=== PATIENT | male | born 1955 | race Caucasian/White ===

== ENCOUNTER 2016-06-21 09:37 | Inpatient (IN) | payer OTHER ==
[~2016-06-21] VITALS: Ht 195.6 cm; Wt 62.2 kg
[2016-06-21] VITALS (9 sets, daily range): BP systolic 119–176; BP diastolic 72–105; PULSE 112–123; RESP 18–26; TEMP 97.8–99.1; O2SAT 92–98
[~2016-06-21 09:37] MED LIST: ALBU17I INH; ALBU2.5I INH; DUONI NEB; PRED10 PO
[2016-06-21] MEDS ORDERED: ALBU6.7H INH (09:54)
[2016-06-21] MEDS ORDERED: ASMA220A INH (09:54)
[2016-06-21] MEDS ORDERED: HYDR-3133 PO (09:54)
[2016-06-21] MEDS ORDERED: SODIUM CHLORIDE 0.9% FLUSH 10 ML FLUSH IVF PRN (10:00)
--- NOTE | 2016-06-21 10:02 | PD ---
HPI Chief Complaint: Respiratory Symptoms Time Seen by Provider: 09:43 Travel History International Travel<30 days: No Contact w/Intl Traveler<30days: No Traveled to known affect area: No History of Present Illness HPI This patient complains of shortness of breath. Symptoms are severe. He has very advanced COPD. He wears 5 L nasal cannula [id number]. He uses nebulizers at home. Unfortunately still smokes. He has chronic cough. He has chronic intermittent left chest wall pain that is had many times before. No injury. No fever. Paramedics gave him one nebulizer in route and IV Solu- Medrol dose. No alleviating factors. Duration 2 days PFSH Past Medical History Heart Rhythm Problems: No Cancer: No Cardiovascular Problems: No COPD: Yes Diabetes: No Diminished Hearing: No Endocrine: No Genitourinary: No Psychiatric: No Respiratory: Yes (COPD) Immunizations Current: No Thyroid Disease: No Tetanus Vaccination: < 5 Years Influenza Vaccination: Yes Past Surgical History Abdominal Surgery: Yes (HERNIA REPAIR) Social History Alcohol Use: No Tobacco Use: Yes (1 PACK PER MONTH) Substance Use: Yes (COCAINE USER, couple months ago) Allergies-Medications (Allergen,Severity, Reaction): Coded Allergies: Penicillin (Verified Allergy, Intermediate, RASH, 06/21/16) Reported Meds & Prescriptions Reported Meds & Active Scripts Active Reported Asmanex 120 Act Twisthaler (Mometasone 120 Act Inh) 220 Mcg/Act Inh 1 Puff INH BID Proventil Hfa 6.7 GM Inh (Albuterol Sulfate) 90 Mcg/Act Aer 2 Puff INH Q4-6H PRN Hydroxyzine HCl 25 Mg Tab 25 Mg PO HS PRN Review of Systems General / Constitutional: No: Fever Eyes: No: Visual changes HENT: Positive: Congestion, No: Headaches Cardiovascular: Positive: Chest Pain or Discomfort Respiratory: Positive: Cough, Shortness of Breath, Wheezing Gastrointestinal: No: Abdominal Pain Genitourinary: No: Dysuria Musculoskeletal: No: Pain Skin: No Rash Neurologic: No: Weakness Psychiatric: No: Depression Endocrine: No: Polydipsia Hematologic/Lymphatic: No: Easy Bruising Physical Exam Narrative GENERAL: Thin disheveled elderly appearing well-developed patient in respiratory distress. SKIN: Focused skin assessment reveals scabbed and heaped up skin lesions in the left forehead that look potentially cancerous. [facility]. HEAD: Atraumatic. Normocephalic. EYES: Pupils equal and round. No scleral icterus. No injection or drainage. ENT: No nasal bleeding or discharge. Mucous membranes pink and moist. NECK: Trachea midline. No JVD. CARDIOVASCULAR: Regular rate and rhythm. No murmur appreciated. RESPIRATORY: Positive accessory muscle use. Very diminished breath sounds throughout. Some rhonchi and expiratory wheeze. Breath sounds equal bilaterally. GASTROINTESTINAL: Abdomen soft, non-tender, nondistended. Hepatic and splenic margins not palpable. MUSCULOSKELETAL: No obvious deformities. No clubbing. No cyanosis. No edema. Has clear-cut and readily reproducible and obvious chest wall pain in the left upper chest. NEUROLOGICAL: Awake and alert. No obvious cranial nerve deficits. Motor grossly within normal limits. Normal speech. PSYCHIATRIC: Appropriate mood and affect; insight and judgment poor. Data Data Last Documented VS Vital Signs Date Time Temp Pulse Resp B/P Pulse Ox O2 Delivery O2 Flow Rate FiO2 06/21/16 10:11 112 22 172/91 98 Nasal Cannula 5 06/21/16 09:40 98.4 Orders Electrocardiogram (06/21/16 ) Complete Blood Count With Diff (06/21/16 09:52) Basic Metabolic Panel (Bmp) (06/21/16 09:52) Iv Access Insert/Monitor (06/21/16 09:52) Ecg Monitoring (06/21/16 09:52) Oximetry (06/21/16 09:52) Oxygen Administration (06/21/16 09:52) Chest, Single Ap (06/21/16 09:52) Sodium Chloride 0.9% Flush (Ns Flush) (06/21/16 10:00) Albuterol-Ipratropium Neb (Duoneb Neb) (06/21/16 10:00) Oxycodone-Acetamin 5-325 Mg (Percocet (06/21/16 10:45) Labs Laboratory Tests Test 06/21/16 09:50 White Blood Count 17.4 TH/MM3 Red Blood Count 4.34 MIL/MM3 Hemoglobin 12.9 GM/DL Hematocrit 38.3 % Mean Corpuscular Volume 88.4 FL Mean Corpuscular Hemoglobin 29.7 PG Mean Corpuscular Hemoglobin 33.6 % Concent Red Cell Distribution Width 13.7 % Platelet Count 302 TH/MM3 Mean Platelet Volume 7.3 FL Neutrophils (%) (Auto) 81.1 % Lymphocytes (%) (Auto) 11.4 % Monocytes (%) (Auto) 5.4 % Eosinophils (%) (Auto) 1.7 % Basophils (%) (Auto) 0.4 % Neutrophils # (Auto) 14.1 TH/MM3 Lymphocytes # (Auto) 2.0 TH/MM3 Monocytes # (Auto) 0.9 TH/MM3 Eosinophils # (Auto) 0.3 TH/MM3 Basophils # (Auto) 0.1 TH/MM3 CBC Comment DIFF FINAL Differential Comment Sodium Level 138 MEQ/L Potassium Level 3.7 MEQ/L Chloride Level 96 MEQ/L Carbon Dioxide Level 41.4 MEQ/L Anion Gap 1 MEQ/L Blood Urea Nitrogen 10 MG/DL Creatinine 0.55 MG/DL Estimat Glomerular Filtration 151 ML/MIN Rate Random Glucose 104 MG/DL Calcium Level 9.1 MG/DL MDM Medical Decision Making Medical Screen Exam Complete: Yes Emergency Medical Condition: Yes Medical Record Reviewed: Yes Differential Diagnosis Differential diagnosis includes COPD, asthma, pneumonia, bronchitis, CHF Narrative Course I have reviewed the patient's electronic medical record. This is the patient's seventh visit for COPD since 2010 Patient arrives critically ill. He is having acute hypoxic respiratory failure and is laboring to breathe. IV placed I reviewed his EKG which shows sinus tachycardia Extended cardiac monitoring shows sinus tachycardia I reviewed his chest x-ray which shows stable COPD changes similar to prior I gave him a series of 3 nebulizer treatments On 5 L nasal cannula he is 90% We'll place him on oxygen mask CBC shows leukocytosis likely from his chronic steroid use Metabolic profile reasonably normal On recheck he is somewhat improved After all the above therapy and another recheck he is out of the critical state However not ready for discharge Saturations are now low to mid 90s on 5 L and he has poor air movement with some wheeze Recommending 23 hour observation for acute exacerbation of chronic COPD Initially critically ill but now improved to regular floor status His chest pain is clearly chest wall in origin and will not require further workup. I gave him a pain pill for it I've placed a call to the hospitalist to discuss Critical Care Narrative Aggregate critical care time was 34 minutes. Time to perform other separately billable procedures was not included in the critical care time. My time did not include minutes spent treating any other patients simultaneously or on activities that did not directly contribute to the patient's treatment. The services I provided to this patient were to treat and/or prevent clinically significant deterioration that could result in: Cardiopulmonary arrest, hypoxemic brain injury, respiratory collapse I provided critical care services requiring my management, as noted below: Chart data review, documentation time, medication orders and management, vital sign assessments/reviewing monitor data, ordering and reviewing lab tests, ordering and interpreting/reviewing x-rays and diagnostic studies, care of the patient and discussion of the patient with the admitting physicians. Diagnosis Primary Impression: Acute respiratory failure with hypoxia Additional Impression: COPD exacerbation Admitting Information Admitting Physician Requests: Observation Barak Huber MD Jun 21, 2016 10:01
[2016-06-21] MEDS: RESP: ALBUTEROL 2.5 MG/IPRATROPIUM 0.5 MG NEB (SCH) INH ×4 (10:04→23:53)
[2016-06-21 10:25] LABS: AUTOMATED NEUTROPHIL # 14.1 TH/MM3 (1.8-7.7); BASOPHIL # 0.1 TH/MM3 (0-0.2); BASOPHIL % 0.4 % (0.0-2.0); EOSINOPHIL # 0.3 TH/MM3 (0-0.4); EOSINOPHIL % 1.7 % (0.0-4.0); HEMATOCRIT 38.3 % (39.0-51.0); HEMO FLAGS DIFF FINAL; LYMPH % 11.4 % (9.0-44.0); MEAN CELL VOLUME 88.4 FL (80.0-100.0); MEAN CORPUSCULAR HEMOGLOBIN 29.7 PG (27.0-34.0); MEAN CORPUSCULAR HGB CONC 33.6 % (32.0-36.0); MONO % 5.4 % (0.0-8.0); NEUT % 81.1 % (16.0-70.0); PLATELET COUNT 302 TH/MM3 (150-450); RED BLOOD COUNT 4.34 MIL/MM3 (4.50-5.90); RED CELL DISTRIBUTION WIDTH 13.7 % (11.6-17.2); WHITE BLOOD COUNT 17.4 TH/MM3 (4.0-11.0)
--- NOTE | 2016-06-21 10:39 | RADRPT ---
EXAM DATE/TIME: 06/21/2016 09:51 [facility] COMPARISON: CT PULMONARY ANGIOGRAM, December 20, 2015, 15:51. CHEST SINGLE AP, December, 15:05. INDICATIONS : Shortness of breath. MEDICAL HISTORY : Chronic obstructive pulmonary disease. Emphysema. SURGICAL HISTORY : None. ENCOUNTER: Initial ACUITY: 1 day PAIN SCORE: 0/10 LOCATION: Bilateral chest FINDINGS: AP upright portable view of the chest demonstrates stable hyperinflation consistent with emphysema an d stable left lower lobe bronchiectasis. No evidence of pneumothorax or new air space opacity. The heart size is normal Vasculature is normal. Osseous structures are unremarkable. CONCLUSION: Stable emphysema and bronchiectasis of the left lower lobe. No new finding. Adrianne De Guzman MD on June 21, 2016 at 10:36 Board Certified Radiologist. This report was verified electronically.
[2016-06-21 10:41] LABS: BICARBONATE 41.4 MEQ/L (21.0-32.0); POTASSIUM 3.7 MEQ/L (3.5-5.1)
[2016-06-21] MEDS ORDERED: oxyCODONE/ACETAMINOPHEN 5 MG/325 MG TAB PO ONE (10:45)
[2016-06-21] MEDS ORDERED: SODIUM CHLORIDE 0.9% FLUSH 10 ML FLUSH IV FLUSH PRN (12:30)
[2016-06-21] MEDS ORDERED: RESP: ALBUTEROL 2.5 MG/3 ML NEB (PRN) INH (12:30)
[2016-06-21] MEDS: methylPREDNISolone SOD SUCC 125 MG/2 ML VIAL IVP SCH ×2 (12:42→19:59)
[2016-06-21] MEDS: ENOXAPARIN SODIUM 40 MG/0.4 ML SYRINGE SQ SCH (12:47)
[2016-06-21] MEDS ORDERED: AZITHROMYCIN 250 MG TAB PO SCH (13:00)
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
[2016-06-21] MEDS: ACETAMINOPHEN/HYDROcodone 325 MG/5 MG TAB PO PRN ×2 (19:59→23:58)
[2016-06-21] MEDS: SODIUM CHLORIDE 0.9% FLUSH 10 ML FLUSH IV FLUSH SCH (19:59)
[2016-06-21] MEDS: hydrOXYzine HCL 25 MG TAB PO SCH (20:00)
[2016-06-21] MEDS: BUDESONIDE-FORMOTEROL 160/4.5 MCG INHALER INH SCH (20:00)
[2016-06-22] VITALS (11 sets, daily range): BP systolic 108–141; BP diastolic 76–81; PULSE 103–123; RESP 18–22; TEMP 97.8–99.3; O2SAT 91–99
[2016-06-22] MEDS: RESP: ALBUTEROL 2.5 MG/IPRATROPIUM 0.5 MG NEB (SCH) INH ×6 (04:32→23:31)
[2016-06-22 05:04] LABS: AUTOMATED NEUTROPHIL # 24.7 TH/MM3 (1.8-7.7); BASOPHIL % 0.1 % (0.0-2.0); HEMATOCRIT 37.3 % (39.0-51.0); HEMO FLAGS DIFF FINAL; LYMPH % 1.9 % (9.0-44.0); LYMPHOCYTE # 0.5 TH/MM3 (1.0-4.8); MEAN CELL VOLUME 88.7 FL (80.0-100.0); MEAN CORPUSCULAR HEMOGLOBIN 29.1 PG (27.0-34.0); MEAN CORPUSCULAR HGB CONC 32.8 % (32.0-36.0); MONO % 2.9 % (0.0-8.0); NEUT % 95.1 % (16.0-70.0); PLATELET COUNT 261 TH/MM3 (150-450); RED CELL DISTRIBUTION WIDTH 13.4 % (11.6-17.2)
[2016-06-22 05:18] LABS: BICARBONATE 36.2 MEQ/L (21.0-32.0)
[2016-06-22] MEDS: methylPREDNISolone SOD SUCC 125 MG/2 ML VIAL IVP SCH ×2 (06:05)
[2016-06-22] MEDS: BUDESONIDE-FORMOTEROL 160/4.5 MCG INHALER INH SCH ×2 (07:58→20:44)
[2016-06-22] MEDS: SODIUM CHLORIDE 0.9% FLUSH 10 ML FLUSH IV FLUSH SCH ×2 (07:59→20:44)
[2016-06-22] MEDS ORDERED: MORPHINE SULFATE 4 MG/ML INJ IV PUSH PRN (09:30)
--- NOTE | 2016-06-22 09:39 | HHI.PR ---
Subjective Remarks Patient reports frustration this morning. He gets chest wall pain with coughing. He appears anxious as well. Breathing is better. He is requesting for pain medication through the IV but also indicated he does not want to stay in the hospital. Objective Vitals Vital Signs Date Time Temp Pulse Resp B/P Pulse Ox O2 Delivery O2 Flow Rate FiO2 06/22/16 08:38 98.0 114 19 108/81 94 06/22/16 07:35 98 Nasal Cannula 5.00 06/22/16 05:26 97.8 103 18 116/77 99 06/22/16 02:36 98.2 104 18 112/77 97 06/21/16 20:00 94 Nasal Cannula 5.00 06/21/16 19:03 98.1 115 18 132/78 95 06/21/16 15:36 99.1 117 22 119/72 95 06/21/16 12:43 97.8 112 22 134/86 97 Nasal Cannula 5 06/21/16 11:45 17 06/21/16 11:39 118 22 139/85 95 Nasal Cannula 5 06/21/16 10:11 112 22 172/91 98 Nasal Cannula 5 06/21/16 10:04 93 Nasal Cannula 5.00 06/21/16 09:57 120 26 94 Nasal Cannula 5 06/21/16 09:57 94 Nasal Cannula 5 06/21/16 09:46 123 24 Nasal Cannula 4 06/21/16 09:40 98.4 123 26 176/105 92 I/O 06/21/16 06/21/16 06/21/16 06/22/16 06/22/16 06/22/16 07:00 15:00 23:00 07:00 15:00 23:00 Intake Total 200 ml 480 ml Output Total 500 ml 350 ml Balance -300 ml 130 ml Intake Oral 200 ml 480 ml Output Urine Total 500 ml 350 ml # Voids 1 2 # Bowel Movements 0 Result Diagram: 06/22/16 0454 06/22/16 0454 Imaging Last Impressions Chest X-Ray 06/21/1652 Signed Impressions: Service Date/Time: Tuesday, June 21, 2016 09:51 - CONCLUSION: Stable emphysema and bronchiectasis of the left lower lobe. No new finding. Adrianne De Guzman MD Objective Remarks GENERAL: Disheveled male. Appears older than stated age. No acute distress. CARDIOVASCULAR: Normal rate and regular rhythm without murmurs, gallops, or rubs. RESPIRATORY: Air movement is fair. Faint wheezing diffusely. GASTROINTESTINAL: Abdomen soft, non-tender, non-distended. Normal active bowel sounds MUSCULOSKELETAL: Extremities without cyanosis, or edema. NEURO: Alert & Oriented x4 to person, place, time, situation. Moves all ext x4 PSYCH: Appropriate mood and affect. A/P Problem List: (1) Acute respiratory failure with hypoxia ICD Code: J96.01 Status: Acute (2) COPD exacerbation ICD Code: J44.1 Status: Acute (3) Tobacco abuse ICD Code: Z72.0 Status: Acute Assessment and Plan 60-year-old male with: Acute respiratory failure with hypoxemia secondary to COPD exacerbation: - Supplemental oxygen. He is back at his base line 5 L - Transition to oral prednisone - Azithromycin - Breathing treatments Chest wall pain associated with coughing: EKG and cardiac enzymes obtain an overnight. All unremarkable. - We'll give morphine for pain. Leukocytosis: Likely related to steroid. No signs of acute infectious process. History of cocaine abuse: Unsure when he last used. He seems very anxious today. - Will add Ativan as needed for anxiety. Tobacco abuse: Patient has no inclination to quit at this point. He was extensively counseled on the detrimental effects of tobacco on his health. He was advised to quit. Discharge Planning Continue to monitor the patient today. If he feels better later he can potentially go home on prednisone, azithromycin, resume breathing treatments and supplemental oxygen. Tray Guidry MD Jun 22, 2016 09:39
[2016-06-22] MEDS ORDERED: MORPHINE SULFATE 4 MG/ML INJ IV PUSH ONE (09:45)
[2016-06-22] MEDS ORDERED: MORPHINE SULFATE 4 MG/ML INJ IM ONE (10:00)
[2016-06-22] MEDS: predniSONE 20 MG TAB PO SCH (10:27)
[2016-06-22] MEDS: AZITHROMYCIN 250 MG TAB PO SCH (13:11)
[2016-06-22] MEDS: oxyCODONE/ACETAMINOPHEN 5 MG/325 MG TAB PO PRN ×2 (13:11→20:45)
[2016-06-22] MEDS: ENOXAPARIN SODIUM 40 MG/0.4 ML SYRINGE SQ SCH (13:12)
--- NOTE | 2016-06-22 14:13 | EKG ---
Date Performed: 06/22/2016 Time Performed: 05:44:12 PTAGE: 60 years EKG: SINUS TACHYCARDIA WITH OCCASIONAL SUPRAVENTRICULAR PREMATURE COMPLEXES ABNORMAL RHYTHM ECG Since PREVIOUS TRACING , no significant change noted PREVIOUS TRACIN06/21/2016 09.46 DOCTOR: Dhara Rosario Interpretating Date/Time 06/22/2016 14:12:05
--- NOTE | 2016-06-22 14:13 | EKG ---
Date Performed: 06/21/2016 Time Performed: 09:46:12 PTAGE: 60 years EKG: SINUS TACHYCARDIA POSSIBLE INFERIOR MYOCARDIAL INFARCTION Since previous tracing, no signif icant change noted ABNORMAL ECG PREVIOUS TRACING : 12/20/2015 14.47 DOCTOR: Dhara Rosario Interpretating Date/Time 06/22/2016 14:11:44
--- NOTE | 2016-06-22 15:33 | EC ---
Study Study Date:06/22/2016 STUDY CONCLUSIONS SUMMARY Procedure narrative: Valvular structures not visulized. Transthoracic echocardiography. Image quality was suboptimal. Scanning was performed from the parasternal, apical, and subcostal acoustic windows. If LV function is below 40, please consider prescribing an ACEI or ARB or document rationale for non-use. PROCEDURE DATA STUDY STATUS: Elective. Procedure: Valvular structures not visulized. Transthoracic echocardiography. Image quality was suboptimal. Scanning was performed from the parasternal, apical, and subcostal acoustic windows. Study completion: The patient tolerated the procedure well. Transthoracic echocardiography. M-mode, complete 2D, complete spectral Doppler, and color Doppler. Height: Height: 66in. Weight: Weight: 148.7lb. Body mass index: BMI: 24kg/m^2. Body surface area: BSA: 1.76m^2. Patient status: Inpatient. CARDIAC ANATOMY Patient weight: 148.7lb _Ejection fraction:_ 65-75% _Fractional shortening:_ 32% up to 5Kg 5-11.5Kg 11.6-22.9Kg 23-45Kg 45-57Kg Aortic Root 7-13 <17 13-22 17-27 17-27 LA diam 6-13 <23 24-38 33-47 37-40 RVID 10-17 7-15 7-15 7-18 8-17 LVIDd 12-22 <32 24-38 33-47 37-40 LVPW 2-4 3-6 5-7 6-8 7-8 IVS 2-4 3-6 5-7 6-8 7-8 BASIC MEASUREMENTS ADULT NORMAL Left ventricle LV internal dimension, ED 42.1 mm 37-56 LV internal dimension, ES 27.7 mm Fractional shortening 34 % 29-45 LV posterior wall, ED 9.79 mm 6-11 Septal/posterior wall ratio, ED 1 Relative wall thickness, ED *0.47 <0.45 Volume, ED, Teichholz 79 ml Volume, ES, Teichholz 28.8 ml Ejection fraction, Teichholz *63.5 % 64-83 Stroke volume, Teichholz 50.2 ml Volume index, ED, Teichholz 45 ml/m^2 Volume index, ES, Teichholz 16 ml/m^2 Stroke index, Teichholz 28.5 ml/m^2 Wall mass 133.8 g Wall mass index 76 g/m^2 Mass/height 0.8 g/cm Ventricular septum Septal thickness, ED 9.79 mm Right ventricle RV internal dimension, ED 25.9 mm LEGEND: Mean values are shown as u=mean value. Asterisk (*) hodgson values outside specified normal range. Prepared and signed by Monroe Robles [id number]
[2016-06-22] MEDS: hydrOXYzine HCL 25 MG TAB PO SCH (20:44)
[2016-06-23] VITALS (16 sets, daily range): BP systolic 104–136; BP diastolic 68–81; PULSE 109–143; RESP 16–24; TEMP 96.3–100.5; O2SAT 89–98
[2016-06-23] MEDS: RESP: ALBUTEROL 2.5 MG/IPRATROPIUM 0.5 MG NEB (SCH) INH ×5 (03:35→21:44)
[2016-06-23] MEDS: oxyCODONE/ACETAMINOPHEN 5 MG/325 MG TAB PO PRN ×2 (03:54→21:10)
[2016-06-23] MEDS: LORazepam 2 MG/ML VIAL IV PUSH PRN ×2 (03:55→09:15)
[2016-06-23] MEDS ORDERED: DILTIAZEM HCL 30 MG TAB PO ONE (04:45)
[2016-06-23] MEDS: SODIUM CHLORIDE 0.9% FLUSH 10 ML FLUSH IV FLUSH SCH ×2 (07:57→21:09)
[2016-06-23] MEDS: predniSONE 20 MG TAB PO SCH (07:57)
[2016-06-23] MEDS: BUDESONIDE-FORMOTEROL 160/4.5 MCG INHALER INH SCH ×2 (07:58→21:09)
--- NOTE | 2016-06-23 09:03 | HHI.PR ---
Subjective Remarks Patient with worsening respiratory failure overnight. Chest wall pain with cough but no pain at rest. Tachycardic this morning on a simple mask. Will require further workup and treatment. Admit to inpatient. Objective Vitals Vital Signs Date Time Temp Pulse Resp B/P Pulse Ox O2 Delivery O2 Flow Rate FiO2 06/23/16 08:44 143 20 91 06/23/16 08:01 100.5 138 20 104/68 89 06/23/16 07:16 91 Nasal Cannula 5.00 06/23/16 04:55 21 06/23/16 04:49 98.8 125 16 122/79 90 06/23/16 00:41 97.8 121 18 126/75 93 06/22/16 23:33 94 Nasal Cannula 5.00 06/22/16 20:30 120 06/22/16 20:16 98.7 119 18 141/79 91 06/22/16 20:06 94 Nasal Cannula 5.00 06/22/16 15:47 99.3 121 22 122/78 93 06/22/16 15:26 123 06/22/16 11:10 98.6 117 22 112/76 95 06/22/16 10:31 18 I/O 06/22/16 06/22/16 06/22/16 06/23/16 06/23/16 06/23/16 07:00 15:00 23:00 07:00 15:00 23:00 Intake Total 480 ml Output Total 350 ml 800 ml Balance 130 ml -800 ml Intake Oral 480 ml Output Urine Total 350 ml 800 ml # Voids 2 Result Diagram: 06/22/16 0454 06/22/16 0454 Objective Remarks GENERAL: Disheveled male. Appears older than stated age. Mild respiratory distress CARDIOVASCULAR: Normal rate and regular rhythm without murmurs, gallops, or rubs. RESPIRATORY: Air movement is fair. Diffuse wheezing and rhonchi mely. GASTROINTESTINAL: Abdomen soft, non-tender, non-distended. Normal active bowel sounds MUSCULOSKELETAL: Extremities without cyanosis, or edema. NEURO: Alert & Oriented x4 to person, place, time, situation. Moves all ext x4 PSYCH: Appropriate mood and affect. A/P Problem List: (1) Acute respiratory failure with hypoxia ICD Code: J96.01 Status: Acute (2) COPD exacerbation ICD Code: J44.1 Status: Acute (3) Tobacco abuse ICD Code: Z72.0 Status: Acute Assessment and Plan 60-year-old male with: Acute respiratory failure with hypoxemia secondary to COPD exacerbation: Worsening. - Obtain CTA to rule out PE - Supplemental oxygen. - Switch back to Solumedrol - Will treat with Azithromycin and Rocephin at this point. May have CAP not showing up on imaging yet. - Breathing treatments Sinus tachycardia: Likely related to above. Patient also with h/o cocaine abuse - Will give a dose of IV cardizem and monitor closely. By mouth Cardizem as needed. Ativan as needed - 2d echo. Chest wall pain associated with coughing: EKG and cardiac enzymes obtain an overnight. All unremarkable. - Morphine for pain. Cocaine abuse: - Ativan PRN Tobacco abuse: Patient has no inclination to quit at this point. He was extensively counseled on the detrimental effects of tobacco on his health. He was advised to quit. Discharge Planning Patient in respiratory failure. Admit to inpatient and transfer to higher level [facility] care in [facility] or [facility]. Tray Guidry MD Jun 23, 2016 09:03 Tray Guidry MD Jun 23, 2016 09:03
--- NOTE | 2016-06-23 09:06 | RADRPT ---
EXAM DATE/TIME: 06/23/2016 08:50 [facility] COMPARISON: CHEST SINGLE AP, June 21, 2016, 9:51. INDICATIONS : Patient has been short of breath since yesterday. MEDICAL HISTORY : Chronic obstructive pulmonary disease. Tobacco use. SURGICAL HISTORY : Hernia repair. ENCOUNTER: Initial ACUITY: 2 days PAIN SCORE: 0/10 LOCATION: Bilateral chest FINDINGS: There is multiple patchy right and left basilar airspace disease with more focal consolidative opacit y in the left midlung laterally. There is cardiomegaly. No effusions. Aortic calcification. Osseous s tructures are intact. Emphysematous changes are identified. CONCLUSION: Worsening appearance of the chest. Sunil Kenny MD on June 23, 2016 at 9:04 Board Certified Radiologist. This report was verified electronically.
[2016-06-23] MEDS: methylPREDNISolone SOD SUCC 40 MG/1 ML VIAL IV PUSH SCH ×3 (09:16→17:54)
[2016-06-23 09:29] LABS: AMPHETAMINE, URINE NEG (NEG); BARBITURATES, URINE NEG (NEG); COCAINE, URINE POS (NEG)
[2016-06-23] MEDS ORDERED: IOHEXOL 350 MG/ML 10 ML VIAL (for RAD DIAG) IV ONE (09:52)
--- NOTE | 2016-06-23 10:07 | RADRPT ---
EXAM DATE/TIME: 06/23/2016 09:31 [facility] COMPARISON: CHEST SINGLE AP, June 23, 2016, 8:50. CT PULMONARY ANGIOGRAM, December 20, 2015, 15:51. INDICATIONS : Short of breath. IV CONTRAST: 55 cc Omnipaque 350 (iohexol) IV RADIATION DOSE: 5.71 CTDIvol (mGy) MEDICAL HISTORY : Chronic obstructive pulmonary disease. SURGICAL HISTORY : None. ENCOUNTER: Initial ACUITY: 2 days PAIN SCALE: 4/10 LOCATION: Bilateral chest TECHNIQUE: Volumetric scanning of the chest was performed using a pulmonary embolism protocol MIP images were re constructed. Using automated exposure control and adjustment of the mA and/or kV according to patien t size, radiation dose was kept as low as reasonably achievable to obtain optimal diagnostic quality images. FINDINGS: There is severe respiratory motion artifact. PULMONARY ARTERIES: Less than optimal evaluation of the pulmonary state to be severe respiratory motion artifact. No PE i s identified through most of the lobar and some of the segmental level pulmonary arteries. LUNGS: There is severe centrilobular and paraseptal emphysema with bullous changes in the lung apices. There is severe airspace consolidation in the left upper lobe and left lower lobe. No pneumothorax is visu alized. PLEURAE: There is no pleural thickening or pleural effusion. MEDIASTINUM: The there is mild atherosclerotic disease of the aorta. The heart and great vessels demonstrate no ac kenyon finding. There is an enlarged AP window lymph node measuring 13 mm in short axis diameter. MUSCULOSKELETAL: There are degenerative changes of the thoracic spine. MISCELLANEOUS: The visualized upper abdominal organs demonstrate no acute abnormality. CONCLUSION: 1. Examination quality significantly degraded secondary to severe respiratory motion artifact. Given this limitation, no PE is identified. 2. Severe left upper and left lower lobe airspace consolidation. Imaging features are characteristic of an infectious process/pneumonia in the appropriate clinical setting. Recommend followup imaging to confirm resolution following appropriate treatment. 3. Enlarged AP window lymph node may be reactive secondary to the left lung process. 4. Severe emphysema. Titus Reyes MD on June 23, 2016 at 10:00 Board Certified Radiologist. This report was verified electronically.
[2016-06-23] MEDS ORDERED: DILTIAZEM HCL 25 MG/5 ML VIAL IV ONE (11:15)
[2016-06-23 11:22] LABS: AUTOMATED NEUTROPHIL # 24.9 TH/MM3 (1.8-7.7); BASOPHIL # 0.1 TH/MM3 (0-0.2); BASOPHIL % 0.4 % (0.0-2.0); HEMATOCRIT 38.4 % (39.0-51.0); LYMPHOCYTE # 0.5 TH/MM3 (1.0-4.8); MEAN CELL VOLUME 90.2 FL (80.0-100.0); MEAN CORPUSCULAR HEMOGLOBIN 28.9 PG (27.0-34.0); MEAN CORPUSCULAR HGB CONC 32.1 % (32.0-36.0); MONO % 4.8 % (0.0-8.0); NEUT % 92.8 % (16.0-70.0); PLATELET COUNT 238 TH/MM3 (150-450); RED BLOOD COUNT 4.26 MIL/MM3 (4.50-5.90); RED CELL DISTRIBUTION WIDTH 13.9 % (11.6-17.2); WHITE BLOOD COUNT 26.8 TH/MM3 (4.0-11.0)
[2016-06-23 11:24] LABS: HEMO FLAGS AUTO DIFF
[2016-06-23 11:47] LABS: BICARBONATE 36.9 MEQ/L (21.0-32.0)
[2016-06-23 12:28] LABS: BANDS 25 % (0-6); NEUTROPHIL # MANUAL DIFF 24.1 TH/MM3 (1.8-7.7); PLATELET ESTIMATE SMEAR NORMAL (NORMAL); PLATELET MORPHOLOGY NORMAL (NORMAL); POLYS (SEG NEUTROPHILS) 65 % (16-70); SCAN/DIFF FINAL DIFF MANUAL; WBC DIFF SAMPLE 100
[2016-06-23 12:29] LABS: TOXIC VACUOLATION PRESENT (NONE SEEN)
[2016-06-23] MEDS: ENOXAPARIN SODIUM 40 MG/0.4 ML SYRINGE SQ SCH (13:04)
[2016-06-23] MEDS: cefTRIAXone INJ 1,000 MG in SODIUM CHLORIDE 0.9% INJ 100 ML IV SCH (15:42)
[2016-06-23] MEDS: AZITHROMYCIN 250 MG TAB PO SCH (15:42)
[2016-06-23] MEDS: DILTIAZEM HCL 30 MG TAB PO SCH (17:54)
[2016-06-23] MEDS: hydrOXYzine HCL 25 MG TAB PO SCH (21:09)
[2016-06-24] VITALS (13 sets, daily range): BP systolic 107–143; BP diastolic 71–75; PULSE 74–98; RESP 18–20; TEMP 92–98.4; O2SAT 89–95
[2016-06-24] MEDS: RESP: ALBUTEROL 2.5 MG/IPRATROPIUM 0.5 MG NEB (SCH) INH ×6 (00:47→21:11)
[2016-06-24] MEDS: methylPREDNISolone SOD SUCC 40 MG/1 ML VIAL IV PUSH SCH ×4 (00:54→16:14)
[2016-06-24] MEDS: DILTIAZEM HCL 30 MG TAB PO SCH ×4 (00:54→16:14)
[2016-06-24] MEDS: cefTRIAXone INJ 1,000 MG in SODIUM CHLORIDE 0.9% INJ 100 ML IV SCH ×2 (03:46→16:14)
[2016-06-24] MEDS: oxyCODONE/ACETAMINOPHEN 5 MG/325 MG TAB PO PRN ×4 (04:59→20:33)
[2016-06-24] MEDS: BUDESONIDE-FORMOTEROL 160/4.5 MCG INHALER INH SCH ×2 (07:55→20:31)
[2016-06-24] MEDS: SODIUM CHLORIDE 0.9% FLUSH 10 ML FLUSH IV FLUSH SCH ×2 (07:56→20:31)
[2016-06-24 10:53] LABS: HEMATOCRIT 37.2 % (39.0-51.0); MEAN CELL VOLUME 88.8 FL (80.0-100.0); MEAN CORPUSCULAR HEMOGLOBIN 29.2 PG (27.0-34.0); MEAN CORPUSCULAR HGB CONC 32.9 % (32.0-36.0); PLATELET COUNT 232 TH/MM3 (150-450); RED BLOOD COUNT 4.19 MIL/MM3 (4.50-5.90); RED CELL DISTRIBUTION WIDTH 13.9 % (11.6-17.2); REVIEW FLAG FINAL; WHITE BLOOD COUNT 25.1 TH/MM3 (4.0-11.0)
[2016-06-24] MEDS: AZITHROMYCIN 250 MG TAB PO SCH (11:24)
[2016-06-24] MEDS: ENOXAPARIN SODIUM 40 MG/0.4 ML SYRINGE SQ SCH (11:24)
[2016-06-24 11:56] LABS: BICARBONATE 37.9 MEQ/L (21.0-32.0); POTASSIUM 3.9 MEQ/L (3.5-5.1)
--- NOTE | 2016-06-24 14:12 | HHI.PR ---
Subjective Remarks Patient reports his breathing is better today. No chest pain. He is hoping to go home tomorrow. Objective Vitals Vital Signs Date Time Temp Pulse Resp B/P Pulse Ox O2 Delivery O2 Flow Rate FiO2 06/24/16 08:44 93 Simple Mask 8.00 06/24/16 08:00 97.1 84 20 107/73 93 06/24/16 08:00 Simple Mask 5.00 06/24/16 04:00 97.3 74 18 114/71 94 06/24/16 03:35 92 Simple Mask 8.00 06/24/16 00:48 91 Simple Mask 8.00 06/24/16 00:00 92.0 93 18 111/73 90 06/23/16 21:46 98 Simple Mask 8.00 06/23/16 20:00 98.0 112 18 120/81 94 06/23/16 20:00 109 06/23/16 20:00 Simple Mask 5.00 06/23/16 18:18 133 06/23/16 17:23 91 Simple Mask 8.00 06/23/16 16:00 96.3 109 20 120/70 95 06/23/16 14:10 92 Simple Mask 8.00 I/O 06/23/16 06/23/16 06/23/16 06/24/16 06/24/16 06/24/16 07:00 15:00 23:00 07:00 15:00 23:00 Intake Total 480 ml 240 ml Output Total 200 ml 175 ml Balance 280 ml 65 ml Intake Oral 480 ml 240 ml Output Urine Total 200 ml 175 ml # Bowel Movements 0 0 Result Diagram: 06/24/16 0957 06/24/16 0957 Imaging Last Impressions Chest X-Ray 06/23/16 0000 Signed Impressions: Service Date/Time: Thursday, June 23, 2016 08:50 - CONCLUSION: Worsening appearance of the chest. Sunil Kenny MD CT Angiography 06/23/16 0000 Signed Impressions: Service Date/Time: Thursday, June 23, 2016 09:31 - CONCLUSION: 1. Examination quality significantly degraded secondary to severe respiratory motion artifact. Given this limitation, no PE is identified. 2. Severe left upper and left lower lobe airspace consolidation. Imaging features are characteristic of an infectious process/pneumonia in the appropriate clinical setting. Recommend followup imaging to confirm resolution following appropriate treatment. 3. Enlarged AP window lymph node may be reactive secondary to the left lung process. 4. Severe emphysema. Titus Reyes MD Objective Remarks GENERAL: Disheveled male. Appears older than stated age. Mild respiratory distress CARDIOVASCULAR: Normal rate and regular rhythm without murmurs, gallops, or rubs. RESPIRATORY: Diminished bilaterally at the bases. Otherwise clear to auscultation. No more wheezing today. GASTROINTESTINAL: Abdomen soft, non-tender, non-distended. Normal active bowel sounds MUSCULOSKELETAL: Extremities without cyanosis, or edema. NEURO: Alert & Oriented x4 to person, place, time, situation. Moves all ext x4 PSYCH: Appropriate mood and affect. A/P Problem List: (1) Acute respiratory failure with hypoxia ICD Code: J96.01 Status: Acute (2) COPD exacerbation ICD Code: J44.1 Status: Acute (3) Tobacco abuse ICD Code: Z72.0 Status: Acute Assessment and Plan 60-year-old male with: Acute respiratory failure with hypoxemia secondary to COPD exacerbation: -CTA negative for PE but consistent with pneumonia - Supplemental oxygen. -Continue Solumedrol -Continue Azithromycin and Rocephin - Breathing treatments Sinus tachycardia: Likely related to above. Patient also with h/o cocaine abuse - Cardizem as needed. Ativan as needed. Chest wall pain associated with coughing: EKG and cardiac enzymes obtain an overnight. All unremarkable. - Morphine for pain. Cocaine abuse: - Ativan PRN Tobacco abuse: Patient has no inclination to quit at this point. He was extensively counseled on the detrimental effects of tobacco on his health. He was advised to quit. Discharge Planning Patient slowly improving. Continue inpatient treatment. Tray Guidry MD Jun 24, 2016 14:12
[2016-06-24] MEDS: hydrOXYzine HCL 25 MG TAB PO SCH (20:33)
[2016-06-25] VITALS: BP 137/71; PULSE 96; RESP 20; TEMP 97.1; O2SAT 93
[2016-06-25] MEDS: RESP: ALBUTEROL 2.5 MG/IPRATROPIUM 0.5 MG NEB (SCH) INH ×4 (00:16→11:19)
[2016-06-25] MEDS: DILTIAZEM HCL 30 MG TAB PO SCH ×2 (00:18→04:40)
[2016-06-25] MEDS: oxyCODONE/ACETAMINOPHEN 5 MG/325 MG TAB PO PRN ×2 (00:18→04:40)
[2016-06-25] MEDS: methylPREDNISolone SOD SUCC 40 MG/1 ML VIAL IV PUSH SCH ×2 (00:19→04:40)
[2016-06-25] MEDS: cefTRIAXone INJ 1,000 MG in SODIUM CHLORIDE 0.9% INJ 100 ML IV SCH (03:18)
[2016-06-25 04:00] VITALS: BP 122/76; PULSE 80; RESP 20; TEMP 98.2; O2SAT 92
[2016-06-25 07:52] VITALS: O2SAT 92
[2016-06-25 07:53] VITALS: PULSE 80
[2016-06-25 08:00] VITALS: BP 131/84; PULSE 96; RESP 20; TEMP 98; O2SAT 90
[2016-06-25] MEDS: BUDESONIDE-FORMOTEROL 160/4.5 MCG INHALER INH SCH (09:09)
[2016-06-25] MEDS: SODIUM CHLORIDE 0.9% FLUSH 10 ML FLUSH IV FLUSH SCH (09:09)
[2016-06-25] MEDS ORDERED: AZIT250T3 PO (09:23)
[2016-06-25] MEDS ORDERED: SYMB160A INH (09:23)
[2016-06-25] MEDS ORDERED: OXYC1TAB63 PO (09:23)
[2016-06-25] MEDS ORDERED: PRED20 PO (09:24)
[2016-06-25] MEDS ORDERED: CEFU1TAB20 PO (09:24)
--- NOTE | 2016-06-25 09:24 | HHI.DCPOC ---
Discharge Care Plan Diagnosis: (1) Acute respiratory failure with hypoxia (2) Pneumonia (3) COPD exacerbation (4) Tobacco abuse (5) COPD exacerbation (6) Cocaine abuse Goals to Promote Your Health * To prevent worsening of your condition and complications * To maintain your health at the optimal level Directions to Meet Your Goals Take your medications as prescribed Follow your dietary instruction Follow activity as directed Keep your appointments as scheduled Take your immunizations and boosters as scheduled If your symptoms worsen call your PCP, if no PCP go to Urgent Care Center or Emergency Room Smoking is Dangerous to Your Health. Avoid second hand smoke Call the 24-hour hour crisis hotline for domestic abuse at Tray Guidry MD Jun 25, 2016 09:24
--- NOTE | 2016-06-25 09:25 | HHI.DS ---
Discharge Summary Admission Date Jun 23, 2016 at 08:55 Discharge Date: Jun 25, 2016 Admitting Diagnosis acute exac of chronic COPD (1) Acute respiratory failure with hypoxia ICD Code: J96.01 (2) COPD exacerbation ICD Code: J44.1 (3) Tobacco abuse ICD Code: Z72.0 Procedures None Brief History - From Admission 60-year-old male with advanced COPD/emphysema presents with complaint of shortness of breath that has been ongoing for the past couple of days. The patient used his nebulizer at home without relief. He denies any new cough, no fevers. He continues to smoke. The patient received IV Solu-Medrol and a few breathing treatment so far. Currently reports he is feeling better. Although he is improving, he was in obvious respiratory distress and hypoxemic on arrival , therefore hospitalist service contacted to admit him for observation for COPD exacerbation. CBC/BMP: 06/24/16 0957 06/24/16 0957 Significant Findings Laboratory Tests Test 06/22/16 06/22/16 06/23/16 06/23/16 11:33 18:07 09:09 11:00 Troponin I LESS THAN 0.02 LESS THAN 0.02 NG/ML NG/ML (0.02-0.05) (0.02-0.05) Urine Opiates Screen POS (NEG) Urine Cocaine Screen POS (NEG) White Blood Count 26.8 TH/MM3 (4.0-11.0) Red Blood Count 4.26 MIL/MM3 (4.50-5.90) Hemoglobin 12.3 GM/DL (13.0-17.0) Hematocrit 38.4 % (39.0-51.0) Neutrophils (%) (Auto) 92.8 % (16.0-70.0) Lymphocytes (%) (Auto) 2.0 % (9.0-44.0) Neutrophils # (Auto) 24.9 TH/MM3 (1.8-7.7) Lymphocytes # (Auto) 0.5 TH/MM3 (1.0-4.8) Monocytes # (Auto) 1.3 TH/MM3 (0-0.9) Band Neutrophils % 25 % (0-6) Lymphocytes % 5 % (9-44) Neutrophils # (Manual) 24.1 TH/MM3 (1.8-7.7) Toxic Vacuolation PRESENT (NONE SEEN) Chloride Level 96 MEQ/L (98-107) Carbon Dioxide Level 36.9 MEQ/L (21.0-32.0) Blood Urea Nitrogen 19 MG/DL (7-18) Random Glucose 134 MG/DL (74-106) Test 06/24/16 09:57 White Blood Count 25.1 TH/MM3 (4.0-11.0) Red Blood Count 4.19 MIL/MM3 (4.50-5.90) Hemoglobin 12.2 GM/DL (13.0-17.0) Hematocrit 37.2 % (39.0-51.0) Chloride Level 97 MEQ/L (98-107) Carbon Dioxide Level 37.9 MEQ/L (21.0-32.0) Anion Gap 3 MEQ/L (5-15) Blood Urea Nitrogen 20 MG/DL (7-18) Creatinine 0.49 MG/DL (0.60-1.30) Random Glucose 155 MG/DL (74-106) Imaging Last Impressions Chest X-Ray 06/23/16 0000 Signed Impressions: Service Date/Time: Thursday, June 23, 2016 08:50 - CONCLUSION: Worsening appearance of the chest. Sunil Kenny MD CT Angiography 06/23/16 0000 Signed Impressions: Service Date/Time: Thursday, June 23, 2016 09:31 - CONCLUSION: 1. Examination quality significantly degraded secondary to severe respiratory motion artifact. Given this limitation, no PE is identified. 2. Severe left upper and left lower lobe airspace consolidation. Imaging features are characteristic of an infectious process/pneumonia in the appropriate clinical setting. Recommend followup imaging to confirm resolution following appropriate treatment. 3. Enlarged AP window lymph node may be reactive secondary to the left lung process. 4. Severe emphysema. Titus Reyes MD PE at Discharge GENERAL: Disheveled male. Appears older than stated age. Mild respiratory distress CARDIOVASCULAR: Normal rate and regular rhythm without murmurs, gallops, or rubs. RESPIRATORY: Diminished bilaterally at the bases. Otherwise clear to auscultation. No more wheezing today. GASTROINTESTINAL: Abdomen soft, non-tender, non-distended. Normal active bowel sounds MUSCULOSKELETAL: Extremities without cyanosis, or edema. NEURO: Alert & Oriented x4 to person, place, time, situation. Moves all ext x4 PSYCH: Appropriate mood and affect. Pt update on day of discharge Patient reports he is feeling back to his baseline. He wants to go home. Breathing status at baseline, no chest pressure or pain. Hospital Course 60-year-old male with severe COPD admitted with respiratory failure. Evaluation and treatment course detailed below: Acute respiratory failure with hypoxemia secondary to COPD exacerbation: -CTA negative for PE but consistent with pneumonia. Patient was treated with Rocephin, azithromycin, Solu-Medrol IV, breathing treatments and supplemental oxygen. His respiratory status improved. At baseline he is on 5 L nasal cannula. The patient knows the severity and end-stage nature of his condition. He is advised to follow up outpatient with his primary care physician at the [facility] and pulmonology. He is discharged on cefuroxime, prednisone taper, and azithromycin to complete a treatment course for pneumonia. Sinus tachycardia: Likely related to above. Patient also with h/o cocaine abuse - Cardizem as needed. Ativan as needed. Resolved. Chest wall pain associated with coughing: EKG and cardiac enzymes obtain an overnight. All unremarkable. -This was treated with morphine for pain. Cocaine abuse: - Ativan PRN Tobacco abuse: Patient has no inclination to quit at this point. He was extensively counseled on the detrimental effects of tobacco on his health. He was advised to quit. Pt Condition on Discharge: Stable Discharge Disposition: Discharge Home Discharge Time: > 30 minutes Discharge Instructions DIET: Follow Instructions for: As Tolerated, No Restrictions Activities you can perform: Regular-No Restrictions Follow up Referrals: PCP Follow-up - 1 Week New Medications: Cefuroxime (Cefuroxime) 500 Mg Tab 500 MG PO BID Infection #14 Ref 0 TAB Prednisone (Prednisone) 20 Mg Tab 20 MG PO DIRECTED Take 60 MG daily x 4 days, then 40 MG x 4 days, then 20 MG daily x 4 days. #24 Ref 0 TAB Azithromycin (Azithromycin) 250 Mg Tab 250 MG PO Q24H #3 TAB Budesonide-Formoterol Inh (Symbicort Inh) 160-4.5 Mcg/Act Aero 2 PUFF INH Q12HR #1 INHALER Oxycodone-Acetaminophen (Oxycodone-Acetaminophen) 5-325 mg Tab 1 TAB PO Q4H PRN PAIN GREATER THAN 5 #10 TAB Continued Medications: Albuterol 6.7 GM Inh (Proventil Hfa 6.7 GM Inh) 90 Mcg/Act Aer 2 PUFF INH Q4-6H PRN SHORTNESS OF BREATH #1 Ref 0 INHALER Hydroxyzine HCl (Hydroxyzine HCl) 25 Mg Tab 25 MG PO HS PRN SHORTNESS OF BREATH #30 Ref 0 TAB Mometasone 120 Act Inh (Asmanex 120 Act Twisthaler) 220 Mcg/Act Inh 1 PUFF INH BID Asthma Management #1 Ref 0 INHALER Tray Guidry MD Jun 25, 2016 09:24
== END 2016-06-25 11:38 | disposition home or self-care (01) | DRG 189 ==
LOC: NEPE 09:37 → NEDA 11:37 → NEPGCP 14:01 → OBSVTOIN 06-23 08:55 → N04B 06-23 12:06
PROVIDERS: ADMIT Family Medicine; ATTEND Family Medicine
DX: J96.01 Acute respiratory failure with hypoxia (principal); J18.9 Pneumonia, unspecified organism; J44.0 Chronic obstructive pulmonary disease with (acute) lower respiratory infection; J44.1 Chronic obstructive pulmonary disease with (acute) exacerbation; F17.200 Nicotine dependence, unspecified, uncomplicated; Z66 Do not resuscitate; F14.10 Cocaine abuse, uncomplicated; T38.0X5A Adverse effect of glucocorticoids and synthetic analogues, initial encounter; Z79.52 Long term (current) use of systemic steroids
CPT/HCPCS: 71010; 71275; 80048; 80307; 84484; 85007; 85025; 85027; 93005; 93306; 94640; 94664; G0378; J0696; J1650; J2060; J2270; J2920; J2930; J7512; Q9967

== ENCOUNTER 2017-04-28 13:01 | Inpatient (IN) | payer OTHER ==
[~2017-04-28] VITALS: Ht 177.8 cm; Wt 75.1 kg
[2017-04-28] VITALS (10 sets, daily range): BP systolic 108–158; BP diastolic 83–92; PULSE 86–141; RESP 20–26; TEMP 97.5–97.9; O2SAT 92–97
[~2017-04-28 13:01] MED LIST changes: -ALBU17I INH; -ALBU2.5I INH; +ALBU6.7H INH; +ASMA220A INH; +AZIT250T3 PO; +CEFU1TAB20 PO; -DUONI NEB; +HYDR-3133 PO; +IPRA17I INH; +LACTTAB8 PO; +LEVA500T33 PO; +OXYC1TAB63 PO; -PRED10 PO; +PRED20 PO; +PRED5PAK PO; +SILV1CRE20 TOPICAL; +SYMB160A INH; +WALKER/ADULT/FO1 MIS
[2017-04-28] MEDS ORDERED: RESP: ALBUTEROL 2.5 MG/IPRATROPIUM 0.5 MG NEB (SCH) INH (13:15)
[2017-04-28] MEDS ORDERED: SPIRCAP INH (13:19)
[2017-04-28 13:40] LABS: AUTOMATED NEUTROPHIL # 10.3 TH/MM3 (1.8-7.7); BASOPHIL % 0.3 % (0.0-2.0); EOSINOPHIL # 0.2 TH/MM3 (0-0.4); EOSINOPHIL % 1.3 % (0.0-4.0); HEMATOCRIT 41.3 % (39.0-51.0); HEMOGLOBIN 13.9 GM/DL (13.0-17.0); LYMPH % 17.2 % (9.0-44.0); LYMPHOCYTE # 2.3 TH/MM3 (1.0-4.8); MEAN CELL VOLUME 89.2 FL (80.0-100.0); MEAN CORPUSCULAR HGB CONC 33.6 % (32.0-36.0); MEAN PLATELET VOLUME 7.1 FL (7.0-11.0); MONOCYTE # 0.7 TH/MM3 (0-0.9); NEUT % 76.2 % (16.0-70.0); PLATELET COUNT 347 TH/MM3 (150-450); RED BLOOD COUNT 4.63 MIL/MM3 (4.50-5.90); RED CELL DISTRIBUTION WIDTH 13.1 % (11.6-17.2); WHITE BLOOD COUNT 13.5 TH/MM3 (4.0-11.0)
--- NOTE | 2017-04-28 13:48 | RADRPT ---
EXAM DATE/TIME: 04/28/2017 13:24 [facility] COMPARISON: CHEST SINGLE AP, November 22, 2016, 16:50. INDICATIONS : Short of breath. MEDICAL HISTORY : Chronic obstructive pulmonary disease. Congestive heart failure. SURGICAL HISTORY : None. ENCOUNTER: Initial ACUITY: 2 days PAIN SCORE: 0/10 LOCATION: Bilateral chest FINDINGS: A single view of the chest demonstrates the lungs to be hyperinflated with persistent pleural-parench ymal scarring emanating from the superior left perihilar distribution. Lungs are otherwise clear with no acute infiltrate. Heart size is normal. Osseous structures are intact. CONCLUSION: 1. Hyperinflation characteristic of COPD. 2. Stable left perihilar pleural-parenchymal scarring. No acute infiltrate. No failure. Slava Comer MD on April 28, 2017 at 13:44 Board Certified Radiologist. This report was verified electronically.
--- NOTE | 2017-04-28 13:56 | PD ---
HPI . Dyspnea Chief Complaint: Respiratory Distress Time Seen by Provider: 13:12 Travel History International Travel<30 days: No Contact w/Intl Traveler<30days: No Traveled to known affect area: No History of Present Illness HPI This is a patient with COPD presents with acutely worsened dyspnea. He is on home oxygen all the time at 4-6 L. He reports no known fever and no sputum production. He is unsure as to what may have exacerbated his COPD today. He used 3 nebulizer treatments at home before calling EMS. He was treated by EMS with Solu-Medrol and a neb en route. Rescue states that his oxygen saturation was in the high 70s on their arrival at the scene. In addition to the dyspnea, he is complaining with some chest pain. PFSH Past Medical History Arthritis: Yes Asthma: No Autoimmune Disease: No Blood Disorders: No Anxiety: No Depression: No Heart Rhythm Problems: No Cancer: Yes (SKIN CA) Cardiovascular Problems: Yes High Cholesterol: No Chemotherapy: No Chest Pain: Yes Congestive Heart Failure: No COPD: Yes Cerebrovascular Accident: Yes (TIA) Coronary Artery Disease: No Diabetes: No Diminished Hearing: Yes Endocrine: No GERD: No Genitourinary: No Hiatal Hernia: No Immune Disorder: No Kidney Stones: No Musculoskeletal: Yes (VIKINGS SYNDROME) Neurologic: Yes Psychiatric: No Reproductive: No Respiratory: Yes Immunizations Current: No Migraines: No Radiation Therapy: No Renal Failure: No Seizures: No Sickle Cell Disease: No Sleep Apnea: No Thyroid Disease: No Ulcer: No Past Surgical History Abdominal Surgery: Yes (HERNIA REPAIR) AICD: No Arteriovenous Shunt: No Cardiac Surgery: No Ear Surgery: No Endocrine Surgery: No Eye Surgery: No Genitourinary Surgery: No Gynecologic Surgery: No Insulin Pump: No Joint Replacement: No Oral Surgery: No Pacemaker: No Thoracic Surgery: No Other Surgery: Yes Social History Alcohol Use: No Tobacco Use: No Substance Use: No Allergies-Medications (Allergen,Severity, Reaction): Coded Allergies: penicillin G (Unverified Allergy, Intermediate, RASH, 04/28/17) Reported Meds & Prescriptions Reported Meds & Active Scripts Active Walker/Adult/Folding (Device) 1 Mis Mis Ea .ROUTE DIRECTED Atrovent HFA 12.9 GM Inh (Ipratropium [place]) 17 Mcg/Act Aer 2 Puff INH Q6HR PRN Silvadene Topical (Silver Sulfadiazine) 1 % Cream 1 Applic TOPICAL DAILY Reported Spiriva Handihaler (Tiotropium Inh) 18 Mcg Cap 18 Mcg INH DAILY 1 capsule = 18 mcg Asmanex 120 Act Twisthaler (Mometasone 120 Act Inh) 220 Mcg/Act Inh 1 Puff INH BID Proventil Hfa 6.7 GM Inh (Albuterol Sulfate) 90 Mcg/Act Aer 2 Puff INH Q4-6H PRN Review of Systems Except as stated in HPI: all other systems reviewed are Neg General / Constitutional: No: Fever, Chills Cardiovascular: Positive: Chest Pain or Discomfort Respiratory: Positive: Shortness of Breath Physical Exam Narrative GENERAL: Disheveled, chronically ill-appearing man who looks much older than his stated age of 61. SKIN: warm/dry. HEAD: Normocephalic. Atraumatic. EYES: Pupils equal and round. No scleral icterus. No injection or drainage. ENT: No nasal bleeding or discharge. Mucous membranes pink and moist. NECK: Trachea midline. Full range of motion without pain.. CARDIOVASCULAR: Sinus tachycardia. RESPIRATORY: Markedly decreased breath sounds with diffuse expiratory wheezing. GASTROINTESTINAL: Abdomen soft. Nontender. Bowel sounds present. Nondistended. MUSCULOSKELETAL: No obvious deformities. No edema. NEUROLOGICAL: Awake and alert. No obvious cranial nerve deficits. Motor grossly within normal limits. Normal speech. PSYCHIATRIC: Appropriate mood and affect; insight and judgment normal. Data Data Last Documented VS Vital Signs Date Time Temp Pulse Resp B/P (MAP) Pulse Ox O2 Delivery O2 Flow Rate FiO2 04/28/17 15:52 22 04/28/17 15:17 97.9 96 108/83 (91) 95 04/28/17 13:20 BiPAP 40 Orders Orders Resp Bipap / Cpap Non Invas Vt (04/28/17 ) Albuterol-Ipratropium Neb (Duoneb Neb) (04/28/17 13:15) Complete Blood Count With Diff (04/28/17 13:13) Basic Metabolic Panel (Bmp) (04/28/17 13:13) B-Type Natriuretic Peptide (04/28/17 13:13) Magnesium (Mg) (04/28/17 13:13) Troponin I (04/28/17 13:13) Arterial Blood Gas (Abg) (04/28/17 13:13) Iv Access Insert/Monitor (04/28/17 13:13) Electrocardiogram (04/28/17 13:13) Ecg Monitoring (04/28/17 13:13) Oximetry (04/28/17 13:13) Oxygen Administration (04/28/17 13:13) Chest, Single Ap (04/28/17 13:13) Sodium Chloride 0.9% Flush (Ns Flush) (04/28/17 13:15) Morphine Inj (Morphine Inj) (04/28/17 14:00) Admit Order (Ed Use Only) (04/28/17 ) Vital Signs (Adult) Q4H (04/28/17 16:03) Diet Heart Healthy (04/28/17 Dinner) Activity Oob With Assistance (04/28/17 16:03) Notify Dr: Other (04/28/17 16:03) Labs Laboratory Tests Test 04/28/17 13:25 04/28/17 15:20 White Blood Count 13.5 TH/MM3 Red Blood Count 4.63 MIL/MM3 Hemoglobin 13.9 GM/DL Hematocrit 41.3 % Mean Corpuscular Volume 89.2 FL Mean Corpuscular Hemoglobin 30.0 PG Mean Corpuscular Hemoglobin Concent 33.6 % Red Cell Distribution Width 13.1 % Platelet Count 347 TH/MM3 Mean Platelet Volume 7.1 FL Neutrophils (%) (Auto) 76.2 % Lymphocytes (%) (Auto) 17.2 % Monocytes (%) (Auto) 5.0 % Eosinophils (%) (Auto) 1.3 % Basophils (%) (Auto) 0.3 % Neutrophils # (Auto) 10.3 TH/MM3 Lymphocytes # (Auto) 2.3 TH/MM3 Monocytes # (Auto) 0.7 TH/MM3 Eosinophils # (Auto) 0.2 TH/MM3 Basophils # (Auto) 0.0 TH/MM3 CBC Comment DIFF FINAL Differential Comment Blood Urea Nitrogen 14 MG/DL Creatinine 0.52 MG/DL Random Glucose 136 MG/DL Calcium Level 9.1 MG/DL Magnesium Level 2.3 MG/DL Sodium Level 140 MEQ/L Potassium Level 4.5 MEQ/L Chloride Level 102 MEQ/L Carbon Dioxide Level 33.7 MEQ/L Anion Gap 4 MEQ/L Estimat Glomerular Filtration Rate 161 ML/MIN Troponin I LESS THAN 0.02 NG/ML B-Type Natriuretic Peptide 11 PG/ML Blood Gas Puncture Site RT RADIAL Blood Gas Patient Temperature 98.6 Blood Gas HCO3 32 mmol/L Blood Gas Base Excess 6.6 mmol/L Blood Gas Oxygen Saturation 92 % Arterial Blood pH 7.33 Arterial Blood Partial Pressure CO2 62 mmHg Arterial Blood Partial Pressure O2 79 mmHG Arterial Blood Oxygen Content 16.9 Vol % Arterial Blood Carboxyhemoglobin 3.1 % Arterial Blood Methemoglobin 0.8 % Blood Gas Hemoglobin 13.0 G/DL Oxygen Delivery Device BIPAP Blood Gas Ventilator Setting Blood Gas Inspired Oxygen 40 % MDM Medical Decision Making Medical Screen Exam Complete: Yes Emergency Medical Condition: Yes Interpretation(s) EKG shows sinus tachycardia at about 150 area of the computer is actually reading it as a flutter but I see that that is probably artifact. Differential Diagnosis Differential diagnosis of dyspnea includes but is not limited to congestive heart failure, pneumonia, wheezing, pneumothorax, pulmonary embolism Narrative Course This patient presents to us via [facility] with acute dyspnea associated with COPD. He has extremely poor air movement on arrival. BiPAP with in-line treatments has been ordered. Just a few minutes after the initiation of BiPAP, his respiratory status is improved. Air movement is better. He does continue to have diffuse wheezing. Last Impressions Chest X-Ray 04/28/17 1313 Signed Impressions: Service Date/Time: Friday, April 28, 2017 13:24 - CONCLUSION: 1. Hyperinflation characteristic of COPD. 2. Stable left perihilar pleural-parenchymal scarring. No acute infiltrate. No failure. Slava Comer MD CBC & BMP Diagram 04/28/17 13:25 Calcium Level 9.1, Magnesium Level 2.3 ABG Test 04/28/17 15:20 Arterial Blood Carboxyhemoglobin 3.1 % Arterial Blood Methemoglobin 0.8 % Arterial Blood Oxygen Content 16.9 Vol % Arterial Blood Partial Pressure CO2 62 mmHg *H Arterial Blood Partial Pressure O2 79 mmHG Arterial Blood pH 7.33 L Blood Gas Base Excess 6.6 mmol/L H Blood Gas HCO3 32 mmol/L H Blood Gas Hemoglobin 13.0 G/DL Blood Gas Inspired Oxygen 40 % Blood Gas Oxygen Saturation 92 % Blood Gas Ventilator Setting Oxygen Delivery Device BIPAP The patient is improving on BiPAP and following nebs. He has been rechecked multiple times. He is agreeable to admission. Critical Care Narrative Aggregate critical care time was 35 minutes. Time to perform other separately billable procedures was not included in the critical care time. My time did not include minutes spent treating any other patients simultaneously or on activities that did not directly contribute to the patient's treatment. The services I provided to this patient were to treat and/or prevent clinically significant deterioration due to respiratory distress I provided critical care services requiring my management, as noted below: Chart data review, documentation time, medication orders and management, vital sign assessments/reviewing monitor data, ordering and reviewing lab tests, ordering and interpreting/reviewing x-rays and diagnostic studies, care of the patient and discussion of the patient with the admitting physicians Physician Communication Physician Communication Dr. Cabezas Diagnosis Primary Impression: COPD exacerbation Admitting Information Admitting Physician Requests: Admit Condition: Stable Mary Mcguire MD Apr 28, 2017 13:56
[2017-04-28 13:57] LABS: BICARBONATE 33.7 MEQ/L (21.0-32.0); BLOOD UREA NITROGEN 14 MG/DL (7-18); CALCIUM 9.1 MG/DL (8.5-10.1); CHLORIDE 102 MEQ/L (98-107); CREATININE 0.52 MG/DL (0.60-1.30); GLOMERULAR FILTRATION RATE 161 ML/MIN (>89); GLUCOSE,RANDOM 136 MG/DL (74-106); MAGNESIUM 2.3 MG/DL (1.5-2.5); SODIUM (NA) 140 MEQ/L (136-145)
[2017-04-28 14:00] LABS: TROPONIN I LESS THAN 0.02 NG/ML (0.02-0.05)
[2017-04-28] MEDS ORDERED: MORPHINE SULFATE 4 MG/ML INJ IV PUSH ONE (14:00)
[2017-04-28] MEDS ORDERED: BISACODYL 10 MG SUPP RECTAL PRN (16:30)
[2017-04-28] MEDS ORDERED: ACETAMINOPHEN 325 MG TAB PO PRN (16:30)
[2017-04-28] MEDS ORDERED: ONDANSETRON HCL 4 MG/2 ML VIAL IVP PRN (16:30)
[2017-04-28] MEDS ORDERED: MAGNESIUM HYDROXIDE SUSP 30 ML CUP PO PRN (16:30)
[2017-04-28] MEDS ORDERED: RESP: ALBUTEROL 2.5 MG/IPRATROPIUM 0.5 MG NEB (PRN) NEB (16:30)
[2017-04-28] MEDS ORDERED: NALOXONE HCL 0.4 MG/ML AMP IV PUSH PRN (16:30)
[2017-04-28] MEDS ORDERED: SENNOSIDES 8.6 MG TAB PO PRN (16:30)
[2017-04-28] MEDS ORDERED: LACTULOSE SYRUP 20 GM/30 ML CUP PO PRN (16:30)
[2017-04-28] MEDS ORDERED: RESP: ALBUTEROL 2.5 MG/3 ML NEB (PRN) NEB (16:45)
--- NOTE | 2017-04-28 18:10 | HHI.HP ---
HPI Service [facility] Primary Care Physician [facility] Admission Diagnosis COPD exacerbation Diagnoses: (1) Community acquired bacterial pneumonia (2) COPD exacerbation (3) Tobacco abuse Chief Complaint: SOB and chest pain Travel History International Travel<30 Days: No Contact w/Intl Traveler <30 Da: No Traveled to Known Affected Are: No History of Present Illness Written by Rodríguez Ly, acting as scribe for Dr. Cabezas on 04/28/17 at 18:10. This is a 61-year-old male with past medical history significant for COPD on chronic oxygen at home 5 L nasal cannula, as well as tobacco abuse. Patient presented to the emergency department today with complaints of increasing shortness of breath along with chest pain. Patient is seen and examined in room on a Venturi mask resting comfortably. He reports that shortness of breath started several days ago and progressively got worse. He denies any cough, or productive sputum. He does endorse chills as well as chest pains which are worse when he takes a deep breath as well as with coughing. He reports that this morning he experienced shortness of breath and took several breathing treatments which did not resolve his shortness of breath , breathing was so bad to the point where he could not even speak. He denies any recent fevers, nausea, vomiting, diarrhea, black or bloody stools. 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 He reports that he is aware he needs to follow-up with pulmonary however states that appointments at the [facility] usually takes several months. He reports that he has quit smoking however states that he will usually take a cigarette and do "several puffs" states that he does not actually inhale the smoke. At the moment he reports that his breathing is much better than it was before and is actually able to speak now. He continues to report of chest pain mostly which is worse when taking a deep breath and describes it as a stabbing pain. Review of Systems Respiratory: COMPLAINS OF: Shortness of breath Cardiovascular: COMPLAINS OF: Chest pain Except as stated in HPI: all other systems reviewed are Neg Past Family Social History Past Medical History COPD oxygen dependent at home. Past Surgical History Abdominal and inguinal hernia with repairs Left foot surgery due to accident Reported Medications Reported Meds & Active Scripts Active Walker/Adult/Folding (Device) 1 Mis Mis Ea .ROUTE DIRECTED Atrovent HFA 12.9 GM Inh (Ipratropium Plush) 17 Mcg/Act Aer 2 Puff INH Q6HR PRN Silvadene Topical (Silver Sulfadiazine) 1 % Cream 1 Applic TOPICAL DAILY Reported Spiriva Handihaler (Tiotropium Inh) 18 Mcg Cap 18 Mcg INH DAILY 1 capsule = 18 mcg Asmanex 120 Act Twisthaler (Mometasone 120 Act Inh) 220 Mcg/Act Inh 1 Puff INH BID Proventil Hfa 6.7 GM Inh (Albuterol Sulfate) 90 Mcg/Act Aer 2 Puff INH Q4-6H PRN Allergies: Coded Allergies: penicillin G (Unverified Allergy, Intermediate, RASH, 04/28/17) Family History Mother: Multiple sclerosis Social History Tobacco: Smoking history, recently cut back to only a few puffs of cigarettes "every now and then" Alcohol use: Denies Illicit drug use: Denies Physical Exam Vital Signs Vital Signs Date Time Temp Pulse Resp B/P (MAP) Pulse Ox O2 Delivery O2 Flow Rate FiO2 04/28/17 18:03 97.5 101 140/89 (106) 96 04/28/17 17:20 86 22 97 Venturi Mask 50 04/28/17 17:04 94 Venturi Mask 6.00 04/28/17 15:52 22 04/28/17 15:17 97.9 96 24 108/83 (91) 95 BiPAP 04/28/17 13:20 97 BiPAP 40 04/28/17 13:15 94 40 04/28/17 13:11 141 26 158/92 (114) 96 Aerosol Mask Physical Exam GENERAL: This is a thin male, well-developed patient, in no apparent distress. SKIN: No rashes, ecchymoses or lesions. Cool and dry. HEAD: Atraumatic. Normocephalic. EYES: Pupils equal round and reactive. No scleral icterus. No injection or drainage. ENT: Nose without bleeding, purulent drainage. Throat without erythema. Uvula midline. Airway patent. NECK: Trachea midline. No JVD or lymphadenopathy. Supple, nontender. CARDIOVASCULAR: Regular rate and rhythm without murmurs, gallops, or rubs. RESPIRATORY: Bilateral scattered wheezing, no rales, or rhonchi. GASTROINTESTINAL: Abdomen soft, non-tender, nondistended. Normoactive bowel sounds in all quadrants. No guarding. MUSCULOSKELETAL: Extremities without clubbing, cyanosis, or edema. No joint tenderness, effusion, or edema noted. NEUROLOGICAL: Awake and alert. Cranial nerves grossly intact. Motor and sensory grossly within normal limits. Five out of 5 muscle strength in all muscle groups. Normal speech. Laboratory Laboratory Tests Test 04/28/17 13:25 04/28/17 15:20 White Blood Count 13.5 Red Blood Count 4.63 Hemoglobin 13.9 Hematocrit 41.3 Mean Corpuscular Volume 89.2 Mean Corpuscular Hemoglobin 30.0 Mean Corpuscular Hemoglobin Concent 33.6 Red Cell Distribution Width 13.1 Platelet Count 347 Mean Platelet Volume 7.1 Neutrophils (%) (Auto) 76.2 Lymphocytes (%) (Auto) 17.2 Monocytes (%) (Auto) 5.0 Eosinophils (%) (Auto) 1.3 Basophils (%) (Auto) 0.3 Neutrophils # (Auto) 10.3 Lymphocytes # (Auto) 2.3 Monocytes # (Auto) 0.7 Eosinophils # (Auto) 0.2 Basophils # (Auto) 0.0 CBC Comment DIFF FINAL Differential Comment Blood Urea Nitrogen 14 Creatinine 0.52 Random Glucose 136 Calcium Level 9.1 Magnesium Level 2.3 Sodium Level 140 Potassium Level 4.5 Chloride Level 102 Carbon Dioxide Level 33.7 Anion Gap 4 Estimat Glomerular Filtration Rate 161 Troponin I LESS THAN 0.02 B-Type Natriuretic Peptide 11 Blood Gas Puncture Site RT RADIAL Blood Gas Patient Temperature 98.6 Blood Gas HCO3 32 Blood Gas Base Excess 6.6 Blood Gas Oxygen Saturation 92 Arterial Blood pH 7.33 Arterial Blood Partial Pressure CO2 62 Arterial Blood Partial Pressure O2 79 Arterial Blood Oxygen Content 16.9 Arterial Blood Carboxyhemoglobin 3.1 Arterial Blood Methemoglobin 0.8 Blood Gas Hemoglobin 13.0 Oxygen Delivery Device BIPAP Blood Gas Ventilator Setting 12/+6/40 Blood Gas Inspired Oxygen 40 Result Diagram: 04/28/17 1325 04/28/17 1325 Imaging Last Impressions Chest X-Ray 04/28/17 1313 Signed Impressions: Service Date/Time: Friday, April 28, 2017 13:24 - CONCLUSION: 1. Hyperinflation characteristic of COPD. 2. Stable left perihilar pleural-parenchymal scarring. No acute infiltrate. No failure. MD Rei Child VTE Risk Assessment Rei VTE Risk Assessment: Mod/High Risk (score >= 2) Caprini Risk Assessment Model Point Value = 1 Point Value = 2 Point Value = 3 Point Value = 5 Age 41-60 Minor surgery BMI > 25 kg/m2 Swollen legs Varicose veins or History of unexplained or recurrent spontaneous Oral contraceptives or hormone replacement Sepsis (< 1 month) Serious lung disease, including pneumonia (< 1 month) Abnormal pulmonary function Acute myocardial infarction Congestive heart failure (< 1 month) History of inflammatory bowel disease Medical patient at bed rest Age 61-74 Arthroscopic surgery Major open surgery (> 45 min) Laparoscopic surgery (> 45 min) Malignancy Confined to bed (> 72 hours) Immobilizing plaster cast Central venous access Age >= 75 History of VTE Family history of VTE Factor V Leiden Prothrombin [id number] Lupus anticoagulant Anticardiolipin antibodies Elevated serum homocysteine Heparin-induced thrombocytopenia Other congenital or acquired thrombophilia Stroke (< 1 month) Elective arthroplasty Hip, pelvis, or leg fracture Acute spinal cord injury (< 1 month) Prophylaxis Regimen Total Risk Factor Score Risk Level Prophylaxis Regimen 0-1 Low Early ambulation 2 Moderate Order ONE of the following: *Sequential Compression Device (SCD) *Heparin 5000 units SQ BID 3-4 Higher Order ONE of the following medications: *Heparin 5000 units SQ TID *Enoxaparin/Lovenox 40 mg SQ daily (WT < 150 kg, CrCl > 30 mL/min) *Enoxaparin/Lovenox 30 mg SQ daily (WT < 150 kg, CrCl > 10-29 mL/min) *Enoxaparin/Lovenox 30 mg SQ BID (WT < 150 kg, CrCl > 30 mL/min) AND/OR *Sequential Compression Device (SCD) 5 or more Highest Order ONE of the following medications: *Heparin 5000 units SQ TID (Preferred with Epidurals) *Enoxaparin/Lovenox 40 mg SQ daily (WT < 150 kg, CrCl > 30 mL/min) *Enoxaparin/Lovenox 30 mg SQ daily (WT < 150 kg, CrCl > 10-29 mL/min) *Enoxaparin/Lovenox 30 mg SQ BID (WT < 150 kg, CrCl > 30 mL/min) AND *Sequential Compression Device (SCD) Assessment and Plan Assessment and Plan This is a 61-year-old male with past medical history significant for COPD on chronic oxygen at home 5 L nasal cannula, as well as tobacco abuse. Patient presents to the emergency department with increasing shortness of breath for the past several days, complaints of chest pains with deep breathing , as well as chills. COPD exacerbation Possible underlying CAP - Patient on chronic O2 at home 5 L - EVAC gave Solu-Medrol IV, continue Solu-Medrol IV 40 mg every 6 hours - CBC reviewed, leukocytosis with WBC 13.5, neutrophils 76.2 - Chest AP x-ray reviewed, hyperinflation characteristic of COPD, stable left perihilar pleural-parenchymal scaring. No acute infiltrate, no failure. - Will start patient on IV azithromycin as he does have a slightly elevated WBC count as well as endorses chills with increased risk of pneumonia secondary to severe COPD - Continue Spiriva, scheduled albuterol treatments every 4 hours, as needed every 2 hours if needed. - Continue wean oxygen as possible Atypical chest pain -Reports chest pain is exacerbated with deep breathing, possibly related to COPD. Patient states that this pain is the same pain he will have every time he gets pneumonia. -Initial troponin in the ED was negative <0.02, EKG and EEG reviewed, heart rate 151 possibly related to SOP and anxiety on admission, follow EKGs 2 -Pain management with p.o. Percocet, IV morphine for breakthrough pain Tobacco abuse -Reiterated the importance of absolute abstinence given his extensive COPD DVT prophylaxis-early ambulation, Hossein's/SCDs Physician Certification 2 Midnight Certification Type: Admission for Inpatient Services Order for Inpatient Services The services are ordered in accordance with Medicare regulations or non- Medicare payer requirements, as applicable. In the case of services not specified as inpatient-only, they are appropriately provided as inpatient services in accordance with the 2-midnight benchmark. Estimated LOS (days): 3 days is the estimated time the patient will need to remain in the hospital, assuming treatment plan goals are met and no additional complications. Post-Hospital Plan: Home Rodríguez Ly Apr 28, 2017 18:10
[2017-04-28] MEDS: ENOXAPARIN SODIUM 40 MG/0.4 ML SYRINGE SQ SCH (18:14)
[2017-04-28] MEDS ORDERED: AZITHROMYCIN INJ 500 MG in SODIUM CHLOR 0.9% 250 ML INJ 250 ML IV SCH (18:15)
--- NOTE | 2017-04-28 18:43 | HHI.HP ---
[facility] Service [facility] Primary Care Physician [facility] Admission Diagnosis COPD exacerbation Diagnoses: (1) Community acquired bacterial pneumonia (2) COPD exacerbation (3) Tobacco abuse Chief Complaint: SOB and chest pain Travel History International Travel<30 Days: No Contact w/Intl Traveler <30 Da: No Traveled to Known Affected Are: No History of Present Illness Written by Rodríguez Ly, acting as scribe for Dr. Cabezas on 04/28/17 at 18:10. This is a 61-year-old male with past medical history significant for COPD on chronic oxygen at home 5 L nasal cannula, as well as tobacco abuse. Patient presented to the emergency department today with complaints of increasing shortness of breath along with chest pain. Patient is seen and examined in room on a Venturi mask resting comfortably. He reports that shortness of breath started several days ago and progressively got worse. He denies any cough, or productive sputum. He does endorse chills as well as chest pains which are worse when he takes a deep breath as well as with coughing. He reports that this morning he experienced shortness of breath and took several breathing treatments which did not resolve his shortness of breath , breathing was so bad to the point where he could not even speak. He denies any recent fevers, nausea, vomiting, diarrhea, black or bloody stools. 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 He reports that he is aware he needs to follow-up with pulmonary however states that appointments at the [facility] usually takes several months. He reports that he has quit smoking however states that he will usually take a cigarette and do "several puffs" states that he does not actually inhale the smoke. At the moment he reports that his breathing is much better than it was before and is actually able to speak now. He continues to report of chest pain mostly which is worse when taking a deep breath and describes it as a stabbing pain. Review of Systems Except as stated in HPI: all other systems reviewed are Neg Past Family Social History Past Medical History COPD oxygen dependent at home. Past Surgical History Abdominal and inguinal hernia with repairs Left foot surgery due to accident Reported Medications Reported Meds & Active Scripts Active Walker/Adult/Folding (Device) 1 Mis Mis Ea .ROUTE DIRECTED Atrovent HFA 12.9 GM Inh (Ipratropium [place]) 17 Mcg/Act Aer 2 Puff INH Q6HR PRN Silvadene Topical (Silver Sulfadiazine) 1 % Cream 1 Applic TOPICAL DAILY Reported Spiriva Handihaler (Tiotropium Inh) 18 Mcg Cap 18 Mcg INH DAILY 1 capsule = 18 mcg Asmanex 120 Act Twisthaler (Mometasone 120 Act Inh) 220 Mcg/Act Inh 1 Puff INH BID Proventil Hfa 6.7 GM Inh (Albuterol Sulfate) 90 Mcg/Act Aer 2 Puff INH Q4-6H PRN Allergies: Coded Allergies: penicillin G (Unverified Allergy, Intermediate, RASH, 04/28/17) Family History Mother: Multiple sclerosis Social History Tobacco: Smoking history, recently cut back to only a few puffs of cigarettes "every now and then" Alcohol use: Denies Illicit drug use: Denies Physical Exam Vital Signs Vital Signs Date Time Temp Pulse Resp B/P (MAP) Pulse Ox O2 Delivery O2 Flow Rate FiO2 04/28/17 18:15 Venturi Mask 7.00 04/28/17 18:03 97.5 101 140/89 (106) 96 04/28/17 17:20 86 22 97 Venturi Mask 50 04/28/17 17:04 94 Venturi Mask 6.00 04/28/17 15:52 22 04/28/17 15:17 97.9 96 24 108/83 (91) 95 BiPAP 04/28/17 13:20 97 BiPAP 40 04/28/17 13:15 94 40 04/28/17 13:11 141 26 158/92 (114) 96 Aerosol Mask Physical Exam GENERAL: This is a thin male, well-developed patient, in no apparent distress. SKIN: No rashes, ecchymoses or lesions. Cool and dry. HEAD: Atraumatic. Normocephalic. EYES: Pupils equal round and reactive. No scleral icterus. No injection or drainage. ENT: Nose without bleeding, purulent drainage. Throat without erythema. Uvula midline. Airway patent. NECK: Trachea midline. No JVD or lymphadenopathy. Supple, nontender. CARDIOVASCULAR: Regular rate and rhythm without murmurs, gallops, or rubs. RESPIRATORY: Bilateral scattered wheezing, no rales, or rhonchi. GASTROINTESTINAL: Abdomen soft, non-tender, nondistended. Normoactive bowel sounds in all quadrants. No guarding. MUSCULOSKELETAL: Extremities without clubbing, cyanosis, or edema. No joint tenderness, effusion, or edema noted. NEUROLOGICAL: Awake and alert. Cranial nerves grossly intact. Motor and sensory grossly within normal limits. Five out of 5 muscle strength in all muscle groups. Normal speech. Laboratory Laboratory Tests Test 04/28/17 13:25 04/28/17 15:20 White Blood Count 13.5 Red Blood Count 4.63 Hemoglobin 13.9 Hematocrit 41.3 Mean Corpuscular Volume 89.2 Mean Corpuscular Hemoglobin 30.0 Mean Corpuscular Hemoglobin Concent 33.6 Red Cell Distribution Width 13.1 Platelet Count 347 Mean Platelet Volume 7.1 Neutrophils (%) (Auto) 76.2 Lymphocytes (%) (Auto) 17.2 Monocytes (%) (Auto) 5.0 Eosinophils (%) (Auto) 1.3 Basophils (%) (Auto) 0.3 Neutrophils # (Auto) 10.3 Lymphocytes # (Auto) 2.3 Monocytes # (Auto) 0.7 Eosinophils # (Auto) 0.2 Basophils # (Auto) 0.0 CBC Comment DIFF FINAL Differential Comment Blood Urea Nitrogen 14 Creatinine 0.52 Random Glucose 136 Calcium Level 9.1 Magnesium Level 2.3 Sodium Level 140 Potassium Level 4.5 Chloride Level 102 Carbon Dioxide Level 33.7 Anion Gap 4 Estimat Glomerular Filtration Rate 161 Troponin I LESS THAN 0.02 B-Type Natriuretic Peptide 11 Blood Gas Puncture Site RT RADIAL Blood Gas Patient Temperature 98.6 Blood Gas HCO3 32 Blood Gas Base Excess 6.6 Blood Gas Oxygen Saturation 92 Arterial Blood pH 7.33 Arterial Blood Partial Pressure CO2 62 Arterial Blood Partial Pressure O2 79 Arterial Blood Oxygen Content 16.9 Arterial Blood Carboxyhemoglobin 3.1 Arterial Blood Methemoglobin 0.8 Blood Gas Hemoglobin 13.0 Oxygen Delivery Device BIPAP Blood Gas Ventilator Setting 12/+6/40 Blood Gas Inspired Oxygen 40 Result Diagram: 04/28/17 1325 04/28/17 1325 Imaging Last Impressions Chest X-Ray 04/28/17 1313 Signed Impressions: Service Date/Time: Friday, April 28, 2017 13:24 - CONCLUSION: 1. Hyperinflation characteristic of COPD. 2. Stable left perihilar pleural-parenchymal scarring. No acute infiltrate. No failure. MD Rei Child VTE Risk Assessment Caprini VTE Risk Assessment: Mod/High Risk (score >= 2) Caprini Risk Assessment Model Point Value = 1 Point Value = 2 Point Value = 3 Point Value = 5 Age 41-60 Minor surgery BMI > 25 kg/m2 Swollen legs Varicose veins or History of unexplained or recurrent spontaneous Oral contraceptives or hormone replacement Sepsis (< 1 month) Serious lung disease, including pneumonia (< 1 month) Abnormal pulmonary function Acute myocardial infarction Congestive heart failure (< 1 month) History of inflammatory bowel disease Medical patient at bed rest Age 61-74 Arthroscopic surgery Major open surgery (> 45 min) Laparoscopic surgery (> 45 min) Malignancy Confined to bed (> 72 hours) Immobilizing plaster cast Central venous access Age >= 75 History of VTE Family history of VTE Factor V Leiden Prothrombin [id number] Lupus anticoagulant Anticardiolipin antibodies Elevated serum homocysteine Heparin-induced thrombocytopenia Other congenital or acquired thrombophilia Stroke (< 1 month) Elective arthroplasty Hip, pelvis, or leg fracture Acute spinal cord injury (< 1 month) Prophylaxis Regimen Total Risk Factor Score Risk Level Prophylaxis Regimen 0-1 Low Early ambulation 2 Moderate Order ONE of the following: *Sequential Compression Device (SCD) *Heparin 5000 units SQ BID 3-4 Higher Order ONE of the following medications: *Heparin 5000 units SQ TID *Enoxaparin/Lovenox 40 mg SQ daily (WT < 150 kg, CrCl > 30 mL/min) *Enoxaparin/Lovenox 30 mg SQ daily (WT < 150 kg, CrCl > 10-29 mL/min) *Enoxaparin/Lovenox 30 mg SQ BID (WT < 150 kg, CrCl > 30 mL/min) AND/OR *Sequential Compression Device (SCD) 5 or more Highest Order ONE of the following medications: *Heparin 5000 units SQ TID (Preferred with Epidurals) *Enoxaparin/Lovenox 40 mg SQ daily (WT < 150 kg, CrCl > 30 mL/min) *Enoxaparin/Lovenox 30 mg SQ daily (WT < 150 kg, CrCl > 10-29 mL/min) *Enoxaparin/Lovenox 30 mg SQ BID (WT < 150 kg, CrCl > 30 mL/min) AND *Sequential Compression Device (SCD) Assessment and Plan Problem List: (1) Community acquired bacterial pneumonia ICD Code: J15.9 - Unspecified bacterial pneumonia Status: Acute (2) COPD exacerbation ICD Code: J44.1 - Chronic obstructive pulmonary disease with (acute) exacerbation Status: Acute (3) Tobacco abuse ICD Code: Z72.0 - Tobacco use Status: Acute Assessment and Plan This is a 61-year-old male with past medical history significant for COPD on chronic oxygen at home 5 L nasal cannula, as well as tobacco abuse. Patient presents to the emergency department with increasing shortness of breath for the past several days, complaints of chest pains with deep breathing , as well as chills. COPD exacerbation Possible underlying CAP - Patient on chronic O2 at home 5 L - EVAC gave Solu-Medrol IV, continue Solu-Medrol IV 40 mg every 6 hours - CBC reviewed, leukocytosis with WBC 13.5, neutrophils 76.2 - Chest AP x-ray reviewed, hyperinflation characteristic of COPD, stable left perihilar pleural-parenchymal scaring. No acute infiltrate, no failure. - Will start patient on IV azithromycin as he does have a slightly elevated WBC count as well as endorses chills with increased risk of pneumonia secondary to severe COPD - Continue Spiriva, scheduled albuterol treatments every 4 hours, as needed every 2 hours if needed. - Continue wean oxygen as possible Atypical chest pain -Reports chest pain is exacerbated with deep breathing, possibly related to COPD. Patient states that this pain is the same pain he will have every time he gets pneumonia. -Initial troponin in the ED was negative <0.02, EKG and EEG reviewed, heart rate 151 possibly related to SOP and anxiety on admission, follow EKGs 2 -Pain management with p.o. Percocet, IV morphine for breakthrough pain Tobacco abuse -Reiterated the importance of absolute abstinence given his extensive COPD DVT prophylaxis- subq Lovenox Hossein's/SCDs Discussed Condition With This note was transcribed by domi [Rodríguez Ly]. I, Dr. Pino Cabezas personally performed the history, physical exam, and medical decision making; and confirmed the accuracy of the information in the transcribed note. Authenticated by Dr. Pino Cabezas on 04/28/17 at 18:10. Rodríguez Ly Apr 28, 2017 18:43 Pino Cabezas MD Apr 28, 2017 22:28
[2017-04-28] MEDS: RESP: ALBUTEROL 2.5 MG/3 ML NEB (SCH) NEB ×2 (19:32→23:54)
[2017-04-28] MEDS: DOCUSATE SODIUM 50 MG/SENNA 8.6 MG TAB PO SCH (20:26)
[2017-04-28] MEDS: AZITHROMYCIN INJ 500 MG in SODIUM CHLOR 0.9% 250 ML INJ 250 ML IV SCH (20:26)
[2017-04-28] MEDS: oxyCODONE/ACETAMINOPHEN 10 MG/325 MG TAB PO PRN (20:27)
[2017-04-28] MEDS: FLUTICASONE PROPIONATE 50 MCG/ACT 16 GM NASAL SPRAY EACH NARE SCH (20:28)
[2017-04-29] VITALS (13 sets, daily range): BP systolic 108–132; BP diastolic 59–82; PULSE 79–109; RESP 16–22; TEMP 97.4–98; O2SAT 93–95
[2017-04-29 02:03] LABS: BASOPHIL % 0.1 % (0.0-2.0); HEMATOCRIT 39.1 % (39.0-51.0); HEMOGLOBIN 13.1 GM/DL (13.0-17.0); LYMPH % 9.1 % (9.0-44.0); LYMPHOCYTE # 0.7 TH/MM3 (1.0-4.8); MEAN CELL VOLUME 88.8 FL (80.0-100.0); MEAN CORPUSCULAR HEMOGLOBIN 29.8 PG (27.0-34.0); MEAN CORPUSCULAR HGB CONC 33.6 % (32.0-36.0); MEAN PLATELET VOLUME 7.1 FL (7.0-11.0); MONO % 3.5 % (0.0-8.0); MONOCYTE # 0.3 TH/MM3 (0-0.9); NEUT % 87.3 % (16.0-70.0); PLATELET COUNT 293 TH/MM3 (150-450); RED CELL DISTRIBUTION WIDTH 13.2 % (11.6-17.2)
[2017-04-29 02:25] LABS: BICARBONATE 37.3 MEQ/L (21.0-32.0); BLOOD UREA NITROGEN 18 MG/DL (7-18); CHLORIDE 99 MEQ/L (98-107); CREATININE 0.46 MG/DL (0.60-1.30); GLOMERULAR FILTRATION RATE 186 ML/MIN (>89); GLUCOSE,RANDOM 147 MG/DL (74-106); SODIUM (NA) 140 MEQ/L (136-145)
[2017-04-29 02:27] LABS: TROPONIN I LESS THAN 0.02 NG/ML (0.02-0.05)
[2017-04-29] MEDS: oxyCODONE/ACETAMINOPHEN 10 MG/325 MG TAB PO PRN ×2 (03:26→15:08)
[2017-04-29] MEDS: RESP: ALBUTEROL 2.5 MG/3 ML NEB (SCH) NEB ×6 (04:02→23:44)
[2017-04-29] MEDS: methylPREDNISolone SOD SUCC 40 MG/1 ML VIAL IV PUSH SCH ×5 (05:15→23:17)
[2017-04-29] MEDS: SODIUM CHLORIDE 0.9% FLUSH 10 ML FLUSH IVF PRN ×2 (05:15→23:17)
[2017-04-29] MEDS: FLUTICASONE PROPIONATE 50 MCG/ACT 16 GM NASAL SPRAY EACH NARE SCH ×2 (09:00→21:37)
[2017-04-29] MEDS: TIOTROPIUM BROMIDE 18 MCG INH INH SCH (09:00)
[2017-04-29] MEDS: DOCUSATE SODIUM 50 MG/SENNA 8.6 MG TAB PO SCH ×2 (09:17→20:09)
--- NOTE | 2017-04-29 12:13 | HHI.PR ---
Subjective Remarks Follow-up COPD exacerbation/community acquired pneumonia 04/29/17-patient seen and examined, still short of breath with expiratory wheezing. Objective Vitals Vital Signs Date Time Temp Pulse Resp B/P (MAP) Pulse Ox O2 Delivery O2 Flow Rate FiO2 04/29/17 08:51 95 Nasal Cannula 5.00 04/29/17 08:00 Nasal Cannula 3.00 04/29/17 08:00 98.0 87 16 127/80 (96) 94 04/29/17 04:00 98.0 79 22 132/59 (83) 95 04/29/17 03:31 94 04/29/17 00:00 97.4 98 20 114/82 (93) 95 04/28/17 23:52 97 04/28/17 20:17 101 04/28/17 20:15 97.5 105 20 127/83 (98) 96 04/28/17 20:00 Venturi Mask 50 04/28/17 19:36 92 Venturi Mask 50 04/28/17 18:15 Venturi Mask 7.00 04/28/17 18:03 97.5 101 140/89 (106) 96 04/28/17 17:20 86 22 97 Venturi Mask 50 04/28/17 17:04 94 Venturi Mask 6.00 04/28/17 15:52 22 04/28/17 15:17 97.9 96 24 108/83 (91) 95 BiPAP 04/28/17 13:20 97 BiPAP 40 04/28/17 13:15 94 40 04/28/17 13:11 141 26 158/92 (114) 96 Aerosol Mask I/O 04/28/17 04/28/17 04/28/17 04/29/17 04/29/17 04/29/17 07:00 15:00 23:00 07:00 15:00 23:00 Intake Total 400 ml Output Total 500 ml Balance -100 ml Intake Oral 400 ml Output Urine Total 500 ml # Bowel Movements 0 Result Diagram: 04/29/1713404/29/17134 Imaging Last Impressions Chest X-Ray 04/28/17 1313 Signed Impressions: Service Date/Time: Friday, April 28, 2017 13:24 - CONCLUSION: 1. Hyperinflation characteristic of COPD. 2. Stable left perihilar pleural-parenchymal scarring. No acute infiltrate. No failure. Slava Comer MD Objective Remarks GENERAL: NAD SKIN: Warm and dry. HEAD: Normocephalic. EYES: No scleral icterus. No injection or drainage. NECK: Supple, trachea midline. No JVD or lymphadenopathy. CARDIOVASCULAR: Regular rate and rhythm without murmurs, gallops, or rubs. RESPIRATORY: Breath sounds decrease bilaterally. No accessory muscle use.+exp wheezing GASTROINTESTINAL: Abdomen soft, non-tender, nondistended. MUSCULOSKELETAL: No cyanosis, or edema. BACK: Nontender without obvious deformity. No CVA tenderness. A/P Problem List: (1) Community acquired bacterial pneumonia ICD Code: J15.9 - Unspecified bacterial pneumonia Status: Acute (2) COPD exacerbation ICD Code: J44.1 - Chronic obstructive pulmonary disease with (acute) exacerbation Status: Acute (3) Tobacco abuse ICD Code: Z72.0 - Tobacco use Status: Acute Assessment and Plan 61-year-old man with; COPD exacerbation Possible underlying CAP - Patient on chronic O2 at home 5 L - continue Solu-Medrol IV 40 mg every 6 hours, IV azithromycin - Continue Spiriva, scheduled albuterol treatments every 4 hours, as needed every 2 hours if needed. - Continue wean oxygen as possible Atypical chest pain-Resolved Tobacco abuse -Reiterated the importance of absolute abstinence given his extensive COPD DVT prophylaxis- subq Loveallenx J[employer]/SCDMiguel Hendricks MD Apr 29, 2017 12:13
--- NOTE | 2017-04-29 14:30 | EKG ---
Date Performed: 04/28/2017 Time Performed: 13:07:58 PTAGE: 61 years EKG: Sinus tachycardia BORDERLINE RIGHT AXIS DEVIATION ST ELEVATION, CONSIDER INFERIOR INJURY *ACUTE NM PREVIOUS TRACING 11/22/16 Clinical correlation is recommended. DOCTOR: Piotr Lima Interpretating Date/Time 04/29/2017 14:28:09
--- NOTE | 2017-04-29 14:40 | EKG ---
Date Performed: 04/29/2017 Time Performed: 01:31:22 PTAGE: 61 years EKG: Sinus tachycardia Possible right atrial abnormality Inferior ST elevation suggests early re polarization Septal ST-T changes are nonspecific Borderline ECG PREVIOUS TRACING : 04/28/2017 19.26 Rate has slowed somewhat since prior tracing. DOCTOR: Piotr Lima Interpretating Date/Time 04/29/2017 14:33:48
--- NOTE | 2017-04-29 14:48 | EKG ---
Date Performed: 04/28/2017 Time Performed: 19:26:38 PTAGE: 61 years EKG: SINUS TACHYCARDIA ABNORMAL RHYTHM ECG PREVIOUS TRACING : 04/28/2017 13.07 Since the prior tracing, there has been no significant girard DOCTOR: Piotr Lima Interpretating Date/Time 04/29/2017 14:41:55
[2017-04-29] MEDS: ENOXAPARIN SODIUM 40 MG/0.4 ML SYRINGE SQ SCH (18:16)
[2017-04-29] MEDS: AZITHROMYCIN INJ 500 MG in SODIUM CHLOR 0.9% 250 ML INJ 250 ML IV SCH (20:09)
[2017-04-30] VITALS (10 sets, daily range): BP systolic 119–142; BP diastolic 68–86; PULSE 82–102; RESP 18–20; TEMP 96.4–98.2; O2SAT 91–95
[2017-04-30] MEDS: ALUMINUM/MAGNESIUM/SIMETH 30 ML CUP PO PRN (03:42)
[2017-04-30] MEDS: RESP: ALBUTEROL 2.5 MG/3 ML NEB (SCH) NEB ×5 (03:42→21:59)
[2017-04-30] MEDS: SODIUM CHLORIDE 0.9% FLUSH 10 ML FLUSH IVF PRN (06:03)
[2017-04-30] MEDS: methylPREDNISolone SOD SUCC 40 MG/1 ML VIAL IV PUSH SCH ×3 (06:03→22:06)
[2017-04-30] MEDS: DOCUSATE SODIUM 50 MG/SENNA 8.6 MG TAB PO SCH ×2 (09:02→20:37)
[2017-04-30] MEDS: FLUTICASONE PROPIONATE 50 MCG/ACT 16 GM NASAL SPRAY EACH NARE SCH ×2 (09:57→20:39)
[2017-04-30] MEDS: TIOTROPIUM BROMIDE 18 MCG INH INH SCH (09:57)
[2017-04-30] MEDS: oxyCODONE/ACETAMINOPHEN 10 MG/325 MG TAB PO PRN ×2 (10:03→18:04)
--- NOTE | 2017-04-30 12:17 | HHI.PR ---
Subjective Remarks Follow-up COPD exacerbation/community acquired pneumonia 04/29/17-patient seen and examined, still short of breath with expiratory wheezing. 04/30/17-patient seen and examined, although respiratory symptoms improved however patient still with wheezing and complains of cough Objective Vitals Vital Signs Date Time Temp Pulse Resp B/P (MAP) Pulse Ox O2 Delivery O2 Flow Rate FiO2 04/30/17 09:07 91 Nasal Cannula 5.00 04/30/17 08:00 98.2 90 20 137/83 (101) 95 04/30/17 04:00 98.2 94 18 119/78 (92) 94 04/30/17 03:44 90 04/30/17 00:00 97.8 102 18 138/82 (100) 95 04/29/17 23:58 97 04/29/17 20:00 Nasal Cannula 5.00 04/29/17 20:00 97.9 98 18 118/78 (91) 94 04/29/17 19:53 101 04/29/17 16:08 20 04/29/17 16:00 97.5 105 18 108/82 (91) 93 04/29/17 15:11 93 Nasal Cannula 5.00 I/O 04/29/17 04/29/17 04/29/17 04/30/17 04/30/17 04/30/17 07:00 15:00 23:00 07:00 15:00 23:00 Intake Total 400 ml 250 ml Output Total 500 ml Balance -100 ml 250 ml Intake Oral 400 ml IV Total 250 ml Output Urine Total 500 ml # Voids 3 # Bowel Movements 0 Result Diagram: 04/29/17 0135 04/29/17 0135 Imaging Last Impressions Chest X-Ray 04/28/17 1313 Signed Impressions: Service Date/Time: Friday, April 28, 2017 13:24 - CONCLUSION: 1. Hyperinflation characteristic of COPD. 2. Stable left perihilar pleural-parenchymal scarring. No acute infiltrate. No failure. Slava Comer MD Objective Remarks GENERAL: NAD SKIN: Warm and dry. HEAD: Normocephalic. EYES: No scleral icterus. No injection or drainage. NECK: Supple, trachea midline. No JVD or lymphadenopathy. CARDIOVASCULAR: Regular rate and rhythm without murmurs, gallops, or rubs. RESPIRATORY: Breath sounds decrease bilaterally. No accessory muscle use.+exp wheezing GASTROINTESTINAL: Abdomen soft, non-tender, nondistended. MUSCULOSKELETAL: No cyanosis, or edema. BACK: Nontender without obvious deformity. No CVA tenderness. Procedures None A/P Problem List: (1) Community acquired bacterial pneumonia ICD Code: J15.9 - Unspecified bacterial pneumonia Status: Acute (2) COPD exacerbation ICD Code: J44.1 - Chronic obstructive pulmonary disease with (acute) exacerbation Status: Acute (3) Tobacco abuse ICD Code: Z72.0 - Tobacco use Status: Acute Assessment and Plan 61-year-old man with; COPD exacerbation Possible underlying CAP - Patient on chronic O2 at home 5 L - Change Solu-Medrol IV to 40 mg every 8 hours,continue IV azithromycin, Add Mucinex and Symbicort - Continue Spiriva, scheduled albuterol treatments every 4 hours, as needed every 2 hours if needed. Atypical chest pain-Resolved Tobacco abuse -Reiterated the importance of absolute abstinence given his extensive COPD DVT prophylaxis- subq Lovenox Hossein's/SCDs Miguel Palomo MD Apr 30, 2017 12:17
[2017-04-30] MEDS: guaiFENesin E.R. 600 MG TAB PO SCH ×2 (14:26→20:37)
[2017-04-30] MEDS: ENOXAPARIN SODIUM 40 MG/0.4 ML SYRINGE SQ SCH (18:03)
[2017-04-30] MEDS: AZITHROMYCIN INJ 500 MG in SODIUM CHLOR 0.9% 250 ML INJ 250 ML IV SCH (20:38)
[2017-04-30] MEDS: BUDESONIDE-FORMOTEROL 160/4.5 MCG INHALER INH SCH (22:07)
[2017-05-01] VITALS (23 sets, daily range): BP systolic 81–182; BP diastolic 59–121; PULSE 89–140; RESP 7–34; TEMP 97.4–99; O2SAT 90–98
[2017-05-01] MEDS: RESP: ALBUTEROL 2.5 MG/3 ML NEB (SCH) NEB ×4 (00:05→13:17)
[2017-05-01] MEDS: methylPREDNISolone SOD SUCC 40 MG/1 ML VIAL IV PUSH SCH ×2 (05:00→19:02)
[2017-05-01] MEDS: SODIUM CHLORIDE 0.9% FLUSH 10 ML FLUSH IVF PRN (05:59)
[2017-05-01] MEDS: MORPHINE SULFATE 2 MG/ML INJ IV PUSH PRN (05:59)
[2017-05-01] MEDS: TIOTROPIUM BROMIDE 18 MCG INH INH SCH (09:00)
[2017-05-01] MEDS: FLUTICASONE PROPIONATE 50 MCG/ACT 16 GM NASAL SPRAY EACH NARE SCH ×2 (09:00→20:24)
[2017-05-01] MEDS: DOCUSATE SODIUM 50 MG/SENNA 8.6 MG TAB PO SCH ×2 (09:00→20:24)
[2017-05-01] MEDS: guaiFENesin E.R. 600 MG TAB PO SCH (09:00)
[2017-05-01] MEDS: BUDESONIDE-FORMOTEROL 160/4.5 MCG INHALER INH SCH ×2 (09:00→20:20)
--- NOTE | 2017-05-01 12:54 | HHI.PR ---
Subjective Remarks Follow-up COPD exacerbation/community acquired pneumonia 04/29/17-patient seen and examined, still short of breath with expiratory wheezing. 04/30/17-patient seen and examined, although respiratory symptoms improved however patient still with wheezing and complains of cough 05/01/17-patient seen and examined, went to acute respiratory failure overnight requiring BiPAP. He reports significant shortness of breath. Objective Vitals Vital Signs Date Time Temp Pulse Resp B/P (MAP) Pulse Ox O2 Delivery O2 Flow Rate FiO2 05/01/17 12:00 97.4 101 19 140/92 (108) 96 05/01/17 10:52 95 50 05/01/17 09:05 95 50 05/01/17 08:00 97.4 99 19 158/87 (110) 96 05/01/17 06:28 97 Bi-Pap 50 05/01/17 06:00 96 Bi-Pap 50 05/01/17 05:40 88 Venturi Mask 6.00 50 05/01/17 05:00 94 Venturi Mask 6.00 50 05/01/17 04:00 97.8 98 18 153/85 (107) 90 05/01/17 03:49 89 05/01/17 03:38 97 50 05/01/17 01:50 Bi-Pap 50 05/01/17 01:50 98 96 05/01/17 01:00 Bi-Pap 50 05/01/17 00:57 94 50 05/01/17 00:40 Venturi Mask 50 05/01/17 00:02 93 05/01/17 00:00 97.9 99 18 145/85 (105) 94 04/30/17 22:00 95 Nasal Cannula 5.00 04/30/17 21:49 97.3 96 18 131/86 (101) 94 04/30/17 20:05 89 04/30/17 20:00 Nasal Cannula 5.00 04/30/17 16:00 96.4 94 19 138/76 (96) 95 I/O 04/30/17 04/30/17 04/30/17 05/01/17 05/01/17 05/01/17 06:59 14:59 22:59 06:59 14:59 22:59 Intake Total 1920 ml Output Total 300 ml Balance 1920 ml -300 ml Intake Oral 1920 ml Output Urine Total 300 ml # Voids 3 4 # Bowel Movements 0 Result Diagram: 04/29/17 0135 04/29/17 0135 Imaging Last Impressions Chest X-Ray 04/28/17 1313 Signed Impressions: Service Date/Time: Friday, April 28, 2017 13:24 - CONCLUSION: 1. Hyperinflation characteristic of COPD. 2. Stable left perihilar pleural-parenchymal scarring. No acute infiltrate. No failure. Slava Comer MD Objective Remarks GENERAL: NAD with BIPAP in place SKIN: Warm and dry. HEAD: Normocephalic. EYES: No scleral icterus. No injection or drainage. NECK: Supple, trachea midline. No JVD or lymphadenopathy. CARDIOVASCULAR: Regular rate and rhythm without murmurs, gallops, or rubs. RESPIRATORY: Breath sounds decrease bilaterally. No accessory muscle use.+exp wheezing GASTROINTESTINAL: Abdomen soft, non-tender, nondistended. MUSCULOSKELETAL: No cyanosis, or edema. BACK: Nontender without obvious deformity. No CVA tenderness. Procedures None A/P Problem List: (1) Community acquired bacterial pneumonia ICD Code: J15.9 - Unspecified bacterial pneumonia Status: Acute (2) COPD exacerbation ICD Code: J44.1 - Chronic obstructive pulmonary disease with (acute) exacerbation Status: Acute (3) Tobacco abuse ICD Code: Z72.0 - Tobacco use Status: Acute (4) Acute respiratory failure with hypoxia ICD Code: J96.01 - Acute respiratory failure with hypoxia Status: Acute Assessment and Plan 61-year-old man with; COPD exacerbation Possible underlying CAP - Patient on chronic O2 at home 5 L - Increase Solu-Medrol IV to 40 mg every 6 hours,continue IV azithromycin, Mucinex and Symbicort - Continue Spiriva, scheduled albuterol treatments every 4 hours, as needed every 2 hours if needed. Acute respiratory failure with hypoxia BiPAP now and consult pulmonary medicine Repeat ABG Increase Solu Medrol to 40 mg IV every 6 Transferred to IMC and low threshold for intubation Atypical chest pain-Resolved Tobacco abuse -Reiterated the importance of absolute abstinence given his extensive COPD DVT prophylaxis- subq Lovenox Hossein's/Miguel Lraa MD May 01, 2017 12:54
[2017-05-01] MEDS ORDERED: hydrALAZINE HCL 20 MG/ML VIAL IV PUSH PRN (14:00)
[2017-05-01] MEDS ORDERED: PROPOFOL 500 MG/50 ML INJ 50 ML ONE (14:36)
[2017-05-01] MEDS ORDERED: ETOMIDATE 40 MG/20 ML VIAL ONE (14:40)
[2017-05-01] MEDS ORDERED: POTASSIUM PHOSPHATE MONOBASIC 500 MG TAB PO PRN (15:00)
[2017-05-01] MEDS ORDERED: SODIUM PHOSPHATE INJ 30 MMOL in SODIUM CHLOR 0.9% 250 ML INJ 240 ML IV PRN (15:00)
[2017-05-01] MEDS ORDERED: POTASSIUM PHOSPHATE INJ 30 MMOL in SODIUM CHLOR 0.9% 250 ML INJ 250 ML IV PRN (15:00)
[2017-05-01] MEDS ORDERED: POTASSIUM CHLOR 20 MEQ PREMIX 100 ML IV PRN ×2 (15:00)
[2017-05-01] MEDS ORDERED: MAGNESIUM SULFATE INJ 2 GM in SODIUM CHLORIDE 0.9% INJ 96 ML IV PRN (15:00)
[2017-05-01] MEDS ORDERED: POTASSIUM CHLOR 40 MEQ PREMIX 100 ML IV PRN ×2 (15:00)
[2017-05-01] MEDS ORDERED: MAGNESIUM SULFATE INJ 4 GM in SODIUM CHLORIDE 0.9% INJ 92 ML IV PRN (15:00)
[2017-05-01] MEDS ORDERED: LEVOFLOXACIN 750 MG PREMIX INJ 150 ML IV SCH (15:00)
[2017-05-01] MEDS ORDERED: MAGNESIUM OXIDE 400 MG TAB PO PRN (15:00)
[2017-05-01] MEDS ORDERED: POTASSIUM CHLORIDE 25 MEQ EFFERVESCENT TAB PO PRN (15:00)
[2017-05-01] MEDS: fentaNYL DRIP 250 ML IV PRN (15:14)
[2017-05-01] MEDS: INSULIN NovoLIN REGULAR SUPPLEMENTAL SCALE SQ SCH ×3 (15:15→22:05)
[2017-05-01] MEDS ORDERED: GLUCAGON 1 MG/ML VIAL OTHER PRN (15:15)
[2017-05-01] MEDS ORDERED: DEXTROSE 50% IN WATER 50 ML VIAL(D50) IV PUSH PRN (15:15)
[2017-05-01] MEDS ORDERED: RASS Change Order XX ONE (15:15)
[2017-05-01] MEDS: RESP: ALBUTEROL 2.5 MG/IPRATROPIUM 0.5 MG NEB (SCH) NEB ×2 (15:25→20:06)
--- NOTE | 2017-05-01 15:36 | RADRPT ---
EXAM DATE/TIME: 05/01/2017 15:12 [facility] COMPARISON: CHEST SINGLE AP, April 28, 2017, 13:24. INDICATIONS : Post intubation. MEDICAL HISTORY : Chronic obstructive pulmonary disease. Congestive heart failure. SURGICAL HISTORY : None. ENCOUNTER: Initial ACUITY: 1 day PAIN SCORE: Non-responsive. LOCATION: Bilateral chest FINDINGS: Patient has been intubated. ETT is at the level of the clavicles. There is a small to moderate right- sided pneumothorax measuring up to 5.3 cm in the right inferior hemithorax. Diffuse interstitial prom inence with redemonstration of focal pleural peripheral scarring in the left perihilar region. Cardio mediastinal contours are stable with slight leftward shift. Remainder of the exam is unchanged. CONCLUSION: 1. The ETT is in good position. 2. Small to moderate right-sided pneumothorax measuring up to 5.3 centers in the right inferior hemit horax with subtle leftward mediastinal shift.. Leighton Polanco MD on May 01, 2017 at 15:30 Board Certified Radiologist. This report was verified electronically.
[2017-05-01] MEDS ORDERED: LIDOCAINE 1%/EPINEPHrine 1:100,000 SOLN 20 ML VIAL ONE (15:46)
[2017-05-01] MEDS: PROPOFOL 1000 MG/100 ML INJ 100 ML IV PRN (16:15)
--- NOTE | 2017-05-01 16:15 | PD.PROCEDR ---
Procedure Note Procedure Chest tube placement The patient was positioned, prepped and draped in usual sterile fashion. 2 cc 1 % lidocaine was used to anesthetize the area. An incision was made , right midclavicular and blunt dissection was performed in curved forceps were used to enter the space. The chest tube 20 F was secured and taped. A chest x-ray was ordered to evaluate for placement of the chest tube. No initial fluid removed blank The patient tolerated the procedure well and there were no complications. Blood loss was minimal. Complications-none A chest x-ray is pending I personally performed the procedure Nancy Palma MD May 01, 2017 16:15
--- NOTE | 2017-05-01 16:48 | RADRPT ---
EXAM DATE/TIME: 05/01/2017 16:20 [facility] COMPARISON: CHEST SINGLE AP, May 01, 2017, 15:12. INDICATIONS : Status post right sided chest tube placement. Evaluate for pneumothorax. MEDICAL HISTORY : Chronic obstructive pulmonary disease. Congestive heart failure. SURGICAL HISTORY : None. ENCOUNTER: Subsequent ACUITY: 1 day PAIN SCORE: Non-responsive. LOCATION: chest FINDINGS: Stable ETT. Interval placement of right-sided chest tube with tip near at the apex. Interval resoluti on of right-sided pneumothorax. Mild airspace disease in the left lower lung zone. Remainder of exam is unchanged. CONCLUSION: 1. Interval placement of right apical chest tube with resolution of right-sided pneumothorax. Leighton Polanco MD on May 01, 2017 at 16:45 Board Certified Radiologist. This report was verified electronically.
[2017-05-01] MEDS: FAMOTIDINE 20 MG/2 ML VIAL IV PUSH SCH (17:08)
--- NOTE | 2017-05-01 17:40 | MB ---
cc: ELANA BARCENAS M.D. DATE OF CONSULTATION: 05/01/2017. HISTORY OF PRESENT ILLNESS: The patient is a 61-year-old male with past medical history of COPD on chronic home oxygen at 5 liters and tobacco abuse who was admitted to hospitalist service on April 28 for COPD exacerbation. The patient was placed on bronchodilators, IV steroids and empiric antibiotics. Chest x-ray on arrival showed COPD changes, otherwise no acute infiltrate or failure. He was transferred to the ICU today for closer observation. The patient was placed on BiPAP for respiratory distress and his ABG showed acute hypercapnic respiratory failure. A repeat ABG from this afternoon showed worsening respiratory acidosis. Critical care medicine was consulted for critical care management. When seen, the patient was on BiPAP 15/5 with 50% FIO2. He was tachycardiac, tachypneic, hypertensive and using his accessory muscles for respiration. The patient was subsequently intubated by myself and placed on full mechanical ventilation. PAST MEDICAL HISTORY: COPD. PAST SURGICAL HISTORY: 1. Previous abdominal and inguinal hernia repair. 2. Left foot surgery due to an accident. ALLERGIES: PENICILLIN. REPORTS MEDICATIONS: 1. Asmanex. 2. Proventil. 3. Spiriva. FAMILY HISTORY: Mother had multiple sclerosis. SOCIAL HISTORY: Active smoker. No history of alcohol or drug use. REVIEW OF SYSTEMS As per the history of present illness. The rest of the review of systems is limited. PHYSICAL EXAMINATION: GENERAL: On physical exam, this is a 61-year-old male intubated for respiratory failure. VITAL SIGNS: Temperature 97.4, pulse of 98, blood pressure 186/91, saturation 96%. VENT SETTINGS: PRVC rate of 16, tidal volume 500, FIO2 50%, PEEP of 5. HEAD, EYES, EARS, NOSE, THROAT: Normocephalic and atraumatic. Pupils equal, round and reactive to light and accommodation. Extraocular muscles intact. Conjunctivae are pink. Nonicteric sclerae. Oral mucosa within normal limits. Orally intubated. NECK: The neck is supple. No jugular venous distention, adenopathy or thyromegaly. Trachea in the midline. CARDIOVASCULAR: Tachycardic. Normal S1-S2. No murmurs, rubs or gallops noted. PULMONARY: Bilateral equal air entry. No crackles. Overall diminished. ABDOMEN: The abdomen is soft, nontender and no distention. Positive bowel sounds. EXTREMITIES: No cyanosis, clubbing or edema. NEUROLOGIC: Intubated. LABORATORY DATA: Laboratory data from April 29: Sodium 140, potassium 4.5, chloride 99, carbon dioxide 37, BUN 18, creatinine 0.46, glucose 147. WBCs 8, hemoglobin 13, hematocrit 39, platelet count 293,000. RADIOGRAPHIC STUDIES: Chest x-ray on admission showed COPD changes, otherwise no acute disease. IMPRESSION: 1. Acute hypercapnic and hypoxemic respiratory failure. 2. COPD exacerbation on home oxygen. 3. Active tobacco use. 4. Hypertension. RECOMMENDATIONS: 1. Will place on Diprivan and Fentanyl infusion for sedation and vent synchrony. 2. Monitor neuro status closely and daily sedation vacation when appropriate. 3. Continue vent support and maintain saturations above 92%. 4. Bronchodilators in the form of DuoNeb q. 6 and continue with Solu-Medrol 40 milligrams IV q. 6. 5. In addition, the patient was on Symbicort and Spiriva. 6. Check chest x-ray and ABG post intubation. 7. Will give Diamox 250 milligrams IV x1. 8. Monitor heart rate and blood pressure closely and maintain MAP greater than 65 mmHg. 9. Monitor renal function, intake and output and electrolyte replacement per protocol. 10. Place on Pepcid 20 milligrams IV q. 12 for GI prophylaxis. 11. Start tube feeds within the next 24 hours if remains intubated. 12. Monitor for signs of infection which include fever and WBCs. Montero culture if spikes a fever. Will check urinalysis with culture if indicated and place on Levaquin for COPD exacerbation. 13. Place on sliding scale insulin and Accu-Cheks for glycemic control as the patient is on IV steroids. 14. GI prophylaxis with Pepcid and DVT prophylaxis. The patient is on Lovenox 40 milligrams subcutaneous daily. Further recommendations will be based on the hospital course. MD DOLORES Trinh/BOBBY /3:04 PM /5:25 PM
[2017-05-01 18:13] LABS: AUTOMATED NEUTROPHIL # 12.1 TH/MM3 (1.8-7.7); BASOPHIL # 0.1 TH/MM3 (0-0.2); BASOPHIL % 0.5 % (0.0-2.0); HEMATOCRIT 36.4 % (39.0-51.0); HEMOGLOBIN 11.9 GM/DL (13.0-17.0); LYMPH % 9.2 % (9.0-44.0); LYMPHOCYTE # 1.3 TH/MM3 (1.0-4.8); MEAN CELL VOLUME 90.3 FL (80.0-100.0); MEAN CORPUSCULAR HEMOGLOBIN 29.5 PG (27.0-34.0); MEAN CORPUSCULAR HGB CONC 32.7 % (32.0-36.0); MEAN PLATELET VOLUME 6.7 FL (7.0-11.0); NEUT % 83.3 % (16.0-70.0); PLATELET COUNT 244 TH/MM3 (150-450); RED BLOOD COUNT 4.03 MIL/MM3 (4.50-5.90); RED CELL DISTRIBUTION WIDTH 13.4 % (11.6-17.2); WHITE BLOOD COUNT 14.5 TH/MM3 (4.0-11.0)
[2017-05-01 18:31] LABS: ALBUMIN 3.3 GM/DL (3.4-5.0); AST (GOT) 14 U/L (15-37); BICARBONATE 37.7 MEQ/L (21.0-32.0); BLOOD UREA NITROGEN 22 MG/DL (7-18); CALCIUM 8.5 MG/DL (8.5-10.1); CHLORIDE 100 MEQ/L (98-107); CREATININE 0.45 MG/DL (0.60-1.30); GLOMERULAR FILTRATION RATE 190 ML/MIN (>89); GLUCOSE,RANDOM 119 MG/DL (74-106); MAGNESIUM 2.4 MG/DL (1.5-2.5); SODIUM (NA) 142 MEQ/L (136-145)
[2017-05-01 18:32] LABS: ALT (GPT) 19 U/L (12-78); PHOSPHORUS 2.3 MG/DL (2.5-4.9)
[2017-05-01 18:34] LABS: ALKALINE PHOSPHATASE 81 U/L (45-117); TOTAL BILIRUBIN ADULT 0.3 MG/DL (0.2-1.0); TOTAL PROTEIN 6.2 GM/DL (6.4-8.2)
[2017-05-01] MEDS: ENOXAPARIN SODIUM 40 MG/0.4 ML SYRINGE SQ SCH (19:02)
[2017-05-01] MEDS: CHLORHEXIDINE 0.12% (ORAL KIT) 15 ML CUP MT SCH (20:00)
[2017-05-02] VITALS (22 sets, daily range): BP systolic 92–106; BP diastolic 56–74; PULSE 64–103; RESP 14–18; TEMP 98–99; O2SAT 94–100
[2017-05-02] MEDS: PROPOFOL 1000 MG/100 ML INJ 100 ML IV PRN ×4 (00:35→21:39)
[2017-05-02] MEDS: methylPREDNISolone SOD SUCC 40 MG/1 ML VIAL IV PUSH SCH ×4 (00:35→18:45)
[2017-05-02] MEDS: INSULIN NovoLIN REGULAR SUPPLEMENTAL SCALE SQ SCH ×6 (03:15→21:42)
[2017-05-02] MEDS: RESP: ALBUTEROL 2.5 MG/IPRATROPIUM 0.5 MG NEB (SCH) NEB ×4 (03:37→21:02)
[2017-05-02] MEDS: FAMOTIDINE 20 MG/2 ML VIAL IV PUSH SCH ×2 (04:22→16:09)
[2017-05-02 05:51] LABS: BASOPHIL % 0.1 % (0.0-2.0); HEMATOCRIT 37.2 % (39.0-51.0); HEMOGLOBIN 12.1 GM/DL (13.0-17.0); LYMPH % 11.2 % (9.0-44.0); LYMPHOCYTE # 1.3 TH/MM3 (1.0-4.8); MEAN CELL VOLUME 90.4 FL (80.0-100.0); MEAN CORPUSCULAR HEMOGLOBIN 29.4 PG (27.0-34.0); MEAN CORPUSCULAR HGB CONC 32.5 % (32.0-36.0); MEAN PLATELET VOLUME 7.3 FL (7.0-11.0); MONO % 8.8 % (0.0-8.0); NEUT % 79.9 % (16.0-70.0); PLATELET COUNT 223 TH/MM3 (150-450); RED BLOOD COUNT 4.11 MIL/MM3 (4.50-5.90); RED CELL DISTRIBUTION WIDTH 13.5 % (11.6-17.2); WHITE BLOOD COUNT 11.3 TH/MM3 (4.0-11.0)
--- NOTE | 2017-05-02 06:10 | MB ---
cc: SALVADOR FRANCO DATE OF CONSULTATION: 05/01/2017 REASON FOR CONSULTATION: Respiratory failure. Patient with known COPD. HISTORY OF PRESENT ILLNESS Mr. Louis is a 61-year-old male, presently intubated, mechanically ventilated and sedated. He has known history of COPD of severe degree and chronic respiratory failure. According to record he is on 5 liters oxygen by nasal cannula at home, admitted with exacerbation of COPD, requiring BiPap therapy with progressive deterioration, in eminent respiratory failure, intubated, mechanically ventilated for same. PAST MEDICAL HISTORY: 1. COPD. 2. Chronic respiratory failure. PAST SURGICAL HISTORY: Previous left foot surgery and hernia repair. MEDICATIONS AT HOME 1. Proventil. 2. Spiriva. 3. Asmanex. FAMILY HISTORY Not obtainable at present but positive for multiple sclerosis per records. SOCIAL HISTORY The patient is a smoker. No alcohol or drugs. REVIEW OF SYSTEMS 12-point review of systems as per HPI and past history otherwise negative. PHYSICAL EXAMINATION: The patient is sedated on ventilatory support. VITAL SIGNS: Temperature 97, pulse 88, respiratory rate 12, blood pressure 150/90. HEENT: Exam unremarkable. Eyes without icterus. Neck: Without adenopathy or thyroid enlargement. Chest: Scattered rhonchi bilaterally. Cardiac exam: PMI distant. 1/6 ejection systolic murmur, left sternal border. Abdomen: Lax, bowel sounds audible. Extremities: No clubbing, cyanosis or edema. LABORATORY DATA The patient's white count is 8000, hemoglobin 13, hematocrit 39, platelets 293,000, sodium 140, potassium 4.5, BUN 18, creatinine 0.46. IMAGING STUDIES: Chest x-ray suggestive of COPD. No acute infiltrates. IMPRESSION 1. Acute respiratory failure both hypoxic and hypercarbic. 2. Exacerbation COPD. 3. Hypertension. PLAN: Patient is on ventilatory support at present, sedated for same. Bronchodilator therapy. Antibiotic therapy initiated and appropriately so. The weaning process will be initiated as tolerated. Course followed closely and depending on progress proceed further. I do thank you for asking me to partake in Mr. Louis's care. Salvador Franco MD WWW/BIRD /11:37 PM /5:54 AM
[2017-05-02 06:14] LABS: BICARBONATE 34.7 MEQ/L (21.0-32.0); CALCIUM 8.9 MG/DL (8.5-10.1); CREATININE 0.49 MG/DL (0.60-1.30)
[2017-05-02] MEDS: CHLORHEXIDINE 0.12% (ORAL KIT) 15 ML CUP MT SCH ×2 (08:00→20:00)
[2017-05-02] MEDS: DOCUSATE SODIUM 50 MG/SENNA 8.6 MG TAB PO SCH ×2 (08:23→20:13)
[2017-05-02] MEDS ORDERED: amLODIPine BESYLATE 5 MG TAB PO SCH (09:00)
--- NOTE | 2017-05-02 09:02 | HHI.CCPN ---
Subjective Remarks/Hospital Course Patient is a 61-year-old male with past medical history of COPD on chronic home oxygen at 5 liters and tobacco abuse who was admitted to hospitalist service on April 28 for COPD exacerbation. The patient was placed on bronchodilators, IV steroids and empiric antibiotics. Chest x-ray on arrival showed COPD changes , otherwise no acute infiltrate or failure. He was transferred to the ICU today for closer observation. The patient was placed on BiPAP for respiratory distress and his ABG showed acute hypercapnic respiratory failure. A repeat ABG from this afternoon showed worsening respiratory acidosis. Critical care medicine was consulted for critical care management. When seen, the patient was on BiPAP 15/5 with 50% FIO2. He was tachycardiac, tachypneic, hypertensive and using his accessory muscles for respiration. The patient was subsequently intubated by myself and placed on full mechanical ventilation. 05/02 Patient is sedated with Diprivan and Fentanyl drips, s/p CT placement yesterday for right sided PTX. This morning patent noted to have subQ emphysema on right. Objective Vital Signs Date Time Temp Pulse Resp B/P (MAP) Pulse Ox O2 Delivery O2 Flow Rate FiO2 05/02/17 08:38 95 40 05/02/17 08:00 72 05/02/17 08:00 98.6 16 92/61 (71) 05/01/17 08:00 Bi-Pap 6.00 Intake and Output 05/02/17 05/02/17 05/03/17 08:00 16:00 00:00 Intake Total 100 ml Output Total 0 ml Balance 100 ml Result Diagram: 05/02/17 0533 05/02/17 0533 Other Results Laboratory Tests Test 05/01/17 09:50 05/01/17 14:02 05/01/17 14:20 05/01/17 17:50 Blood Gas Puncture Site RT RADIAL RT RADIAL RT RADIAL Blood Gas Patient Temperature 98.6 98.6 98.6 Blood Gas HCO3 38 mmol/L 38 mmol/L 37 mmol/L Blood Gas Base Excess 12.0 mmol/L 11.2 mmol/L 11.4 mmol/L Blood Gas Oxygen Saturation 95 % 93 % 95 % Arterial Blood pH 7.33 7.30 7.38 Arterial Blood Partial Pressure CO2 76 mmHg 79 mmHg 65 mmHg Arterial Blood Partial Pressure O2 90 mmHg 84 mmHg 89 mmHg Arterial Blood Oxygen Content 16.4 Vol % 17.4 Vol % 16.1 Vol % Arterial Blood Carboxyhemoglobin 1.1 % 0.6 % 0.9 % Arterial Blood Methemoglobin 1.1 % 1.5 % 1.5 % Blood Gas Hemoglobin 12.2 G/DL 13.3 G/DL 12.1 G/DL Oxygen Delivery Device BiPAP BIPAP VENTILATOR Blood Gas Inspired Oxygen 50 % 50 % 40 % Nasal Screen MRSA (PCR) MRSA NOT DETECTED Blood Gas Ventilator Setting IPAP+16/EPAP+6 PRVC/AC 550/16 Test 05/01/17 18:01 05/02/17 05:33 White Blood Count 14.5 TH/MM3 11.3 TH/MM3 Red Blood Count 4.03 MIL/MM3 4.11 MIL/MM3 Hemoglobin 11.9 GM/DL 12.1 GM/DL Hematocrit 36.4 % 37.2 % Mean Corpuscular Volume 90.3 FL 90.4 FL Mean Corpuscular Hemoglobin 29.5 PG 29.4 PG Mean Corpuscular Hemoglobin Concent 32.7 % 32.5 % Red Cell Distribution Width 13.4 % 13.5 % Platelet Count 244 TH/MM3 223 TH/MM3 Mean Platelet Volume 6.7 FL 7.3 FL Neutrophils (%) (Auto) 83.3 % 79.9 % Lymphocytes (%) (Auto) 9.2 % 11.2 % Monocytes (%) (Auto) 7.0 % 8.8 % Eosinophils (%) (Auto) 0.0 % 0.0 % Basophils (%) (Auto) 0.5 % 0.1 % Neutrophils # (Auto) 12.1 TH/MM3 9.0 TH/MM3 Lymphocytes # (Auto) 1.3 TH/MM3 1.3 TH/MM3 Monocytes # (Auto) 1.0 TH/MM3 1.0 TH/MM3 Eosinophils # (Auto) 0.0 TH/MM3 0.0 TH/MM3 Basophils # (Auto) 0.1 TH/MM3 0.0 TH/MM3 CBC Comment DIFF FINAL DIFF FINAL Differential Comment Blood Urea Nitrogen 22 MG/DL 26 MG/DL Creatinine 0.45 MG/DL 0.49 MG/DL Random Glucose 119 MG/DL 116 MG/DL Total Protein 6.2 GM/DL Albumin 3.3 GM/DL Calcium Level 8.5 MG/DL 8.9 MG/DL Phosphorus Level 2.3 MG/DL Magnesium Level 2.4 MG/DL Alkaline Phosphatase 81 U/L Aspartate Amino Transf (AST/SGOT) 14 U/L Alanine Aminotransferase (ALT/SGPT) 19 U/L Total Bilirubin 0.3 MG/DL Sodium Level 142 MEQ/L 139 MEQ/L Potassium Level 3.7 MEQ/L 3.8 MEQ/L Chloride Level 100 MEQ/L 100 MEQ/L Carbon Dioxide Level 37.7 MEQ/L 34.7 MEQ/L Anion Gap 4 MEQ/L 4 MEQ/L Estimat Glomerular Filtration Rate 190 ML/MIN 172 ML/MIN Imaging Last Impressions Chest CT 05/02/17 0000 Signed Impressions: Service Date/Time: Tuesday, May 02, 2017 09:32 - CONCLUSION: 1. Right chest drainage tube in place with tip at apex. There is a moderate size anterior right lower lung pneumothorax which extends to the mid chest. 2. Extensive subcutaneous emphysema on the right side and some mild lower left subcutaneous emphysema. Allen Martinez MD Chest X-Ray 05/01/17 0000 Signed Impressions: Service Date/Time: Monday, May 01, 2017 16:20 - CONCLUSION: 1. Interval placement of right apical chest tube with resolution of right-sided pneumothorax. Leighton Polanco MD Objective Remarks GENERAL: Patient is 61 yo intubated and sedated. SKIN: Warm and dry. HEAD: Normocephalic. EYES: No scleral icterus. No injection or drainage. NECK: Supple, trachea midline. No JVD or lymphadenopathy. CARDIOVASCULAR: Regular rate and rhythm without murmurs, gallops, or rubs. RESPIRATORY: Breath sounds equal bilaterally. No accessory muscle use. GASTROINTESTINAL: Abdomen soft, non-tender, nondistended. MUSCULOSKELETAL: No cyanosis, or edema. Neuro: Sedated and intubated A/P Assessment and Plan 1. Acute hypercapnic and hypoxemic respiratory failure. intubated 05/01 2. COPD exacerbation on home oxygen. 3 Right sided PTX s/p CT placement 4 Sub Q emphysema 5. Active tobacco use. 6. Hypertension. Plan Neuro: On Diprivan and Fentanyl infusion for sedation and vent synchrony. Monitor neuro statu. Daily sedation vacation when appropriate. Pulm: Continue vent support and maintain sats> 92%. Bronchodilators, Solu-Medrol 40mg IV q. 6. s/p right CT placement yesterday now with subQ emphysema will increase 40cm wall suction CT chest done STAT showed Right chest drainage tube in place with tip at apex. There is a moderate size anterior right lower lung pneumothorax which extends to the mid chest. extensive subcutaneous emphysema on the right side and some mild lower left subcutaneous emphysema. Discussed CT chest findings with IR Dr. Comer s/p [address] placement by IR, Consent couldn't be obtained however its medically necessary to do procedure. CTS consulted case discussed with Dr. Lino CV: Monitor HR and BP and maintain MAP> 65 mmHg. : Monitor renal function, intake and output and electrolyte replacement per protocol. Place on NS@75ml/hr GI: On Pepcid 20 mg IV q. 12 for GI prophylaxis. Continue tube feeds- Glucerna 1.5 with goal rate 45ml/hr ID: Continue Levaquin for COPD exacerbation. Monitor for signs of infections ( Fever, WBC) Endo: SSI with Accu-Cheks for glycemic control Heme: Monitor CBC GI prophylaxis with Pepcid and DVT prophylaxis with SCD/Lovenox 40 mg daily. Level 3 Kaia Locke MD May 02, 2017 09:02
--- NOTE | 2017-05-02 09:54 | RADRPT ---
EXAM DATE/TIME: 05/02/2017 09:32 [facility] COMPARISON: CHEST SINGLE AP, May 01, 2017, 16:20. INDICATIONS : Status post chest tube placement. Evaluate for pneumothorax. RADIATION DOSE: 6.12 CTDIvol (mGy) MEDICAL HISTORY : Stroke. Cardiovascular disease skin cancer SURGICAL HISTORY : hernia repair ENCOUNTER: Initial ACUITY: 1 day PAIN SCALE: Non-responsive LOCATION: Bilateral chest TECHNIQUE: Volumetric scanning of the chest was performed. Using automated exposure control and adjustment of t he mA and/or kV according to patient size, radiation dose was kept as low as reasonably achievable to obtain optimal diagnostic quality images. DICOM format image data is available electronically for r eview and comparison. Follow-up recommendations for detected pulmonary nodules are based at a minimum on nodule size and pa tient risk factors according to Fleischner Society Guidelines. FINDINGS: LUNGS: Severe bullous emphysema in the upper lobes right chest tube is in place entering laterally and with the tip at the apex. There is a right sided pneumothorax located in the mid and lower chest measurin g 4.0 cm anteriorly in the lower chest and 1.3 cm in anterior and medial mid chest. There bibasilar opacities and the costophrenic angles, right greater than left suggestive of atelectasis. Some non-c onsolidative infiltrates are present in the lateral left lung. PLEURAE: There is no pleural thickening or pleural effusion. MEDIASTINUM: No evidence of mediastinal adenopathy. The anterior junction line is displaced to the left. AXILLAE: Within normal limits. No lymphadenopathy. MUSCULOSKELETAL: Osseous structures are grossly intact postop MISCELLANEOUS: Extensive subcutaneous emphysema about the right side extending from supraclavicular region down to t he lower right chest. There is also a small amount of subcutaneous emphysema about the lower lateral left chest. ET and gastric tube in place. CONCLUSION: 1. Right chest drainage tube in place with tip at apex. There is a moderate size anterior right lowe r lung pneumothorax which extends to the mid chest. 2. Extensive subcutaneous emphysema on the right side and some mild lower left subcutaneous emphysema . Allen Martinez MD on May 02, 2017 at 9:46 Board Certified Radiologist. This report was verified electronically.
[2017-05-02] MEDS: fentaNYL DRIP 250 ML IV PRN (10:46)
[2017-05-02] MEDS: SODIUM CHLOR 0.9% 1000 ML INJ 1,000 ML IV SCH ×2 (10:46→21:38)
--- NOTE | 2017-05-02 12:11 | PD.RAD ---
Radiology Note Called emergently for pt. with loculated right basilar ptx and increasing deep tissue emphysematous changes around the left hemithorax post surgical chest tube. Asked to place additional tube in the right base as patient is symptomatic, intubated, on PEEP. No available family members for consent. Deemed medically necessary by sequins spooler service. Will proceed with CT guided chest tube placement. Slava Comer MD May 02, 2017 12:11
[2017-05-02] MEDS ORDERED: LIDOCAINE HCL 1% PF 30 ML VIAL ONE (12:20)
--- NOTE | 2017-05-02 13:03 | PD.RAD ---
Post CT Procedure Prog Note Pre Procedure Diagnosis: (1) Pneumothorax, right (2) COPD exacerbation Post Procedure Diagnosis: (1) Pneumothorax, right (2) Acute respiratory failure with hypoxia (3) COPD exacerbation Procedure Date: May 02, 2017 Supervising Radiologist: Slava Comer Anesthesia: Local Plan of Activity Patient to Unit: Critical Care Patient Condition: Poor See PACS Report for procedural detail/treatment Drainage Procedure Procedure 1 Imaging Guidance: CT Side: Right Procedure Type: Chest Tube Non-Tunneled Procedure: Placement Algerian: 10 (non-locking) Drainage: Pleurovac Findings: Loculated PTX right lower lobe. Slava Comer MD May 02, 2017 13:03
--- NOTE | 2017-05-02 13:43 | RADRPT ---
EXAM DATE/TIME: 05/02/2017 13:16 [facility] COMPARISON: CHEST SINGLE AP, May 01, 2017, 16:20. INDICATIONS : Chest tube placement. MEDICAL HISTORY : Chronic obstructive pulmonary disease. Congestive heart failure. SURGICAL HISTORY : Right sided chest tube. ENCOUNTER: Subsequent ACUITY: 1 day PAIN SCORE: 0/10 LOCATION: Bilateral chest FINDINGS: Interval placement of a pigtail chest catheter at the right lung base. Large bore chest catheter at the right apex. The lungs are symmetrically aerated and clear. No pneumothorax seen on this supine expiratory view of the chest. Hemidiaphragms are well delineated. Its emphysema about the right meenakshi st is similar to recent CT. ET tube tip well above the pam. Gastric tube traverses the field-of- view. CONCLUSION: Right and one chest catheter the lower right chest in stable position feeding large bore catheter in the right apex. Allen Martinez MD on May 02, 2017 at 13:40 Board Certified Radiologist. This report was verified electronically.
[2017-05-02] MEDS: BUDESONIDE-FORMOTEROL 160/4.5 MCG INHALER INH SCH ×2 (15:23→20:13)
[2017-05-02] MEDS: FLUTICASONE PROPIONATE 50 MCG/ACT 16 GM NASAL SPRAY EACH NARE SCH ×2 (15:24→20:13)
[2017-05-02] MEDS: TIOTROPIUM BROMIDE 18 MCG INH INH SCH (15:24)
--- NOTE | 2017-05-02 15:30 | EKG ---
Date Performed: 05/01/2017 Time Performed: 16:55:13 PTAGE: 61 years EKG: Sinus rhythm Nonspecific ST-T wave changes ABNORMAL ECG PREVIOUS TRACING : 04/29/2017 01.31 DOCTOR: Elie Oleary Interpretating Date/Time 05/02/2017 15:29:40
[2017-05-02] MEDS: LEVOFLOXACIN 500 MG PREMIX INJ 100 ML IV SCH (16:10)
--- NOTE | 2017-05-02 16:31 | HHI.PR ---
Subjective Remarks ON THE VENT AROUSIBLE Objective Vital Signs Date Time Temp Pulse Resp B/P (MAP) Pulse Ox O2 Delivery O2 Flow Rate FiO2 05/02/17 16:00 65 17 95 18 15:00 64 16 95 18 14:53 64 16 96/67 (77) 95 18 14:11 99 40 1818 14:04 68 16 96/65 (75) 97 05/02/17 14:00 73 16 97 18 13:00 64 18 100 18 12:00 100 100 18 12:00 100 05/02/17 12:00 69 16 96 05/02/17 10:00 79 05/02/17 09:50 100 100 18 08:38 95 40 05/02/17 08:00 50 18 08:00 72 05/02/17 08:00 98.6 72 16 92/61 (71) 96 05/02/17 06:00 80 05/02/17 04:00 50 18 04:00 82 18 04:00 99.0 82 16 93/56 (68) 97 18 03:37 94 40 05/02/18 02:00 77 18 00:20 97 40 05/02/18 00:00 98.7 90 16 92/70 (77) 97 18/18 00:00 90 18 00:00 50 05/01/18 22:00 97 13 97/69 (78) 97 05/01/18 22:00 92 05/01/18 21:56 98 40 05/01/18 20:06 97 50 05/01/18 20:00 105 05/01/18 20:00 50 05/01/18 20:00 99.0 105 25 106/76 (86) 97 2/18 19:00 98 16 96 2/18 18:56 105 16 115/79 (91) 94 217/18 18:00 98.9 92 16 81/59 (66) 92 I/O 05/01/18 2/17/18 2/17/18 2/18/18 2/18/18 2/18/18 07:00 15:00 23:00 07:00 15:00 23:00 Intake Total 450 ml 100 ml Output Total 300 ml 0 ml Balance -300 ml 450 ml 100 ml 0 ml IV Total 450 ml 100 ml Output Urine Total 300 ml Tube Feeding Residual Discard 0 ml # Voids 1 1 # Bowel Movements 0 1 Result Diagram: 05/02/1753205/02/17532 Objective Remarks GENERAL: SKIN: Warm and dry. HEAD: Atraumatic. Normocephalic. EYES: Pupils equal and round. No scleral icterus. No injection or drainage. ENT: No nasal bleeding or discharge. Mucous membranes pink and moist. NECK: Trachea midline. No JVD. CARDIOVASCULAR: Regular rate and rhythm. RESPIRATORY: No accessory muscle use. Clear to auscultation. Breath sounds equal bilaterally. GASTROINTESTINAL: Abdomen soft, non-tender, nondistended. Hepatic and splenic margins not palpable. MUSCULOSKELETAL: Extremities without clubbing, cyanosis, or edema. No obvious deformities. NEUROLOGICAL: Awake and alert. No obvious cranial nerve deficits. Motor grossly within normal limits. Five out of 5 muscle strength in the arms and legs. Normal speech. PSYCHIATRIC: Appropriate mood and affect; insight and judgment normal. Assessment and Plan Assessment and Plan ASS RESP. FAILURE COPD PLAN VENT SUPPORT BRONCHODILATOR THERAPY WEAN TOLERATED Salvador Franco MD May 02, 2017 16:31
[2017-05-02] MEDS: ENOXAPARIN SODIUM 40 MG/0.4 ML SYRINGE SQ SCH (18:00)
[2017-05-02 18:54] LABS: AMORPHOUS SEDIMENT, URINE OCC; BACTERIA, URINE RARE /hpf; BILIRUBIN, URINE NEG (NEG); BLOOD, URINE NEG (NEG); GLUCOSE,URINE NEG (NEG); KETONE, URINE NEG (NEG); MUCUS URINE FEW /lpf (OCC); NITRITE,URINE NEG (NEG); PH, URINE 8.5 (5.0-8.5); TRANSITIONAL EPI CELLS, URINE <1 /hpf; URINE COLOR YELLOW (YELLW/STRAW); URINE LEUKOCYTE ESTERASE NEG (NEG)
[2017-05-03] VITALS (20 sets, daily range): BP systolic 94–169; BP diastolic 61–104; PULSE 70–115; RESP 12–26; TEMP 97.7–99.2; O2SAT 92–97
[2017-05-03] MEDS: methylPREDNISolone SOD SUCC 40 MG/1 ML VIAL IV PUSH SCH ×4 (00:36→17:42)
[2017-05-03] MEDS: PROPOFOL 1000 MG/100 ML INJ 100 ML IV PRN ×2 (01:27→05:08)
[2017-05-03] MEDS: INSULIN NovoLIN REGULAR SUPPLEMENTAL SCALE SQ SCH ×6 (03:15→22:04)
[2017-05-03] MEDS: RESP: ALBUTEROL 2.5 MG/IPRATROPIUM 0.5 MG NEB (SCH) NEB ×4 (04:17→20:46)
--- NOTE | 2017-05-03 04:42 | RADRPT ---
EXAM DATE/TIME: 05/03/2017 03:41 [facility] COMPARISON: CHEST SINGLE AP, May 01, 2017, 16:20. INDICATIONS : Shortness of breath, VDRV. MEDICAL HISTORY : Chronic obstructive pulmonary disease. Congestive heart failure. SURGICAL HISTORY : None. ENCOUNTER: Subsequent ACUITY: 4 - 6 days PAIN SCORE: 0/10 LOCATION: Bilateral chest FINDINGS: A single AP semierect view of the chest was obtained and again demonstrates a right-sided chest tube in place with no visualized pneumothorax. Extensive subcutaneous emphysema is noted over the right la teral upper chest wall which is increased from the prior study. There has been interval placement of a nasogastric tube which is seen coursing through the esophagus into the stomach. The patient remains intubated with the endotracheal tube tip near the level of thoracic inlet. The lungs are hyperinflat ed with underlying emphysema and bullous change. The heart size is within normal limits with atherosc lerotic calcifications. Overlying electrocardiogram leads and oxygen tubing are present. CONCLUSION: 1. The right-sided chest tube remains in place with no visualized pneumothorax however there has been and interval increase in the subcutaneous emphysema along the right lateral chest wall. 2. Underlying emphysema and bullous change. Manny Zuniga MD on May 03, 2017 at 4:39 Board Certified Radiologist. This report was verified electronically.
[2017-05-03] MEDS: FAMOTIDINE 20 MG/2 ML VIAL IV PUSH SCH ×2 (05:05→16:40)
[2017-05-03] MEDS: CHLORHEXIDINE 0.12% (ORAL KIT) 15 ML CUP MT SCH ×2 (08:00→19:59)
[2017-05-03 08:29] LABS: AUTOMATED NEUTROPHIL # 7.3 TH/MM3 (1.8-7.7); BASOPHIL % 0.1 % (0.0-2.0); HEMATOCRIT 33.9 % (39.0-51.0); HEMOGLOBIN 11.2 GM/DL (13.0-17.0); LYMPH % 10.3 % (9.0-44.0); LYMPHOCYTE # 0.9 TH/MM3 (1.0-4.8); MEAN CELL VOLUME 89.6 FL (80.0-100.0); MEAN CORPUSCULAR HEMOGLOBIN 29.6 PG (27.0-34.0); MEAN CORPUSCULAR HGB CONC 33.1 % (32.0-36.0); MEAN PLATELET VOLUME 7.6 FL (7.0-11.0); MONO % 8.1 % (0.0-8.0); MONOCYTE # 0.7 TH/MM3 (0-0.9); NEUT % 81.5 % (16.0-70.0); PLATELET COUNT 211 TH/MM3 (150-450); RED BLOOD COUNT 3.78 MIL/MM3 (4.50-5.90); RED CELL DISTRIBUTION WIDTH 13.7 % (11.6-17.2)
[2017-05-03] MEDS: FLUTICASONE PROPIONATE 50 MCG/ACT 16 GM NASAL SPRAY EACH NARE SCH ×2 (08:41→20:00)
[2017-05-03] MEDS: BUDESONIDE-FORMOTEROL 160/4.5 MCG INHALER INH SCH ×2 (08:42→20:00)
[2017-05-03] MEDS: TIOTROPIUM BROMIDE 18 MCG INH INH SCH (08:42)
[2017-05-03] MEDS: DOCUSATE SODIUM 50 MG/SENNA 8.6 MG TAB PO SCH ×2 (08:43→20:00)
--- NOTE | 2017-05-03 08:47 | HHI.CCPN ---
Subjective Remarks/Hospital Course Patient is a 61-year-old male with past medical history of COPD on chronic home oxygen at 5 liters and tobacco abuse who was admitted to hospitalist service on April 28 for COPD exacerbation. The patient was placed on bronchodilators, IV steroids and empiric antibiotics. Chest x-ray on arrival showed COPD changes , otherwise no acute infiltrate or failure. He was transferred to the ICU today for closer observation. The patient was placed on BiPAP for respiratory distress and his ABG showed acute hypercapnic respiratory failure. A repeat ABG from this afternoon showed worsening respiratory acidosis. Critical care medicine was consulted for critical care management. When seen, the patient was on BiPAP 15/5 with 50% FIO2. He was tachycardiac, tachypneic, hypertensive and using his accessory muscles for respiration. The patient was subsequently intubated by myself and placed on full mechanical ventilation. 05/02 Patient is sedated with Diprivan and Fentanyl drips, s/p CT placement yesterday for right sided PTX. This morning patent noted to have subQ emphysema on right. 05/03 Patient remains sedated with Fentanyl and intubated. Off Diprivan. Afebrile. Objective Vital Signs Date Time Temp Pulse Resp B/P (MAP) Pulse Ox O2 Delivery O2 Flow Rate FiO2 05/03/17 07:58 95 35 05/03/17 06:00 70 05/03/17 04:00 98.3 26 113/69 (84) 05/01/17 08:00 Bi-Pap 6.00 Intake and Output 05/03/17 05/03/17 05/04/17 08:00 16:00 00:00 Intake Total 680 ml Output Total 1000 ml Balance -320 ml Result Diagram: 05/03/17 0800 05/02/17 0533 Other Results Laboratory Tests Test 05/02/17 15:09 05/03/17 08:00 Urine Color YELLOW Urine Turbidity HAZY Urine pH 8.5 Urine Specific [place] 1.019 Urine Protein TRACE mg/dL Urine Glucose (UA) NEG mg/dL Urine Ketones NEG mg/dL Urine Occult Blood NEG Urine Nitrite NEG Urine Bilirubin NEG Urine Urobilinogen LESS THAN 2.0 MG/DL Urine Leukocyte Esterase NEG Urine RBC LESS THAN 1 /hpf Urine WBC 1 /hpf Urine Transitional Epithelial Cells <1 /hpf Urine Amorphous Sediment OCC Urine Bacteria RARE /hpf Urine Mucus FEW /lpf Microscopic Urinalysis Comment CATH-CULTURE IND White Blood Count 9.0 TH/MM3 Red Blood Count 3.78 MIL/MM3 Hemoglobin 11.2 GM/DL Hematocrit 33.9 % Mean Corpuscular Volume 89.6 FL Mean Corpuscular Hemoglobin 29.6 PG Mean Corpuscular Hemoglobin Concent 33.1 % Red Cell Distribution Width 13.7 % Platelet Count 211 TH/MM3 Mean Platelet Volume 7.6 FL Neutrophils (%) (Auto) 81.5 % Lymphocytes (%) (Auto) 10.3 % Monocytes (%) (Auto) 8.1 % Eosinophils (%) (Auto) 0.0 % Basophils (%) (Auto) 0.1 % Neutrophils # (Auto) 7.3 TH/MM3 Lymphocytes # (Auto) 0.9 TH/MM3 Monocytes # (Auto) 0.7 TH/MM3 Eosinophils # (Auto) 0.0 TH/MM3 Basophils # (Auto) 0.0 TH/MM3 CBC Comment DIFF FINAL Differential Comment Imaging Last Impressions Chest X-Ray 05/03/17 0600 Signed Impressions: Service Date/Time: Wednesday, May 03, 2017 03:41 - CONCLUSION: 1. The right-sided chest tube remains in place with no visualized pneumothorax however there has been and interval increase in the subcutaneous emphysema along the right lateral chest wall. 2. Underlying emphysema and bullous change. Manny Zuniga MD Chest CT 05/02/17 0000 Signed Impressions: Service Date/Time: Tuesday, May 02, 2017 09:32 - CONCLUSION: 1. Right chest drainage tube in place with tip at apex. There is a moderate size anterior right lower lung pneumothorax which extends to the mid chest. 2. Extensive subcutaneous emphysema on the right side and some mild lower left subcutaneous emphysema. Allen Martinez MD Objective Remarks GENERAL: Patient is 61 yo intubated and sedated. SKIN: Warm and dry. HEAD: Normocephalic. EYES: No scleral icterus. No injection or drainage. NECK: Supple, trachea midline. No JVD or lymphadenopathy. CARDIOVASCULAR: Regular rate and rhythm without murmurs, gallops, or rubs. RESPIRATORY: Breath sounds equal bilaterally. No accessory muscle use. GASTROINTESTINAL: Abdomen soft, non-tender, nondistended. MUSCULOSKELETAL: No cyanosis, or edema. Neuro: Sedated and intubated A/P Assessment and Plan 1. Acute hypercapnic and hypoxemic respiratory failure. intubated 05/01 2. COPD exacerbation on home oxygen. 3 Right sided PTX s/p CT placement 4 Sub Q emphysema 5. Active tobacco use. 6. Hypertension. Plan Neuro: On Fentanyl infusion for sedation and vent synchrony. Monitor neuro statu. Daily sedation vacation Pulm: Continue vent support and maintain sats> 92%. Bronchodilators, Solu-Medrol 40mg IV q. 6. Start SBT daily as markos s/p right CT placement 05/01 for right sided PTX, continue with 40cm wall suction CT chest yesterday showed right chest tube in place with tip at apex. There is a moderate size anterior right lower lung pneumothorax which extends to the mid chest. extensive subcutaneous emphysema on the right side and some mild lower left subcutaneous emphysema. s/p [address] placement by IR 05/02, on 40 cm wall suction CXR today: right-sided chest tube remains in place with no visualized pneumothorax, increase in the subQ emphysema along the right lateral chest wall. Underlying emphysema and bullous change CTS consulted case discussed with Dr. Lino CV: Monitor HR and BP and maintain MAP> 65 mmHg. : Monitor renal function, intake and output and electrolyte replacement per protocol. on NS@75ml/hr GI: On Pepcid 20 mg IV q. 12 for GI prophylaxis. Continue tube feeds- Glucerna 1.5 with goal rate 45ml/hr ID: Continue Levaquin for COPD exacerbation. Monitor for signs of infections ( Fever, WBC) Endo: SSI with Accu-Cheks for glycemic control Heme: Monitor CBC GI prophylaxis with Pepcid and DVT prophylaxis with SCD/Lovenox 40 mg daily. Level 3 Kaia Locke MD May 03, 2017 08:47
[2017-05-03 09:00] LABS: BICARBONATE 33.1 MEQ/L (21.0-32.0); CALCIUM 8.7 MG/DL (8.5-10.1); CREATININE 0.47 MG/DL (0.60-1.30)
[2017-05-03] MEDS: SODIUM CHLOR 0.9% 1000 ML INJ 1,000 ML IV SCH (11:07)
[2017-05-03] MEDS: LEVOFLOXACIN 500 MG PREMIX INJ 100 ML IV SCH (16:41)
--- NOTE | 2017-05-03 17:15 | HHI.PR ---
Subjective Remarks ON THE VENT AROUSIBLE Objective Vital Signs Date Time Temp Pulse Resp B/P (MAP) Pulse Ox O2 Delivery O2 Flow Rate FiO2 05/03/17 16:00 110 05/03/17 16:00 93 35 05/03/17 16:00 40 05/03/17 16:00 99.2 110 25 169/104 (125) 92 05/03/17 14:00 101 05/03/17 13:29 93 35 05/03/17 12:00 91 05/03/17 12:00 40 05/03/17 12:00 98.2 91 12 135/85 (102) 95 05/03/17 11:02 95 35 05/03/17 10:00 82 05/03/17 09:00 95 35 05/03/17 09:00 40 05/03/17 09:00 40 05/03/17 08:00 50 05/03/17 08:00 97.7 70 16 94/61 (72) 95 05/03/17 08:00 70 05/03/17 07:58 95 35 05/03/17 06:00 70 05/03/17 04:18 94 35 05/03/17 04:00 50 05/03/17 04:00 98.3 115 26 113/69 (84) 95 05/03/17 04:00 98 05/03/17 02:00 101 05/03/17 00:24 92 35 05/03/17 00:00 98 05/03/17 00:00 98.3 98 20 131/79 (96) 95 05/03/17 00:00 50 05/02/17 22:00 80 05/02/17 21:02 94 35 18 20:00 50 18 20:00 98.0 103 14 106/74 (85) 96 18 20:00 103 05/02/18 18:00 80 I/O 05/02/18 2/18/18 2//18 2//18 2//18 //18 07:00 15:00 23:00 07:00 15:00 23:00 Intake Total 100 ml 1737 ml 680 ml Output Total 0 ml 1800.0 ml 1000 ml Balance 100 ml 0 ml -63.0 ml -320 ml IV Total 100 ml 1300 ml 200 ml Tube Feeding 197 ml 480 ml Other 240 ml Output Urine Total 1800 ml 1000 ml Tube Feeding Residual Discard 0 ml 0 ml Bladder Scan Volume Amount 70 ml # Voids 1 # Bowel Movements 0 Result Diagram: 05/03/17 0800 05/03/17 08 Objective Remarks GENERAL: SKIN: Warm and dry. HEAD: Atraumatic. Normocephalic. EYES: Pupils equal and round. No scleral icterus. No injection or drainage. ENT: No nasal bleeding or discharge. Mucous membranes pink and moist. NECK: Trachea midline. No JVD. CARDIOVASCULAR: Regular rate and rhythm. RESPIRATORY: No accessory muscle use. Clear to auscultation. Breath sounds equal bilaterally. GASTROINTESTINAL: Abdomen soft, non-tender, nondistended. Hepatic and splenic margins not palpable. MUSCULOSKELETAL: Extremities without clubbing, cyanosis, or edema. No obvious deformities. NEUROLOGICAL: Awake and alert. No obvious cranial nerve deficits. Motor grossly within normal limits. Five out of 5 muscle strength in the arms and legs. Normal speech. PSYCHIATRIC: Appropriate mood and affect; insight and judgment normal. Assessment and Plan Assessment and Plan ASS RESP. FAILURE COPD PLAN VENT SUPPORT BRONCHODILATOR THERAPY WEAN TOLERATED Salvador Franco MD May 03, 2017 17:15
[2017-05-03] MEDS: ENOXAPARIN SODIUM 40 MG/0.4 ML SYRINGE SQ SCH (17:41)
[2017-05-04] VITALS (20 sets, daily range): BP systolic 96–144; BP diastolic 53–86; PULSE 68–89; RESP 14–20; TEMP 97.7–99; O2SAT 92–96
[2017-05-04] MEDS: methylPREDNISolone SOD SUCC 40 MG/1 ML VIAL IV PUSH SCH ×5 (00:41→23:47)
[2017-05-04] MEDS: SODIUM CHLOR 0.9% 1000 ML INJ 1,000 ML IV SCH ×2 (02:20→15:36)
[2017-05-04] MEDS: PROPOFOL 1000 MG/100 ML INJ 100 ML IV PRN (02:21)
[2017-05-04] MEDS: RESP: ALBUTEROL 2.5 MG/IPRATROPIUM 0.5 MG NEB (SCH) NEB ×4 (02:24→22:20)
[2017-05-04] MEDS: INSULIN NovoLIN REGULAR SUPPLEMENTAL SCALE SQ SCH ×6 (03:15→23:02)
[2017-05-04] MEDS: FAMOTIDINE 20 MG/2 ML VIAL IV PUSH SCH ×2 (03:23→16:00)
--- NOTE | 2017-05-04 06:43 | RADRPT ---
EXAM DATE/TIME: 05/04/2017 05:52 [facility] COMPARISON: CHEST SINGLE AP, May 03, 2017, 3:41. INDICATIONS : Short of breath. MEDICAL HISTORY : Chronic obstructive pulmonary disease. Congestive heart failure. SURGICAL HISTORY : None. ENCOUNTER: Subsequent ACUITY: 4 - 6 days PAIN SCORE: 0/10 LOCATION: Bilateral chest FINDINGS: A single AP portable semierect view of small right apical pneumothorax now identified. the chest was obtained and again demonstrates the right-sided chest tube in place. There is a small right apical pn eumothorax now identified measuring approximately 1.5 cm in diameter. The lungs appear mildly hyperin flated. The endotracheal tube is in place with the tip approximately 5 cm above the pam. A nasogas tric tube is again seen coursing through the esophagus into the stomach. A cutaneous emphysema remain s over the right lateral upper chest wall. There is a second small bore right-sided chest tube at the lung base. CONCLUSION: 1. Patient remains intubated and the lungs are hyperinflated. Manny Zuniga MD on May 04, 2017 at 6:39 Board Certified Radiologist. This report was verified electronically.
[2017-05-04] MEDS: CHLORHEXIDINE 0.12% (ORAL KIT) 15 ML CUP MT SCH ×2 (08:00→19:50)
[2017-05-04] MEDS: FLUTICASONE PROPIONATE 50 MCG/ACT 16 GM NASAL SPRAY EACH NARE SCH ×2 (08:06→20:25)
[2017-05-04] MEDS: BUDESONIDE-FORMOTEROL 160/4.5 MCG INHALER INH SCH ×3 (08:07→20:25)
[2017-05-04] MEDS: TIOTROPIUM BROMIDE 18 MCG INH INH SCH (08:07)
--- NOTE | 2017-05-04 08:16 | MB ---
cc: ARIADNA LINO DATE OF CONSULTATION 05/03/2017 DATE OF 1955, 61-year-old male. HISTORY OF THE PRESENT ILLNESS Significant for chronic COPD on home O2 at 5 liters, continued tobacco abuse presented by EMS for worsening dyspnea and admitted with COPD exacerbation. He took apparently three nebulizers at home before calling EMS. They treated him with some Solu-Medrol. O2 saturations were in the 70s on admission. They placed him on BiPap where he had some improvement. He was also started on empiric antibiotics. Initial x-ray showed emphysematous changes otherwise no acute infiltrate or failure. He was transferred to the ICU for closer observation. His ABG showed hypercapnic respiratory failure despite the BiPap. He became hypertensive was more tachypneic and required emergent intubation by critical care medicine. The patient remains on the ventilator. We were consulted for some subcu emphysema, right pneumothorax status post chest tube placement. The patient has two chest tubes. He has a pigtail catheter and also a 20-Estonian catheter on the right lateral chest wall. CT chest was done on the which showed a right chest tube in the tip of the apex, moderate size right lower lobe pneumothorax where the second chest tube was placed by critical care. Chest x-ray this morning showed no visualized pneumothorax, however, some increase in subcu emphysema along the right lateral chest wall. The patient also has some emphysema and bullous changes. We were consulted to evaluate for possible video-assisted thoracoscopy, possible pleurodesis, however at this time his x-ray is showing no evidence of pneumothorax. PAST MEDICAL HISTORY His past medical history significant for: 1. Chronic COPD. 2. Continued tobacco abuse on home O2 at 5 liters. PAST SURGICAL HISTORY Surgeries include: 1. Previous abdominal and inguinal hernia repair. 2. Left foot surgery due to an accident. ALLERGIES HE HAS ALLERGIES TO PENICILLIN-G. MEDICATIONS Home medications includes: 1. Asmanex. 2. Proventil. 3. Spiriva. FAMILY HISTORY Mother had multiple sclerosis. SOCIAL HISTORY Continued tobacco abuse. No history of alcohol or drug use. REVIEW OF SYSTEMS Unobtainable since the patient is currently intubated. PHYSICAL EXAMINATION GENERAL: On exam the patient has been off of propofol. He is awake, alert, following all commands. He is on C-PAP mode at this time. VITAL SIGNS: His respiratory rate is approximately 15, as he is pulling tidal volume, peak pressures are 22. He is on 35% FIO2. He is tolerating tube feedings and has a Edgar catheter in place. HEENT: Again the patient is awake, stated age, full arevalo. Head is normocephalic, atraumatic. Pupils equal and reactive. Orally intubated. NECK: Supple. No JVD. CARDIOVASCULAR: Heart sounds S1-S2, slightly tachycardiac. S1-S2 regular rate and rhythm. No audible rubs, murmurs, gallops. CHEST: Coarse bilateral breath sounds. He does have some subcu emphysema right upper chest and lateral chest wall. He has two chest tubes including a pigtail catheter a #20-Estonian cath on the right lateral chest wall. His chest tubes are to 40 cm of suction with no air leak. ABDOMEN: Soft, flat, nontender. No masses or organomegaly. EXTREMITIES: No cyanosis. Positive for clubbing. No edema. LABORATORY DATA Lab work shows hemoglobin of 11, hematocrit 33, white cell count 9, platelet count 211. Sodium 144, potassium 3.9, BUN of 22, creatinine 0.47, glucose 147. Troponin negative x2. Urinalysis did show some rare bacteria. MRSA nondetected. Micro urine is pending. Chest x-rays and CT chest as above. IMPRESSION This is a 61-year-old male with longstanding history of COPD admission with acute COPD exacerbation, hypercapnic respiratory failure requiring intubation, steroids, empiric antibiotics. Developed spontaneous pneumothorax, possibly secondary to the BiPap, however his pneumothorax has responded. He still has some subcutaneous emphysema, however no visualized pneumothorax is noted. Would recommend slowly weaning the suction on both of the chest tube catheters and avoiding any type of surgery at this time, he is very high-risk due to probable poor lung compliance and frailty. Further plan per Dr. Ariadna Lino. DICTATED BY: ABRAM Stewart MD ORTIZ Falcon/EVERT /3:20 PM /8:14 AM
[2017-05-04] MEDS: DOCUSATE SODIUM 50 MG/SENNA 8.6 MG TAB PO SCH ×2 (08:48→20:25)
--- NOTE | 2017-05-04 09:13 | HHI.PR ---
Subjective Remarks ON THE VENT AROUSIBLE Objective Vital Signs Date Time Temp Pulse Resp B/P (MAP) Pulse Ox O2 Delivery O2 Flow Rate FiO2 05/04/17 08:10 96 35 05/04/17 08:00 35 05/04/17 08:00 97.7 80 16 110/53 (72) 96 05/04/17 08:00 80 05/04/17 06:00 88 05/04/17 05:54 96 35 05/04/17 04:00 84 05/04/17 04:00 35 05/04/17 04:00 97.9 84 14 110/72 (85) 94 05/04/17 02:25 95 35 05/04/17 02:00 89 05/04/17 00:00 83 05/04/17 00:00 35 05/04/17 00:00 99.0 83 16 96/63 (74) 95 05/03/17 22:27 97 35 05/03/17 22:00 35 05/03/17 22:00 103 05/03/17 20:00 99.2 108 25 147/88 (107) 94 05/03/17 20:00 109 18 19:24 35 05/03/18 19:24 95 35 18 18:00 97 05/03/17 16:00 110 05/03/17 16:00 93 35 18 16:00 40 18 16:00 99.2 110 25 169/104 (125) 92 05/03/17 14:00 101 05/03/17 13:29 93 35 05/03/17 12:00 91 05/03/17 12:00 40 05/03/17 12:00 98.2 91 12 135/85 (102) 95 05/03/17 11:02 95 35 18 10:00 82 I/O 05/03/17//18 2//18 2//18 2//05/04/17 07:00 15:00 23:00 07:00 15:00 23:00 Intake Total 680 ml 980 ml 726 ml 2010 ml Output Total 1000 ml 561 ml 507 ml Balance -320 ml 980 ml 165 ml 1503 ml IV Total 200 ml 980 ml 100 ml 1459 ml Tube Feeding 480 ml 626 ml 491 ml Other 60 ml Output Urine Total 1000 ml 550 ml 500 ml Chest Tube Drainage Total 11 ml 7 ml # Bowel Movements 0 Result Diagram: 05/03/17 0800 05/03/17 08 Objective Remarks GENERAL: SKIN: Warm and dry. HEAD: Atraumatic. Normocephalic. EYES: Pupils equal and round. No scleral icterus. No injection or drainage. ENT: No nasal bleeding or discharge. Mucous membranes pink and moist. NECK: Trachea midline. No JVD. CARDIOVASCULAR: Regular rate and rhythm. RESPIRATORY: No accessory muscle use. Clear to auscultation. Breath sounds equal bilaterally. GASTROINTESTINAL: Abdomen soft, non-tender, nondistended. Hepatic and splenic margins not palpable. MUSCULOSKELETAL: Extremities without clubbing, cyanosis, or edema. No obvious deformities. NEUROLOGICAL: Awake and alert. No obvious cranial nerve deficits. Motor grossly within normal limits. Five out of 5 muscle strength in the arms and legs. Normal speech. PSYCHIATRIC: Appropriate mood and affect; insight and judgment normal. Assessment and Plan Assessment and Plan ASS RESP. FAILURE COPD PLAN VENT SUPPORT BRONCHODILATOR THERAPY WEAN TOLERATED Salvador Franco MD May 04, 2017 09:13
[2017-05-04] MEDS: oxyCODONE/ACETAMINOPHEN 10 MG/325 MG TAB PO PRN (13:03)
[2017-05-04 13:08] LABS: AUTOMATED NEUTROPHIL # 7.1 TH/MM3 (1.8-7.7); BASOPHIL % 0.1 % (0.0-2.0); HEMATOCRIT 35.2 % (39.0-51.0); HEMOGLOBIN 11.7 GM/DL (13.0-17.0); LYMPH % 8.5 % (9.0-44.0); LYMPHOCYTE # 0.7 TH/MM3 (1.0-4.8); MEAN CELL VOLUME 89.2 FL (80.0-100.0); MEAN CORPUSCULAR HEMOGLOBIN 29.7 PG (27.0-34.0); MEAN CORPUSCULAR HGB CONC 33.3 % (32.0-36.0); MEAN PLATELET VOLUME 7.5 FL (7.0-11.0); MONO % 8.7 % (0.0-8.0); MONOCYTE # 0.7 TH/MM3 (0-0.9); NEUT % 82.7 % (16.0-70.0); PLATELET COUNT 236 TH/MM3 (150-450); RED BLOOD COUNT 3.95 MIL/MM3 (4.50-5.90); WHITE BLOOD COUNT 8.6 TH/MM3 (4.0-11.0)
[2017-05-04 14:01] LABS: BICARBONATE 34.2 MEQ/L (21.0-32.0); CALCIUM 8.3 MG/DL (8.5-10.1); CREATININE 0.34 MG/DL (0.60-1.30); MAGNESIUM 2.4 MG/DL (1.5-2.5); PHOSPHORUS 2.7 MG/DL (2.5-4.9)
[2017-05-04] MEDS: ENOXAPARIN SODIUM 40 MG/0.4 ML SYRINGE SQ SCH (18:43)
[2017-05-04] MEDS: LEVOFLOXACIN 500 MG PREMIX INJ 100 ML IV SCH (18:45)
--- NOTE | 2017-05-04 20:17 | HHI.CCPN ---
Subjective Remarks/Hospital Course Patient is a 61-year-old male with past medical history of COPD on chronic home oxygen at 5 liters and tobacco abuse who was admitted to hospitalist service on April 28 for COPD exacerbation. The patient was placed on bronchodilators, IV steroids and empiric antibiotics. Chest x-ray on arrival showed COPD changes , otherwise no acute infiltrate or failure. He was transferred to the ICU today for closer observation. The patient was placed on BiPAP for respiratory distress and his ABG showed acute hypercapnic respiratory failure. A repeat ABG from this afternoon showed worsening respiratory acidosis. Critical care medicine was consulted for critical care management. When seen, the patient was on BiPAP 15/5 with 50% FIO2. He was tachycardiac, tachypneic, hypertensive and using his accessory muscles for respiration. The patient was subsequently intubated by myself and placed on full mechanical ventilation. 05/02 Patient is sedated with Diprivan and Fentanyl drips, s/p CT placement yesterday for right sided PTX. This morning patent noted to have subQ emphysema on right. 05/03 Patient remains sedated with Fentanyl and intubated. Off Diprivan. Afebrile. 05/04: Patient orally intubated time of my evaluation tolerate C-peptide today. Ordered extubation. Objective Vital Signs Date Time Temp Pulse Resp B/P (MAP) Pulse Ox O2 Delivery O2 Flow Rate FiO2 05/04/17 18:10 92 Nasal Cannula 6 05/04/17 18:00 70 05/04/17 16:34 35 05/04/17 16:00 98.8 20 130/81 (97) Intake and Output 05/04/17 05/04/17 05/05/17 08:00 16:00 00:00 Intake Total 2010 ml 1446 ml Output Total 507 ml 800 ml Balance 1503 ml 646 ml Result Diagram: 05/04/17 1249 05/04/17 1249 Imaging Last Impressions Chest X-Ray 05/03/17 0600 Signed Impressions: Service Date/Time: Wednesday, May 03, 2017 03:41 - CONCLUSION: 1. The right-sided chest tube remains in place with no visualized pneumothorax however there has been and interval increase in the subcutaneous emphysema along the right lateral chest wall. 2. Underlying emphysema and bullous change. Manny Zuniga MD Chest CT 05/02/17 0000 Signed Impressions: Service Date/Time: Tuesday, May 02, 2017 09:32 - CONCLUSION: 1. Right chest drainage tube in place with tip at apex. There is a moderate size anterior right lower lung pneumothorax which extends to the mid chest. 2. Extensive subcutaneous emphysema on the right side and some mild lower left subcutaneous emphysema. Allen Martinez MD Objective Remarks GENERAL: Patient is 61 yo intubated, arousable at time of my evaluation SKIN: Warm and dry. HEAD: Normocephalic. EYES: No scleral icterus. No injection or drainage. NECK: Supple, trachea midline. No JVD or lymphadenopathy. CARDIOVASCULAR: Regular rate and rhythm without murmurs, gallops, or rubs. RESPIRATORY: Orally intubated on mechanical ventilation at the time of my evaluation, Breath sounds equal bilaterally. No accessory muscle use. Right sided chest tubes in place with intermittent air leak. GASTROINTESTINAL: Abdomen soft, non-tender, nondistended. MUSCULOSKELETAL: No cyanosis, or edema. Neuro: Awake and alert, following commands, moves all 4 extremities. Orally intubated at the time of my evaluation. A/P Assessment and Plan 1. Acute hypercapnic and hypoxemic respiratory failure. intubated 05/01 2. COPD exacerbation on home oxygen. 3 Right sided PTX s/p CT placement 4 Sub Q emphysema 5. Active tobacco use. 6. Hypertension. Plan Neuro: On Fentanyl infusion for sedation and vent synchrony. Monitor neuro statu. Daily sedation vacation Pulm: Extubated following C Pap trial on 05/04/2017 Bronchodilators, Solu-Medrol 40mg IV q. 6. Start SBT daily as markos s/p right CT placement 05/01 for right sided PTX, continue with 40cm wall suction CT chest 05/02 showed right chest tube in place with tip at apex. There is a moderate size anterior right lower lung pneumothorax which extends to the mid chest. extensive subcutaneous emphysema on the right side and some mild lower left subcutaneous emphysema. s/p [address] placement by IR 05/02, on 40 cm wall suction CXR today: right-sided chest tube remains in place with no visualized pneumothorax, increase in the subQ emphysema along the right lateral chest wall. Underlying emphysema and bullous change CTS consulted case discussed with Dr. Lino by Dr. Locke CV: Monitor HR and BP and maintain MAP> 65 mmHg. : Monitor renal function, intake and output and electrolyte replacement per protocol. on NS@75ml/hr GI: On Pepcid 20 mg IV q. 12 for GI prophylaxis. Continue tube feeds- Glucerna 1.5 with goal rate 45ml/hr ID: Continue Levaquin for COPD exacerbation. Monitor for signs of infections ( Fever, WBC) Endo: SSI with Accu-Cheks for glycemic control Heme: Monitor CBC GI prophylaxis with Pepcid and DVT prophylaxis with SCD/Lovenox 40 mg daily. Level 3 James Jane MD May 04, 2017 20:17
[2017-05-04] MEDS: oxyCODONE/ACETAMINOPHEN 5 MG/325 MG TAB PO PRN (22:25)
[2017-05-05] VITALS (23 sets, daily range): BP systolic 95–135; BP diastolic 56–85; PULSE 57–103; RESP 15–40; TEMP 97.7–98.8; O2SAT 89–97
[2017-05-05] MEDS: SODIUM CHLOR 0.9% 1000 ML INJ 1,000 ML IV SCH ×2 (03:05→17:00)
[2017-05-05] MEDS: FAMOTIDINE 20 MG/2 ML VIAL IV PUSH SCH ×2 (03:05→15:47)
[2017-05-05] MEDS: INSULIN NovoLIN REGULAR SUPPLEMENTAL SCALE SQ SCH ×6 (03:07→23:15)
[2017-05-05] MEDS: RESP: ALBUTEROL 2.5 MG/IPRATROPIUM 0.5 MG NEB (SCH) NEB ×3 (04:09→15:41)
[2017-05-05] MEDS: methylPREDNISolone SOD SUCC 40 MG/1 ML VIAL IV PUSH SCH ×4 (05:07→23:46)
[2017-05-05] MEDS: CHLORHEXIDINE 0.12% (ORAL KIT) 15 ML CUP MT SCH ×2 (08:00→19:53)
--- NOTE | 2017-05-05 08:31 | HHI.PR ---
Subjective Remarks EXTUBATED ALERT NO DISTRESS SAT 95% ON NC Objective GENERAL: SKIN: Warm and dry. HEAD: Atraumatic. Normocephalic. EYES: Pupils equal and round. No scleral icterus. No injection or drainage. ENT: No nasal bleeding or discharge. Mucous membranes pink and moist. NECK: Trachea midline. No JVD. CARDIOVASCULAR: Regular rate and rhythm. RESPIRATORY: No accessory muscle use. Clear to auscultation. Breath sounds equal bilaterally. GASTROINTESTINAL: Abdomen soft, non-tender, nondistended. Hepatic and splenic margins not palpable. MUSCULOSKELETAL: Extremities without clubbing, cyanosis, or edema. No obvious deformities. NEUROLOGICAL: Awake and alert. No obvious cranial nerve deficits. Motor grossly within normal limits. Five out of 5 muscle strength in the arms and legs. Normal speech. PSYCHIATRIC: Appropriate mood and affect; insight and judgment normal. Vital Signs Date Time Temp Pulse Resp B/P (MAP) Pulse Ox O2 Delivery O2 Flow Rate FiO2 05/05/17 06:00 75 05/05/17 04:00 98.5 60 30 118/68 (85) 97 05/05/17 04:00 60 05/05/17 02:00 66 05/05/17 00:00 98.4 67 20 116/74 (88) 96 05/05/17 00:00 67 05/04/17 22:20 94 Nasal Cannula 6.00 05/04/17 22:00 75 05/04/17 20:00 95 Nasal Cannula 6.00 05/04/17 20:00 75 05/04/17 20:00 98.9 75 20 140/82 (101) 95 05/04/17 18:10 92 Nasal Cannula 6 05/04/17 18:10 92 Nasal Cannula 4.00 05/04/17 18:00 70 05/04/17 16:34 96 35 05/04/17 16:00 35 05/04/17 16:00 98.8 68 20 130/81 (97) 96 05/04/17 16:00 69 05/04/17 14:00 78 05/04/17 13:44 94 35 05/04/17 12:00 81 05/04/17 12:00 35 05/04/17 12:00 98.0 81 18 144/86 (105) 95 05/04/17 10:00 82 05/04/17 09:34 95 35 05/04/17 09:34 35 I/O 05/04/17 05/04/17 05/04/17 05/05/17 05/05/17 05/05/17 06:59 14:59 22:59 06:59 14:59 22:59 Intake Total 2010 ml 1446 ml 1480 ml Output Total 507 ml 800 ml 1075 ml Balance 1503 ml 646 ml 405 ml Intake Oral 480 ml IV Total 1459 ml 908 ml 1000 ml Tube Feeding 491 ml 538 ml Other 60 ml Output Urine Total 500 ml 800 ml 1075 ml Chest Tube Drainage Total 7 ml # Bowel Movements 0 0 Result Diagram: 05/04/17 1249 05/04/17 1249 Objective Remarks GENERAL: SKIN: Warm and dry. HEAD: Atraumatic. Normocephalic. EYES: Pupils equal and round. No scleral icterus. No injection or drainage. ENT: No nasal bleeding or discharge. Mucous membranes pink and moist. NECK: Trachea midline. No JVD. CARDIOVASCULAR: Regular rate and rhythm. RESPIRATORY: No accessory muscle use. Clear to auscultation. Breath sounds equal bilaterally. GASTROINTESTINAL: Abdomen soft, non-tender, nondistended. Hepatic and splenic margins not palpable. MUSCULOSKELETAL: Extremities without clubbing, cyanosis, or edema. No obvious deformities. NEUROLOGICAL: Awake and alert. No obvious cranial nerve deficits. Motor grossly within normal limits. Five out of 5 muscle strength in the arms and legs. Normal speech. PSYCHIATRIC: Appropriate mood and affect; insight and judgment normal. Assessment and Plan Assessment and Plan ASS IMPROVED, EXTUBATED RESP. FAILURE COPD PLAN BRONCHODILATORS O2 NEEDED INCREASE ACTIVITY Salvador Franco MD May 05, 2017 08:30
--- NOTE | 2017-05-05 08:36 | RADRPT ---
EXAM DATE/TIME: 05/02/2017 12:29 INDICATIONS : Right pneumothorax. DEVICE(S): 1.) 10 Fr Liss MEDICAL HISTORY : Chronic obstructive pulmonary disease. Stroke. SURGICAL HISTORY : None. ENCOUNTER: Initial ACUITY: 1 day PAIN SCORE: Non-responsive LOCATION: Bilateral chest PROCEDURE: 2.) EKG and oximetry remained stable throughout the procedure. PROCEDURE : 1. CT guided chest tube placement. 2. Conscious sedation with continuous EKG and oximetry monitoring. The risks, benefits and alternatives to the procedure were explained and verbal and written consent w as obtained. The site was prepped in sterile fashion. Full sterile technique was used, including ca p, mask, sterile gloves and gown and a large sterile sheet. Hand hygiene and 2% chlorhexidine and/or betadine/alcohol prep was utilized per protocol for cutaneous antisepsis. The skin and subcutaneous tissues were infiltrated with local anesthetic solution. Using automated exposure control and adjus tment of the mA and/or kV according to patient size, radiation dose was kept as low as reasonably ach ievable to obtain optimal diagnostic quality images. DICOM format image data is available electronic ally for review and comparison. Patient has an existing surgical testing which tracks posteriorly in the right hemithorax. The tip is appropriately positioned in the apex of the right hemithorax. Loculated pneumothorax in the right ba se anteriorly with significant superficial and deep tissue emphysematous changes about the right gonzalez thorax. With CT guidance, a 10 [place] nonlocking [place] loop catheter was advanced into the anterolater al aspect of the lower right hemithorax into the loculated pneumothorax. Position was confirmed with CT. Catheter was connected to Pleur-evac suction with reexpansion of the loculated pneumothorax.. Pos t procedure images demonstrate satisfactory position of the tube. The catheter was sutured in place and a Percu-Stay was applied. Conscious sedation was performed with the prescribed dosages and duration as above. The patient shaina ated the procedure well and there were no complications. EKG and oximetry remained stable throughout the procedure. The patient was sent to post anesthesia recovery in stable condition. CONCLUSION: Uncomplicated chest tube placement as above. Slava Comer MD on May 05, 2017 at 8:31 Board Certified Radiologist. This report was verified electronically.
[2017-05-05] MEDS: DOCUSATE SODIUM 50 MG/SENNA 8.6 MG TAB PO SCH ×2 (09:00→20:12)
[2017-05-05] MEDS: BUDESONIDE-FORMOTEROL 160/4.5 MCG INHALER INH SCH ×2 (09:29→20:12)
[2017-05-05] MEDS: TIOTROPIUM BROMIDE 18 MCG INH INH SCH (09:29)
[2017-05-05] MEDS: FLUTICASONE PROPIONATE 50 MCG/ACT 16 GM NASAL SPRAY EACH NARE SCH ×2 (09:29→20:12)
--- NOTE | 2017-05-05 13:08 | HHI.CCPN ---
Subjective Remarks/Hospital Course Patient is a 61-year-old male with past medical history of COPD on chronic home oxygen at 5 liters and tobacco abuse who was admitted to hospitalist service on April 28 for COPD exacerbation. The patient was placed on bronchodilators, IV steroids and empiric antibiotics. Chest x-ray on arrival showed COPD changes , otherwise no acute infiltrate or failure. He was transferred to the ICU today for closer observation. The patient was placed on BiPAP for respiratory distress and his ABG showed acute hypercapnic respiratory failure. A repeat ABG from this afternoon showed worsening respiratory acidosis. Critical care medicine was consulted for critical care management. When seen, the patient was on BiPAP 15/5 with 50% FIO2. He was tachycardiac, tachypneic, hypertensive and using his accessory muscles for respiration. The patient was subsequently intubated by myself and placed on full mechanical ventilation. 05/02 Patient is sedated with Diprivan and Fentanyl drips, s/p CT placement yesterday for right sided PTX. This morning patent noted to have subQ emphysema on right. 05/03 Patient remains sedated with Fentanyl and intubated. Off Diprivan. Afebrile. 05/04: Patient orally intubated time of my evaluation tolerate CPAP trial today. Ordered extubation. 05/05: Extubated successfully yesterday on nasal cannula. Continues to have intermittent air leak from right sided chest tube. Suction decreased to -20 cm water pressure from -40 cm water pressure on right sided chest tube. Objective Vital Signs Date Time Temp Pulse Resp B/P (MAP) Pulse Ox O2 Delivery O2 Flow Rate FiO2 05/05/17 11:00 89 28 95/62 (73) 95 05/05/17 08:50 Nasal Cannula 3.00 05/05/17 08:00 97.7 05/04/17 16:34 35 Intake and Output 05/05/17 05/05/17 05/06/17 08:00 16:00 00:00 Intake Total 1480 ml Output Total 1075 ml Balance 405 ml Result Diagram: 05/04/17 1249 05/04/17 1249 Other Results Microbiology Date/Time Source Procedure Growth Status 05/02/17 15:09 Urine Catheterized Urine Urine Culture - Final NO GROWTH IN 48 HOURS. Complete Imaging Last Impressions Chest X-Ray 05/03/17 0600 Signed Impressions: Service Date/Time: Wednesday, May 03, 2017 03:41 - CONCLUSION: 1. The right-sided chest tube remains in place with no visualized pneumothorax however there has been and interval increase in the subcutaneous emphysema along the right lateral chest wall. 2. Underlying emphysema and bullous change. Manny Zuniga MD Chest CT 05/02/17 0000 Signed Impressions: Service Date/Time: Tuesday, May 02, 2017 09:32 - CONCLUSION: 1. Right chest drainage tube in place with tip at apex. There is a moderate size anterior right lower lung pneumothorax which extends to the mid chest. 2. Extensive subcutaneous emphysema on the right side and some mild lower left subcutaneous emphysema. Allen Martinez MD Objective Remarks GENERAL: Patient is 61 yo elderly male laying in bed on nasal cannula not in any acute distress. SKIN: Warm and dry. HEAD: Normocephalic. EYES: No scleral icterus. No injection or drainage. NECK: Supple, trachea midline. No JVD or lymphadenopathy. CARDIOVASCULAR: Regular rate and rhythm without murmurs, gallops, or rubs. RESPIRATORY: Breath sounds equal bilaterally. No accessory muscle use. Right sided chest tubes in place with intermittent air leak. GASTROINTESTINAL: Abdomen soft, non-tender, nondistended. MUSCULOSKELETAL: No cyanosis, or edema. Neuro: Awake and alert, following commands, moves all 4 extremities. A/P Assessment and Plan 1. Acute hypercapnic and hypoxemic respiratory failure. intubated 05/01, extubated 05/05 2. COPD exacerbation on home oxygen. 3 Right sided PTX s/p CT placement 4 Sub Q emphysema 5. Active tobacco use. 6. Hypertension. Plan Neuro: On Fentanyl infusion for sedation and vent synchrony. Monitor neuro statu. Daily sedation vacation Pulm: Extubated following C Pap trial on 05/04/2017 Bronchodilators, Solu-Medrol 40mg IV q. 6. s/p right CT placement 05/01 for right sided PTX, continue with 40cm wall suction CT chest 05/02 showed right chest tube in place with tip at apex. There is a moderate size anterior right lower lung pneumothorax which extends to the mid chest. extensive subcutaneous emphysema on the right side and some mild lower left subcutaneous emphysema. s/p [address] placement by IR 05/02, on -20 cm wall suction CXR today: right-sided chest tube remains in place with no visualized pneumothorax, increase in the subQ emphysema along the right lateral chest wall. Underlying emphysema and bullous change CTS consulted case discussed with Dr. Lino by Dr. Locke CV: Monitor HR and BP and maintain MAP> 65 mmHg. : Monitor renal function, intake and output and electrolyte replacement per protocol. on NS@75ml/hr GI: On Pepcid 20 mg IV q. 12 for GI prophylaxis. Advance diet as tolerated. ID: Continue Levaquin for COPD exacerbation. Monitor for signs of infections ( Fever, WBC) Endo: SSI with Accu-Cheks for glycemic control Heme: Monitor CBC GI prophylaxis with Pepcid and DVT prophylaxis with SCD/Lovenox 40 mg daily. Level 3 James Jane MD May 05, 2017 13:08
[2017-05-05] MEDS: LEVOFLOXACIN 500 MG PREMIX INJ 100 ML IV SCH (18:40)
[2017-05-05] MEDS: ENOXAPARIN SODIUM 40 MG/0.4 ML SYRINGE SQ SCH (18:41)
[2017-05-05] MEDS: RESP: ALBUTEROL 2.5 MG/3 ML NEB (PRN) NEB (20:58)
[2017-05-06] VITALS (13 sets, daily range): BP systolic 126–171; BP diastolic 81–98; PULSE 75–105; RESP 19–34; TEMP 97.5–99.2; O2SAT 88–96
[2017-05-06] MEDS: INSULIN NovoLIN REGULAR SUPPLEMENTAL SCALE SQ SCH ×6 (03:25→23:15)
[2017-05-06] MEDS: FAMOTIDINE 20 MG/2 ML VIAL IV PUSH SCH ×2 (03:25→17:22)
[2017-05-06] MEDS: MORPHINE SULFATE 2 MG/ML INJ IV PUSH PRN ×2 (04:05→22:03)
[2017-05-06] MEDS: SODIUM CHLOR 0.9% 1000 ML INJ 1,000 ML IV SCH (05:53)
[2017-05-06] MEDS: methylPREDNISolone SOD SUCC 40 MG/1 ML VIAL IV PUSH SCH ×4 (05:53→23:17)
[2017-05-06] MEDS: CHLORHEXIDINE 0.12% (ORAL KIT) 15 ML CUP MT SCH ×2 (08:00→20:00)
[2017-05-06] MEDS: FLUTICASONE PROPIONATE 50 MCG/ACT 16 GM NASAL SPRAY EACH NARE SCH ×2 (08:09→20:11)
[2017-05-06] MEDS: TIOTROPIUM BROMIDE 18 MCG INH INH SCH (08:09)
[2017-05-06] MEDS: BUDESONIDE-FORMOTEROL 160/4.5 MCG INHALER INH SCH ×2 (08:09→20:11)
[2017-05-06] MEDS: DOCUSATE SODIUM 50 MG/SENNA 8.6 MG TAB PO SCH ×2 (09:00→20:10)
--- NOTE | 2017-05-06 10:31 | RADRPT ---
EXAM DATE/TIME: 05/06/2017 10:05 [facility] COMPARISON: CHEST SINGLE AP, May 04, 2017, 5:52. INDICATIONS : Short of breath MEDICAL HISTORY : Chronic obstructive pulmonary disease. Congestive heart failure SURGICAL HISTORY : None. ENCOUNTER: Subsequent ACUITY: 1 week PAIN SCORE: 0/10 LOCATION: chest FINDINGS: There is a right-sided chest tube. This is up in the right lung apex. There is no significant residua l pneumothorax. There is a right basilar small bore chest tube as well. There is subcutaneous emphyse ma in the chest wall. The left lung is clear. No pneumothorax is seen. The heart is normal in size. CONCLUSION: 1. There are 2 chest tubes on the right. No residual pneumothorax is evident. 2. Subcutaneous emphysema in the chest wall. Art Lopez MD on May 06, 2017 at 10:28 Board Certified Radiologist. This report was verified electronically.
[2017-05-06] MEDS: RESP: ALBUTEROL 2.5 MG/3 ML NEB (PRN) NEB ×3 (10:45→21:13)
[2017-05-06] MEDS: oxyCODONE/ACETAMINOPHEN 5 MG/325 MG TAB PO PRN (12:26)
[2017-05-06] MEDS: LEVOFLOXACIN 500 MG PREMIX INJ 100 ML IV SCH (16:20)
--- NOTE | 2017-05-06 16:56 | HHI.PR ---
Subjective Remarks ALERT NO DISTRESS SAT 95% ON NC Objective Vital Signs Date Time Temp Pulse Resp B/P (MAP) Pulse Ox O2 Delivery O2 Flow Rate FiO2 05/06/17 16:00 98.5 75 20 129/89 (102) 96 05/06/17 14:00 78 05/06/17 12:00 Nasal Cannula 4.00 05/06/17 12:00 86 05/06/17 12:00 98.5 86 24 126/81 (96) 93 05/06/17 10:00 87 05/06/17 08:58 88 Nasal Cannula 3.00 05/06/17 08:00 75 05/06/17 08:00 97.5 75 22 135/90 (105) 95 05/06/17 06:00 86 05/06/17 04:00 99.2 105 30 171/93 (119) 90 05/06/17 04:00 105 05/06/17 02:00 90 05/06/17 00:00 100 05/06/17 00:00 98.4 100 34 151/98 (115) 90 05/05/17 22:00 90 05/05/17 20:58 95 Nasal Cannula 4.00 05/05/17 20:00 98.8 81 31 131/85 (100) 96 05/05/17 20:00 81 05/05/17 19:00 95 Nasal Cannula 6.00 05/05/17 18:00 87 I/O 05/05/17 05/05/17 05/05/17 05/06/17 05/06/17 05/06/17 06:59 14:59 22:59 06:59 14:59 22:59 Intake Total 1480 ml 700 ml 1480 ml Output Total 1075 ml 572 ml 460 ml Balance 405 ml 128 ml 1020 ml Intake Oral 480 ml 600 ml 480 ml IV Total 1000 ml 100 ml 1000 ml Output Urine Total 1075 ml 550 ml 450 ml Chest Tube Drainage Total 22 ml 10 ml Bladder Scan Volume Amount 70 ml # Bowel Movements 0 0 1 Result Diagram: 05/04/17 1249 05/04/17 1249 Objective Remarks GENERAL: SKIN: Warm and dry. HEAD: Atraumatic. Normocephalic. EYES: Pupils equal and round. No scleral icterus. No injection or drainage. ENT: No nasal bleeding or discharge. Mucous membranes pink and moist. NECK: Trachea midline. No JVD. CARDIOVASCULAR: Regular rate and rhythm. RESPIRATORY: No accessory muscle use. Clear to auscultation. Breath sounds equal bilaterally. GASTROINTESTINAL: Abdomen soft, non-tender, nondistended. Hepatic and splenic margins not palpable. MUSCULOSKELETAL: Extremities without clubbing, cyanosis, or edema. No obvious deformities. NEUROLOGICAL: Awake and alert. No obvious cranial nerve deficits. Motor grossly within normal limits. Five out of 5 muscle strength in the arms and legs. Normal speech. PSYCHIATRIC: Appropriate mood and affect; insight and judgment normal. Assessment and Plan Assessment and Plan ASS IMPROVED, RESP. FAILURE COPD PLAN BRONCHODILATORS O2 NEEDED INCREASE ACTIVITY Salvador Franco MD May 06, 2017 16:56
[2017-05-06] MEDS: ENOXAPARIN SODIUM 40 MG/0.4 ML SYRINGE SQ SCH (18:08)
[2017-05-07] VITALS (18 sets, daily range): BP systolic 113–139; BP diastolic 71–84; PULSE 65–108; RESP 12–45; TEMP 97–98.6; O2SAT 92–99
[2017-05-07] MEDS: RESP: ALBUTEROL 2.5 MG/3 ML NEB (PRN) NEB ×5 (00:06→21:10)
[2017-05-07] MEDS: oxyCODONE/ACETAMINOPHEN 10 MG/325 MG TAB PO PRN (00:37)
[2017-05-07] MEDS: MORPHINE SULFATE 2 MG/ML INJ IV PUSH PRN ×6 (01:29→22:36)
[2017-05-07] MEDS: INSULIN NovoLIN REGULAR SUPPLEMENTAL SCALE SQ SCH ×6 (03:15→23:17)
[2017-05-07] MEDS: FAMOTIDINE 20 MG/2 ML VIAL IV PUSH SCH ×2 (04:52→16:51)
[2017-05-07] MEDS: methylPREDNISolone SOD SUCC 40 MG/1 ML VIAL IV PUSH SCH ×4 (04:52→23:18)
--- NOTE | 2017-05-07 06:33 | RADRPT ---
EXAM DATE/TIME: 05/07/2017 05:20 [facility] COMPARISON: CHEST SINGLE AP, May 06, 2017, 10:05. INDICATIONS : Evaluate for pneumothorax MEDICAL HISTORY : Chronic obstructive pulmonary disease. Congestive heart failure SURGICAL HISTORY : None. ENCOUNTER: Subsequent ACUITY: 1 week PAIN SCORE: 7/10 LOCATION: Bilateral chest FINDINGS: Patchy airspace opacities of both mid and lower lungs are not significantly changed. A right chest tu be remains in place at the apex and a small caliber right chest tube at the base. I don't see a pneum othorax but there is increased right chest wall emphysema. Left chest wall emphysema is about the sheron e. There is a small right pleural effusion. CONCLUSION: Patchy bilateral airspace disease and a small right pleural effusion. Right chest tubes again seen wi thout pneumothorax but there is persistent chest wall emphysema. Titus Khanna MD on May 07, 2017 at 6:30 Board Certified Radiologist. This report was verified electronically.
[2017-05-07] MEDS: CHLORHEXIDINE 0.12% (ORAL KIT) 15 ML CUP MT SCH ×2 (08:00→19:33)
[2017-05-07] MEDS: BUDESONIDE-FORMOTEROL 160/4.5 MCG INHALER INH SCH ×2 (09:27→19:35)
[2017-05-07] MEDS: DOCUSATE SODIUM 50 MG/SENNA 8.6 MG TAB PO SCH ×2 (09:27→19:34)
[2017-05-07] MEDS: TIOTROPIUM BROMIDE 18 MCG INH INH SCH (09:27)
[2017-05-07] MEDS: SODIUM CHLOR 0.9% 1000 ML INJ 1,000 ML IV SCH ×3 (09:55→20:58)
--- NOTE | 2017-05-07 11:52 | HHI.PR ---
Subjective Remarks Follow-up respiratory failure/pneumothorax 05/07/17-patient seen and examined, reports significant improvement of shortness of breath; denies any flank pain. Objective Vitals Vital Signs Date Time Temp Pulse Resp B/P (MAP) Pulse Ox O2 Delivery O2 Flow Rate FiO2 05/07/17 10:00 88 05/07/17 09:44 35 05/07/17 08:11 96 Nasal Cannula 4.00 05/07/17 08:00 98.1 82 33 123/75 (91) 97 05/07/17 08:00 82 05/07/17 07:00 95 Nasal Cannula 4.00 05/07/17 06:00 65 05/07/17 04:00 71 05/07/17 04:00 98.1 71 13 124/73 (90) 95 05/07/17 02:23 19 05/07/17 02:00 90 05/07/17 00:00 94 05/07/17 00:00 97.9 94 31 123/84 (97) 93 05/06/17 22:00 97 05/06/17 20:00 98.7 86 19 130/81 (97) 96 05/06/17 20:00 86 05/06/17 19:00 Nasal Cannula 4.00 05/06/17 18:00 88 05/06/17 16:00 75 05/06/17 16:00 98.5 75 20 129/89 (102) 96 05/06/17 14:00 78 05/06/17 12:00 Nasal Cannula 4.00 05/06/17 12:00 86 05/06/17 12:00 98.5 86 24 126/81 (96) 93 I/O 05/06/17 05/06/17 05/06/17 05/07/17 05/07/17 05/07/17 07:00 15:00 23:00 07:00 15:00 23:00 Intake Total 1480 ml 700 ml 400 ml Output Total 460 ml 566 ml 460 ml Balance 1020 ml 134 ml -60 ml Intake Oral 480 ml 600 ml 400 ml IV Total 1000 ml 100 ml Output Urine Total 450 ml 550 ml 450 ml Chest Tube Drainage Total 10 ml 16 ml 10 ml Bladder Scan Volume Amount 70 ml # Bowel Movements 1 0 0 Result Diagram: 05/04/17 1249 05/04/17 1249 Imaging Last Impressions Chest X-Ray 2/23/18 0600 Signed Impressions: Service Date/Time: Sunday, May 07, 2017 05:20 - CONCLUSION: Patchy bilateral airspace disease and a small right pleural effusion. Right chest tubes again seen without pneumothorax but there is persistent chest wall emphysema. Titus Khanna MD Chest Tube Insertion 05/02/17 0000 Signed Impressions: Service Date/Time: Tuesday, May 02, 2017 12:29 - CONCLUSION: Uncomplicated chest tube placement as above. Slava Comer MD Chest CT 05/02/17 0000 Signed Impressions: Service Date/Time: Tuesday, May 02, 2017 09:32 - CONCLUSION: 1. Right chest drainage tube in place with tip at apex. There is a moderate size anterior right lower lung pneumothorax which extends to the mid chest. 2. Extensive subcutaneous emphysema on the right side and some mild lower left subcutaneous emphysema. Allen Martinez MD Objective Remarks GENERAL: NAD SKIN: Warm and dry. HEAD: Normocephalic. EYES: No scleral icterus. No injection or drainage. NECK: Supple, trachea midline. No JVD or lymphadenopathy. CARDIOVASCULAR: Regular rate and rhythm without murmurs, gallops, or rubs. RESPIRATORY: Breath sounds decrease R>L. No accessory muscle use.Chest tube in place-right lung GASTROINTESTINAL: Abdomen soft, non-tender, nondistended. MUSCULOSKELETAL: No cyanosis, or edema. BACK: Nontender without obvious deformity. No CVA tenderness. A/P Problem List: (1) Community acquired bacterial pneumonia ICD Code: J15.9 - Unspecified bacterial pneumonia Status: Acute (2) COPD exacerbation ICD Code: J44.1 - Chronic obstructive pulmonary disease with (acute) exacerbation Status: Acute (3) Tobacco abuse ICD Code: Z72.0 - Tobacco use Status: Acute (4) Acute respiratory failure with hypoxia ICD Code: J96.01 - Acute respiratory failure with hypoxia Status: Acute (5) Emphysema of lung ICD Code: J43.9 - Emphysema, unspecified (6) Pneumothorax, right ICD Code: J93.9 - Pneumothorax, unspecified Assessment and Plan 61-year-old man with; 1. Acute hypercapnic and hypoxemic respiratory failure. intubated 05/01, extubated 05/05 Maintain oxygen saturation above 92% 2. COPD exacerbation on home oxygen. On Solu Medrol 40mg Q6H, Spiriva, Symbicort, Duo Neb and Levaquin 3 Right sided PTX s/p CT placement Monitor Daily CXR 4 Sub Q emphysema Appreciate input from Pulmonary Medicine, CTS 5. Active tobacco use. 6. Hypertension. GI prophylaxis with Pepcid and DVT prophylaxis with SCD/Lovenox 40 mg daily. Transfer to med/surg Miguel Palomo MD May 07, 2017 11:52
[2017-05-07] MEDS: BENZONATATE 100 MG CAP PO PRN ×2 (13:25→22:55)
--- NOTE | 2017-05-07 15:26 | HHI.PR ---
Subjective Remarks ALERT NO DISTRESS SAT 95% ON NC Objective Vital Signs Date Time Temp Pulse Resp B/P (MAP) Pulse Ox O2 Delivery O2 Flow Rate FiO2 05/07/17 14:00 101 05/07/17 12:00 97.9 92 45 118/75 (89) 97 05/07/17 12:00 92 05/07/17 10:00 88 05/07/17 09:44 35 05/07/17 08:11 96 Nasal Cannula 4.00 05/07/17 08:00 98.1 82 33 123/75 (91) 97 05/07/17 08:00 82 05/07/17 07:00 95 Nasal Cannula 4.00 05/07/17 06:00 65 05/07/17 04:00 71 05/07/17 04:00 98.1 71 13 124/73 (90) 95 05/07/17 02:23 19 05/07/17 02:00 90 05/07/17 00:00 94 05/07/17 00:00 97.9 94 31 123/84 (97) 93 05/06/17 22:00 97 05/06/17 20:00 98.7 86 19 130/81 (97) 96 05/06/17 20:00 86 05/06/17 19:00 Nasal Cannula 4.00 05/06/17 18:00 88 05/06/17 16:00 75 05/06/17 16:00 98.5 75 20 129/89 (102) 96 I/O 05/06/17 05/06/17 05/06/17 05/07/17 05/07/17 05/07/17 06:59 14:59 22:59 06:59 14:59 22:59 Intake Total 1480 ml 700 ml 400 ml Output Total 460 ml 566 ml 460 ml Balance 1020 ml 134 ml -60 ml Intake Oral 480 ml 600 ml 400 ml IV Total 1000 ml 100 ml Output Urine Total 450 ml 550 ml 450 ml Chest Tube Drainage Total 10 ml 16 ml 10 ml Bladder Scan Volume Amount 70 ml # Bowel Movements 1 0 0 Result Diagram: 05/04/17 1249 05/04/17 1249 Objective Remarks GENERAL: SKIN: Warm and dry. HEAD: Atraumatic. Normocephalic. EYES: Pupils equal and round. No scleral icterus. No injection or drainage. ENT: No nasal bleeding or discharge. Mucous membranes pink and moist. NECK: Trachea midline. No JVD. CARDIOVASCULAR: Regular rate and rhythm. RESPIRATORY: No accessory muscle use. Clear to auscultation. Breath sounds equal bilaterally. GASTROINTESTINAL: Abdomen soft, non-tender, nondistended. Hepatic and splenic margins not palpable. MUSCULOSKELETAL: Extremities without clubbing, cyanosis, or edema. No obvious deformities. NEUROLOGICAL: Awake and alert. No obvious cranial nerve deficits. Motor grossly within normal limits. Five out of 5 muscle strength in the arms and legs. Normal speech. PSYCHIATRIC: Appropriate mood and affect; insight and judgment normal. Assessment and Plan Assessment and Plan ASS IMPROVED, RESP. FAILURE COPD PLAN BRONCHODILATORS O2 NEEDED INCREASE ACTIVITY Salvador Franco MD May 07, 2017 15:26
[2017-05-07] MEDS: LEVOFLOXACIN 500 MG PREMIX INJ 100 ML IV SCH (16:51)
[2017-05-07] MEDS: FLUTICASONE PROPIONATE 50 MCG/ACT 16 GM NASAL SPRAY EACH NARE SCH ×2 (16:53→19:33)
[2017-05-07] MEDS: ENOXAPARIN SODIUM 40 MG/0.4 ML SYRINGE SQ SCH (16:53)
[2017-05-08] VITALS (10 sets, daily range): BP systolic 108–136; BP diastolic 73–88; PULSE 81–121; RESP 18–19; TEMP 96.2–98.9; O2SAT 93–97
[2017-05-08] MEDS: RESP: ALBUTEROL 2.5 MG/3 ML NEB (PRN) NEB ×3 (01:56→12:41)
[2017-05-08] MEDS: INSULIN NovoLIN REGULAR SUPPLEMENTAL SCALE SQ SCH ×6 (03:58→23:54)
[2017-05-08] MEDS: FAMOTIDINE 20 MG/2 ML VIAL IV PUSH SCH ×2 (04:02→16:10)
[2017-05-08] MEDS: methylPREDNISolone SOD SUCC 40 MG/1 ML VIAL IV PUSH SCH ×2 (05:23→20:56)
[2017-05-08] MEDS: CHLORHEXIDINE 0.12% (ORAL KIT) 15 ML CUP MT SCH ×2 (08:00→20:00)
[2017-05-08] MEDS: FLUTICASONE PROPIONATE 50 MCG/ACT 16 GM NASAL SPRAY EACH NARE SCH ×2 (09:17→20:57)
[2017-05-08] MEDS: TIOTROPIUM BROMIDE 18 MCG INH INH SCH (09:18)
[2017-05-08] MEDS: BUDESONIDE-FORMOTEROL 160/4.5 MCG INHALER INH SCH ×2 (09:19→20:57)
[2017-05-08] MEDS: DOCUSATE SODIUM 50 MG/SENNA 8.6 MG TAB PO SCH ×3 (09:20→20:59)
[2017-05-08] MEDS: MORPHINE SULFATE 2 MG/ML INJ IV PUSH PRN ×5 (09:30→23:53)
--- NOTE | 2017-05-08 12:33 | HHI.PR ---
Subjective Remarks Patient is lying in bed in no acute distress on 4L oxygen Objective Vital Signs Vital Signs Date Time Temp Pulse Resp B/P (MAP) Pulse Ox O2 Delivery O2 Flow Rate FiO2 05/08/17 08:16 97 Nasal Cannula 4.00 05/08/17 08:00 97.4 87 18 136/84 (101) 93 05/08/17 03:55 96.9 92 19 120/85 (97) 93 05/08/17 03:40 81 05/07/17 23:45 97.5 90 19 113/84 (94) 94 05/07/17 23:44 89 05/07/17 21:55 101 05/07/17 21:10 97 Nasal Cannula 4.00 05/07/17 20:50 97.0 92 19 128/76 (93) 95 05/07/17 20:50 Nasal Cannula 4.00 05/07/17 20:00 98.6 108 21 139/76 (97) 92 05/07/17 19:22 94 Nasal Cannula 4.00 05/07/17 19:00 93 Nasal Cannula 4.00 05/07/17 18:00 85 05/07/17 18:00 74 05/07/17 17:26 28 05/07/17 16:00 98.3 74 12 114/71 (85) 99 05/07/17 16:00 74 05/07/17 14:00 101 I/O 05/07/17 05/07/17 05/07/17 05/08/17 05/08/17 05/08/17 07:00 15:00 23:00 07:00 15:00 23:00 Intake Total 400 ml 3080 ml 980 ml Output Total 460 ml 950 ml 420 ml Balance -60 ml 2130 ml 560 ml Intake Oral 400 ml 1080 ml 360 ml IV Total 2000 ml 620 ml Output Urine Total 450 ml 925 ml 400 ml Chest Tube Drainage Total 10 ml 25 ml 20 ml # Bowel Movements 0 0 0 Result Diagram: 05/04/17 1249 05/04/17 1249 Other Results Last Impressions Chest X-Ray 05/07/17 0600 Signed Impressions: Service Date/Time: Sunday, May 07, 2017 05:20 - CONCLUSION: Patchy bilateral airspace disease and a small right pleural effusion. Right chest tubes again seen without pneumothorax but there is persistent chest wall emphysema. Titus Khanna MD Chest Tube Insertion 05/02/17 0000 Signed Impressions: Service Date/Time: Tuesday, May 02, 2017 12:29 - CONCLUSION: Uncomplicated chest tube placement as above. Slava Comer MD Chest CT 05/02/17 0000 Signed Impressions: Service Date/Time: Tuesday, May 02, 2017 09:32 - CONCLUSION: 1. Right chest drainage tube in place with tip at apex. There is a moderate size anterior right lower lung pneumothorax which extends to the mid chest. 2. Extensive subcutaneous emphysema on the right side and some mild lower left subcutaneous emphysema. Allen Martinez MD Objective Remarks GENERAL: Patient is 61 yo lying in bed in NAD SKIN: Warm and dry. HEAD: Normocephalic. EYES: No scleral icterus. No injection or drainage. NECK: Supple, trachea midline. No JVD or lymphadenopathy. CARDIOVASCULAR: Regular rate and rhythm without murmurs, gallops, or rubs. RESPIRATORY: Breath sounds equal bilaterally. No accessory muscle use. GASTROINTESTINAL: Abdomen soft, non-tender, nondistended. MUSCULOSKELETAL: No cyanosis, or edema. Neuro: Awake and alert A/P Assessment and Plan 1. Acute hypercapnic and hypoxemic respiratory failure. intubated 05/01, extubated 05/05 2. COPD exacerbation on home oxygen. 3 Right sided PTX s/p CT placement 4 Sub Q emphysema 5. Active tobacco use. 6. Hypertension. Plan Continue with oxygen keep sat >92% Bronchodilators ( DuoNeb, Symbicort, Spiriva), decrease Solu-Medrol 40mg IV q. 12 s/p right CT placement 05/01 for right sided PTX, CT chest 05/02 showed right chest tube in place with tip at apex. There is a moderate size anterior right lower lung pneumothorax which extends to the mid chest. extensive subcutaneous emphysema on the right side and some mild lower left subcutaneous emphysema. s/p [address] placement by IR 05/02, Check CXR Continue with abx ( Levaquin) CTS is following- Dr. Lino GI/DVT prophylaxis Kaia Locke MD May 08, 2017 12:33
[2017-05-08] MEDS: BENZONATATE 100 MG CAP PO PRN ×2 (12:37→21:07)
--- NOTE | 2017-05-08 13:15 | RADRPT ---
EXAM DATE/TIME: 05/08/2017 12:56 [facility] COMPARISON: CT THORAX W/O CONTRAST, May 02, 2017, 9:32. CHEST SINGLE AP, May 07, 2017, 5:20. INDICATIONS : Shortness of breath. MEDICAL HISTORY : Chronic obstructive pulmonary disease. Congestive heart failure. SURGICAL HISTORY : None. ENCOUNTER: Subsequent ACUITY: 1 week PAIN SCORE: Non-responsive. LOCATION: chest FINDINGS: There is a large bore right chest tube and a pigtail catheter seen over the right lung. A pneumothora x is not detected. There is subcutaneous emphysema seen. There is increased density seen at the right base and to a lesser grea in the left midlung. The lungs appear hyperinflated. There is some tubing overlying the left axillary region. This appears to likely representing on the patient. CONCLUSION: 1. Right chest tubes without a pneumothorax seen. 2. Hyperinflated lungs with suspected consolidation or atelectasis at the right base and to a lesser degree, the left perihilar region. Titus Patterson MD on May 08, 2017 at 13:11 Board Certified Radiologist. This report was verified electronically.
--- NOTE | 2017-05-08 14:11 | HHI.PR ---
Subjective Remarks Follow-up for respiratory failure, pneumothorax. Patient is currently doing well. He complains of pain from the chest tube suction. No fever or chills. Objective Vitals Vital Signs Date Time Temp Pulse Resp B/P (MAP) Pulse Ox O2 Delivery O2 Flow Rate FiO2 05/08/17 12:00 96.2 84 18 111/73 (86) 93 05/08/17 08:16 97 Nasal Cannula 4.00 05/08/17 08:00 97.4 87 18 136/84 (101) 93 05/08/17 03:55 96.9 92 19 120/85 (97) 93 05/08/17 03:40 81 05/07/17 23:45 97.5 90 19 113/84 (94) 94 05/07/17 23:44 89 05/07/17 21:55 101 05/07/17 21:10 97 Nasal Cannula 4.00 05/07/17 20:50 97.0 92 19 128/76 (93) 95 05/07/17 20:50 Nasal Cannula 4.00 05/07/17 20:00 98.6 108 21 139/76 (97) 92 05/07/17 19:22 94 Nasal Cannula 4.00 05/07/17 19:00 93 Nasal Cannula 4.00 05/07/17 18:00 85 05/07/17 18:00 74 05/07/17 17:26 28 05/07/17 16:00 98.3 74 12 114/71 (85) 99 05/07/17 16:00 74 I/O 05/07/17 05/07/17 05/07/17 05/08/17 05/08/17 05/08/17 07:00 15:00 23:00 07:00 15:00 23:00 Intake Total 400 ml 3080 ml 980 ml Output Total 460 ml 950 ml 420 ml Balance -60 ml 2130 ml 560 ml Intake Oral 400 ml 1080 ml 360 ml IV Total 2000 ml 620 ml Output Urine Total 450 ml 925 ml 400 ml Chest Tube Drainage Total 10 ml 25 ml 20 ml # Bowel Movements 0 0 0 Result Diagram: 05/04/17 1249 05/04/17 1249 Imaging Last Impressions Chest X-Ray 05/08/17 0000 Signed Impressions: Service Date/Time: Monday, May 08, 2017 12:56 - CONCLUSION: 1. Right chest tubes without a pneumothorax seen. 2. Hyperinflated lungs with suspected consolidation or atelectasis at the right base and to a lesser degree, the left perihilar region. Titus Patterson MD Chest Tube Insertion 05/02/17 0000 Signed Impressions: Service Date/Time: Tuesday, May 02, 2017 12:29 - CONCLUSION: Uncomplicated chest tube placement as above. Slava Comer MD Chest CT 05/02/17 0000 Signed Impressions: Service Date/Time: Tuesday, May 02, 2017 09:32 - CONCLUSION: 1. Right chest drainage tube in place with tip at apex. There is a moderate size anterior right lower lung pneumothorax which extends to the mid chest. 2. Extensive subcutaneous emphysema on the right side and some mild lower left subcutaneous emphysema. Allen Martinez MD Objective Remarks GENERAL: Alert, oriented 3, NAD. SKIN: Warm and dry. Significant subcutaneous emphysema on the right side of the chest. HEAD: Normocephalic. EYES: No scleral icterus. No injection or drainage. NECK: Supple, trachea midline. No JVD or lymphadenopathy. CARDIOVASCULAR: Regular rate and rhythm without murmurs, gallops, or rubs. Chest tubes in place. RESPIRATORY: Breath sounds equal bilaterally. No accessory muscle use. GASTROINTESTINAL: Abdomen soft, non-tender, nondistended. MUSCULOSKELETAL: No cyanosis, or edema. BACK: Nontender without obvious deformity. No CVA tenderness. Procedures Chest tube placement 05/02/2017. A/P Problem List: (1) Community acquired bacterial pneumonia ICD Code: J15.9 - Unspecified bacterial pneumonia Status: Acute (2) COPD exacerbation ICD Code: J44.1 - Chronic obstructive pulmonary disease with (acute) exacerbation Status: Acute (3) Tobacco abuse ICD Code: Z72.0 - Tobacco use Status: Acute (4) Acute respiratory failure with hypoxia ICD Code: J96.01 - Acute respiratory failure with hypoxia Status: Acute (5) Emphysema of lung ICD Code: J43.9 - Emphysema, unspecified (6) Pneumothorax, right ICD Code: J93.9 - Pneumothorax, unspecified Assessment and Plan Patient is a 61-year-old male with past medical history of COPD on chronic home oxygen at 5 liters and tobacco abuse who was admitted to hospitalist service on April 28 for COPD exacerbation. Due to worsening of his symptoms agent was initially placed on BiPAP and subsequently transferred to ICU where he required intubation. While in the ICU patient developed right-sided pneumothorax for which chest tube was placed. Patient was subsequently extubated on 05/04/2017. 1. Acute hypercapnic and hypoxemic respiratory failure. - intubated 05/01, extubated 05/05 - Maintain oxygen saturation above 92% 2. COPD exacerbation on home oxygen. On Solu Medrol 40mg Q6H, Spiriva, Symbicort, Duo Neb and Levaquin Patient has been on Levaquin 500mg Qday X 7 days. We can likely discontinue in the next day or so. 3 Right sided PTX s/p Chest tubes placement CXR from 05/08/2017 reviewed. Shows right sided chest tubes without a pneumothorax. Cardiothoracic surgery following. Discontinuation of chest tubes could be considered. Percocet PRN for pain. Full code. Lovenox. Yashira Garcia DO May 08, 2017 2:11 pm
[2017-05-08] MEDS: RESP: ALBUTEROL 2.5 MG/IPRATROPIUM 0.5 MG NEB (SCH) NEB ×2 (15:53→20:31)
[2017-05-08] MEDS: LEVOFLOXACIN 500 MG PREMIX INJ 100 ML IV SCH (16:10)
[2017-05-08] MEDS: ENOXAPARIN SODIUM 40 MG/0.4 ML SYRINGE SQ SCH (17:22)
[2017-05-08] MEDS: SODIUM CHLORIDE 0.9% FLUSH 10 ML FLUSH IVF PRN ×2 (20:57→23:53)
[2017-05-09] VITALS (10 sets, daily range): BP systolic 103–117; BP diastolic 64–82; PULSE 84–110; RESP 17–18; TEMP 96.3–97.7; O2SAT 93–98
[2017-05-09] MEDS: RESP: ALBUTEROL 2.5 MG/IPRATROPIUM 0.5 MG NEB (SCH) NEB ×7 (00:13→23:31)
[2017-05-09] MEDS: MORPHINE SULFATE 2 MG/ML INJ IV PUSH PRN ×6 (03:05→23:38)
[2017-05-09] MEDS: SODIUM CHLORIDE 0.9% FLUSH 10 ML FLUSH IVF PRN ×2 (03:06→19:38)
[2017-05-09] MEDS: INSULIN NovoLIN REGULAR SUPPLEMENTAL SCALE SQ SCH ×6 (03:15→23:39)
[2017-05-09] MEDS: FAMOTIDINE 20 MG/2 ML VIAL IV PUSH SCH ×2 (03:16→16:07)
[2017-05-09] MEDS: CHLORHEXIDINE 0.12% (ORAL KIT) 15 ML CUP MT SCH ×2 (08:00→19:31)
[2017-05-09] MEDS: FLUTICASONE PROPIONATE 50 MCG/ACT 16 GM NASAL SPRAY EACH NARE SCH ×2 (09:02→19:36)
[2017-05-09] MEDS: methylPREDNISolone SOD SUCC 40 MG/1 ML VIAL IV PUSH SCH ×2 (09:02→19:38)
[2017-05-09] MEDS: TIOTROPIUM BROMIDE 18 MCG INH INH SCH (09:02)
[2017-05-09] MEDS: BUDESONIDE-FORMOTEROL 160/4.5 MCG INHALER INH SCH ×2 (09:02→19:36)
[2017-05-09] MEDS: DOCUSATE SODIUM 50 MG/SENNA 8.6 MG TAB PO SCH ×2 (09:03→19:39)
--- NOTE | 2017-05-09 10:51 | HHI.PR ---
Subjective Remarks Patient is lying in bed in no acute distress on 3L oxygen Objective Vital Signs Vital Signs Date Time Temp Pulse Resp B/P (MAP) Pulse Ox O2 Delivery O2 Flow Rate FiO2 05/09/17 08:00 96.3 105 18 104/73 (83) 97 05/09/17 07:28 98 Nasal Cannula 3.00 05/09/17 04:00 106 05/09/17 00:31 84 05/08/17 23:49 Nasal Cannula 4.00 05/08/17 23:35 98.9 86 19 134/88 (103) 93 05/08/17 20:33 97 Nasal Cannula 3.00 05/08/17 20:00 91 05/08/17 19:20 97.3 96 18 108/75 (86) 95 05/08/17 16:00 96.7 83 18 108/75 (86) 94 05/08/17 12:00 96.2 84 18 111/73 (86) 93 I/O 05/08/17 05/08/17 05/08/17 05/09/17 05/09/17 05/09/17 07:00 15:00 23:00 07:00 15:00 23:00 Intake Total 980 ml 600 ml 927 ml 1378 ml Output Total 420 ml 800 ml 10 ml 1000 ml Balance 560 ml -200 ml 917 ml 378 ml Intake Oral 360 ml 600 ml 960 ml IV Total 620 ml 927 ml 418 ml Output Urine Total 400 ml 800 ml 1000 ml Chest Tube Drainage Total 20 ml 10 ml 0 ml Bladder Scan Volume Amount 70 ml # Bowel Movements 0 0 0 Other Results Last Impressions Chest X-Ray 05/08/17 0000 Signed Impressions: Service Date/Time: Monday, May 08, 2017 12:56 - CONCLUSION: 1. Right chest tubes without a pneumothorax seen. 2. Hyperinflated lungs with suspected consolidation or atelectasis at the right base and to a lesser degree, the left perihilar region. Titus Patterson MD Chest Tube Insertion 05/02/17 0000 Signed Impressions: Service Date/Time: Tuesday, May 02, 2017 12:29 - CONCLUSION: Uncomplicated chest tube placement as above. Slava Comer MD Chest CT 05/02/17 0000 Signed Impressions: Service Date/Time: Tuesday, May 02, 2017 09:32 - CONCLUSION: 1. Right chest drainage tube in place with tip at apex. There is a moderate size anterior right lower lung pneumothorax which extends to the mid chest. 2. Extensive subcutaneous emphysema on the right side and some mild lower left subcutaneous emphysema. Allen Martinez MD Objective Remarks GENERAL: Patient is 61 yo lying in bed in NAD SKIN: Warm and dry. HEAD: Normocephalic. EYES: No scleral icterus. No injection or drainage. NECK: Supple, trachea midline. No JVD or lymphadenopathy. CARDIOVASCULAR: Regular rate and rhythm without murmurs, gallops, or rubs. RESPIRATORY: Breath sounds equal bilaterally. No accessory muscle use. GASTROINTESTINAL: Abdomen soft, non-tender, nondistended. MUSCULOSKELETAL: No cyanosis, or edema. Neuro: Awake and alert A/P Assessment and Plan 1. Acute hypercapnic and hypoxemic respiratory failure. intubated 05/01, extubated 05/05 2. COPD exacerbation on home oxygen. 3 Right sided PTX s/p CT placement 4 Sub Q emphysema 5. Active tobacco use. 6. Hypertension. Plan Continue with oxygen keep sat >92% Bronchodilators ( DuoNeb, Symbicort, Spiriva), Continue Solu-Medrol 40mg IV q. 12 s/p right CT placement 05/01 for right sided PTX, s/p [address] placement by IR 05/02, CXR yesterday : Right chest tubes without a pneumothorax seen. Hyperinflated lungs with suspected consolidation or atelectasis at the right base and to a lesser degree, the left perihilar region. Check CXR in am Abx ( Levaquin) last dose today ( 05/02-05/09) CTS is following- Dr. Lino- CT management per CTS ( minimal drainage out CT's in last 24 hrs) GI/DVT prophylaxis Kaia Locke MD May 09, 2017 10:51
--- NOTE | 2017-05-09 14:26 | HHI.PR ---
Subjective Remarks Follow-up for respiratory failure, pneumothorax. Patient is doing well. No acute concerns. He complains of no CP, SOB, fever, chills. He inquires about chest tubes and when they might be taken out. Objective Vitals Vital Signs Date Time Temp Pulse Resp B/P (MAP) Pulse Ox O2 Delivery O2 Flow Rate FiO2 05/09/17 12:00 96.6 102 18 109/75 (86) 97 05/09/17 08:00 96.3 105 18 104/73 (83) 97 05/09/17 07:28 98 Nasal Cannula 3.00 05/09/17 04:00 106 05/09/17 00:31 84 05/08/17 23:49 Nasal Cannula 4.00 05/08/17 23:35 98.9 86 19 134/88 (103) 93 05/08/17 20:33 97 Nasal Cannula 3.00 05/08/17 20:00 91 05/08/17 19:20 97.3 96 18 108/75 (86) 95 05/08/17 16:00 96.7 83 18 108/75 (86) 94 I/O 05/08/17 05/08/17 05/08/17 05/09/17 05/09/17 05/09/17 07:00 15:00 23:00 07:00 15:00 23:00 Intake Total 980 ml 600 ml 1027 ml 1378 ml Output Total 420 ml 800 ml 10 ml 1000 ml Balance 560 ml -200 ml 1017 ml 378 ml Intake Oral 360 ml 600 ml 960 ml IV Total 620 ml 1027 ml 418 ml Output Urine Total 400 ml 800 ml 1000 ml Chest Tube Drainage Total 20 ml 10 ml 0 ml Bladder Scan Volume Amount 70 ml # Bowel Movements 0 0 0 Objective Remarks GENERAL: Alert, oriented 3, NAD. SKIN: Warm and dry. Significant subcutaneous emphysema on the right side of the chest. HEAD: Normocephalic. EYES: No scleral icterus. No injection or drainage. NECK: Supple, trachea midline. No JVD or lymphadenopathy. CARDIOVASCULAR: Regular rate and rhythm without murmurs, gallops, or rubs. Chest tubes in place. RESPIRATORY: Breath sounds equal bilaterally. No accessory muscle use. GASTROINTESTINAL: Abdomen soft, non-tender, nondistended. MUSCULOSKELETAL: No cyanosis, or edema. BACK: Nontender without obvious deformity. No CVA tenderness. Procedures Chest tube placement 05/02/2017. A/P Problem List: (1) Community acquired bacterial pneumonia ICD Code: J15.9 - Unspecified bacterial pneumonia Status: Acute (2) COPD exacerbation ICD Code: J44.1 - Chronic obstructive pulmonary disease with (acute) exacerbation Status: Acute (3) Tobacco abuse ICD Code: Z72.0 - Tobacco use Status: Acute (4) Acute respiratory failure with hypoxia ICD Code: J96.01 - Acute respiratory failure with hypoxia Status: Acute (5) Emphysema of lung ICD Code: J43.9 - Emphysema, unspecified (6) Pneumothorax, right ICD Code: J93.9 - Pneumothorax, unspecified Assessment and Plan Patient is a 61-year-old male with past medical history of COPD on chronic home oxygen at 5 liters and tobacco abuse who was admitted to hospitalist service on April 28 for COPD exacerbation. Due to worsening of his symptoms agent was initially placed on BiPAP and subsequently transferred to ICU where he required intubation. While in the ICU patient developed right-sided pneumothorax for which chest tube was placed. Patient was subsequently extubated on 05/04/2017. 1. Acute hypercapnic and hypoxemic respiratory failure. - intubated 05/01, extubated 05/05 - Maintain oxygen saturation above 92% 2. COPD exacerbation on home oxygen. On Solu Medrol 40mg Q6H, Spiriva, Symbicort, Duo Neb and Levaquin Patient has been on Levaquin 500mg Qday X 7 days. Levaquin to be discontinued after today. 3 Right sided PTX s/p Chest tubes placement CXR from 05/08/2017 reviewed. Shows right sided chest tubes without a pneumothorax. Cardiothoracic surgery following. Discontinuation of chest tubes could be considered. Will discuss with Cardiothoracic surgery and/or Interventional Radiology on 05/10/2017. Percocet PRN for pain. Full code. Lovenox. Yashira Garcia DO May 09, 2017 14:26
[2017-05-09] MEDS: ENOXAPARIN SODIUM 40 MG/0.4 ML SYRINGE SQ SCH (18:31)
[2017-05-09] MEDS: BENZONATATE 100 MG CAP PO PRN (23:37)
[2017-05-10] VITALS (9 sets, daily range): BP systolic 117–175; BP diastolic 71–89; PULSE 87–110; RESP 17–18; TEMP 96.1–97.5; O2SAT 92–97
[2017-05-10] MEDS: INSULIN NovoLIN REGULAR SUPPLEMENTAL SCALE SQ SCH ×2 (03:15→07:15)
[2017-05-10] MEDS: RESP: ALBUTEROL 2.5 MG/IPRATROPIUM 0.5 MG NEB (SCH) NEB ×6 (03:25→23:46)
[2017-05-10] MEDS: FAMOTIDINE 20 MG/2 ML VIAL IV PUSH SCH ×2 (05:00→17:04)
[2017-05-10] MEDS: MORPHINE SULFATE 2 MG/ML INJ IV PUSH PRN (05:02)
--- NOTE | 2017-05-10 06:48 | RADRPT ---
EXAM DATE/TIME: 05/10/2017 05:43 [facility] COMPARISON: CHEST SINGLE AP, May 08, 2017, 12:56. INDICATIONS : Short of breath, evaluate COPD, evaluate chest tubes MEDICAL HISTORY : Chronic obstructive pulmonary disease. Congestive heart failure. SURGICAL HISTORY : chest tubes ENCOUNTER: Subsequent ACUITY: 1 week PAIN SCORE: Non-responsive. LOCATION: Bilateral chest FINDINGS: Right apical pneumothorax in stable position. Left inferior hemithorax pigtail catheter also stable i n position. No significant pneumothorax. Persistent subcutaneous emphysema. Mild bibasilar air space disease. Cardiomediastinal contours are unchanged. Remainder of the exam is unchanged. CONCLUSION: 1. Right apical and inferior chest tubes without significant pneumothorax. 2. Persistent mild bibasilar airspace disease, likely atelectasis. Leighton Polanco MD on May 10, 2017 at 6:45 Board Certified Radiologist. This report was verified electronically.
[2017-05-10] MEDS: methylPREDNISolone SOD SUCC 40 MG/1 ML VIAL IV PUSH SCH ×2 (07:33→20:42)
[2017-05-10] MEDS: BENZONATATE 100 MG CAP PO PRN ×2 (07:33→14:18)
[2017-05-10] MEDS: oxyCODONE/ACETAMINOPHEN 10 MG/325 MG TAB PO PRN ×2 (07:34→14:19)
[2017-05-10] MEDS: BUDESONIDE-FORMOTEROL 160/4.5 MCG INHALER INH SCH ×2 (07:36→20:43)
[2017-05-10] MEDS: TIOTROPIUM BROMIDE 18 MCG INH INH SCH (07:36)
[2017-05-10] MEDS: FLUTICASONE PROPIONATE 50 MCG/ACT 16 GM NASAL SPRAY EACH NARE SCH ×2 (07:37→20:42)
[2017-05-10] MEDS: CHLORHEXIDINE 0.12% (ORAL KIT) 15 ML CUP MT SCH ×2 (08:00→20:43)
[2017-05-10] MEDS: DOCUSATE SODIUM 50 MG/SENNA 8.6 MG TAB PO SCH ×2 (09:00→20:42)
--- NOTE | 2017-05-10 15:06 | RADRPT ---
EXAM DATE/TIME: 05/10/2017 13:56 [facility] COMPARISON: CHEST SINGLE AP, May 10, 2017, 5:43. INDICATIONS : Evaluate for pulmonary disease. MEDICAL HISTORY : Chronic obstructive pulmonary disease. Congestive heart failure SURGICAL HISTORY : chest tubes ENCOUNTER: Subsequent ACUITY: 1 week PAIN SCORE: 0/10 LOCATION: Bilateral chest FINDINGS: 2 right-sided thoracostomy tubes remain in place. There is no evidence of pneumothorax. Aeration is s lightly improved with continued improvement in perihilar and basilar infiltrates. A cutaneous emphyse ma persists along the lateral chest solares. Cardiomediastinal contours are stable. CONCLUSION: No pneumothorax Titus Ha MD on May 10, 2017 at 14:51 Board Certified Radiologist. This report was verified electronically.
--- NOTE | 2017-05-10 16:03 | HHI.PR ---
Subjective Remarks ALERT NO DISTRESS SAT 95% ON NC NOW ON MED FLOOR Objective Vital Signs Date Time Temp Pulse Resp B/P (MAP) Pulse Ox O2 Delivery O2 Flow Rate FiO2 05/10/17 15:51 93 Nasal Cannula 3.00 05/10/17 12:00 97.5 98 17 175/89 (117) 92 05/10/17 08:42 92 Nasal Cannula 3.00 05/10/17 08:00 96.7 100 17 130/80 (97) 97 05/10/17 04:00 87 05/10/17 03:34 97.1 101 18 117/71 (86) 95 05/09/17 23:36 97.7 110 17 117/82 (94) 93 05/09/17 20:05 96.5 104 18 103/64 (77) 94 05/09/17 20:00 99 05/09/17 19:18 94 Nasal Cannula 3.00 I/O 05/09/17 05/09/17 05/09/17 05/10/17 05/10/17 05/10/17 07:00 15:00 23:00 07:00 15:00 23:00 Intake Total 1378 ml 600 ml 960 ml Output Total 1000 ml 750 ml 110 ml 1475 ml Balance 378 ml -150 ml -110 ml -515 ml Intake Oral 960 ml 600 ml 960 ml IV Total 418 ml Output Urine Total 1000 ml 750 ml 1475 ml Chest Tube Drainage Total 0 ml 110 ml 0 ml Bladder Scan Volume Amount 70 ml # Bowel Movements 0 0 1 Objective Remarks GENERAL: SKIN: Warm and dry. HEAD: Atraumatic. Normocephalic. EYES: Pupils equal and round. No scleral icterus. No injection or drainage. ENT: No nasal bleeding or discharge. Mucous membranes pink and moist. NECK: Trachea midline. No JVD. CARDIOVASCULAR: Regular rate and rhythm. RESPIRATORY: No accessory muscle use. Clear to auscultation. Breath sounds equal bilaterally. GASTROINTESTINAL: Abdomen soft, non-tender, nondistended. Hepatic and splenic margins not palpable. MUSCULOSKELETAL: Extremities without clubbing, cyanosis, or edema. No obvious deformities. NEUROLOGICAL: Awake and alert. No obvious cranial nerve deficits. Motor grossly within normal limits. Five out of 5 muscle strength in the arms and legs. Normal speech. PSYCHIATRIC: Appropriate mood and affect; insight and judgment normal. Assessment and Plan Assessment and Plan ASS IMPROVED, RESP. FAILURE COPD PLAN BRONCHODILATORS O2 NEEDED INCREASE ACTIVITY Salvador Franco MD May 10, 2017 16:03
[2017-05-10] MEDS: ENOXAPARIN SODIUM 40 MG/0.4 ML SYRINGE SQ SCH (17:03)
--- NOTE | 2017-05-10 19:50 | HHI.PR ---
Subjective Remarks Follow-up for respiratory failure, pneumothorax. Patient was seen this afternoon. Doing well, sitting in his chair. No acute concerns. No fever, chills. Wants to go home. Objective Vitals Vital Signs Date Time Temp Pulse Resp B/P (MAP) Pulse Ox O2 Delivery O2 Flow Rate FiO2 05/10/17 16:00 97.0 105 17 128/74 (92) 95 05/10/17 15:51 93 Nasal Cannula 3.00 05/10/17 12:00 97.5 98 17 175/89 (117) 92 05/10/17 08:42 92 Nasal Cannula 3.00 05/10/17 08:00 96.7 100 17 130/80 (97) 97 05/10/17 04:00 87 05/10/17 03:34 97.1 101 18 117/71 (86) 95 05/09/17 23:36 97.7 110 17 117/82 (94) 93 05/09/17 20:05 96.5 104 18 103/64 (77) 94 05/09/17 20:00 99 I/O 05/09/17 05/09/17 05/09/17 05/10/17 05/10/17 05/10/17 07:00 15:00 23:00 07:00 15:00 23:00 Intake Total 1378 ml 600 ml 960 ml 480 ml Output Total 1000 ml 750 ml 110 ml 1475 ml 1525 ml Balance 378 ml -150 ml -110 ml -515 ml -1045 ml Intake Oral 960 ml 600 ml 960 ml 480 ml IV Total 418 ml Output Urine Total 1000 ml 750 ml 1475 ml 1525 ml Chest Tube Drainage Total 0 ml 110 ml 0 ml Bladder Scan Volume Amount 70 ml # Bowel Movements 0 0 1 0 Imaging Last Impressions Chest X-Ray 05/10/17 0600 Signed Impressions: Service Date/Time: Wednesday, May 10, 2017 05:43 - CONCLUSION: 1. Right apical and inferior chest tubes without significant pneumothorax. 2. Persistent mild bibasilar airspace disease, likely atelectasis. Leighton Polanco MD Chest Tube Insertion 05/02/17 0000 Signed Impressions: Service Date/Time: Tuesday, May 02, 2017 12:29 - CONCLUSION: Uncomplicated chest tube placement as above. Slava Comer MD Chest CT 05/02/17 0000 Signed Impressions: Service Date/Time: Tuesday, May 02, 2017 09:32 - CONCLUSION: 1. Right chest drainage tube in place with tip at apex. There is a moderate size anterior right lower lung pneumothorax which extends to the mid chest. 2. Extensive subcutaneous emphysema on the right side and some mild lower left subcutaneous emphysema. Allen Martinez MD Objective Remarks GENERAL: Alert, oriented 3, NAD. SKIN: Warm and dry. Significant subcutaneous emphysema on the right side of the chest. HEAD: Normocephalic. EYES: No scleral icterus. No injection or drainage. NECK: Supple, trachea midline. No JVD or lymphadenopathy. CARDIOVASCULAR: Regular rate and rhythm without murmurs, gallops, or rubs. Chest tubes in place. RESPIRATORY: Breath sounds equal bilaterally. No accessory muscle use. GASTROINTESTINAL: Abdomen soft, non-tender, nondistended. MUSCULOSKELETAL: No cyanosis, or edema. BACK: Nontender without obvious deformity. No CVA tenderness. Procedures Chest tube placement 05/02/2017. A/P Problem List: (1) Community acquired bacterial pneumonia ICD Code: J15.9 - Unspecified bacterial pneumonia Status: Acute (2) COPD exacerbation ICD Code: J44.1 - Chronic obstructive pulmonary disease with (acute) exacerbation Status: Acute (3) Tobacco abuse ICD Code: Z72.0 - Tobacco use Status: Acute (4) Acute respiratory failure with hypoxia ICD Code: J96.01 - Acute respiratory failure with hypoxia Status: Acute (5) Emphysema of lung ICD Code: J43.9 - Emphysema, unspecified (6) Pneumothorax, right ICD Code: J93.9 - Pneumothorax, unspecified Assessment and Plan Patient is a 61-year-old male with past medical history of COPD on chronic home oxygen at 5 liters and tobacco abuse who was admitted to hospitalist service on April 28 for COPD exacerbation. Due to worsening of his symptoms agent was initially placed on BiPAP and subsequently transferred to ICU where he required intubation. While in the ICU patient developed right-sided pneumothorax for which chest tube was placed. Patient was subsequently extubated on 05/04/2017. 1. Acute hypercapnic and hypoxemic respiratory failure. - intubated 05/01, extubated 05/05 - Maintain oxygen saturation above 92% 2. COPD exacerbation on home oxygen. On Solu Medrol 40mg Q6H, Spiriva, Symbicort, Duo Neb and Levaquin Patient has been on Levaquin 500mg Qday X 7 days. Levaquin to be discontinued after today. 3 Right sided PTX s/p Chest tubes placement CXR from 05/08/2017 reviewed. Shows right sided chest tubes without a pneumothorax. Cardiothoracic surgery following. Discontinuation of chest tubes could be considered. Percocet PRN for pain. Discussed with IR today - CXR today shows no further pneumothorax. Expecting to hear from IR regarding further plan for this patient. Full code. Lovenox. Yashira Garcia DO May 10, 2017 19:50
[2017-05-10] MEDS: SODIUM CHLORIDE 0.9% FLUSH 10 ML FLUSH IVF PRN (20:47)
--- NOTE | 2017-05-10 22:17 | RADRPT ---
EXAM DATE/TIME: 05/10/2017 21:34 [facility] COMPARISON: CHEST SINGLE AP, May 10, 2017, 13:56. INDICATIONS : Lower right chest tube removal. MEDICAL HISTORY : Chronic obstructive pulmonary disease. Congestive heart failure. SURGICAL HISTORY : Chest tubes. ENCOUNTER: Subsequent ACUITY: 1 day PAIN SCORE: 2/10 LOCATION: Right chest FINDINGS: A single view of the chest demonstrates a single right chest tube present. No significant pneumothora x. Extensive subcutaneous air present, increased from earlier examination. Subsegmental airspace dise ase at the bases. No significant effusion. CONCLUSION: 1. Increase in subcutaneous air. Right chest tube without pneumothorax identified. Kishore Nelson MD on May 10, 2017 at 22:14 Board Certified Radiologist. This report was verified electronically.
[2017-05-11] VITALS (8 sets, daily range): BP systolic 118–150; BP diastolic 77–90; PULSE 88–105; RESP 15–19; TEMP 96.3–97.9; O2SAT 92–98
[2017-05-11] MEDS ORDERED: TEMAZEPAM 7.5 MG CAP PO ONE (01:15)
[2017-05-11] MEDS: FAMOTIDINE 20 MG/2 ML VIAL IV PUSH SCH ×2 (04:00→16:00)
[2017-05-11] MEDS: RESP: ALBUTEROL 2.5 MG/IPRATROPIUM 0.5 MG NEB (SCH) NEB ×6 (04:19→23:29)
--- NOTE | 2017-05-11 06:58 | RADRPT ---
EXAM DATE/TIME: 05/11/2017 05:33 [facility] COMPARISON: CHEST SINGLE AP, May 10, 2017, 21:34. INDICATIONS : Short of breath, chest pain MEDICAL HISTORY : Chronic obstructive pulmonary disease. Congestive heart failure. SURGICAL HISTORY : chest tubes ENCOUNTER: Subsequent ACUITY: 3 days PAIN SCORE: 5/10 LOCATION: Bilateral chest FINDINGS: Stable right apical chest tube with slight increased extensive subcutaneous emphysema. No significant pneumothorax. Minimal bibasilar airspace disease. Cardiomediastinal contours are within normal limit s. Remainder of the exam is unchanged. CONCLUSION: 1. Stable right apical chest tube with no significant pneumothorax. 2. Slightly increased extensive subcutaneous emphysema. Leighton Polanco MD on May 11, 2017 at 6:56 Board Certified Radiologist. This report was verified electronically.
[2017-05-11] MEDS: methylPREDNISolone SOD SUCC 40 MG/1 ML VIAL IV PUSH SCH ×2 (07:40→20:35)
[2017-05-11] MEDS: DOCUSATE SODIUM 50 MG/SENNA 8.6 MG TAB PO SCH ×2 (07:41→20:37)
[2017-05-11] MEDS: TIOTROPIUM BROMIDE 18 MCG INH INH SCH (07:41)
[2017-05-11] MEDS: FLUTICASONE PROPIONATE 50 MCG/ACT 16 GM NASAL SPRAY EACH NARE SCH ×2 (07:41→20:29)
[2017-05-11] MEDS: MORPHINE SULFATE 2 MG/ML INJ IV PUSH PRN (07:50)
[2017-05-11] MEDS: oxyCODONE/ACETAMINOPHEN 10 MG/325 MG TAB PO PRN ×3 (07:50→20:36)
[2017-05-11] MEDS: CHLORHEXIDINE 0.12% (ORAL KIT) 15 ML CUP MT SCH ×2 (08:00→20:00)
[2017-05-11] MEDS: BUDESONIDE-FORMOTEROL 160/4.5 MCG INHALER INH SCH ×2 (09:00→20:29)
--- NOTE | 2017-05-11 11:14 | RADRPT ---
EXAM DATE/TIME: 05/10/2017 00:00 [facility] COMPARISON: No previous studies available for comparison. INDICATIONS : RIGHT PNEUMOTHORAX DEVICE(S): 1.) Vaseline occlusive dressing PROCEDURE : Chest tube removal. Using aseptic technique the previously placed chest tube was easily removed in one piece and Vaseline gauze and sterile dressing was applied. Chest radiograph is to be obtained. CONCLUSION: Uncomplicated chest tube removal. Titus Ha MD on May 11, 2017 at 11:13 Board Certified Radiologist. This report was verified electronically.
--- NOTE | 2017-05-11 15:24 | HHI.PR ---
Subjective Remarks Follow-up for respiratory failure, pneumothorax. Patient has significant diffuse subcutaneous emphysema. He is very upset that his condition has worsened to this point. He denies any respiratory difficulties. No fever or chills. 1 of the 2 chest tubes were discontinued yesterday. Objective Vitals Vital Signs Date Time Temp Pulse Resp B/P (MAP) Pulse Ox O2 Delivery O2 Flow Rate FiO2 05/11/17 12:03 96.8 89 18 118/79 (92) 96 05/11/17 08:00 95 Nasal Cannula 3.00 05/11/17 08:00 96.3 94 19 134/79 (97) 97 05/11/17 04:00 97.6 96 16 133/79 (97) 98 05/11/17 00:00 97.8 88 16 125/79 (94) 95 05/10/17 23:46 93 Nasal Cannula 3.00 05/10/17 20:55 Nasal Cannula 3.00 05/10/17 20:00 96.1 110 17 155/89 (111) 94 05/10/17 16:00 97.0 105 17 128/74 (92) 95 05/10/17 15:51 93 Nasal Cannula 3.00 I/O 05/10/17 05/10/17 05/10/17 05/11/17 05/11/17 05/11/17 07:00 15:00 23:00 07:00 15:00 23:00 Intake Total 960 ml 480 ml 800 ml Output Total 1475 ml 1525 ml 450 ml 2100 ml Balance -515 ml -1045 ml 350 ml -2100 ml Intake Oral 960 ml 480 ml 800 ml Output Urine Total 1475 ml 1525 ml 450 ml 2000 ml Chest Tube Drainage Total 0 ml 100 ml Bladder Scan Volume Amount 70 ml # Bowel Movements 1 0 Imaging Last Impressions Chest X-Ray 05/11/17 0600 Signed Impressions: Service Date/Time: Thursday, May 11, 2017 05:33 - CONCLUSION: 1. Stable right apical chest tube with no significant pneumothorax. 2. Slightly increased extensive subcutaneous emphysema. Leighton Polanco MD Chest CT 05/11/17 0000 Signed Impressions: Service Date/Time: Thursday, May 11, 2017 15:15 - CONCLUSION: 1. Severe subcutaneous emphysema 2. Small right basal pneumothorax without tension in this patient with a right chest tube. 3. The findings were discussed with Dr. Lino at time of dictation Monroe Saeed MD Tunnelled Chest Tube Removal 05/10/17 0000 Signed Impressions: Service Date/Time: Wednesday, May 10, 2017 00:00 - CONCLUSION: Uncomplicated chest tube removal. Titus Ha MD Chest Tube Insertion 05/02/17 0000 Signed Impressions: Service Date/Time: Tuesday, May 02, 2017 12:29 - CONCLUSION: Uncomplicated chest tube placement as above. Slava Comer MD Objective Remarks GENERAL: Alert, oriented 3, NAD. SKIN: Warm and dry. Significant subcutaneous emphysema on the right side of the chest. HEAD: Normocephalic. EYES: No scleral icterus. No injection or drainage. NECK: Supple, trachea midline. No JVD or lymphadenopathy. CARDIOVASCULAR: Regular rate and rhythm without murmurs, gallops, or rubs. Chest tubes in place. RESPIRATORY: Breath sounds equal bilaterally. No accessory muscle use. GASTROINTESTINAL: Abdomen soft, non-tender, nondistended. MUSCULOSKELETAL: No cyanosis, or edema. BACK: Nontender without obvious deformity. No CVA tenderness. Procedures Chest tube placement 05/02/2017. A/P Problem List: (1) Community acquired bacterial pneumonia ICD Code: J15.9 - Unspecified bacterial pneumonia Status: Acute (2) COPD exacerbation ICD Code: J44.1 - Chronic obstructive pulmonary disease with (acute) exacerbation Status: Acute (3) Tobacco abuse ICD Code: Z72.0 - Tobacco use Status: Acute (4) Acute respiratory failure with hypoxia ICD Code: J96.01 - Acute respiratory failure with hypoxia Status: Acute (5) Emphysema of lung ICD Code: J43.9 - Emphysema, unspecified (6) Pneumothorax, right ICD Code: J93.9 - Pneumothorax, unspecified Assessment and Plan Patient is a 61-year-old male with past medical history of COPD on chronic home oxygen at 5 liters and tobacco abuse who was admitted to hospitalist service on April 28 for COPD exacerbation. Due to worsening of his symptoms agent was initially placed on BiPAP and subsequently transferred to ICU where he required intubation. While in the ICU patient developed right-sided pneumothorax for which chest tube was placed. Patient was subsequently extubated on 05/04/2017. Acute hypercapnic and hypoxemic respiratory failure. - intubated 05/01, extubated 05/05 - Maintain oxygen saturation above 92% COPD exacerbation on home oxygen. On Solu Medrol 40mg Q6H, Spiriva, Symbicort, Duo Neb and Levaquin Patient has received Levaquin 500mg Qday X 7 days. Right sided PTX s/p Chest tubes placement CXR from 05/08/2017 reviewed. Shows right sided chest tubes without a pneumothorax. 1 of the 2 chest tubes were discontinued on 05/10/2017. Patient developed diffuse subcutaneous emphysema affecting his chest wall as well as arm, neck and face. Discussed extensively with pulmonology, cardiothoracic surgery. Pulmonology placed small gauge chest tubes I also discussed with medicinal chemist who was kind enough to evaluate patient with me. Since patient is currently hemodynamically stable and no acute respiratory decline, patient can stay on the floor. However if intensive surgical care bed is available, patient can be observed in [facility] tonight. Patient already has pain medications. Mucinex for cough. Insomnia - will start patient on Restoril. Full code. Lovenox. Yashira Garcia DO May 11, 2017 3:24 pm
--- NOTE | 2017-05-11 15:40 | RADRPT ---
EXAM DATE/TIME: 05/11/2017 14:53 [facility] COMPARISON: CHEST SINGLE AP, May 11, 2017, 5:33. INDICATIONS : Chest tube leak, difficulty breathing. MEDICAL HISTORY : Stroke. Cardiovascular disease skin cancer SURGICAL HISTORY : Chest tubes. Hernia repair. ENCOUNTER: Subsequent ACUITY: 2 weeks PAIN SCORE: 0/10 LOCATION: Bilateral chest FINDINGS: The cardiac silhouette is normal in transverse diameter. There is severe subcutaneous emphysema bilat erally both hemithoraces and in the necks. A right chest tube is in place. There is no evidence of pn eumothorax. There is no evidence of pneumonia. CONCLUSION: Severe subcutaneous emphysema unchanged without pneumothorax Monroe Saeed MD on May 11, 2017 at 15:38 Board Certified Radiologist. This report was verified electronically.
--- NOTE | 2017-05-11 15:43 | PD.CAR.PN ---
CVT Progress Note Subjective/Hospital Course: Significant for chronic COPD on home O2 at 5 liters, continued tobacco abuse presented by EMS for worsening dyspnea and admitted with COPD exacerbation. He took apparently three nebulizers at home before calling EMS. They treated him with some Solu-Medrol. O2 saturations were in the 70s on admission. They placed him on BiPap where he had some improvement. He was also started on empiric antibiotics. Initial x-ray showed emphysematous changes otherwise no acute infiltrate or failure. He was transferred to the ICU for closer observation. His ABG showed hypercapnic respiratory failure despite the BiPap. He became hypertensive was more tachypneic and required emergent intubation by critical care medicine. The patient remains on the ventilator. We were consulted for some subcu emphysema, right pneumothorax status post chest tube placement. The patient has two chest tubes. He has a pigtail catheter and also a 20-Serbian catheter on the right lateral chest wall. CT chest was done on the which showed a right chest tube in the tip of the apex, moderate size right lower lobe pneumothorax where the second chest tube was placed by critical care. Chest x-ray this morning showed no visualized pneumothorax, however, some increase in subcu emphysema along the right lateral chest wall. The patient also has some emphysema and bullous changes. We were consulted to evaluate for possible video-assisted thoracoscopy, possible pleurodesis, however at this time his x-ray is showing no evidence of pneumothorax. PAST MEDICAL HISTORY His past medical history significant for: 1. Chronic COPD. 2. Continued tobacco abuse on home O2 at 5 liters. 05/11 we were called today from IR Dr Comer regarding extensive sub q emphysema chest face , arms scrotum pt had the pig tail cath removed yesterday, and immediately notice increased sub q emphysema and air leak to prior chest tube site pt was on 3 liter nasal , was very angry about his swelling also spoke with Dr Paz and Dr Lino/ request repeat CT scan and possible placement of 2nd chest tube Objective: GENERAL: A&O x 3 SKIN: Warm and dry. right #20 croatian chest tube in place , no air leak , vaseline gauze dressing to old chest tube site occlusive tape extensive subq emphysema to chest arms, face and scrotum HEAD: Normocephalic. EYES: No scleral icterus. No injection or drainage. NECK: Supple, trachea midline. No JVD or lymphadenopathy. CARDIOVASCULAR: Regular rate and rhythm without murmurs, gallops, or rubs. RESPIRATORY: diminished in bases chest tube, no air leak , on 40cm suction GASTROINTESTINAL: Abdomen soft, non-tender, nondistended. MUSCULOSKELETAL: No cyanosis, or edema. BACK: Nontender without obvious deformity. No CVA tenderness. Vital Signs Date Time Temp Pulse Resp B/P (MAP) Pulse Ox O2 Delivery O2 Flow Rate FiO2 05/11/17 12:03 96.8 89 18 118/79 (92) 96 05/11/17 08:00 95 Nasal Cannula 3.00 05/11/17 08:00 96.3 94 19 134/79 (97) 97 05/11/17 04:00 97.6 96 16 133/79 (97) 98 05/11/17 00:00 97.8 88 16 125/79 (94) 95 05/10/17 23:46 93 Nasal Cannula 3.00 05/10/17 20:55 Nasal Cannula 3.00 05/10/17 20:00 96.1 110 17 155/89 (111) 94 05/10/17 16:00 97.0 105 17 128/74 (92) 95 05/10/17 15:51 93 Nasal Cannula 3.00 (1) Emphysema (subcutaneous) resulting from a procedure, subsequent encounter (2) Pneumothorax, right Plan: s/p 2 chest tube lateral wall pig tail cath removed yesterday no air leak extensive sub q emphysema CCM. IR and Pulm following Dr Lino discussed with above (3) Emphysema of lung Adrianne Andrade May 11, 2017 15:43
--- NOTE | 2017-05-11 15:46 | RADRPT ---
EXAM DATE/TIME: 05/11/2017 15:15 [facility] COMPARISON: CT THORAX W/O CONTRAST, May 02, 2017, 9:32. INDICATIONS : Subcutaneous emphysema expanding RADIATION DOSE: 10.02 CTDIvol (mGy) MEDICAL HISTORY : Chronic obstructive pulmonary disease. SURGICAL HISTORY : None. ENCOUNTER: Subsequent ACUITY: 1 day PAIN SCALE: 5/10 LOCATION: Bilateral chest TECHNIQUE: Volumetric scanning of the chest was performed. Using automated exposure control and adjustment of t he mA and/or kV according to patient size, radiation dose was kept as low as reasonably achievable to obtain optimal diagnostic quality images. DICOM format image data is available electronically for r eview and comparison. Follow-up recommendations for detected pulmonary nodules are based at a minimum on nodule size and pa tient risk factors according to Fleischner Society Guidelines. FINDINGS: A chest tube is in place in the right apex in good position. There is severe panlobular emphysema in both upper lobes as well as the middle lobe and lingula with a small pneumothorax at the right base w ith maximal separation of approximately 15 mm but no signs of tension. No pneumothorax identified on the left. Severe subcutaneous emphysema is present. Examination of the mediastinum demonstrates no ab normally enlarged lymph nodes by CT criteria. No axillary or hilar abnormalities are identified. Dalia nary artery calcifications are present. The visualized upper abdomen demonstrates no abnormality. CONCLUSION: 1. Severe subcutaneous emphysema 2. Small right basal pneumothorax without tension in this patient with a right chest tube. 3. The findings were discussed with Dr. Lino at time of dictation Monroe Saeed MD on May 11, 2017 at 15:40 Board Certified Radiologist. This report was verified electronically.
--- NOTE | 2017-05-11 16:55 | HHI.PR ---
Subjective Remarks ALERT NO DISTRESS SAT 95% ON NC NOW ON MED FLOOR LARGE AMOUNT OF SQ AIR CT CHEST SMALL RIGHT PNX IR CT NOT POSSIBLE THORACIC SURGERY, NO INTERVENTION NEEDED AT THIS TIME Objective Vital Signs Date Time Temp Pulse Resp B/P (MAP) Pulse Ox O2 Delivery O2 Flow Rate FiO2 05/11/17 12:03 96.8 89 18 118/79 (92) 96 05/11/17 08:00 95 Nasal Cannula 3.00 05/11/17 08:00 96.3 94 19 134/79 (97) 97 05/11/17 04:00 97.6 96 16 133/79 (97) 98 05/11/17 00:00 97.8 88 16 125/79 (94) 95 05/10/17 23:46 93 Nasal Cannula 3.00 05/10/17 20:55 Nasal Cannula 3.00 05/10/17 20:00 96.1 110 17 155/89 (111) 94 I/O 05/10/17 05/10/17 05/10/17 05/11/17 05/11/17 05/11/17 07:00 15:00 23:00 07:00 15:00 23:00 Intake Total 960 ml 480 ml 800 ml Output Total 1475 ml 1525 ml 450 ml 2100 ml Balance -515 ml -1045 ml 350 ml -2100 ml Intake Oral 960 ml 480 ml 800 ml Output Urine Total 1475 ml 1525 ml 450 ml 2000 ml Chest Tube Drainage Total 0 ml 100 ml Bladder Scan Volume Amount 70 ml # Bowel Movements 1 0 Objective Remarks GENERAL: SKIN: Warm and dry. HEAD: Atraumatic. Normocephalic. EYES: Pupils equal and round. No scleral icterus. No injection or drainage. ENT: No nasal bleeding or discharge. Mucous membranes pink and moist. NECK: Trachea midline. No JVD. CARDIOVASCULAR: Regular rate and rhythm. RESPIRATORY: No accessory muscle use. Clear to auscultation. Breath sounds equal bilaterally. GASTROINTESTINAL: Abdomen soft, non-tender, nondistended. Hepatic and splenic margins not palpable. MUSCULOSKELETAL: Extremities without clubbing, cyanosis, or edema. No obvious deformities. NEUROLOGICAL: Awake and alert. No obvious cranial nerve deficits. Motor grossly within normal limits. Five out of 5 muscle strength in the arms and legs. Normal speech. PSYCHIATRIC: Appropriate mood and affect; insight and judgment normal. Assessment and Plan Assessment and Plan ASS IMPROVED, RESP. FAILURE COPD EXTENSIVE SQ AIR PLAN BRONCHODILATORS O2 NEEDED SMALL GUAGE CHEST TUBE PLACED , TO REMOVE SQ AIR [facility]SFER TO [facility] FOR OBSERVARTION Salvador,Salvador Mayer MD May 11, 2017 16:55
[2017-05-11] MEDS: ENOXAPARIN SODIUM 40 MG/0.4 ML SYRINGE SQ SCH (18:19)
[2017-05-11] MEDS: guaiFENesin E.R. 600 MG TAB PO SCH (20:36)
[2017-05-11] MEDS: ALUMINUM/MAGNESIUM/SIMETH 30 ML CUP PO PRN (23:29)
[2017-05-12] VITALS (8 sets, daily range): BP systolic 109–126; BP diastolic 65–84; PULSE 72–100; RESP 15–19; TEMP 96.3–97.4; O2SAT 90–98
[2017-05-12] MEDS: FAMOTIDINE 20 MG/2 ML VIAL IV PUSH SCH (04:00)
[2017-05-12] MEDS: RESP: ALBUTEROL 2.5 MG/IPRATROPIUM 0.5 MG NEB (SCH) NEB ×4 (04:07→15:41)
[2017-05-12] MEDS: CHLORHEXIDINE 0.12% (ORAL KIT) 15 ML CUP MT SCH ×2 (08:00→19:54)
[2017-05-12] MEDS: DOCUSATE SODIUM 50 MG/SENNA 8.6 MG TAB PO SCH ×2 (09:00→19:49)
--- NOTE | 2017-05-12 09:00 | HHI.PR ---
Subjective Remarks Follow-up for respiratory failure, pneumothorax, diffuse subcutaneous emphysema. Patient is currently doing well. He is eating breakfast in bed. Breathing well. No acute concerns. He feels like his subQ emphysema is improving. He is able to see better which indicates reduced swelling. Objective Vitals Vital Signs Date Time Temp Pulse Resp B/P (MAP) Pulse Ox O2 Delivery O2 Flow Rate FiO2 05/12/17 08:41 Nasal Cannula 3.00 05/12/17 07:48 97.3 72 17 116/81 (93) 97 05/12/17 04:00 86 05/12/17 04:00 96.9 88 15 115/73 (87) 96 05/12/17 00:00 97.2 98 15 119/84 (96) 95 05/12/17 00:00 93 05/11/17 20:10 96 05/11/17 20:00 97.8 105 15 130/77 (94) 92 05/11/17 19:33 94 Nasal Cannula 3.00 05/11/17 16:00 97.9 90 18 150/90 (110) 93 05/11/17 12:03 96.8 89 18 118/79 (92) 96 I/O 05/11/17 05/11/17 05/11/17 05/12/17 05/12/17 05/12/17 07:00 15:00 23:00 07:00 15:00 23:00 Intake Total 800 ml Output Total 2100 ml 750 ml 0 ml Balance -2100 ml 50 ml 0 ml Intake Oral 800 ml Output Urine Total 2000 ml 750 ml Chest Tube Drainage Total 100 ml 0 ml Imaging Last Impressions Chest X-Ray 05/11/17 0600 Signed Impressions: Service Date/Time: Thursday, May 11, 2017 05:33 - CONCLUSION: 1. Stable right apical chest tube with no significant pneumothorax. 2. Slightly increased extensive subcutaneous emphysema. Leighton Polanco MD Chest CT 05/11/17 0000 Signed Impressions: Service Date/Time: Thursday, May 11, 2017 15:15 - CONCLUSION: 1. Severe subcutaneous emphysema 2. Small right basal pneumothorax without tension in this patient with a right chest tube. 3. The findings were discussed with Dr. Lino at time of dictation Monroe Saeed MD Tunnelled Chest Tube Removal 05/10/17 0000 Signed Impressions: Service Date/Time: Wednesday, May 10, 2017 00:00 - CONCLUSION: Uncomplicated chest tube removal. Titus Ha MD Chest Tube Insertion 05/02/17 0000 Signed Impressions: Service Date/Time: Tuesday, May 02, 2017 12:29 - CONCLUSION: Uncomplicated chest tube placement as above. Slava Comer MD Objective Remarks GENERAL: Alert, oriented 3, NAD. SKIN: Warm and dry. Significant subcutaneous emphysema on the right side of the chest. HEAD: Normocephalic. EYES: No scleral icterus. No injection or drainage. NECK: Supple, trachea midline. No JVD or lymphadenopathy. CARDIOVASCULAR: Regular rate and rhythm without murmurs, gallops, or rubs. Chest tubes in place. RESPIRATORY: Breath sounds equal bilaterally. No accessory muscle use. GASTROINTESTINAL: Abdomen soft, non-tender, nondistended. MUSCULOSKELETAL: No cyanosis, or edema. BACK: Nontender without obvious deformity. No CVA tenderness. Procedures Chest tube placement 05/02/2017. A/P Problem List: (1) Community acquired bacterial pneumonia ICD Code: J15.9 - Unspecified bacterial pneumonia Status: Acute (2) COPD exacerbation ICD Code: J44.1 - Chronic obstructive pulmonary disease with (acute) exacerbation Status: Acute (3) Tobacco abuse ICD Code: Z72.0 - Tobacco use Status: Acute (4) Acute respiratory failure with hypoxia ICD Code: J96.01 - Acute respiratory failure with hypoxia Status: Acute (5) Emphysema of lung ICD Code: J43.9 - Emphysema, unspecified (6) Pneumothorax, right ICD Code: J93.9 - Pneumothorax, unspecified Assessment and Plan Patient is a 61-year-old male with past medical history of COPD on chronic home oxygen at 5 liters and tobacco abuse who was admitted to hospitalist service on April 28 for COPD exacerbation. Due to worsening of his symptoms agent was initially placed on BiPAP and subsequently transferred to ICU where he required intubation. While in the ICU patient developed right-sided pneumothorax for which chest tube was placed. Patient was subsequently extubated on 05/04/2017. Acute hypercapnic and hypoxemic respiratory failure. - intubated 05/01, extubated 05/05 - Maintain oxygen saturation above 92% COPD exacerbation on home oxygen. On Solu Medrol 40mg Q6H, Spiriva, Symbicort, Duo Neb and Levaquin Patient has received Levaquin 500mg Qday X 7 days. Right sided PTX s/p Chest tubes placement CXR from 05/08/2017 reviewed. Shows right sided chest tubes without a pneumothorax. 1 of the 2 chest tubes were discontinued on 05/10/2017. Diffuse subcutaneous emphysema Patient developed diffuse subcutaneous emphysema affecting his chest wall as well as arm, neck and face. Pulmonology placed small gauge chest tube on 05/11/2017. Patient is currently improving. Will follow pulm recommendations. Insomnia - Continue Restoril. Full code. Lovenox. Yashira Garcia DO May 12, 2017 09:00
[2017-05-12] MEDS: FLUTICASONE PROPIONATE 50 MCG/ACT 16 GM NASAL SPRAY EACH NARE SCH ×2 (09:15→19:54)
[2017-05-12] MEDS: BUDESONIDE-FORMOTEROL 160/4.5 MCG INHALER INH SCH ×2 (09:15→19:55)
[2017-05-12] MEDS: TIOTROPIUM BROMIDE 18 MCG INH INH SCH (09:15)
[2017-05-12] MEDS: guaiFENesin E.R. 600 MG TAB PO SCH ×2 (09:16→19:49)
[2017-05-12] MEDS: methylPREDNISolone SOD SUCC 40 MG/1 ML VIAL IV PUSH SCH ×2 (09:17→19:49)
[2017-05-12] MEDS: oxyCODONE/ACETAMINOPHEN 10 MG/325 MG TAB PO PRN ×3 (09:21→22:40)
--- NOTE | 2017-05-12 12:31 | PD.CAR.PN ---
CVT Progress Note Subjective/Hospital Course: Significant for chronic COPD on home O2 at 5 liters, continued tobacco abuse presented by EMS for worsening dyspnea and admitted with COPD exacerbation. He took apparently three nebulizers at home before calling EMS. They treated him with some Solu-Medrol. O2 saturations were in the 70s on admission. They placed him on BiPap where he had some improvement. He was also started on empiric antibiotics. Initial x-ray showed emphysematous changes otherwise no acute infiltrate or failure. He was transferred to the ICU for closer observation. His ABG showed hypercapnic respiratory failure despite the BiPap. He became hypertensive was more tachypneic and required emergent intubation by critical care medicine. The patient remains on the ventilator. We were consulted for some subcu emphysema, right pneumothorax status post chest tube placement. The patient has two chest tubes. He has a pigtail catheter and also a 20-[place] catheter on the right lateral chest wall. CT chest was done on the which showed a right chest tube in the tip of the apex, moderate size right lower lobe pneumothorax where the second chest tube was placed by critical care. Chest x-ray this morning showed no visualized pneumothorax, however, some increase in subcu emphysema along the right lateral chest wall. The patient also has some emphysema and bullous changes. We were consulted to evaluate for possible video-assisted thoracoscopy, possible pleurodesis, however at this time his x-ray is showing no evidence of pneumothorax. PAST MEDICAL HISTORY His past medical history significant for: 1. Chronic COPD. 2. Continued tobacco abuse on home O2 at 5 liters. 05/11 we were called today from IR Dr Comer regarding extensive sub q emphysema chest face , arms scrotum pt had the pig tail cath removed yesterday, and immediately notice increased sub q emphysema and air leak to prior chest tube site pt was on 3 liter nasal , was very angry about his swelling also spoke with Dr Paz and Dr Lino/ request repeat CT scan and possible placement of 2nd chest tube 05/12 ct results noted , small bore chest tube placed yesterday right upper chest wall to wall suction, + intermittent air leak (#2) #1 chest tube minimal drainage , no air leak dressing changed to #2 site with Vaseline gauze subq emphysema improved Objective: GENERAL: A&O x 3 SKIN: Warm and dry. HEAD: Normocephalic. EYES: No scleral icterus. No injection or drainage. NECK: Supple, trachea midline. No JVD or lymphadenopathy. CARDIOVASCULAR: Regular rate and rhythm without murmurs, gallops, or rubs. RESPIRATORY: Breath sounds equal bilaterally. No accessory muscle use. subq emphysema improving / chest tube x 2 to wall suction #2 + intermittent air leak GASTROINTESTINAL: Abdomen soft, non-tender, nondistended. MUSCULOSKELETAL: No cyanosis, or edema. BACK: Nontender without obvious deformity. No CVA tenderness. Vital Signs Date Time Temp Pulse Resp B/P (MAP) Pulse Ox O2 Delivery O2 Flow Rate FiO2 05/12/17 11:43 96.3 99 17 114/72 (86) 94 05/12/17 09:10 Nasal Cannula 3.00 05/12/17 08:41 Nasal Cannula 3.00 05/12/17 07:48 97.3 72 17 116/81 (93) 97 05/12/17 04:00 86 05/12/17 04:00 96.9 88 15 115/73 (87) 96 05/12/17 00:00 97.2 98 15 119/84 (96) 95 05/12/17 00:00 93 05/11/17 20:10 96 05/11/17 20:00 97.8 105 15 130/77 (94) 92 05/11/17 19:33 94 Nasal Cannula 3.00 05/11/17 16:00 97.9 90 18 150/90 (110) 93 (1) Emphysema (subcutaneous) resulting from a procedure, subsequent encounter (2) Pneumothorax, right Plan: s/p 1 chest tube lateral wall #2 right anterior upper chest wall extensive sub q emphysema/ improving IR and Pulm following (3) Emphysema of lung Adrianne Andrade May 12, 2017 12:31
--- NOTE | 2017-05-12 16:07 | HHI.PR ---
Subjective Remarks ALERT NO DISTRESS SAT 95% ON NC NOW ON MED FLOOR LARGE AMOUNT OF SQ AIR, FEELS MUCH BETTER TODAY LESS AIR Objective Vital Signs Date Time Temp Pulse Resp B/P (MAP) Pulse Ox O2 Delivery O2 Flow Rate FiO2 05/12/17 15:41 94 Nasal Cannula 3.00 05/12/17 11:43 96.3 99 17 114/72 (86) 94 05/12/17 09:10 Nasal Cannula 3.00 05/12/17 08:41 Nasal Cannula 3.00 05/12/17 07:48 97.3 72 17 116/81 (93) 97 05/12/17 04:00 86 05/12/17 04:00 96.9 88 15 115/73 (87) 96 05/12/17 00:00 97.2 98 15 119/84 (96) 95 05/12/17 00:00 93 05/11/17 20:10 96 05/11/17 20:00 97.8 105 15 130/77 (94) 92 05/11/17 19:33 94 Nasal Cannula 3.00 I/O 05/11/17 05/11/17 05/11/17 05/12/17 05/12/17 05/12/17 07:00 15:00 23:00 07:00 15:00 23:00 Intake Total 800 ml Output Total 2100 ml 750 ml 0 ml Balance -2100 ml 50 ml 0 ml Intake Oral 800 ml Output Urine Total 2000 ml 750 ml Chest Tube Drainage Total 100 ml 0 ml Objective Remarks GENERAL: SKIN: Warm and dry. HEAD: Atraumatic. Normocephalic. EYES: Pupils equal and round. No scleral icterus. No injection or drainage. ENT: No nasal bleeding or discharge. Mucous membranes pink and moist. NECK: Trachea midline. No JVD. CARDIOVASCULAR: Regular rate and rhythm. RESPIRATORY: No accessory muscle use. Clear to auscultation. Breath sounds equal bilaterally. GASTROINTESTINAL: Abdomen soft, non-tender, nondistended. Hepatic and splenic margins not palpable. MUSCULOSKELETAL: Extremities without clubbing, cyanosis, or edema. No obvious deformities. NEUROLOGICAL: Awake and alert. No obvious cranial nerve deficits. Motor grossly within normal limits. Five out of 5 muscle strength in the arms and legs. Normal speech. PSYCHIATRIC: Appropriate mood and affect; insight and judgment normal. Assessment and Plan Assessment and Plan ASS IMPROVED, RESP. FAILURE COPD IMPROVING SQ AIR, WITH SQ TUBE PLAN BRONCHODILATORS O2 NEEDED SMALL GUAGE CHEST TUBE PLACED , TO REMOVE SQ AIR TRANSFER TO [facility] FOR OBSERVARTION Salvador Franco MD May 12, 2017 16:07
[2017-05-12] MEDS: ENOXAPARIN SODIUM 40 MG/0.4 ML SYRINGE SQ SCH (17:55)
[2017-05-12] MEDS: RESP: ALBUTEROL 2.5 MG/3 ML NEB (PRN) NEB (19:40)
[2017-05-12] MEDS: FAMOTIDINE 20 MG TAB PO SCH (19:49)
[2017-05-13] VITALS (8 sets, daily range): BP systolic 128–142; BP diastolic 76–86; PULSE 89–115; RESP 14–20; TEMP 96.6–98.9; O2SAT 93–96
[2017-05-13] MEDS: RESP: ALBUTEROL 2.5 MG/3 ML NEB (PRN) NEB ×4 (03:22→18:37)
[2017-05-13] MEDS: oxyCODONE/ACETAMINOPHEN 10 MG/325 MG TAB PO PRN ×2 (04:57→19:44)
--- NOTE | 2017-05-13 07:02 | RADRPT ---
EXAM DATE/TIME: 05/13/2017 06:17 [place] COMPARISON: CT THORAX W/O CONTRAST, May 11, 2017, 15:15. CHEST SINGLE AP, May 11, 2017, 14:53. INDICATIONS : Short of breath, follow up right apical pneumothorax MEDICAL HISTORY : Stroke. Cardiovascular disease. SURGICAL HISTORY : Umbilical hernia repair. chest tube, hernia repair ENCOUNTER: Subsequent ACUITY: 2 weeks PAIN SCORE: 0/10 LOCATION: Bilateral chest FINDINGS: Stable right apical chest tube. Apparent interval placement of a second catheter with side hole just in the thoracic cavity near the apex. Small residual right-sided pneumothorax. Redemonstration of ext ensive subcutaneous emphysema. Persistent biapical bullous change with bibasilar airspace disease. Ca rdiomediastinal contours are within normal limits. Remainder of the exam is unchanged. CONCLUSION: 1. Stable right apical chest tube with apparent interval placement of second catheter with a sidehole just in the thoracic cavity near the apex. 2. Persistent small residual right-sided pneumothorax. 3. Persistent diffuse extensive subcutaneous emphysema. 4. Persistent mild bibasilar airspace disease. Leighton Polanco MD on May 13, 2017 at 6:58 Board Certified Radiologist. This report was verified electronically.
[2017-05-13] MEDS: CHLORHEXIDINE 0.12% (ORAL KIT) 15 ML CUP MT SCH ×2 (08:00→19:39)
[2017-05-13] MEDS: methylPREDNISolone SOD SUCC 40 MG/1 ML VIAL IV PUSH SCH ×2 (08:42→19:38)
[2017-05-13] MEDS: FAMOTIDINE 20 MG TAB PO SCH ×2 (08:42→20:34)
[2017-05-13] MEDS: DOCUSATE SODIUM 50 MG/SENNA 8.6 MG TAB PO SCH ×2 (08:42→20:34)
[2017-05-13] MEDS: guaiFENesin E.R. 600 MG TAB PO SCH ×2 (08:42→20:34)
[2017-05-13] MEDS: BUDESONIDE-FORMOTEROL 160/4.5 MCG INHALER INH SCH ×2 (08:43→19:38)
[2017-05-13] MEDS: TIOTROPIUM BROMIDE 18 MCG INH INH SCH (08:44)
[2017-05-13] MEDS: FLUTICASONE PROPIONATE 50 MCG/ACT 16 GM NASAL SPRAY EACH NARE SCH ×2 (08:44→19:39)
--- NOTE | 2017-05-13 14:56 | HHI.PR ---
Subjective Remarks Follow up for pneumothorax, diffuse subQ emphysema. Patient is currently doing well. No acute concerns. Objective Vitals Vital Signs Date Time Temp Pulse Resp B/P (MAP) Pulse Ox O2 Delivery O2 Flow Rate FiO2 05/13/17 12:00 97.4 109 18 134/86 (102) 93 05/13/17 11:13 3.00 05/13/17 08:00 96.6 89 19 142/79 (100) 96 05/13/17 03:24 96 Nasal Cannula 3.00 05/13/17 03:14 97.5 94 18 134/76 (95) 96 05/12/17 23:55 97.4 98 18 121/65 (83) 98 05/12/17 20:25 97.2 100 19 109/68 (82) 96 05/12/17 17:18 18 05/12/17 16:00 96.6 95 17 126/72 (90) 90 05/12/17 15:41 94 Nasal Cannula 3.00 I/O 05/12/17 05/12/17 05/12/17 05/13/17 05/13/17 05/13/17 07:00 15:00 23:00 07:00 15:00 23:00 Intake Total 480 ml 360 ml 480 ml Output Total 0 ml 1370 ml 650 ml 850 ml Balance 0 ml -890 ml -290 ml -370 ml Intake Oral 480 ml 360 ml 480 ml Output Urine Total 1300 ml 650 ml 850 ml Chest Tube Drainage Total 0 ml 70 ml 0 ml 0 ml # Bowel Movements 0 0 0 Imaging Last Impressions Chest X-Ray 05/13/17 0600 Signed Impressions: Service Date/Time: May 06:17 - CONCLUSION: 1. Stable right apical chest tube with apparent interval placement of second catheter with a sidehole just in the thoracic cavity near the apex. 2. Persistent small residual right-sided pneumothorax. 3. Persistent diffuse extensive subcutaneous emphysema. 4. Persistent mild bibasilar airspace disease. Leighton Polanco MD Chest CT 05/11/17 0000 Signed Impressions: Service Date/Time: Thursday, May 11, 2017 15:15 - CONCLUSION: 1. Severe subcutaneous emphysema 2. Small right basal pneumothorax without tension in this patient with a right chest tube. 3. The findings were discussed with Dr. Lino at time of dictation Monroe Saeed MD Tunnelled Chest Tube Removal 05/10/17 0000 Signed Impressions: Service Date/Time: Wednesday, May 10, 2017 00:00 - CONCLUSION: Uncomplicated chest tube removal. Titus Ha MD Chest Tube Insertion 05/02/17 0000 Signed Impressions: Service Date/Time: Tuesday, May 02, 2017 12:29 - CONCLUSION: Uncomplicated chest tube placement as above. Slava Comer MD Objective Remarks GENERAL: Alert, oriented 3, NAD. SKIN: Warm and dry. Significant subcutaneous emphysema on the right side of the chest. HEAD: Normocephalic. EYES: No scleral icterus. No injection or drainage. NECK: Supple, trachea midline. No JVD or lymphadenopathy. CARDIOVASCULAR: Regular rate and rhythm without murmurs, gallops, or rubs. Chest tubes in place. RESPIRATORY: Breath sounds equal bilaterally. No accessory muscle use. GASTROINTESTINAL: Abdomen soft, non-tender, nondistended. MUSCULOSKELETAL: No cyanosis, or edema. BACK: Nontender without obvious deformity. No CVA tenderness. Procedures Chest tube placement 05/02/2017. A/P Problem List: (1) Community acquired bacterial pneumonia ICD Code: J15.9 - Unspecified bacterial pneumonia Status: Acute (2) COPD exacerbation ICD Code: J44.1 - Chronic obstructive pulmonary disease with (acute) exacerbation Status: Acute (3) Tobacco abuse ICD Code: Z72.0 - Tobacco use Status: Acute (4) Acute respiratory failure with hypoxia ICD Code: J96.01 - Acute respiratory failure with hypoxia Status: Acute (5) Emphysema of lung ICD Code: J43.9 - Emphysema, unspecified (6) Pneumothorax, right ICD Code: J93.9 - Pneumothorax, unspecified Assessment and Plan Patient is a 61-year-old male with past medical history of COPD on chronic home oxygen at 5 liters and tobacco abuse who was admitted to hospitalist service on April 28 for COPD exacerbation. Due to worsening of his symptoms agent was initially placed on BiPAP and subsequently transferred to ICU where he required intubation. While in the ICU patient developed right-sided pneumothorax for which chest tube was placed. Patient was subsequently extubated on 05/04/2017. Acute hypercapnic and hypoxemic respiratory failure. - intubated 05/01, extubated 05/05 - Maintain oxygen saturation above 92% COPD exacerbation on home oxygen. On Solu Medrol 40mg Q6H, Spiriva, Symbicort, Duo Neb and Levaquin Patient has received Levaquin 500mg Qday X 7 days. Right sided PTX s/p Chest tubes placement CXR from 05/08/2017 reviewed. Shows right sided chest tubes without a pneumothorax. 1 of the 2 chest tubes were discontinued on 05/10/2017. Diffuse subcutaneous emphysema Patient developed diffuse subcutaneous emphysema affecting his chest wall as well as arm, neck and face. Pulmonology placed small gauge chest tube on 05/11/2017. Patient is currently improving. Will continue current care. Insomnia - Continue Restoril. Encouraged patient to get out of bed. Full code. Lovenox. Yashira Garcia DO May 13, 2017 14:56
--- NOTE | 2017-05-13 17:39 | HHI.PR ---
Subjective Remarks ALERT NO DISTRESS LESS SQ AIR Objective Vital Signs Date Time Temp Pulse Resp B/P (MAP) Pulse Ox O2 Delivery O2 Flow Rate FiO2 05/13/17 17:30 97.9 95 20 128/81 (97) 95 05/13/17 12:00 97.4 109 18 134/86 (102) 93 05/13/17 11:13 3.00 05/13/17 08:00 96.6 89 19 142/79 (100) 96 05/13/17 03:24 96 Nasal Cannula 3.00 05/13/17 03:14 97.5 94 18 134/76 (95) 96 05/12/17 23:55 97.4 98 18 121/65 (83) 98 05/12/17 20:25 97.2 100 19 109/68 (82) 96 I/O 05/12/17 05/12/17 05/12/17 05/13/17 05/13/17 05/13/17 07:00 15:00 23:00 07:00 15:00 23:00 Intake Total 480 ml 360 ml 480 ml 700 ml Output Total 0 ml 1370 ml 650 ml 850 ml 1490 ml Balance 0 ml -890 ml -290 ml -370 ml -790 ml Intake Oral 480 ml 360 ml 480 ml 700 ml Output Urine Total 1300 ml 650 ml 850 ml 1490 ml Chest Tube Drainage Total 0 ml 70 ml 0 ml 0 ml # Bowel Movements 0 0 0 1 Objective Remarks GENERAL: SKIN: Warm and dry. HEAD: Atraumatic. Normocephalic. EYES: Pupils equal and round. No scleral icterus. No injection or drainage. ENT: No nasal bleeding or discharge. Mucous membranes pink and moist. NECK: Trachea midline. No JVD. CARDIOVASCULAR: Regular rate and rhythm. RESPIRATORY: No accessory muscle use. Clear to auscultation. Breath sounds equal bilaterally. GASTROINTESTINAL: Abdomen soft, non-tender, nondistended. Hepatic and splenic margins not palpable. MUSCULOSKELETAL: Extremities without clubbing, cyanosis, or edema. No obvious deformities. NEUROLOGICAL: Awake and alert. No obvious cranial nerve deficits. Motor grossly within normal limits. Five out of 5 muscle strength in the arms and legs. Normal speech. PSYCHIATRIC: Appropriate mood and affect; insight and judgment normal. Assessment and Plan Assessment and Plan ASS IMPROVED, RESP. FAILURE COPD IMPROVING SQ AIR, WITH SQ TUBE PLAN BRONCHODILATORS O2 NEEDED INCREASE ACTIVITY Salvador,Salvador Wadie MD May 13, 2017 17:39
[2017-05-13] MEDS: ENOXAPARIN SODIUM 40 MG/0.4 ML SYRINGE SQ SCH (18:12)
[2017-05-13] MEDS: RESP: ALBUTEROL 2.5 MG/IPRATROPIUM 0.5 MG NEB (SCH) NEB ×2 (21:01→23:02)
[2017-05-14] VITALS (10 sets, daily range): BP systolic 115–136; BP diastolic 77–86; PULSE 87–113; RESP 18–21; TEMP 95.8–98.6; O2SAT 94–97
[2017-05-14] MEDS: oxyCODONE/ACETAMINOPHEN 10 MG/325 MG TAB PO PRN ×2 (01:50→09:37)
[2017-05-14] MEDS: RESP: ALBUTEROL 2.5 MG/IPRATROPIUM 0.5 MG NEB (SCH) NEB ×6 (03:00→23:31)
[2017-05-14] MEDS: CHLORHEXIDINE 0.12% (ORAL KIT) 15 ML CUP MT SCH ×2 (08:00→19:29)
[2017-05-14] MEDS: DOCUSATE SODIUM 50 MG/SENNA 8.6 MG TAB PO SCH ×2 (09:37→19:42)
[2017-05-14] MEDS: FAMOTIDINE 20 MG TAB PO SCH ×2 (09:37→19:40)
[2017-05-14] MEDS: methylPREDNISolone SOD SUCC 40 MG/1 ML VIAL IV PUSH SCH ×2 (09:37→19:40)
[2017-05-14] MEDS: BUDESONIDE-FORMOTEROL 160/4.5 MCG INHALER INH SCH ×2 (09:38→19:43)
[2017-05-14] MEDS: guaiFENesin E.R. 600 MG TAB PO SCH ×2 (09:38→19:40)
[2017-05-14] MEDS: TIOTROPIUM BROMIDE 18 MCG INH INH SCH (09:39)
[2017-05-14] MEDS: FLUTICASONE PROPIONATE 50 MCG/ACT 16 GM NASAL SPRAY EACH NARE SCH ×2 (09:39→19:44)
--- NOTE | 2017-05-14 15:48 | HHI.PR ---
Subjective Remarks ALERT NO SOB, IN [employer] LESS SQ AIR Objective Vital Signs Date Time Temp Pulse Resp B/P (MAP) Pulse Ox O2 Delivery O2 Flow Rate FiO2 05/14/17 12:00 95.8 101 19 136/86 (103) 96 05/14/17 10:37 18 05/14/17 08:33 94 Nasal Cannula 4.00 05/14/17 08:00 97.1 87 20 115/82 (93) 94 05/14/17 08:00 Nasal Cannula 4.00 35 05/14/17 04:07 96.9 96 18 127/85 (99) 94 05/13/17 23:00 98.4 93 18 142/84 (103) 93 05/13/17 21:02 94 Nasal Cannula 4.00 05/13/17 19:10 98.9 115 14 142/78 (99) 94 05/13/17 17:30 97.9 95 20 128/81 (97) 95 I/O 05/13/17 05/13/17 05/13/17 05/14/17 05/14/17 05/14/17 07:00 15:00 23:00 07:00 15:00 23:00 Intake Total 480 ml 700 ml 480 ml 480 ml Output Total 850 ml 1490 ml 1450 ml 1000 ml Balance -370 ml -790 ml -970 ml -520 ml Intake Oral 480 ml 700 ml 480 ml 480 ml Output Urine Total 850 ml 1490 ml 1450 ml 1000 ml Chest Tube Drainage Total 0 ml 0 ml 0 ml # Bowel Movements 0 1 0 0 Objective Remarks GENERAL: SKIN: Warm and dry. HEAD: Atraumatic. Normocephalic. EYES: Pupils equal and round. No scleral icterus. No injection or drainage. ENT: No nasal bleeding or discharge. Mucous membranes pink and moist. NECK: Trachea midline. No JVD. CARDIOVASCULAR: Regular rate and rhythm. RESPIRATORY: No accessory muscle use. Clear to auscultation. Breath sounds equal bilaterally. GASTROINTESTINAL: Abdomen soft, non-tender, nondistended. Hepatic and splenic margins not palpable. MUSCULOSKELETAL: Extremities without clubbing, cyanosis, or edema. No obvious deformities. NEUROLOGICAL: Awake and alert. No obvious cranial nerve deficits. Motor grossly within normal limits. Five out of 5 muscle strength in the arms and legs. Normal speech. PSYCHIATRIC: Appropriate mood and affect; insight and judgment normal. Assessment and Plan Assessment and Plan ASS IMPROVED, RESP. FAILURE COPD IMPROVING SQ AIR, WITH SQ TUBE PLAN BRONCHODILATORS O2 NEEDED INCREASE ACTIVITY Salvador Franco MD May 14, 2017 15:48
[2017-05-14] MEDS: ENOXAPARIN SODIUM 40 MG/0.4 ML SYRINGE SQ SCH (17:15)
--- NOTE | 2017-05-14 18:35 | HHI.PR ---
Subjective Remarks Follow up for pneumothorax, diffuse subQ emphysema. Patient is doing well. Facial swelling has gone down to normal level. Still has significant subQ emphysema. No fever, chills. Objective Vitals Vital Signs Date Time Temp Pulse Resp B/P (MAP) Pulse Ox O2 Delivery O2 Flow Rate FiO2 05/14/17 16:00 98.6 102 21 134/77 (96) 95 05/14/17 12:00 95.8 101 19 136/86 (103) 96 05/14/17 10:37 18 05/14/17 08:33 94 Nasal Cannula 4.00 05/14/17 08:00 97.1 87 20 115/82 (93) 94 05/14/17 08:00 Nasal Cannula 4.00 35 05/14/17 04:07 96.9 96 18 127/85 (99) 94 05/13/17 23:00 98.4 93 18 142/84 (103) 93 05/13/17 21:02 94 Nasal Cannula 4.00 05/13/17 19:10 98.9 115 14 142/78 (99) 94 I/O 05/13/17 05/13/17 05/13/17 05/14/17 05/14/17 05/14/17 07:00 15:00 23:00 07:00 15:00 23:00 Intake Total 480 ml 700 ml 480 ml 480 ml Output Total 850 ml 1490 ml 1450 ml 1000 ml 1150 ml Balance -370 ml -790 ml -970 ml -520 ml -1150 ml Intake Oral 480 ml 700 ml 480 ml 480 ml Output Urine Total 850 ml 1490 ml 1450 ml 1000 ml 1150 ml Chest Tube Drainage Total 0 ml 0 ml 0 ml # Bowel Movements 0 1 0 0 Objective Remarks GENERAL: Alert, oriented 3, NAD. SKIN: Warm and dry. Significant subcutaneous emphysema on the right side of the chest. HEAD: Normocephalic. EYES: No scleral icterus. No injection or drainage. NECK: Supple, trachea midline. No JVD or lymphadenopathy. CARDIOVASCULAR: Regular rate and rhythm without murmurs, gallops, or rubs. Chest tubes in place. RESPIRATORY: Breath sounds equal bilaterally. No accessory muscle use. GASTROINTESTINAL: Abdomen soft, non-tender, nondistended. MUSCULOSKELETAL: No cyanosis, or edema. BACK: Nontender without obvious deformity. No CVA tenderness. Procedures Chest tube placement 05/02/2017. A/P Problem List: (1) Community acquired bacterial pneumonia ICD Code: J15.9 - Unspecified bacterial pneumonia Status: Acute (2) COPD exacerbation ICD Code: J44.1 - Chronic obstructive pulmonary disease with (acute) exacerbation Status: Acute (3) Tobacco abuse ICD Code: Z72.0 - Tobacco use Status: Acute (4) Acute respiratory failure with hypoxia ICD Code: J96.01 - Acute respiratory failure with hypoxia Status: Acute (5) Emphysema of lung ICD Code: J43.9 - Emphysema, unspecified (6) Pneumothorax, right ICD Code: J93.9 - Pneumothorax, unspecified Assessment and Plan Patient is a 61-year-old male with past medical history of COPD on chronic home oxygen at 5 liters and tobacco abuse who was admitted to hospitalist service on April 28 for COPD exacerbation. Due to worsening of his symptoms agent was initially placed on BiPAP and subsequently transferred to ICU where he required intubation. While in the ICU patient developed right-sided pneumothorax for which chest tube was placed. Patient was subsequently extubated on 05/04/2017. Acute hypercapnic and hypoxemic respiratory failure. - intubated 05/01, extubated 05/05 - Maintain oxygen saturation above 92% COPD exacerbation on home oxygen. On Solu Medrol 40mg Q6H, Spiriva, Symbicort, Duo Neb and Levaquin Patient has received Levaquin 500mg Qday X 7 days. Right sided PTX s/p Chest tubes placement CXR from 05/08/2017 reviewed. Shows right sided chest tubes without a pneumothorax. 1 of the 2 chest tubes were discontinued on 05/10/2017. Diffuse subcutaneous emphysema Patient developed diffuse subcutaneous emphysema affecting his chest wall as well as arm, neck and face. Pulmonology placed small gauge chest tube on 05/11/2017. Patient is currently improving. Will continue current care. Insomnia - Continue Restoril. Encouraged patient to get out of bed. Full code. Lovenox. Discharge Plan: Patient still has chest tubes. Once chest tubes are out, patient can be discharged home. Yashira Garcia DO May 14, 2017 18:35
[2017-05-14] MEDS: TEMAZEPAM 15 MG CAP PO PRN (23:08)
[2017-05-15] VITALS (13 sets, daily range): BP systolic 104–124; BP diastolic 67–80; PULSE 96–126; RESP 17–24; TEMP 96–98.4; O2SAT 92–96
[2017-05-15] MEDS: RESP: ALBUTEROL 2.5 MG/IPRATROPIUM 0.5 MG NEB (SCH) NEB ×6 (02:55→23:58)
[2017-05-15] MEDS: CHLORHEXIDINE 0.12% (ORAL KIT) 15 ML CUP MT SCH ×2 (08:00→20:00)
[2017-05-15] MEDS: FAMOTIDINE 20 MG TAB PO SCH ×2 (08:05→20:02)
[2017-05-15] MEDS: guaiFENesin E.R. 600 MG TAB PO SCH ×2 (08:05→20:02)
[2017-05-15] MEDS: DOCUSATE SODIUM 50 MG/SENNA 8.6 MG TAB PO SCH ×2 (08:05→20:02)
[2017-05-15] MEDS: FLUTICASONE PROPIONATE 50 MCG/ACT 16 GM NASAL SPRAY EACH NARE SCH ×2 (08:06→21:00)
[2017-05-15] MEDS: methylPREDNISolone SOD SUCC 40 MG/1 ML VIAL IV PUSH SCH (08:06)
[2017-05-15] MEDS: BUDESONIDE-FORMOTEROL 160/4.5 MCG INHALER INH SCH ×2 (08:06→21:00)
[2017-05-15] MEDS: TIOTROPIUM BROMIDE 18 MCG INH INH SCH (08:06)
[2017-05-15] MEDS: oxyCODONE/ACETAMINOPHEN 10 MG/325 MG TAB PO PRN ×3 (08:14→20:02)
[2017-05-15] MEDS: RESP: ALBUTEROL 2.5 MG/3 ML NEB (PRN) NEB (14:15)
[2017-05-15] MEDS: ENOXAPARIN SODIUM 40 MG/0.4 ML SYRINGE SQ SCH (16:06)
--- NOTE | 2017-05-15 16:41 | HHI.PR ---
Subjective Remarks 61 YOWM with COPD Exac,Pn,RF has Right chest tube Breathing betetr Decreased SQ Emphysema Objective Vital Signs Vital Signs Date Time Temp Pulse Resp B/P (MAP) Pulse Ox O2 Delivery O2 Flow Rate FiO2 05/15/17 16:11 121 05/15/17 16:07 Nasal Cannula 4.00 Humidified 05/15/17 16:04 96.3 121 17 108/80 (89) 96 05/15/17 12:04 Nasal Cannula 4.00 05/15/17 11:10 97.2 96 18 124/73 (90) 95 05/15/17 08:15 104 05/15/17 08:15 Nasal Cannula 4.00 Humidified 05/15/17 07:28 96.0 98 18 104/67 (79) 95 05/15/17 06:31 93 Nasal Cannula 4.00 05/15/17 03:45 101 05/15/17 03:09 96.8 112 19 124/72 (89) 94 05/15/17 00:00 109 05/14/17 23:48 97.6 107 19 126/84 (98) 94 05/14/17 20:14 97 Nasal Cannula 4.00 05/14/17 20:11 95 Nasal Cannula 4.00 05/14/17 20:00 113 05/14/17 19:32 94 Nasal Cannula 4.00 Humidified 05/14/17 19:20 97.9 108 19 126/80 (95) 94 I/O 05/14/17 05/14/17 05/14/17 05/15/17 05/15/17 05/15/17 07:00 15:00 23:00 07:00 15:00 23:00 Intake Total 480 ml 480 ml 480 ml 720 ml Output Total 1000 ml 1150 ml 550 ml 1250 ml 20 ml 800 ml Balance -520 ml -1150 ml -70 ml -770 ml -20 ml -80 ml Intake Oral 480 ml 480 ml 480 ml 720 ml Output Urine Total 1000 ml 1150 ml 550 ml 1250 ml 800 ml Chest Tube Drainage Total 0 ml 0 ml 0 ml 20 ml 0 ml # Bowel Movements 0 0 0 0 Objective Remarks GENERAL: Patient is 61 yo lying in bed in NAD SKIN: Warm and dry. HEAD: Normocephalic. EYES: No scleral icterus. No injection or drainage. NECK: Supple, trachea midline. No JVD or lymphadenopathy. CARDIOVASCULAR: Regular rate and rhythm without murmurs, gallops, or rubs. RESPIRATORY: Breath sounds equal bilaterally. No accessory muscle use. Right Chest tube to suction GASTROINTESTINAL: Abdomen soft, non-tender, nondistended. MUSCULOSKELETAL: No cyanosis, or edema. Neuro: Awake and alert A/P Assessment and Plan 1. Acute hypercapnic and hypoxemic respiratory failure. intubated 05/01, extubated 05/05 2. COPD exacerbation on home oxygen. 3 Right sided PTX s/p CT placement 4 Sub Q emphysema 5. Active tobacco use. 6. Hypertension. Plan Continue with oxygen keep sat >92% Bronchodilators ( DuoNeb, Symbicort, Spiriva), Pred 20 mg daily Chest tube to suction CXR in AM Vivek Dean MD May 15, 2017 16:41
--- NOTE | 2017-05-15 17:18 | HHI.PR ---
Subjective Remarks Follow up for pneumothorax, diffuse subQ emphysema. Patient is doing well. No acute concerns. He still has 2 chest tubes. Objective Vitals Vital Signs Date Time Temp Pulse Resp B/P (MAP) Pulse Ox O2 Delivery O2 Flow Rate FiO2 05/15/17 16:11 121 05/15/17 16:07 Nasal Cannula 4.00 Humidified 05/15/17 16:04 96.3 121 17 108/80 (89) 96 05/15/17 12:04 Nasal Cannula 4.00 05/15/17 11:10 97.2 96 18 124/73 (90) 95 05/15/17 08:15 104 05/15/17 08:15 Nasal Cannula 4.00 Humidified 05/15/17 07:28 96.0 98 18 104/67 (79) 95 05/15/17 06:31 93 Nasal Cannula 4.00 05/15/17 03:45 101 05/15/17 03:09 96.8 112 19 124/72 (89) 94 05/15/17 00:00 109 05/14/17 23:48 97.6 107 19 126/84 (98) 94 05/14/17 20:14 97 Nasal Cannula 4.00 05/14/17 20:11 95 Nasal Cannula 4.00 05/14/17 20:00 113 05/14/17 19:32 94 Nasal Cannula 4.00 Humidified 05/14/17 19:20 97.9 108 19 126/80 (95) 94 I/O 05/14/17 05/14/17 05/14/17 05/15/17 05/15/17 05/15/17 07:00 15:00 23:00 07:00 15:00 23:00 Intake Total 480 ml 480 ml 480 ml 720 ml Output Total 1000 ml 1150 ml 550 ml 1250 ml 20 ml 800 ml Balance -520 ml -1150 ml -70 ml -770 ml -20 ml -80 ml Intake Oral 480 ml 480 ml 480 ml 720 ml Output Urine Total 1000 ml 1150 ml 550 ml 1250 ml 800 ml Chest Tube Drainage Total 0 ml 0 ml 0 ml 20 ml 0 ml # Bowel Movements 0 0 0 1 Objective Remarks GENERAL: Alert, oriented 3, NAD. SKIN: Warm and dry. Significant subcutaneous emphysema on the right side of the chest. HEAD: Normocephalic. EYES: No scleral icterus. No injection or drainage. NECK: Supple, trachea midline. No JVD or lymphadenopathy. CARDIOVASCULAR: Regular rate and rhythm without murmurs, gallops, or rubs. Chest tubes in place. RESPIRATORY: Breath sounds equal bilaterally. No accessory muscle use. GASTROINTESTINAL: Abdomen soft, non-tender, nondistended. MUSCULOSKELETAL: No cyanosis, or edema. BACK: Nontender without obvious deformity. No CVA tenderness. Procedures Chest tube placement 05/02/2017. A/P Problem List: (1) Community acquired bacterial pneumonia ICD Code: J15.9 - Unspecified bacterial pneumonia Status: Acute (2) COPD exacerbation ICD Code: J44.1 - Chronic obstructive pulmonary disease with (acute) exacerbation Status: Acute (3) Tobacco abuse ICD Code: Z72.0 - Tobacco use Status: Acute (4) Acute respiratory failure with hypoxia ICD Code: J96.01 - Acute respiratory failure with hypoxia Status: Acute (5) Emphysema of lung ICD Code: J43.9 - Emphysema, unspecified (6) Pneumothorax, right ICD Code: J93.9 - Pneumothorax, unspecified Assessment and Plan Patient is a 61-year-old male with past medical history of COPD on chronic home oxygen at 5 liters and tobacco abuse who was admitted to hospitalist service on April 28 for COPD exacerbation. Due to worsening of his symptoms agent was initially placed on BiPAP and subsequently transferred to ICU where he required intubation. While in the ICU patient developed right-sided pneumothorax for which chest tube was placed. Patient was subsequently extubated on 05/04/2017. Acute hypercapnic and hypoxemic respiratory failure. - intubated 05/01, extubated 05/05 - Maintain oxygen saturation above 92% COPD exacerbation on home oxygen. On Spiriva, Symbicort, Duo Neb Patient has received Levaquin 500mg Qday X 7 days. Discontinue Solu-Medrol and start prednisone 20 mg twice daily. Will taper it off. Right sided PTX s/p Chest tubes placement CXR from 05/08/2017 reviewed. Shows right sided chest tubes without a pneumothorax. 1 of the 2 chest tubes were discontinued on 05/10/2017. Diffuse subcutaneous emphysema Patient developed diffuse subcutaneous emphysema affecting his chest wall as well as arm, neck and face. Pulmonology placed small gauge chest tube on 05/11/2017. Patient is currently improving. Will continue current care. Insomnia - Continue Restoril. Encouraged patient to get out of bed. Full code. Lovenox. Discharge Plan: Patient still has chest tubes. Once chest tubes are out, patient can be discharged home. Yashira Garcia DO May 15, 2017 17:18
--- NOTE | 2017-05-15 18:44 | RADRPT ---
EXAM DATE/TIME: 05/15/2017 18:10 [facility] COMPARISON: CHEST SINGLE AP, May 13, 2017, 6:17. INDICATIONS : Difficulty breathing. MEDICAL HISTORY : Stroke. Cerebrovascular disease. SURGICAL HISTORY : Chest tube. Hernia repair. ENCOUNTER: Subsequent ACUITY: 1 day PAIN SCORE: LOCATION: Bilateral chest. FINDINGS: Right sided chest tubes again seen, extensive subcutaneous emphysema bilaterally, cardiomegaly, aorti c calcification and left basilar atelectasis identified. Severe emphysematous changes are noted. Ther e is a tiny right apical pneumothorax suspected. CONCLUSION: No significant change has occurred. Sunil Kenny MD on May 15, 2017 at 18:42 Board Certified Radiologist. This report was verified electronically.
[2017-05-15] MEDS ORDERED: LABETALOL HCL 100 MG/20 ML VIAL ONE (18:47)
--- NOTE | 2017-05-15 19:20 | HHI.CCPN ---
Subjective Remarks/Hospital Course Patient is a 61-year-old male with past medical history of COPD on chronic home oxygen at 5 liters and tobacco abuse who was admitted to hospitalist service on April 28 for COPD exacerbation. The patient was placed on bronchodilators, IV steroids and empiric antibiotics. Chest x-ray on arrival showed COPD changes , otherwise no acute infiltrate or failure. He was transferred to the ICU today for closer observation. The patient was placed on BiPAP for respiratory distress and his ABG showed acute hypercapnic respiratory failure. A repeat ABG from this afternoon showed worsening respiratory acidosis. Critical care medicine was consulted for critical care management. When seen, the patient was on BiPAP 15/5 with 50% FIO2. He was tachycardiac, tachypneic, hypertensive and using his accessory muscles for respiration. The patient was subsequently intubated by myself and placed on full mechanical ventilation. 05/02 Patient is sedated with Diprivan and Fentanyl drips, s/p CT placement yesterday for right sided PTX. This morning patent noted to have subQ emphysema on right. 05/03 Patient remains sedated with Fentanyl and intubated. Off Diprivan. Afebrile. 05/04: Patient orally intubated time of my evaluation tolerate CPAP trial today. Ordered extubation. 05/05: Extubated successfully yesterday on nasal cannula. Continues to have intermittent air leak from right sided chest tube. Suction decreased to -20 cm water pressure from -40 cm water pressure on right sided chest tube. Subjective: 05/15/17 Patient with COPD and emphysema with R PTX with [address] Transferred to [facility] after he developed respiratory distress after getting up to have a large liquid BM. Reportedly he became tachycardic with heart rate in the 140s and was feeling SOB with complaints of burning in chest "like reflux". He was feeling progressively more short of breath. DAVID Hill states she went to assess the patient and both chest tubes were still to suction without apparent dislodgement. ABG demonstrated chronic hypercapnic and hypoxemic respiratory failure with pH of 7.38/PaCO2 of 61/PA O2 of 65/bicarbonate 36 on 4 L nasal cannula. Chest x-ray demonstrates two right sided chest tubes which appear to be adequately positioned on CXR. There is extensive subcut emphysema bilaterally which has been present previously. Small R apical PTX is stable. Upon arrival to [facility] his heart rate was in 160s with BP 145/93 so Labetalol 20 mg IV and Morphine 1 mg IV was administered by RN. He is currently on Ventimask 50% with heart rate in 120s with BP 101/72. He states he feels better. He is still tachypneic but without accessory muscle use and complains that he "feels like he has a lot of gas (in his abdomen)". He denies n/v. States he had abdominal pain previously but feels improved. Objective Vital Signs Date Time Temp Pulse Resp B/P (MAP) Pulse Ox O2 Delivery O2 Flow Rate FiO2 05/15/17 18:02 93 4.00 05/15/17 16:11 121 05/15/17 16:07 Nasal Cannula Humidified 05/15/17 16:04 96.3 17 108/80 (89) 05/14/17 20:14 Intake and Output 05/15/17 05/15/17 05/16/17 08:00 16:00 00:00 Intake Total 480 ml 720 ml Output Total 1250 ml 20 ml 800 ml Balance -770 ml -20 ml -80 ml Other Results Laboratory Tests Test 05/15/17 18:08 Blood Gas Puncture Site LT RADIAL Blood Gas Patient Temperature 98.6 Blood Gas HCO3 36 mmol/L (22-26) Blood Gas Base Excess 10.3 mmol/L (-2-2) Blood Gas Oxygen Saturation 89 % (90-100) Arterial Blood pH 7.38 (7.380-7.420) Arterial Blood Partial Pressure CO2 61 mmHg (38-42) Arterial Blood Partial Pressure O2 65 mmHg (61-120) Arterial Blood Oxygen Content 18.1 Vol % (12.0-20.0) Arterial Blood Carboxyhemoglobin 1.4 % (0-4) Arterial Blood Methemoglobin 1.0 % (0-2) Blood Gas Hemoglobin 14.4 G/DL (12.0-16.0) Oxygen Delivery Device NASAL CANNULA Blood Gas Liter Flow 4 L/M Imaging Last Impressions Chest X-Ray 05/03/17 0600 Signed Impressions: Service Date/Time: Wednesday, May 03, 2017 03:41 - CONCLUSION: 1. The right-sided chest tube remains in place with no visualized pneumothorax however there has been and interval increase in the subcutaneous emphysema along the right lateral chest wall. 2. Underlying emphysema and bullous change. Manny Zuniga MD Chest CT 05/02/17 0000 Signed Impressions: Service Date/Time: Tuesday, May 02, 2017 09:32 - CONCLUSION: 1. Right chest drainage tube in place with tip at apex. There is a moderate size anterior right lower lung pneumothorax which extends to the mid chest. 2. Extensive subcutaneous emphysema on the right side and some mild lower left subcutaneous emphysema. Allen Martinez MD Procedures Chest tube placement 05/02/2017. Objective Remarks GENERAL: Patient is 61 yo elderly male sitting up in ISC bed on venti-mask, tachypneic. SKIN: Warm and dry. HEAD: Normocephalic. EYES: No scleral icterus. No injection or drainage. NECK: Supple, trachea midline. No JVD or lymphadenopathy. CARDIOVASCULAR: Heart sounds distant, Tachycardic, regular, sinus rhythm rate in the 120s. No murmurs rubs or gallops. RESPIRATORY: Tachypneic without accessory muscle use. crunching bilateral breath sounds c/w subcut emphysema, breath sounds equal bilaterally, diminished R apex. Subcutaneous emphysema along bilateral left lateral chest wall, supraclavicular, upper abdomen bilaterally. Pigtail chest tube in right upper chest to -20 cm suction with no airleak. Chest tube right lateral chest wall to -40 cm suction with + airleak. GASTROINTESTINAL: Abdomen soft, non-tender, nondistended. Subcutaneous emphysema noted along MUSCULOSKELETAL: No cyanosis, or edema. Neuro: Awake and alert, following commands, moves all 4 extremities. A/P Assessment and Plan 1. Acute hypercapnic and hypoxemic respiratory failure. intubated 05/01, extubated 05/05 2. COPD exacerbation on home oxygen. 3 Right sided PTX s/p CT placement 4 Sub Q emphysema 5. Active tobacco use. 6. Hypertension. Plan Neuro: Morphine as needed for pain Pulm: Acute hypercarbic hypercapnic respiratory failure (resolved). Intubated . Extubated 05/04/17 s/[address] placement 05/01 for right sided PTX, continue with 40cm wall suction CT chest 05/02 showed right chest tube in place with tip at apex. There is a moderate size anterior right lower lung pneumothorax which extends to the mid chest. extensive subcutaneous emphysema on the right side and some mild lower left subcutaneous emphysema. s/p [address] placement by IR 05/02, on -20 cm wall suction Pigtail chest tube was removed 05/10/17 and patient developed increasing subcutaneous emphysema so underwent CT guided pigtail chest tube placement right upper chest. Now with Halicat due to respiratory distress. Initial CXR with R apical PTX. Patient initially reported symptomatic improvement after rate control for heart rate in 160s and felt like he was at his baseline. Subsequently had worsening SOB and complaints of abdominal pain. WBC 32.6. Patient has been on steroids which on one hand could be causing leukocytosis but on the other hand may limit the reliability of abdominal exam. Obtained CT chest/abd/pelvis which demonstrated Large R PTX with evidence of tension. No PE. abdomen unremarkable.Placed additional 20 [place] chest tube with +air leak, anterior/ inferior to existing tube, Removed pigtail catheter which had no airleak. The remaining tube present since 05/01 so would consider challenging the tube, repeating CXR and removing to avoid infection. On prednisone 20 twice a day. Pulmonology following, Dr. Franco Continue Mucinex 600 twice a day Continue DuoNeb every 4 hours. Continue albuterol every 2 hours as needed Symbicort 160/4.5 2 puffs bid CV: Monitor HR and BP and maintain MAP> 65 mmHg. Metoprolol 2.5 IV q6 prn heart rate >120. On levophed briefly due to hypotension associated with anxiolysis for chest tube placement, weaned off immediately after procedure. FEN/RENAL: Chronic compensatory metabolic alkalosis Normal creatinine GI: Regular diet CT abdomen and pelvis - unremarkable. There is subcutaneous emphysema along abdomen and pelvis which may be contributing to patient's discomfort. ID: Patient states he had a large diarrhea bowel movement today. He does have a significant leukocytosis and has been on and Levaquin previously so is at risk for C. difficile. Was refusing most of his stool softeners except for Jo -Colace. Will check stool for C. difficile. CT chest demonstrates right lower lobe opacity which may be related to compression due to PTX vs infiltrate. In view of significant leukocytosis, will treat until culture data and procalcitonin resulted. . He has a penicillin allergy. Will place on aztreonam. Will place on Flagyl empirically until C. difficile resulted. Endo:Euglycemic Heme: Monitor CBC GI prophylaxis with Pepcid and DVT prophylaxis with SCD/Lovenox 40 mg daily. Patient is critically ill with tachycardia and subsequent respiratory distress with tension pneumothorax requiring emergent chest tube placement. Patient reevaluated at bedside on several occasions throughout the night. Full code Critical care time 35 minutes exclusive of separately billable procedures. Nita Toro MD May 15, 2017 19:20
[2017-05-15 19:59] LABS: AUTOMATED NEUTROPHIL # 30.5 TH/MM3 (1.8-7.7); BASOPHIL # 0.1 TH/MM3 (0-0.2); BASOPHIL % 0.3 % (0.0-2.0); EOSINOPHIL # 0.2 TH/MM3 (0-0.4); EOSINOPHIL % 0.5 % (0.0-4.0); HEMATOCRIT 40.8 % (39.0-51.0); HEMOGLOBIN 13.6 GM/DL (13.0-17.0); LYMPH % 2.3 % (9.0-44.0); LYMPHOCYTE # 0.8 TH/MM3 (1.0-4.8); MEAN CELL VOLUME 91.3 FL (80.0-100.0); MEAN CORPUSCULAR HEMOGLOBIN 30.5 PG (27.0-34.0); MEAN CORPUSCULAR HGB CONC 33.5 % (32.0-36.0); MEAN PLATELET VOLUME 6.9 FL (7.0-11.0); MONO % 3.5 % (0.0-8.0); MONOCYTE # 1.1 TH/MM3 (0-0.9); NEUT % 93.4 % (16.0-70.0); PLATELET COUNT 240 TH/MM3 (150-450); RED BLOOD COUNT 4.46 MIL/MM3 (4.50-5.90); RED CELL DISTRIBUTION WIDTH 14.7 % (11.6-17.2); WHITE BLOOD COUNT 32.6 TH/MM3 (4.0-11.0)
[2017-05-15] MEDS: TEMAZEPAM 15 MG CAP PO PRN (20:02)
[2017-05-15] MEDS: predniSONE 20 MG TAB PO SCH (20:02)
[2017-05-15] MEDS ORDERED: LABETALOL HCL 20 MG/4 ML VIAL IV SCH (20:15)
[2017-05-15 20:16] LABS: ALBUMIN 2.9 GM/DL (3.4-5.0); AST (GOT) 32 U/L (15-37); BICARBONATE 33.7 MEQ/L (21.0-32.0); BLOOD UREA NITROGEN 31 MG/DL (7-18); CALCIUM 7.6 MG/DL (8.5-10.1); CHLORIDE 100 MEQ/L (98-107); CREATININE 0.54 MG/DL (0.60-1.30); GLOMERULAR FILTRATION RATE 154 ML/MIN (>89); GLUCOSE,RANDOM 125 MG/DL (74-106); SODIUM (NA) 141 MEQ/L (136-145)
[2017-05-15 20:20] LABS: ALKALINE PHOSPHATASE 72 U/L (45-117); ALT (GPT) 74 U/L (12-78); PHOSPHORUS 3.7 MG/DL (2.5-4.9); TOTAL BILIRUBIN ADULT 0.7 MG/DL (0.2-1.0); TOTAL PROTEIN 5.6 GM/DL (6.4-8.2)
[2017-05-15 20:31] LABS: BANDS 4 % (0-6); LYMPHOCYTES 3 % (9-44); MONOCYTES 3 % (0-8); NEUTROPHIL # MANUAL DIFF 30.6 TH/MM3 (1.8-7.7); POLYS (SEG NEUTROPHILS) 90 % (16-70)
[2017-05-15 20:32] LABS: TOXIC GRANULATION 1+ (NORMAL); TOXIC VACUOLATION PRESENT (NONE SEEN)
[2017-05-15 21:12] LABS: TROPONIN I LESS THAN 0.02 NG/ML (0.02-0.05)
[2017-05-16] VITALS (9 sets, daily range): BP systolic 100–113; BP diastolic 67–77; PULSE 85–119; RESP 13–28; TEMP 98.1–98.7; O2SAT 94–98
[2017-05-16] MEDS: METOPROLOL TARTRATE 5 MG/5 ML VIAL IV PUSH PRN (03:03)
[2017-05-16] MEDS ORDERED: DIATRIZOATE MEGLUM/DIATRIZOATE SOD 9 ML CUP PO ONE (03:45)
[2017-05-16] MEDS ORDERED: IOHEXOL 350 MG/ML 10 ML VIAL (for RAD DIAG) IVCONTRAST ONE (04:03)
[2017-05-16] MEDS: RESP: ALBUTEROL 2.5 MG/IPRATROPIUM 0.5 MG NEB (SCH) NEB ×5 (04:05→19:38)
[2017-05-16] MEDS ORDERED: MIDAZOLAM HCL 5 MG/5 ML VIAL IV PUSH ONE (04:30)
--- NOTE | 2017-05-16 04:56 | RADRPT ---
EXAM DATE/TIME: 05/16/2017 03:16 [facility] COMPARISON: CHEST SINGLE AP, May 15, 2017, 18:10. CT PULMONARY ANGIOGRAM, June 23, 2016, 9:31. INDICATIONS : Hypoxia; rule out pulmonary embolus. IV CONTRAST: 100 cc Omnipaque 350 (iohexol) IV ; Cumulative dose for multiple exams. RADIATION DOSE: 7.48 CTDIvol (mGy) MEDICAL HISTORY : Chronic obstructive pulmonary disease. Cerebrovascular disease. SURGICAL HISTORY : Hernia repair X 2 ENCOUNTER: Subsequent ACUITY: 1 month PAIN SCALE: Non-responsive LOCATION: chest TECHNIQUE: Volumetric scanning of the chest was performed using a pulmonary embolism protocol MIP images were re constructed. Using automated exposure control and adjustment of the mA and/or kV according to patien t size, radiation dose was kept as low as reasonably achievable to obtain optimal diagnostic quality images. DICOM format image data is available electronically for review and comparison. Follow-up recommendations for detected pulmonary nodules are based at a minimum on nodule size and pa tient risk factors according to Fleischner Society Guidelines. FINDINGS: PULMONARY ARTERIES: No filling defects are seen in the pulmonary arteries through the segmental level. LUNGS: Right chest drainage tube tip is at the apex. There is a large pneumothorax which measures in excess of 80 cm in the lower chest causes collapse of the lower lung oh stopped there is also evidence of m ediastinal shift towards the left severe underlying bullous emphysema of both lungs. There is a foca l area of consolidation in the medial right lower lung. PLEURAE: There is no pleural thickening or pleural effusion. MEDIASTINUM: There is good visualization of the great vessels of the middle mediastinum. No evidence of mediastin al or hilar adenopathy/mass. MISCELLANEOUS: Extensive subcutaneous emphysema about the chest wall and abdominal wall, considerably increased from prior chest x-ray. On the clinical nurse view, the subcutaneous emphysema is seen tracking all the way down to the pelvic wall. CONCLUSION: 1. The study is negative for pulmonary embolism. 2. Interval development of large right tension pneumothorax with chest drainage tube in place with th e tip at the apex. 3. Significant increase in the amount of subcutaneous emphysema, now extending all the way to the pel vis and on both left and right side. Allen Martinez MD on May 16, 2017 at 4:47 Board Certified Radiologist. This report was verified electronically.
--- NOTE | 2017-05-16 05:04 | RADRPT ---
EXAM DATE/TIME: 05/16/2017 03:16 [facility] COMPARISON: No previous studies available for comparison. INDICATIONS : Sepsis. IV CONTRAST: 100 cc Omnipaque 350 (iohexol) IV ; Cumulative dose for multiple exams. ORAL CONTRAST: No oral contrast ingested. RADIATION DOSE: 15.84 CTDIvol (mGy) MEDICAL HISTORY : Chronic obstructive pulmonary disease. Cerebrovascular disease. SURGICAL HISTORY : Hernia repair X 2 ENCOUNTER: [facility] ACUITY: 1 day PAIN SCALE: Non-responsive LOCATION: abdomen TECHNIQUE: Volumetric scanning of the abdomen and pelvis was performed. Using automated exposure control and ad justment of the mA and/or kV according to patient size, radiation dose was kept as low as reasonably achievable to obtain optimal diagnostic quality images. DICOM format image data is available electro nically for review and comparison. FINDINGS: LOWER LUNGS: Tension pneumothorax on the right side with chest tube in place. Small infiltrate in the medial righ t lower lung. LIVER: Homogeneous density without lesion. There is no dilation of the biliary tree. No calcified gallston es. SPLEEN: Normal size without lesion. PANCREAS: Within normal limits. KIDNEYS: Normal in size and shape. There is no mass, stone or hydronephrosis. ADRENAL GLANDS: Within normal limits. VASCULAR: There is no aortic aneurysm. BOWEL/MESENTERY: Moderately distended stomach with air-fluid level. No dilated loops of small or large bowel. No mikki dence of free fluid and no evidence of free intraperitoneal gas. ABDOMINAL WALL: There is extensive subcutaneous emphysema about the anterior, lateral, and posterior abdominal and pe lvic solares, extending into the chest. There is also inferior extension about the inguinal canals mely aterally and about the dorsal sheath the penis. There is induration of the subcutaneous fat lateral to the hips bilaterally. RETROPERITONEUM: There is no lymphadenopathy. BLADDER: No wall thickening or mass. Edgar catheter in place. REPRODUCTIVE: Within normal limits. INGUINAL: There is no lymphadenopathy or hernia. MUSCULOSKELETAL: Within normal limits for patient age. CONCLUSION: 1. The intra-abdominal and intrapelvic structures are grossly intact other than distention of the sto mach. There is no evidence of free fluid or free intraperitoneal gas. 2. Extensive subcutaneous emphysema circumferential about chest, abdominal, and pelvic solares. 3. Tension pneumothorax on the right side with chest tube in place. Allen Martinez MD on May 16, 2017 at 4:58 Board Certified Radiologist. This report was verified electronically.
[2017-05-16] MEDS ORDERED: NOREPINEPHRINE-DEXTROSE DRIP 250 ML IV ONE (05:13)
--- NOTE | 2017-05-16 05:51 | PD.PROCEDR ---
Procedure Note Procedure Procedure: Right chest tube placement Indication: Acute right tension pneumothorax Details of procedure: Informed consent was obtained from the patient after discussion of risks, benefits, alternatives. The patient was positioned. He was given Versed 2 mg IV for anxiolysis. (He received additional 2 mg IV later for total of 4 mg IV) The lateral chest wall was cleaned with ChloraPrep x4. Regional occlusive sterile drape was positioned anterior to existing chest tube. 1% lidocaine with epinephrine, 4cc, was used for local anesthesia and injected into the subcutaneous and deep muscle tissues. A 1.5 cm skin incision was made with a scalpel blade. A hemostat was used for blunt dissection. The hemostat was entered into the pleural space superior to the rib with release of air. I explored the wound with my finger. A size 20 Bangladeshi chest tube was inserted with a Moira clamp into the pleural cavity and directed toward the apex to a depth of 14 cm. 2-0 silk was used to close the wound and to secure the chest tube. A sterile Vaseline gauze dressing was applied. The chest tube was connected to a Pleur-evac drainage system. There was a 3+ air leak. There was minimal serosanguineous output from the chest tube. Estimated blood loss: <5 mL Complications: None. Stat chest x-ray is pending Nita Toro MD May 16, 2017 05:51
[2017-05-16] MEDS: metroNIDAZOLE 500 MG TAB PO SCH ×3 (06:00→20:51)
[2017-05-16] MEDS ORDERED: TERBUTALINE INJ 1 MG/ML AMP SQ PRN (06:00)
[2017-05-16] MEDS ORDERED: NOREPINEPHRINE-DEXTROSE DRIP 250 ML IV PRN (06:00)
--- NOTE | 2017-05-16 06:15 | RADRPT ---
EXAM DATE/TIME: 05/16/2017 05:56 [facility] COMPARISON: CHEST SINGLE AP, May 15, 2017, 18:10. INDICATIONS : Evaluate right side chest tube placement MEDICAL HISTORY : Chronic obstructive pulmonary disease. Cerebrovascular disease. SURGICAL HISTORY : Hernia repair x 2 ENCOUNTER: Subsequent ACUITY: 1 month PAIN SCORE: 7/10 LOCATION: Bilateral chest FINDINGS: There are 2 right chest drainage tubes, the tip of one is at the right apex and the tip of the other is in the lateral upper right chest. The lungs are symmetrically aerated. No definite pneumothorax seen. The junction line projects to the left of the midline, similar to prior chest x-rays. The hea rt is normal in size. Prominent extensive subcutaneous emphysema about bilateral chest wall and bila teral supraclavicular region, similar to prior. CONCLUSION: Project in the upper right chest. Allen Martinez MD on May 16, 2017 at 6:11 Board Certified Radiologist. This report was verified electronically.
[2017-05-16] MEDS: DOCUSATE SODIUM 50 MG/SENNA 8.6 MG TAB PO SCH ×2 (07:55→20:50)
[2017-05-16] MEDS: CHLORHEXIDINE 0.12% (ORAL KIT) 15 ML CUP MT SCH ×2 (08:00→20:00)
[2017-05-16] MEDS: AZTREONAM INJ 2,000 MG in SODIUM CHLORIDE 0.9% INJ 100 ML IV SCH ×2 (08:12→16:00)
[2017-05-16] MEDS: TIOTROPIUM BROMIDE 18 MCG INH INH SCH (08:12)
[2017-05-16] MEDS: FLUTICASONE PROPIONATE 50 MCG/ACT 16 GM NASAL SPRAY EACH NARE SCH ×2 (08:13→20:52)
[2017-05-16] MEDS: BUDESONIDE-FORMOTEROL 160/4.5 MCG INHALER INH SCH ×2 (08:13→20:52)
[2017-05-16] MEDS: predniSONE 20 MG TAB PO SCH ×2 (08:13→20:51)
[2017-05-16] MEDS: guaiFENesin E.R. 600 MG TAB PO SCH ×2 (08:14→20:50)
[2017-05-16] MEDS: FAMOTIDINE 20 MG TAB PO SCH ×2 (08:14→20:51)
[2017-05-16] MEDS: oxyCODONE/ACETAMINOPHEN 10 MG/325 MG TAB PO PRN (08:14)
--- NOTE | 2017-05-16 10:19 | EKG ---
Date Performed: 05/15/2017 Time Performed: 18:29:15 PTAGE: 61 years EKG: SINUS TACHYCARDIA, POSSIBLE ATRIAL FLUTTER INDETERMINATE AXIS POSSIBLE RIGHT VENTRICULAR CO NDUCTION DELAY MINIMAL ST DEPRESSION ABNORMAL ECG PREVIOUS TRACING : 05/01/2017 16.55 DOCTOR: Chetan Coffman Interpretating Date/Time 05/16/2017 10:18:19
--- NOTE | 2017-05-16 12:26 | HHI.CCPN ---
Subjective Remarks/Hospital Course Patient is a 61-year-old male with past medical history of COPD on chronic home oxygen at 5 liters and tobacco abuse who was admitted to hospitalist service on April 28 for COPD exacerbation. The patient was placed on bronchodilators, IV steroids and empiric antibiotics. Chest x-ray on arrival showed COPD changes , otherwise no acute infiltrate or failure. He was transferred to the ICU today for closer observation. The patient was placed on BiPAP for respiratory distress and his ABG showed acute hypercapnic respiratory failure. A repeat ABG from this afternoon showed worsening respiratory acidosis. Critical care medicine was consulted for critical care management. When seen, the patient was on BiPAP 15/5 with 50% FIO2. He was tachycardiac, tachypneic, hypertensive and using his accessory muscles for respiration. The patient was subsequently intubated by myself and placed on full mechanical ventilation. 05/02 Patient is sedated with Diprivan and Fentanyl drips, s/p CT placement yesterday for right sided PTX. This morning patent noted to have subQ emphysema on right. 05/03 Patient remains sedated with Fentanyl and intubated. Off Diprivan. Afebrile. 05/04: Patient orally intubated time of my evaluation tolerate CPAP trial today. Ordered extubation. 05/05: Extubated successfully yesterday on nasal cannula. Continues to have intermittent air leak from right sided chest tube. Suction decreased to -20 cm water pressure from -40 cm water pressure on right sided chest tube. Subjective: 05/15/17 Patient with COPD and emphysema with R PTX with [address] Transferred to [facility] after he developed respiratory distress after getting up to have a large liquid BM. Reportedly he became tachycardic with heart rate in the 140s and was feeling SOB with complaints of burning in chest "like reflux". He was feeling progressively more short of breath. DAVID Hill states she went to assess the patient and both chest tubes were still to suction without apparent dislodgement. ABG demonstrated chronic hypercapnic and hypoxemic respiratory failure with pH of 7.38/PaCO2 of 61/PA O2 of 65/bicarbonate 36 on 4 L nasal cannula. Chest x-ray demonstrates two right sided chest tubes which appear to be adequately positioned on CXR. There is extensive subcut emphysema bilaterally which has been present previously. Small R apical PTX is stable. Upon arrival to [facility] his heart rate was in 160s with BP 145/93 so Labetalol 20 mg IV and Morphine 1 mg IV was administered by RN. He is currently on Ventimask 50% with heart rate in 120s with BP 101/72. He states he feels better. He is still tachypneic but without accessory muscle use and complains that he "feels like he has a lot of gas (in his abdomen)". He denies n/v. States he had abdominal pain previously but feels improved. 05/16: Patient lying in bed breathing comfortably. New chest tube still has air leak, no air leak in the older chest tube. We will place the old chest tube to water seal and remove if no pneumothorax in am Objective Vital Signs Date Time Temp Pulse Resp B/P (MAP) Pulse Ox O2 Delivery O2 Flow Rate FiO2 05/16/17 10:04 94 Nasal Cannula 5.00 05/16/17 08:00 98.1 119 18 102/67 (79) 05/16/17 07:00 50 Intake and Output 05/16/17 05/16/17 05/17/17 08:00 16:00 00:00 Output Total 425 ml Balance -425 ml Result Diagram: 05/15/17193605/15/171936 Other Results Laboratory Tests Test 05/15/17 18:08 Blood Gas Puncture Site LT RADIAL Blood Gas Patient Temperature 98.6 Blood Gas HCO3 36 mmol/L (22-26) Blood Gas Base Excess 10.3 mmol/L (-2-2) Blood Gas Oxygen Saturation 89 % (90-100) Arterial Blood pH 7.38 (7.380-7.420) Arterial Blood Partial Pressure CO2 61 mmHg (38-42) Arterial Blood Partial Pressure O2 65 mmHg (61-120) Arterial Blood Oxygen Content 18.1 Vol % (12.0-20.0) Arterial Blood Carboxyhemoglobin 1.4 % (0-4) Arterial Blood Methemoglobin 1.0 % (0-2) Blood Gas Hemoglobin 14.4 G/DL (12.0-16.0) Oxygen Delivery Device NASAL CANNULA Blood Gas Liter Flow 4 L/M Imaging Last Impressions Chest X-Ray 05/03/17 0600 Signed Impressions: Service Date/Time: Wednesday, May 03, 2017 03:41 - CONCLUSION: 1. The right-sided chest tube remains in place with no visualized pneumothorax however there has been and interval increase in the subcutaneous emphysema along the right lateral chest wall. 2. Underlying emphysema and bullous change. Manny Zuniga MD Chest CT 05/02/17 0000 Signed Impressions: Service Date/Time: Tuesday, May 02, 2017 09:32 - CONCLUSION: 1. Right chest drainage tube in place with tip at apex. There is a moderate size anterior right lower lung pneumothorax which extends to the mid chest. 2. Extensive subcutaneous emphysema on the right side and some mild lower left subcutaneous emphysema. Allen Martinez MD Procedures Chest tube placement 05/02/2017. Objective Remarks GENERAL: Patient is 61 yo male lying in ISC bed on NC appears in no acute distress SKIN: Warm and dry. HEAD: Normocephalic. EYES: No scleral icterus. No injection or drainage. NECK: Supple, trachea midline. No JVD or lymphadenopathy. CARDIOVASCULAR: Heart sounds distant, sinus rhythm rate. No murmurs rubs or gallops. RESPIRATORY: Palpable subcutaneous emphysema anterior chest bilaterally, crunching bilateral breath sounds c/w subcut emphysema, breath sounds equal bilaterally, diminished R apex. 20 F chest tube x2 to right side, Lower new chest tube with air leak MUSCULOSKELETAL: No cyanosis, or edema. Neuro: Awake and alert, following commands, moves all 4 extremities. A/P Assessment and Plan Assesment: 1. Acute hypercapnic and hypoxemic respiratory failure. intubated 05/01, extubated 05/05 2. COPD exacerbation on home oxygen. 3 Right sided PTX s/p CT placement 4 Sub Q emphysema 5. Active tobacco use. 6. Hypertension. 7. Severe emphysema Plan Neuro: Morphine as needed for pain Pulm: Acute hypercarbic hypercapnic respiratory failure (resolved). Intubated . Extubated 05/04/17 s/[address] placement 05/01 for right sided PTX, continue with 40cm wall suction CT chest 05/02 showed right chest tube in place with tip at apex. There is a moderate size anterior right lower lung pneumothorax which extends to the mid chest. extensive subcutaneous emphysema on the right side and some mild lower left subcutaneous emphysema. s/p [address] placement by IR 05/02, on -20 cm wall suction Pigtail chest tube was removed 05/10/17 and patient developed increasing subcutaneous emphysema so underwent CT guided pigtail chest tube placement right upper chest. 3/3 with with Halicat due to respiratory distress. Initial CXR with R apical PTX. Subsequently had worsening SOB and complaints of abdominal pain. WBC 32.6 , Dr. Toro Obtained CT chest/abd/pelvis which demonstrated Large R PTX with evidence of tension. Placed additional 20 [place] chest tube with +air leak, anterior/inferior to existing tube, Removed pigtail catheter which had no airleak. Place right upper older chest tube to waterseal. Removed in a.m. if there is no pneumothorax On prednisone 20 twice a day. Pulmonology following, Dr. Franco Continue Mucinex 600 twice a day Continue DuoNeb every 4 hours. Continue albuterol every 2 hours as needed Symbicort 160/4.5 2 puffs bid CV: Monitor HR and BP and maintain MAP> 65 mmHg. Metoprolol 2.5 IV q6 prn heart rate >120. On Levophed briefly due to hypotension associated with anxiolysis for chest tube placement, weaned off immediately after procedure. FEN/RENAL: Chronic compensatory metabolic alkalosis Normal creatinine GI: Regular diet CT abdomen and pelvis - unremarkable. There is subcutaneous emphysema along abdomen and pelvis which may be contributing to patient's discomfort. ID: Patient states he had a large diarrhea bowel movement today. He does have a significant leukocytosis and has been on and Levaquin previously so is at risk for C. difficile. Was refusing most of his stool softeners except for Jo -Colace. CT chest demonstrates right lower lobe opacity which may be related to compression due to PTX vs infiltrate. In view of significant leukocytosis, will treat until culture data and procalcitonin resulted. Continue on aztreonam. On Flagyl empirically until C. difficile resulted. Endo:Euglycemic Heme: Monitor CBC GI prophylaxis with Pepcid and DVT prophylaxis with SCD/Lovenox 40 mg daily. Patient is critically ill with tachycardia and subsequent respiratory distress with tension pneumothorax requiring emergent chest tube placement. Patient reevaluated at bedside on several occasions throughout the night. Full code Level 3 Alexandrea Qureshi MD May 16, 2017 12:26
--- NOTE | 2017-05-16 12:26 | ECHRPT ---
Indication: A FIB FLUTTER CONCLUSIONS Unable to get images secondaryto COPD and chest tubes/pain Valvular structures not visulized. Transthoracic echocardiography. Image quality was suboptimal. Scanning performed from parasternal, apical, and subcostal acoustic windows. Not able toestimate EF BP: / HR: Rhythm: MEASUREMENTS (Male / Female) Normal Values Technical Quality:Very technically difficult study DOPPLER Mitral E Point Velocity 40.5 cm/s Mitral A Point Velocity 55.3 cm/s Mitral E to A Ratio 0.7 TR Peak Velocity 88.2 cm/s TR Peak Gradient 3.1 mmHg FINDINGS LEFT VENTRICLE The left ventricle is not well visualized. RIGHT VENTRICLE The right ventricle was not well visualized. LEFT ATRIUM The left atrium was not well visualized. RIGHT ATRIUM The right atrium is not well visualized. ATRIAL SEPTUM The interatrial septum not well visualized. AORTA The aortic root and proximal ascending aorta are not well visualized. MITRAL VALVE The mitral valve is not well visualized. AORTIC VALVE The aortic valve is not well visualized. TRICUSPID VALVE The tricuspid valve is not well visualized. PULMONARY VALVE The pulmonary valve is not well visualized. Ina Boucher MD, FACC (Electronically Signed) Final Date:16 May 2017 12:26
--- NOTE | 2017-05-16 17:59 | HHI.PR ---
Subjective Remarks 61 YOWM with COPD Exac,Pn,RF has Right chest tube Breathing betetr Decreased SQ Emphysema Was Tr to ISC due to worsening sob Better now Objective Vital Signs Vital Signs Date Time Temp Pulse Resp B/P (MAP) Pulse Ox O2 Delivery O2 Flow Rate FiO2 05/16/17 16:00 98.3 92 14 109/75 (86) 98 05/16/17 12:00 98.3 95 13 101/70 (80) 98 05/16/17 10:04 94 Nasal Cannula 5.00 05/16/17 08:00 98.1 119 18 102/67 (79) 94 05/16/17 07:00 94 Venturi Mask 50 05/16/17 05:00 111 80/45 05/16/17 04:00 98.5 118 28 100/69 (79) 95 05/16/17 00:00 98.3 118 24 111/75 (87) 96 05/15/17 22:00 114 05/15/17 21:02 22 05/15/17 20:21 92 Venturi Mask 6.00 50 05/15/17 20:00 126 05/15/17 20:00 98.4 118 24 107/72 (84) 96 05/15/17 19:00 97 Venturi Mask 50 05/15/17 18:02 93 4.00 I/O 05/15/17 05/15/17 05/15/17 05/16/17 05/16/17 05/16/17 07:00 15:00 23:00 07:00 15:00 23:00 Intake Total 480 ml 720 ml Output Total 1250 ml 20 ml 800 ml 425 ml Balance -770 ml -20 ml -80 ml -425 ml Intake Oral 480 ml 720 ml Output Urine Total 1250 ml 800 ml 425 ml Chest Tube Drainage Total 0 ml 20 ml 0 ml 0 ml # Bowel Movements 0 1 2 Result Diagram: 05/15/17193605/15/171936 Objective Remarks GENERAL: Patient is 61 yo lying in bed in NAD SKIN: Warm and dry. HEAD: Normocephalic. EYES: No scleral icterus. No injection or drainage. NECK: Supple, trachea midline. No JVD or lymphadenopathy. CARDIOVASCULAR: Regular rate and rhythm without murmurs, gallops, or rubs. RESPIRATORY: Breath sounds equal bilaterally. No accessory muscle use. Right Chest tube to suction GASTROINTESTINAL: Abdomen soft, non-tender, nondistended. MUSCULOSKELETAL: No cyanosis, or edema. Neuro: Awake and alert A/P Assessment and Plan 1. Acute hypercapnic and hypoxemic respiratory failure. intubated 05/01, extubated 05/05 2. COPD exacerbation on home oxygen. 3 Right sided PTX s/p CT placement 4 Sub Q emphysema 5. Active tobacco use. 6. Hypertension. Plan Continue with oxygen keep sat >92% Bronchodilators ( DuoNeb, Symbicort, Spiriva), Pred 20 mg daily Chest tube to suction CXR in AM will FU in AM Vivek Dean MD May 16, 2017 17:59
[2017-05-16] MEDS: ENOXAPARIN SODIUM 40 MG/0.4 ML SYRINGE SQ SCH (18:00)
[2017-05-16] MEDS: MORPHINE SULFATE 2 MG/ML INJ IV PUSH PRN (20:52)
[2017-05-17] VITALS (13 sets, daily range): BP systolic 103–129; BP diastolic 65–80; PULSE 82–116; RESP 14–20; TEMP 98.2; O2SAT 92–96
[2017-05-17] MEDS: TEMAZEPAM 15 MG CAP PO PRN (00:05)
[2017-05-17] MEDS: AZTREONAM INJ 2,000 MG in SODIUM CHLORIDE 0.9% INJ 100 ML IV SCH ×3 (00:06→18:11)
[2017-05-17] MEDS: oxyCODONE/ACETAMINOPHEN 10 MG/325 MG TAB PO PRN ×2 (00:06→22:25)
[2017-05-17] MEDS: RESP: ALBUTEROL 2.5 MG/IPRATROPIUM 0.5 MG NEB (SCH) NEB ×5 (00:14→15:22)
[2017-05-17] MEDS: MORPHINE SULFATE 2 MG/ML INJ IV PUSH PRN ×3 (02:30→20:54)
[2017-05-17] MEDS: metroNIDAZOLE 500 MG TAB PO SCH ×3 (05:30→20:53)
[2017-05-17] MEDS: ALUMINUM/MAGNESIUM/SIMETH 30 ML CUP PO PRN ×2 (05:30→22:25)
[2017-05-17 06:21] LABS: AUTOMATED NEUTROPHIL # 9.1 TH/MM3 (1.8-7.7); BASOPHIL % 0.1 % (0.0-2.0); EOSINOPHIL # 0.1 TH/MM3 (0-0.4); EOSINOPHIL % 0.5 % (0.0-4.0); HEMATOCRIT 36.3 % (39.0-51.0); HEMOGLOBIN 12.1 GM/DL (13.0-17.0); LYMPH % 4.2 % (9.0-44.0); LYMPHOCYTE # 0.4 TH/MM3 (1.0-4.8); MEAN CELL VOLUME 91.2 FL (80.0-100.0); MEAN CORPUSCULAR HEMOGLOBIN 30.4 PG (27.0-34.0); MEAN CORPUSCULAR HGB CONC 33.3 % (32.0-36.0); MONO % 4.7 % (0.0-8.0); MONOCYTE # 0.5 TH/MM3 (0-0.9); NEUT % 90.5 % (16.0-70.0); PLATELET COUNT 166 TH/MM3 (150-450); RED BLOOD COUNT 3.98 MIL/MM3 (4.50-5.90); RED CELL DISTRIBUTION WIDTH 14.4 % (11.6-17.2)
--- NOTE | 2017-05-17 06:27 | RADRPT ---
EXAM DATE/TIME: 05/17/2017 05:01 [facility] COMPARISON: CHEST SINGLE AP, May 16, 2017, 5:56. INDICATIONS : Short of breath. MEDICAL HISTORY : Chronic obstructive pulmonary disease. Cerebrovascular disease. SURGICAL HISTORY : Hernia repair x 2 ENCOUNTER: Subsequent ACUITY: 2 weeks PAIN SCORE: 0/10 LOCATION: Bilateral chest FINDINGS: 2 AP views of the chest demonstrate a normal-sized cardiac silhouette with calcification of the aorta . 2 right chest tubes remain present. No pneumothorax is visualized. Lungs remain hyperinflated. No p leural effusion is identified. There is severe bilateral chest wall subcutaneous emphysema. CONCLUSION: Stable chest x-ray with severe diffuse bilateral subcutaneous emphysema. 2 right chest tubes remain p resent and no pneumothorax is visualized. Background lung changes are suggestive of emphysema. Titus Reyes MD on May 17, 2017 at 6:22 Board Certified Radiologist. This report was verified electronically.
[2017-05-17 06:57] LABS: ALBUMIN 2.4 GM/DL (3.4-5.0); ALKALINE PHOSPHATASE 66 U/L (45-117); ALT (GPT) 73 U/L (12-78); AST (GOT) 26 U/L (15-37); BICARBONATE 34.3 MEQ/L (21.0-32.0); BLOOD UREA NITROGEN 17 MG/DL (7-18); CALCIUM 8.2 MG/DL (8.5-10.1); CHLORIDE 98 MEQ/L (98-107); CREATININE 0.34 MG/DL (0.60-1.30); GLOMERULAR FILTRATION RATE 263 ML/MIN (>89); GLUCOSE,RANDOM 122 MG/DL (74-106); SODIUM (NA) 138 MEQ/L (136-145); TOTAL BILIRUBIN ADULT 0.3 MG/DL (0.2-1.0); TOTAL PROTEIN 5.1 GM/DL (6.4-8.2)
[2017-05-17] MEDS: CHLORHEXIDINE 0.12% (ORAL KIT) 15 ML CUP MT SCH ×2 (08:00→19:59)
[2017-05-17] MEDS: DOCUSATE SODIUM 50 MG/SENNA 8.6 MG TAB PO SCH ×3 (08:41→21:00)
[2017-05-17] MEDS: guaiFENesin E.R. 600 MG TAB PO SCH ×2 (08:41→20:14)
[2017-05-17] MEDS: predniSONE 20 MG TAB PO SCH ×2 (08:41→20:14)
[2017-05-17] MEDS: FAMOTIDINE 20 MG TAB PO SCH ×2 (08:41→20:14)
[2017-05-17] MEDS: FLUTICASONE PROPIONATE 50 MCG/ACT 16 GM NASAL SPRAY EACH NARE SCH ×2 (08:42→20:15)
[2017-05-17] MEDS: BUDESONIDE-FORMOTEROL 160/4.5 MCG INHALER INH SCH ×2 (08:43→20:15)
[2017-05-17] MEDS: TIOTROPIUM BROMIDE 18 MCG INH INH SCH ×2 (08:43→09:00)
--- NOTE | 2017-05-17 09:59 | HHI.CCPN ---
Subjective Remarks/Hospital Course Patient is a 61-year-old male with past medical history of COPD on chronic home oxygen at 5 liters and tobacco abuse who was admitted to hospitalist service on April 28 for COPD exacerbation. The patient was placed on bronchodilators, IV steroids and empiric antibiotics. Chest x-ray on arrival showed COPD changes , otherwise no acute infiltrate or failure. He was transferred to the ICU today for closer observation. The patient was placed on BiPAP for respiratory distress and his ABG showed acute hypercapnic respiratory failure. A repeat ABG from this afternoon showed worsening respiratory acidosis. Critical care medicine was consulted for critical care management. When seen, the patient was on BiPAP 15/5 with 50% FIO2. He was tachycardiac, tachypneic, hypertensive and using his accessory muscles for respiration. The patient was subsequently intubated by myself and placed on full mechanical ventilation. 05/02 Patient is sedated with Diprivan and Fentanyl drips, s/p CT placement yesterday for right sided PTX. This morning patent noted to have subQ emphysema on right. 05/03 Patient remains sedated with Fentanyl and intubated. Off Diprivan. Afebrile. 05/04: Patient orally intubated time of my evaluation tolerate CPAP trial today. Ordered extubation. 05/05: Extubated successfully yesterday on nasal cannula. Continues to have intermittent air leak from right sided chest tube. Suction decreased to -20 cm water pressure from -40 cm water pressure on right sided chest tube. Subjective: 05/15/17 Patient with COPD and emphysema with R PTX with [address] Transferred to [facility] after he developed respiratory distress after getting up to have a large liquid BM. Reportedly he became tachycardic with heart rate in the 140s and was feeling SOB with complaints of burning in chest "like reflux". He was feeling progressively more short of breath. DAVID Hill states she went to assess the patient and both chest tubes were still to suction without apparent dislodgement. ABG demonstrated chronic hypercapnic and hypoxemic respiratory failure with pH of 7.38/PaCO2 of 61/PA O2 of 65/bicarbonate 36 on 4 L nasal cannula. Chest x-ray demonstrates two right sided chest tubes which appear to be adequately positioned on CXR. There is extensive subcut emphysema bilaterally which has been present previously. Small R apical PTX is stable. Upon arrival to [facility] his heart rate was in 160s with BP 145/93 so Labetalol 20 mg IV and Morphine 1 mg IV was administered by RN. He is currently on Ventimask 50% with heart rate in 120s with BP 101/72. He states he feels better. He is still tachypneic but without accessory muscle use and complains that he "feels like he has a lot of gas (in his abdomen)". He denies n/v. States he had abdominal pain previously but feels improved. 05/16: Patient lying in bed breathing comfortably. New chest tube still has air leak, no air leak in the older chest tube. We will place the old chest tube to water seal and remove if no pneumothorax in am 05/17: No acute distress patient states breathing is improved. Clinical exam shows worsening subcutaneous emphysema. The older posterior chest tube was placed to waterseal yesterday, now with worsening subcu air I have placed to suction again. CT surgery reevaluation requested Objective Vital Signs Date Time Temp Pulse Resp B/P (MAP) Pulse Ox O2 Delivery O2 Flow Rate FiO2 05/17/17 07:46 94 Nasal Cannula 5.00 05/17/17 06:00 84 05/17/17 04:00 98.2 16 103/68 (80) 05/16/17 07:00 50 Intake and Output 05/17/17 05/17/17 05/18/17 08:00 16:00 00:00 Intake Total 367 ml Output Total 1024 ml Balance -657 ml Result Diagram: 05/17/17 0530 05/17/17 0530 Imaging Last Impressions Chest X-Ray 05/03/17 0600 Signed Impressions: Service Date/Time: Wednesday, May 03, 2017 03:41 - CONCLUSION: 1. The right-sided chest tube remains in place with no visualized pneumothorax however there has been and interval increase in the subcutaneous emphysema along the right lateral chest wall. 2. Underlying emphysema and bullous change. Manny Zuniga MD Chest CT 05/02/17 0000 Signed Impressions: Service Date/Time: Tuesday, May 02, 2017 09:32 - CONCLUSION: 1. Right chest drainage tube in place with tip at apex. There is a moderate size anterior right lower lung pneumothorax which extends to the mid chest. 2. Extensive subcutaneous emphysema on the right side and some mild lower left subcutaneous emphysema. Allen Martinez MD Procedures Chest tube placement 05/02/2017. Objective Remarks GENERAL: Patient is 61 yo male lying in ISC bed on NC appears in no acute distress SKIN: Warm and dry. HEAD: Normocephalic. EYES: No scleral icterus. No injection or drainage. NECK: Supple, trachea midline. No JVD or lymphadenopathy. CARDIOVASCULAR: Heart sounds distant, sinus rhythm rate. No murmurs rubs or gallops. RESPIRATORY: Palpable subcutaneous emphysema anterior chest bilaterally, extending to bilateral upper extremities, crunching bilateral breath sounds c/w subcut emphysema, breath sounds equal bilaterally, diminished R apex. 20 F chest tube x2 to right side, Lower new chest tube with air leak MUSCULOSKELETAL: No cyanosis, or edema. Neuro: Awake and alert, following commands, moves all 4 extremities. A/P Assessment and Plan Assesment: 1. Acute hypercapnic and hypoxemic respiratory failure (intubated 05/01, extubated 05/05) 2. COPD exacerbation on home oxygen. 3. s/p new Right sided PTX s/p CT placement 4. Sub Q emphysema 5. Active tobacco use. 6. Hypertension. 7. Severe emphysema Plan Neuro: Morphine as needed for pain Pulm: Acute hypercarbic hypercapnic respiratory failure (resolved). Intubated . Extubated 05/04/17 s/[address] placement 05/01 for right sided PTX, continue with 40cm wall suction Persistent significant sq emphysema 3/3 with with Halicat due to respiratory distress. Initial CXR with R apical PTX. Subsequently had worsening SOB and complaints of abdominal pain. WBC 32.6 , Dr. Toro Obtained CT chest/abd/pelvis which demonstrated Large R PTX with evidence of tension. Placed additional 20 Thai chest tube with +air leak, anterior/inferior to existing tube, Removed pigtail catheter which had no airleak. Continue bilateral 20 F chest tubes to suction. Previously: CT chest 05/02 showed right chest tube in place with tip at apex. There is a moderate size anterior right lower lung pneumothorax which extends to the mid chest. Extensive subcutaneous emphysema on the right side and some mild lower left subcutaneous emphysema. [address] placement by IR 05/02 Pigtail chest tube was removed 05/10/17 and patient developed increasing subcutaneous emphysema so underwent CT guided pigtail chest tube placement right upper chest. On prednisone 20 twice a day. Pulmonology following, Dr. Franco Continue Mucinex 600 twice a day Continue DuoNeb every 4 hours. Continue albuterol every 2 hours as needed Symbicort 160/4.5 2 puffs bid CV: Monitor HR and BP and maintain MAP> 65 mmHg. Metoprolol 2.5 IV q6 prn heart rate >120. On Levophed briefly due to hypotension associated with anxiolysis for chest tube placement, weaned off immediately after procedure. FEN/RENAL: Chronic compensatory metabolic alkalosis Normal creatinine GI: Regular diet CT abdomen and pelvis - unremarkable. There is subcutaneous emphysema along abdomen and pelvis which may be contributing to patient's discomfort. ID: Patient states he had a large diarrhea bowel movement today. He does have a significant leukocytosis and has been on and Levaquin previously so is at risk for C. difficile. Leukocytosis most probably stress related now resolved CT chest demonstrates right lower lobe opacity which may be related to compression due to PTX vs infiltrate. In view of significant leukocytosis, will treat until culture data and procalcitonin resulted. Continue on aztreonam. On Flagyl empirically until C. difficile resulted. Endo:Euglycemic Heme: Monitor CBC GI prophylaxis with Pepcid and DVT prophylaxis with SCD/Lovenox 40 mg daily. CTS recommendations pending Full code Level 3 Alexandrea Qureshi MD May 17, 2017 09:59
--- NOTE | 2017-05-17 15:12 | PD.CAR.PN ---
CVT Progress Note Subjective/Hospital Course: Significant for chronic COPD on home O2 at 5 liters, continued tobacco abuse presented by EMS for worsening dyspnea and admitted with COPD exacerbation. He took apparently three nebulizers at home before calling EMS. They treated him with some Solu-Medrol. O2 saturations were in the 70s on admission. They placed him on BiPap where he had some improvement. He was also started on empiric antibiotics. Initial x-ray showed emphysematous changes otherwise no acute infiltrate or failure. He was transferred to the ICU for closer observation. His ABG showed hypercapnic respiratory failure despite the BiPap. He became hypertensive was more tachypneic and required emergent intubation by critical care medicine. The patient remains on the ventilator. We were consulted for some subcu emphysema, right pneumothorax status post chest tube placement. The patient has two chest tubes. He has a pigtail catheter and also a 20-Yoruba catheter on the right lateral chest wall. CT chest was done on the which showed a right chest tube in the tip of the apex, moderate size right lower lobe pneumothorax where the second chest tube was placed by critical care. Chest x-ray this morning showed no visualized pneumothorax, however, some increase in subcu emphysema along the right lateral chest wall. The patient also has some emphysema and bullous changes. We were consulted to evaluate for possible video-assisted thoracoscopy, possible pleurodesis, however at this time his x-ray is showing no evidence of pneumothorax. PAST MEDICAL HISTORY His past medical history significant for: 1. Chronic COPD. 2. Continued tobacco abuse on home O2 at 5 liters. 05/11 we were called today from IR Dr Comer regarding extensive sub q emphysema chest face , arms scrotum pt had the pig tail cath removed yesterday, and immediately notice increased sub q emphysema and air leak to prior chest tube site pt was on 3 liter nasal , was very angry about his swelling also spoke with Dr Paz and Dr Lino/ request repeat CT scan and possible placement of 2nd chest tube 05/12 ct results noted , small bore chest tube placed yesterday right upper chest wall to wall suction, + intermittent air leak (#2) #1 chest tube minimal drainage , no air leak dressing changed to #2 site with Vaseline gauze subq emphysema improved 05/17 pt transferred to [facility] on 05/15 after he developed respiratory distress/ per Dr Garcia note this occurred after getting up to have a large liquid BM. Reportedly he became tachycardic with heart rate in the 140s and was feeling SOB with complaints of burning in chest l He was placed Ventimask 50% with heart rate in 120s with BP 101/72. 05/17: called to see pt again , developed large right tension PTX 3/, right upper chest wall pig tail cath dislodged # 20 north korean cath placed by Dr Toro , and now to 20cm suction / + 1 air leak old right lateral 20 north korean chest tube remains in place to 20 cm with no air leak , still extensive subq emphysema discussed with Dr Lino , suggest PFT if possible , IR for possible pleurodesis , and eval for possible transfer to tertiary center pt is high risk for surgery / 2/2 severe bullous emphysema , chronic hypoxemia , recent hypercapneic resp failure / steroid use Objective: GENERAL: A&O x 3 SKIN: Warm and dry. HEAD: Normocephalic. EYES: No scleral icterus. No injection or drainage. NECK: Supple, trachea midline. No JVD or lymphadenopathy. CARDIOVASCULAR: Regular rate and rhythm without murmurs, gallops, or rubs. RESPIRATORY: diminished both bases, 2 # 20 [place]orean chest tubes Breath sounds equal bilaterally. No accessory muscle use. GASTROINTESTINAL: Abdomen soft, non-tender, nondistended. MUSCULOSKELETAL: No cyanosis, or edema. BACK: Nontender without obvious deformity. No CVA tenderness. Vital Signs Date Time Temp Pulse Resp B/P (MAP) Pulse Ox O2 Delivery O2 Flow Rate FiO2 05/17/17 14:00 115 05/17/17 12:00 87 05/17/17 12:00 98.2 87 14 117/72 (87) 92 05/17/17 10:00 82 05/17/17 08:00 86 05/17/17 08:00 98.2 86 14 108/69 (82) 95 05/17/17 07:46 94 Nasal Cannula 5.00 05/17/17 07:00 95 Nasal Cannula 6.00 05/17/17 06:00 84 05/17/17 04:00 98.2 87 16 103/68 (80) 96 05/17/17 04:00 89 05/17/17 02:00 90 05/17/17 00:00 98.2 98 20 106/65 (79) 95 05/17/17 00:00 96 Nasal Cannula 6.00 05/17/17 00:00 98 05/16/17 22:00 91 05/16/17 20:00 97 Nasal Cannula 5.00 05/16/17 20:00 98.7 109 20 113/77 (89) 98 05/16/17 20:00 85 05/16/17 19:40 95 Nasal Cannula 4.50 05/16/17 16:00 98.3 92 14 109/75 (86) 98 Labs: Laboratory Tests Test 05/17/17 05:30 White Blood Count 10.0 TH/MM3 (4.0-11.0) Red Blood Count 3.98 MIL/MM3 (4.50-5.90) Hemoglobin 12.1 GM/DL (13.0-17.0) Hematocrit 36.3 % (39.0-51.0) Mean Corpuscular Volume 91.2 FL (80.0-100.0) Mean Corpuscular Hemoglobin 30.4 PG (27.0-34.0) Mean Corpuscular Hemoglobin Concent 33.3 % (32.0-36.0) Red Cell Distribution Width 14.4 % (11.6-17.2) Platelet Count 166 TH/MM3 (150-450) Mean Platelet Volume 7.0 FL (7.0-11.0) Neutrophils (%) (Auto) 90.5 % (16.0-70.0) Lymphocytes (%) (Auto) 4.2 % (9.0-44.0) Monocytes (%) (Auto) 4.7 % (0.0-8.0) Eosinophils (%) (Auto) 0.5 % (0.0-4.0) Basophils (%) (Auto) 0.1 % (0.0-2.0) Neutrophils # (Auto) 9.1 TH/MM3 (1.8-7.7) Lymphocytes # (Auto) 0.4 TH/MM3 (1.0-4.8) Monocytes # (Auto) 0.5 TH/MM3 (0-0.9) Eosinophils # (Auto) 0.1 TH/MM3 (0-0.4) Basophils # (Auto) 0.0 TH/MM3 (0-0.2) CBC Comment DIFF FINAL Differential Comment Blood Urea Nitrogen 17 MG/DL (7-18) Creatinine 0.34 MG/DL (0.60-1.30) Random Glucose 122 MG/DL (74-106) Total Protein 5.1 GM/DL (6.4-8.2) Albumin 2.4 GM/DL (3.4-5.0) Calcium Level 8.2 MG/DL (8.5-10.1) Alkaline Phosphatase 66 U/L (45-117) Aspartate Amino Transf (AST/SGOT) 26 U/L (15-37) Alanine Aminotransferase (ALT/SGPT) 73 U/L (12-78) Total Bilirubin 0.3 MG/DL (0.2-1.0) Sodium Level 138 MEQ/L (136-145) Potassium Level 4.4 MEQ/L (3.5-5.1) Chloride Level 98 MEQ/L (98-107) Carbon Dioxide Level 34.3 MEQ/L (21.0-32.0) Anion Gap 6 MEQ/L (5-15) Estimat Glomerular Filtration Rate 263 ML/MIN (>89) Result Diagram: 05/17/1730 05/17/1730 (1) Emphysema (subcutaneous) resulting from a procedure, subsequent encounter (2) Pneumothorax, right Plan: 2 right lateral chest tubes in place resolution of PTX see above note (3) Emphysema of lung Adrianne Andrade May 17, 2017 15:12
--- NOTE | 2017-05-17 17:04 | HHI.PR ---
Subjective Remarks ALERT NO SOB, AT REST LESS SQ AIR RECURRENT PNX OVER WKEND SECOND CT IN PLACE Objective Vital Signs Date Time Temp Pulse Resp B/P (MAP) Pulse Ox O2 Delivery O2 Flow Rate FiO2 05/17/17 14:00 115 05/17/17 12:00 87 05/17/17 12:00 98.2 87 14 117/72 (87) 92 05/17/17 10:00 82 05/17/17 08:00 86 05/17/17 08:00 98.2 86 14 108/69 (82) 95 05/17/17 07:46 94 Nasal Cannula 5.00 05/17/17 07:00 95 Nasal Cannula 6.00 05/17/17 06:00 84 05/17/17 04:00 98.2 87 16 103/68 (80) 96 05/17/17 04:00 89 05/17/17 02:00 90 05/17/17 00:00 98.2 98 20 106/65 (79) 95 05/17/17 00:00 96 Nasal Cannula 6.00 05/17/17 00:00 98 05/16/17 22:00 91 05/16/17 20:00 97 Nasal Cannula 5.00 05/16/17 20:00 98.7 109 20 113/77 (89) 98 05/16/17 20:00 85 05/16/17 19:40 95 Nasal Cannula 4.50 I/O 05/16/17 05/16/17 05/16/17 05/17/17 05/17/17 05/17/17 07:00 15:00 23:00 07:00 15:00 23:00 Intake Total 720 ml 367 ml Output Total 425 ml 910 ml 1024 ml Balance -425 ml -190 ml -657 ml Intake Oral 720 ml 240 ml IV Total 127 ml Output Urine Total 425 ml 850 ml 1000 ml Chest Tube Drainage Total 0 ml 60 ml 24 ml # Bowel Movements 2 0 0 Result Diagram: 05/17/1752905/17/17529 Objective Remarks GENERAL: SKIN: Warm and dry. HEAD: Atraumatic. Normocephalic. EYES: Pupils equal and round. No scleral icterus. No injection or drainage. ENT: No nasal bleeding or discharge. Mucous membranes pink and moist. NECK: Trachea midline. No JVD. CARDIOVASCULAR: Regular rate and rhythm. RESPIRATORY: No accessory muscle use. Clear to auscultation. Breath sounds equal bilaterally. GASTROINTESTINAL: Abdomen soft, non-tender, nondistended. Hepatic and splenic margins not palpable. MUSCULOSKELETAL: Extremities without clubbing, cyanosis, or edema. No obvious deformities. NEUROLOGICAL: Awake and alert. No obvious cranial nerve deficits. Motor grossly within normal limits. Five out of 5 muscle strength in the arms and legs. Normal speech. PSYCHIATRIC: Appropriate mood and affect; insight and judgment normal. Assessment and Plan Assessment and Plan ASS RECURRENT PNX RESP. FAILURE COPD SQ AIR, WITH SQ TUBE PLAN BRONCHODILATORS O2 NEEDED INCREASE ACTIVITY NEEDS VATS AND LEAK REPAIR Salvador Franco MD May 17, 2017 17:04
[2017-05-17] MEDS: ENOXAPARIN SODIUM 40 MG/0.4 ML SYRINGE SQ SCH (18:11)
[2017-05-18] VITALS (15 sets, daily range): BP systolic 111–130; BP diastolic 69–88; PULSE 82–107; RESP 12–23; TEMP 97.6–98.7; O2SAT 92–99
[2017-05-18] MEDS: AZTREONAM INJ 2,000 MG in SODIUM CHLORIDE 0.9% INJ 100 ML IV SCH ×4 (00:12→23:49)
[2017-05-18] MEDS: RESP: ALBUTEROL 2.5 MG/3 ML NEB (PRN) NEB (01:32)
[2017-05-18] MEDS: RESP: ALBUTEROL 2.5 MG/IPRATROPIUM 0.5 MG NEB (SCH) NEB ×5 (04:03→20:28)
[2017-05-18] MEDS: metroNIDAZOLE 500 MG TAB PO SCH ×2 (05:14→14:44)
[2017-05-18] MEDS: MORPHINE SULFATE 2 MG/ML INJ IV PUSH PRN ×3 (05:33→20:07)
[2017-05-18] MEDS: SODIUM CHLORIDE 0.9% FLUSH 10 ML FLUSH IVF PRN ×2 (05:34→20:16)
[2017-05-18] MEDS: CHLORHEXIDINE 0.12% (ORAL KIT) 15 ML CUP MT SCH ×2 (08:00→19:46)
[2017-05-18] MEDS: guaiFENesin E.R. 600 MG TAB PO SCH ×2 (08:40→20:08)
[2017-05-18] MEDS: DOCUSATE SODIUM 50 MG/SENNA 8.6 MG TAB PO SCH ×2 (08:41→20:08)
[2017-05-18] MEDS: FAMOTIDINE 20 MG TAB PO SCH ×2 (08:41→20:08)
[2017-05-18] MEDS: predniSONE 20 MG TAB PO SCH ×2 (08:41→20:08)
[2017-05-18] MEDS: TIOTROPIUM BROMIDE 18 MCG INH INH SCH (08:43)
[2017-05-18] MEDS: BUDESONIDE-FORMOTEROL 160/4.5 MCG INHALER INH SCH ×2 (08:44→20:08)
[2017-05-18] MEDS: FLUTICASONE PROPIONATE 50 MCG/ACT 16 GM NASAL SPRAY EACH NARE SCH ×2 (08:44→20:08)
--- NOTE | 2017-05-18 13:45 | RADRPT ---
EXAM DATE/TIME: 05/18/2017 12:57 [facility] COMPARISON: CHEST SINGLE AP, May 17, 2017, 5:01. INDICATIONS : Evaluate for pneumothorax. MEDICAL HISTORY : Chronic obstructive pulmonary disease. Cerebrovascular disease. SURGICAL HISTORY : Hernia repair x 2 ENCOUNTER: Subsequent ACUITY: 3 weeks PAIN SCORE: 1/10 LOCATION: Bilateral chest FINDINGS: The 2 right sided chest tubes remain in place. No definite pneumothorax. Both lung calderón appear to b e grossly clear and hyperaerated. Then used to be prominent subcutaneous emphysema about the chest wa ll and soft tissues of the neck. This is not significantly changed compared to the prior study. The h eart size is stable. No evidence of pleural effusions. CONCLUSION: Stable examination of the chest compared to the prior study. Maxime Cha MD on May 18, 2017 at 13:43 Board Certified Radiologist. This report was verified electronically.
[2017-05-18] MEDS: oxyCODONE/ACETAMINOPHEN 10 MG/325 MG TAB PO PRN (14:48)
--- NOTE | 2017-05-18 15:17 | HHI.CCPN ---
Subjective Remarks/Hospital Course Patient is a 61-year-old male with past medical history of COPD on chronic home oxygen at 5 liters and tobacco abuse who was admitted to hospitalist service on April 28 for COPD exacerbation. The patient was placed on bronchodilators, IV steroids and empiric antibiotics. Chest x-ray on arrival showed COPD changes , otherwise no acute infiltrate or failure. He was transferred to the ICU today for closer observation. The patient was placed on BiPAP for respiratory distress and his ABG showed acute hypercapnic respiratory failure. A repeat ABG from this afternoon showed worsening respiratory acidosis. Critical care medicine was consulted for critical care management. When seen, the patient was on BiPAP 15/5 with 50% FIO2. He was tachycardiac, tachypneic, hypertensive and using his accessory muscles for respiration. The patient was subsequently intubated by myself and placed on full mechanical ventilation. 05/02 Patient is sedated with Diprivan and Fentanyl drips, s/p CT placement yesterday for right sided PTX. This morning patent noted to have subQ emphysema on right. 05/03 Patient remains sedated with Fentanyl and intubated. Off Diprivan. Afebrile. 05/04: Patient orally intubated time of my evaluation tolerate CPAP trial today. Ordered extubation. 05/05: Extubated successfully yesterday on nasal cannula. Continues to have intermittent air leak from right sided chest tube. Suction decreased to -20 cm water pressure from -40 cm water pressure on right sided chest tube. Subjective: 05/15/17 Patient with COPD and emphysema with R PTX with [address] Transferred to [facility] after he developed respiratory distress after getting up to have a large liquid BM. Reportedly he became tachycardic with heart rate in the 140s and was feeling SOB with complaints of burning in chest "like reflux". He was feeling progressively more short of breath. DAVID Hill states she went to assess the patient and both chest tubes were still to suction without apparent dislodgement. ABG demonstrated chronic hypercapnic and hypoxemic respiratory failure with pH of 7.38/PaCO2 of 61/PA O2 of 65/bicarbonate 36 on 4 L nasal cannula. Chest x-ray demonstrates two right sided chest tubes which appear to be adequately positioned on CXR. There is extensive subcut emphysema bilaterally which has been present previously. Small R apical PTX is stable. Upon arrival to [facility] his heart rate was in 160s with BP 145/93 so Labetalol 20 mg IV and Morphine 1 mg IV was administered by RN. He is currently on Ventimask 50% with heart rate in 120s with BP 101/72. He states he feels better. He is still tachypneic but without accessory muscle use and complains that he "feels like he has a lot of gas (in his abdomen)". He denies n/v. States he had abdominal pain previously but feels improved. 05/16: Patient lying in bed breathing comfortably. New chest tube still has air leak, no air leak in the older chest tube. We will place the old chest tube to water seal and remove if no pneumothorax in am 05/17: No acute distress patient states breathing is improved. Clinical exam shows worsening subcutaneous emphysema. The older posterior chest tube was placed to waterseal yesterday, now with worsening subcu air I have placed to suction again. CT surgery reevaluation requested 05/18: Patient is breathing comfortably but subcutaneous emphysema appears to have advanced over to the neck and involves entire anterior chest and right upper extremity. No respiratory difficulties. Discussed with Dr. Sunshine. Place large bore (36F) chest tube today. Objective Vital Signs Date Time Temp Pulse Resp B/P (MAP) Pulse Ox O2 Delivery O2 Flow Rate FiO2 05/18/17 10:00 87 05/18/17 08:09 96 Nasal Cannula 6.00 05/18/17 08:00 98.4 15 123/88 (100) 05/16/17 07:00 50 Intake and Output 05/18/17 05/18/17 05/19/17 08:00 16:00 00:00 Intake Total 1060 ml Output Total 570 ml Balance 490 ml Result Diagram: 05/17/17 0530 05/17/17 0530 Imaging Last Impressions Chest X-Ray 05/03/17 0600 Signed Impressions: Service Date/Time: Wednesday, May 03, 2017 03:41 - CONCLUSION: 1. The right-sided chest tube remains in place with no visualized pneumothorax however there has been and interval increase in the subcutaneous emphysema along the right lateral chest wall. 2. Underlying emphysema and bullous change. Manny Zuniga MD Chest CT 05/02/17 0000 Signed Impressions: Service Date/Time: Tuesday, May 02, 2017 09:32 - CONCLUSION: 1. Right chest drainage tube in place with tip at apex. There is a moderate size anterior right lower lung pneumothorax which extends to the mid chest. 2. Extensive subcutaneous emphysema on the right side and some mild lower left subcutaneous emphysema. Allen Martinez MD Procedures Chest tube placement 05/02/2017. Objective Remarks GENERAL: Patient is 61 yo male lying in ISC bed on NC appears in no acute distress SKIN: Warm and dry. HEAD: Normocephalic. EYES: No scleral icterus. No injection or drainage. NECK: Supple, trachea midline. No JVD or lymphadenopathy. Subcutaneous emphysema is extending into the neck bilaterally CARDIOVASCULAR: Heart sounds distant, sinus rhythm rate. No murmurs rubs or gallops. RESPIRATORY: Palpable subcutaneous emphysema anterior chest bilaterally, extending to bilateral upper extremities, crunching bilateral breath sounds c/w subcut emphysema, breath sounds equal bilaterally, diminished R apex. 20 F chest tube x2 to right side, Lower new chest tube with air leak MUSCULOSKELETAL: No cyanosis, or edema. Neuro: Awake and alert, following commands, moves all 4 extremities. Urinary Catheter: Yes Assessment to: Continue A/P Assessment and Plan Assessment: 1. Acute hypercapnic and hypoxemic respiratory failure (intubated 05/01, extubated 05/05) 2. COPD exacerbation on home oxygen. 3. New Right sided pneumothorax s/p CT placement 4. Extensive Sub Q emphysema 5. Active tobacco use. 6. Hypertension. 7. Severe emphysema Plan Neuro: Morphine as needed for pain Pulm: Acute hypercarbic hypercapnic respiratory failure (resolved). Intubated . Extubated 05/04/17 s/p right CT placement 05/01 for right sided pneumothorax, continue with 40cm wall suction Persistent significant sq emphysema 3/3 with with Halicat due to respiratory distress. Initial CXR with R apical PTX. Subsequently had worsening SOB and complaints of abdominal pain. WBC 32.6, Dr. Toro Obtained CT chest/abd/pelvis which demonstrated Large R PTX with evidence of tension. Placed additional 20 Swedish chest tube with +air leak, anterior/inferior to existing tube, Removed pigtail catheter which had no airleak. Bilateral 20 F chest tubes to suction. Place large bore (36F) chest tube today, discussed with Dr. sunshine Previously: CT chest 05/02 showed right chest tube in place with tip at apex. There is a moderate size anterior right lower lung pneumothorax which extends to the mid chest. Extensive subcutaneous emphysema on the right side and some mild lower left subcutaneous emphysema. [address] placement by IR 05/02 Pigtail chest tube was removed 05/10/17 and patient developed increasing subcutaneous emphysema so underwent CT guided pigtail chest tube placement right upper chest. On prednisone 20 twice a day. Pulmonology following, Dr. An Continue Mucinex 600 twice a day Continue DuoNeb every 4 hours. Continue albuterol every 2 hours as needed Symbicort 160/4.5 2 puffs bid CV: Monitor HR and BP and maintain MAP> 65 mmHg. Metoprolol 2.5 IV q6 prn heart rate >120. FEN/RENAL: Chronic compensatory metabolic alkalosis Normal creatinine GI: Regular diet CT abdomen and pelvis - unremarkable. There is subcutaneous emphysema along abdomen and pelvis which may be contributing to patient's discomfort. ID: Having diarrhea but C. difficile negative, will DC Flagyl CT chest demonstrates right lower lobe opacity which may be related to compression due to PTX vs infiltrate. Treat until culture data. Continue on aztreonam. On Flagyl empirically until C. difficile neg -DC Flagyl. Endo:Euglycemic Heme: Monitor CBC GI prophylaxis with Pepcid and DVT prophylaxis with SCD/Lovenox 40 mg daily. CTS pulmonary following Full code Level 3 Alexandrea Qureshi MD May 18, 2017 15:17
[2017-05-18] MEDS ORDERED: MIDAZOLAM HCL 5 MG/ML VIAL (1 ML) ONE (15:21)
[2017-05-18] MEDS ORDERED: MIDAZOLAM HCL 5 MG/5 ML VIAL IV PUSH ONE (15:30)
--- NOTE | 2017-05-18 16:22 | PD.PROCEDR ---
Procedure Note Procedure Procedure: Right 36 F chest tube placement Indication: Worsening subcutaneous emphysema Details of procedure: Informed consent was obtained from the patient after discussion of risks, benefits, alternatives. The patient was positioned. He was given total Versed 3 mg IV for anxiolysis,and Fentanyl 100 mcg IV for pain . The lateral chest wall was cleaned with ChloraPrep x4. Existing older chest tube was removed. 1% lidocaine 4cc, was used for local anesthesia and injected into the subcutaneous and deep muscle tissues. Existing skin incision was widened with a scalpel blade. A hemostat was used for blunt dissection. The hemostat was entered into the pleural space superior to the rib with further release of air. Wound was explored with my finger. A size 36 [place] chest tube was inserted with a Moira clamp into the pleural cavity and directed toward the apex to a depth of 14 cm. 2-0 silk was used to close the wound and to secure the chest tube. A sterile dressing was applied. The chest tube was connected to a Pleur- evac drainage system. There was a 2+ air leak. Estimated blood loss: <5 mL Complications: None. Stat chest x-ray is pending Alexandrea Qureshi MD May 18, 2017 16:21
[2017-05-18] MEDS ORDERED: LIDOCAINE HCL 1% 50 ML VIAL INFIL ONE (16:30)
--- NOTE | 2017-05-18 16:32 | RADRPT ---
EXAM DATE/TIME: 05/18/2017 16:16 [facility] COMPARISON: CHEST SINGLE AP, May 18, 2017, 12:57. INDICATIONS : Post right chest tube placement. MEDICAL HISTORY : Chronic obstructive pulmonary disease. Cerebrovascular disease. SURGICAL HISTORY : Hernia repair x 2. ENCOUNTER: Subsequent ACUITY: 1 month PAIN SCORE: 0/10 LOCATION: Bilateral chest FINDINGS: There are 2 right-sided chest tubes in place. No definite pneumothorax. Both lung calderón appear to be hyperaerated. No focal pulmonary infiltrates. Heart size is stable. No definite pleural effusions. T here continues to be extensive subcutaneous emphysema throughout the chest wall. No change compared t o the prior exam. CONCLUSION: Stable followup chest x-ray compared to the prior exam. Maxime Cha MD on May 18, 2017 at 16:29 Board Certified Radiologist. This report was verified electronically.
[2017-05-18] MEDS: ENOXAPARIN SODIUM 40 MG/0.4 ML SYRINGE SQ SCH (17:04)
[2017-05-19] VITALS (15 sets, daily range): BP systolic 117–141; BP diastolic 69–87; PULSE 71–105; RESP 14–22; TEMP 98–98.7; O2SAT 94–99
[2017-05-19] MEDS: MORPHINE SULFATE 2 MG/ML INJ IV PUSH PRN ×4 (00:01→23:32)
[2017-05-19] MEDS: RESP: ALBUTEROL 2.5 MG/IPRATROPIUM 0.5 MG NEB (SCH) NEB ×7 (00:17→23:15)
[2017-05-19] MEDS: SODIUM CHLORIDE 0.9% FLUSH 10 ML FLUSH IVF PRN ×2 (04:26)
[2017-05-19 05:24] LABS: AUTOMATED NEUTROPHIL # 11.1 TH/MM3 (1.8-7.7); BASOPHIL % 0.2 % (0.0-2.0); EOSINOPHIL % 0.2 % (0.0-4.0); HEMATOCRIT 35.2 % (39.0-51.0); HEMOGLOBIN 11.6 GM/DL (13.0-17.0); LYMPH % 4.1 % (9.0-44.0); LYMPHOCYTE # 0.5 TH/MM3 (1.0-4.8); MEAN PLATELET VOLUME 7.1 FL (7.0-11.0); MONO % 4.1 % (0.0-8.0); MONOCYTE # 0.5 TH/MM3 (0-0.9); NEUT % 91.4 % (16.0-70.0); PLATELET COUNT 171 TH/MM3 (150-450); RED BLOOD COUNT 3.87 MIL/MM3 (4.50-5.90); RED CELL DISTRIBUTION WIDTH 14.3 % (11.6-17.2); WHITE BLOOD COUNT 12.1 TH/MM3 (4.0-11.0)
--- NOTE | 2017-05-19 05:36 | RADRPT ---
EXAM DATE/TIME: 05/19/2017 04:59 [facility] COMPARISON: CHEST SINGLE AP, May 18, 2017, 16:16. INDICATIONS : Shortness of breath. MEDICAL HISTORY : Chronic obstructive pulmonary disease. Cerebrovascular disease SURGICAL HISTORY : Hernia repair x 2. ENCOUNTER: Subsequent ACUITY: 3 weeks PAIN SCORE: 3/10 LOCATION: Bilateral chest FINDINGS: Portable AP view of the chest demonstrates a normal-sized cardiac silhouette with calcification of th e aorta. Lungs are hyperexpanded. There are 2 right chest tubes in place. No pneumothorax is identifi ed. No pleural effusion or airspace consolidation is identified. There is extensive bilateral chest w all subcutaneous emphysema. CONCLUSION: Stable chest x-ray. 2 right chest tubes remain present and no pneumothorax is seen. There is stable s evere bilateral chest wall subcutaneous emphysema. Titus Reyes MD on May 19, 2017 at 5:33 Board Certified Radiologist. This report was verified electronically.
[2017-05-19 06:05] LABS: ALBUMIN 2.4 GM/DL (3.4-5.0); ALT (GPT) 49 U/L (12-78); AST (GOT) 12 U/L (15-37); BICARBONATE 32.5 MEQ/L (21.0-32.0); BLOOD UREA NITROGEN 15 MG/DL (7-18); CALCIUM 7.7 MG/DL (8.5-10.1); CHLORIDE 103 MEQ/L (98-107); CREATININE 0.32 MG/DL (0.60-1.30); GLOMERULAR FILTRATION RATE 282 ML/MIN (>89); GLUCOSE,RANDOM 135 MG/DL (74-106); MAGNESIUM 2.1 MG/DL (1.5-2.5); SODIUM (NA) 139 MEQ/L (136-145)
[2017-05-19 06:07] LABS: ALKALINE PHOSPHATASE 60 U/L (45-117); TOTAL BILIRUBIN ADULT 0.2 MG/DL (0.2-1.0); TOTAL PROTEIN 5.1 GM/DL (6.4-8.2)
[2017-05-19] MEDS: CHLORHEXIDINE 0.12% (ORAL KIT) 15 ML CUP MT SCH ×2 (08:00→20:00)
[2017-05-19] MEDS: guaiFENesin E.R. 600 MG TAB PO SCH ×2 (08:53→20:57)
[2017-05-19] MEDS: TIOTROPIUM BROMIDE 18 MCG INH INH SCH (08:54)
[2017-05-19] MEDS: FLUTICASONE PROPIONATE 50 MCG/ACT 16 GM NASAL SPRAY EACH NARE SCH ×2 (08:54→20:57)
[2017-05-19] MEDS: predniSONE 20 MG TAB PO SCH ×2 (08:54→20:57)
[2017-05-19] MEDS: FAMOTIDINE 20 MG TAB PO SCH ×2 (09:00→20:57)
[2017-05-19] MEDS: DOCUSATE SODIUM 50 MG/SENNA 8.6 MG TAB PO SCH ×2 (09:00→20:57)
[2017-05-19] MEDS: AZTREONAM INJ 2,000 MG in SODIUM CHLORIDE 0.9% INJ 100 ML IV SCH ×2 (10:38→17:20)
--- NOTE | 2017-05-19 12:59 | HHI.CCPN ---
Subjective Remarks/Hospital Course Patient is a 61-year-old male with past medical history of COPD on chronic home oxygen at 5 liters and tobacco abuse who was admitted to hospitalist service on April 28 for COPD exacerbation. The patient was placed on bronchodilators, IV steroids and empiric antibiotics. Chest x-ray on arrival showed COPD changes , otherwise no acute infiltrate or failure. He was transferred to the ICU today for closer observation. The patient was placed on BiPAP for respiratory distress and his ABG showed acute hypercapnic respiratory failure. A repeat ABG from this afternoon showed worsening respiratory acidosis. Critical care medicine was consulted for critical care management. When seen, the patient was on BiPAP 15/5 with 50% FIO2. He was tachycardiac, tachypneic, hypertensive and using his accessory muscles for respiration. The patient was subsequently intubated by myself and placed on full mechanical ventilation. 05/02 Patient is sedated with Diprivan and Fentanyl drips, s/p CT placement yesterday for right sided PTX. This morning patent noted to have subQ emphysema on right. 05/03 Patient remains sedated with Fentanyl and intubated. Off Diprivan. Afebrile. 05/04: Patient orally intubated time of my evaluation tolerate CPAP trial today. Ordered extubation. 05/05: Extubated successfully yesterday on nasal cannula. Continues to have intermittent air leak from right sided chest tube. Suction decreased to -20 cm water pressure from -40 cm water pressure on right sided chest tube. Subjective: 05/15/17 Patient with COPD and emphysema with R PTX with [address] Transferred to [facility] after he developed respiratory distress after getting up to have a large liquid BM. Reportedly he became tachycardic with heart rate in the 140s and was feeling SOB with complaints of burning in chest "like reflux". He was feeling progressively more short of breath. DAVID Hill states she went to assess the patient and both chest tubes were still to suction without apparent dislodgement. ABG demonstrated chronic hypercapnic and hypoxemic respiratory failure with pH of 7.38/PaCO2 of 61/PA O2 of 65/bicarbonate 36 on 4 L nasal cannula. Chest x-ray demonstrates two right sided chest tubes which appear to be adequately positioned on CXR. There is extensive subcut emphysema bilaterally which has been present previously. Small R apical PTX is stable. Upon arrival to [facility] his heart rate was in 160s with BP 145/93 so Labetalol 20 mg IV and Morphine 1 mg IV was administered by RN. He is currently on Ventimask 50% with heart rate in 120s with BP 101/72. He states he feels better. He is still tachypneic but without accessory muscle use and complains that he "feels like he has a lot of gas (in his abdomen)". He denies n/v. States he had abdominal pain previously but feels improved. 05/16: Patient lying in bed breathing comfortably. New chest tube still has air leak, no air leak in the older chest tube. We will place the old chest tube to water seal and remove if no pneumothorax in am 05/17: No acute distress patient states breathing is improved. Clinical exam shows worsening subcutaneous emphysema. The older posterior chest tube was placed to waterseal yesterday, now with worsening subcu air I have placed to suction again. CT surgery reevaluation requested 05/18: Patient is breathing comfortably but subcutaneous emphysema appears to have advanced over to the neck and involves entire anterior chest and right upper extremity. No respiratory difficulties. Discussed with Dr. Sunshine. Place large bore (36F) chest tube today. 05/19: Lung well expanded, air leak persists and facial subcutaneous air increased, but chest wall air decreased. Continue suction to both tubes, try to sclerose soon. Objective Vital Signs Date Time Temp Pulse Resp B/P (MAP) Pulse Ox O2 Delivery O2 Flow Rate FiO2 05/19/17 12:00 98.2 98 22 124/84 (97) 99 05/19/17 08:27 Nasal Cannula 6.00 05/16/17 07:00 50 Intake and Output 05/19/17 05/19/17 05/20/17 08:00 16:00 00:00 Intake Total 1280 ml Output Total 745 ml Balance 535 ml Result Diagram: 05/19/1742605/19/17426 Imaging Last Impressions Chest X-Ray 05/03/17 0600 Signed Impressions: Service Date/Time: Wednesday, May 03, 2017 03:41 - CONCLUSION: 1. The right-sided chest tube remains in place with no visualized pneumothorax however there has been and interval increase in the subcutaneous emphysema along the right lateral chest wall. 2. Underlying emphysema and bullous change. Manny Zuniga MD Chest CT 05/02/17 0000 Signed Impressions: Service Date/Time: Tuesday, May 02, 2017 09:32 - CONCLUSION: 1. Right chest drainage tube in place with tip at apex. There is a moderate size anterior right lower lung pneumothorax which extends to the mid chest. 2. Extensive subcutaneous emphysema on the right side and some mild lower left subcutaneous emphysema. Allen Martinez MD Procedures Chest tube placement 05/02/2017. Objective Remarks GENERAL: Patient is 61 yo male lying in ISC bed on NC appears in no acute distress SKIN: Warm and dry. HEAD: Normocephalic. EYES: No scleral icterus. Subcutaneous emphysema is extending into the neck bilaterally CARDIOVASCULAR: Heart sounds distant, sinus rhythm rate. No murmurs rubs or gallops. RESPIRATORY: Less palpable subcutaneous emphysema anterior chest bilaterally, extending to bilateral upper extremities, crunching bilateral breath sounds c/w subcut emphysema, breath sounds equal bilaterally, diminished R apex. Two chest tubes. Lower, large new chest tube with air leak. MUSCULOSKELETAL: No cyanosis, or edema. Neuro: Awake and alert, following commands, moves all 4 extremities. A/P Assessment and Plan Assessment: 1. Acute hypercapnic and hypoxemic respiratory failure (intubated 05/01, extubated 05/05) 2. COPD exacerbation on home oxygen. 3. New Right sided pneumothorax s/p CT placement 4. Extensive Sub Q emphysema 5. Active tobacco use. 6. Hypertension. 7. Severe emphysema 8. Bronchopleural fistula. Plan Neuro: Morphine as needed for pain Pulm: Acute hypercarbic hypercapnic respiratory failure (resolved). Intubated . Extubated 05/04/17 s/p right CT placement 05/01 for right sided pneumothorax, continue with 40cm wall suction Persistent significant sq emphysema 3/3 with with Halicat due to respiratory distress. Initial CXR with R apical PTX. Subsequently had worsening SOB and complaints of abdominal pain. WBC 32.6, Dr. Toro Obtained CT chest/abd/pelvis which demonstrated Large R PTX with evidence of tension. Placed additional 20 Uzbek chest tube with +air leak, anterior/inferior to existing tube, Removed pigtail catheter which had no airleak. Bilateral 20 F chest tubes to suction. Place large bore (36F) chest tube today, discussed with Dr. sunshine Previously: CT chest 05/02 showed right chest tube in place with tip at apex. There is a moderate size anterior right lower lung pneumothorax which extends to the mid chest. Extensive subcutaneous emphysema on the right side and some mild lower left subcutaneous emphysema. [address] placement by IR 05/02 Pigtail chest tube was removed 05/10/17 and patient developed increasing subcutaneous emphysema so underwent CT guided pigtail chest tube placement right upper chest. On prednisone 20 twice a day. Pulmonology following, Dr. An Continue Mucinex 600 twice a day Continue DuoNeb every 4 hours. Continue albuterol every 2 hours as needed Symbicort 160/4.5 2 puffs bid CV: Monitor HR and BP and maintain MAP> 65 mmHg. Metoprolol 2.5 IV q6 prn heart rate >120. FEN/RENAL: Chronic compensatory metabolic alkalosis Normal creatinine GI: Regular diet CT abdomen and pelvis - unremarkable. There is subcutaneous emphysema along abdomen and pelvis which may be contributing to patient's discomfort. ID: Having diarrhea but C. difficile negative, will DC Flagyl CT chest demonstrates right lower lobe opacity which may be related to compression due to PTX vs infiltrate. Treat until culture data. Continue on aztreonam. On Flagyl empirically until C. difficile neg -DC Flagyl. Endo:Euglycemic Heme: Monitor CBC GI prophylaxis with Pepcid and DVT prophylaxis with SCD/Lovenox 40 mg daily. CTS pulmonary following Overall impression: Tough predicament. This patient is not a candidate for a pulmonary resection; air leaks will persist for ages afterwards. We will try to sclerose him. Ivan Sunshine MD May 19, 2017 12:59
--- NOTE | 2017-05-19 16:28 | PD.CAR.PN ---
CVT Progress Note Subjective/Hospital Course: Significant for chronic COPD on home O2 at 5 liters, continued tobacco abuse presented by EMS for worsening dyspnea and admitted with COPD exacerbation. He took apparently three nebulizers at home before calling EMS. They treated him with some Solu-Medrol. O2 saturations were in the 70s on admission. They placed him on BiPap where he had some improvement. He was also started on empiric antibiotics. Initial x-ray showed emphysematous changes otherwise no acute infiltrate or failure. He was transferred to the ICU for closer observation. His ABG showed hypercapnic respiratory failure despite the BiPap. He became hypertensive was more tachypneic and required emergent intubation by critical care medicine. The patient remains on the ventilator. We were consulted for some subcu emphysema, right pneumothorax status post chest tube placement. The patient has two chest tubes. He has a pigtail catheter and also a 20-Uzbek catheter on the right lateral chest wall. CT chest was done on the which showed a right chest tube in the tip of the apex, moderate size right lower lobe pneumothorax where the second chest tube was placed by critical care. Chest x-ray this morning showed no visualized pneumothorax, however, some increase in subcu emphysema along the right lateral chest wall. The patient also has some emphysema and bullous changes. We were consulted to evaluate for possible video-assisted thoracoscopy, possible pleurodesis, however at this time his x-ray is showing no evidence of pneumothorax. PAST MEDICAL HISTORY His past medical history significant for: 1. Chronic COPD. 2. Continued tobacco abuse on home O2 at 5 liters. 05/11 we were called today from IR Dr Comer regarding extensive sub q emphysema chest face , arms scrotum pt had the pig tail cath removed yesterday, and immediately notice increased sub q emphysema and air leak to prior chest tube site pt was on 3 liter nasal , was very angry about his swelling also spoke with Dr Paz and Dr Lino/ request repeat CT scan and possible placement of 2nd chest tube 05/12 ct results noted , small bore chest tube placed yesterday right upper chest wall to wall suction, + intermittent air leak (#2) #1 chest tube minimal drainage , no air leak dressing changed to #2 site with Vaseline gauze subq emphysema improved 05/17 pt transferred to [facility] on 05/15 after he developed respiratory distress/ per Dr Garcia note this occurred after getting up to have a large liquid BM. Reportedly he became tachycardic with heart rate in the 140s and was feeling SOB with complaints of burning in chest l He was placed Ventimask 50% with heart rate in 120s with BP 101/72. 05/17: called to see pt again , developed large right tension PTX 05/16, right upper chest wall pig tail cath dislodged # 20 hong konger cath placed by Dr Toro , and now to 20cm suction / + 1 air leak old right lateral 20 hong konger chest tube remains in place to 20 cm with no air leak , still extensive subq emphysema discussed with Dr Lino , suggest PFT if possible , IR for possible pleurodesis , and eval for possible transfer to tertiary center pt is high risk for surgery / 2/2 severe bullous emphysema , chronic hypoxemia , recent hypercapneic resp failure / steroid use 05/19 spoke in depth with Dr Gandhi will sign off poor candidate for surgery , FEV1 0.58 still has significant sub q emphysema despite large bore chest tube Objective: GENERAL: A&O x 3 SKIN: Warm and dry. significant sub q air chest arms and face HEAD: Normocephalic. EYES: No scleral icterus. No injection or drainage. NECK: Supple, trachea midline. No JVD or lymphadenopathy. CARDIOVASCULAR: Regular rate and rhythm without murmurs, gallops, or rubs. RESPIRATORY: Breath sounds equal bilaterally. No accessory muscle use. right lateral large bore tube + 1 air leak small #20 lateral chest tube no air leak GASTROINTESTINAL: Abdomen soft, non-tender, nondistended. MUSCULOSKELETAL: No cyanosis, or edema. BACK: Nontender without obvious deformity. No CVA tenderness. Vital Signs Date Time Temp Pulse Resp B/P (MAP) Pulse Ox O2 Delivery O2 Flow Rate FiO2 05/19/17 14:00 103 05/19/17 12:00 98.2 98 22 124/84 (97) 99 05/19/17 12:00 98 05/19/17 10:00 94 05/19/17 08:27 94 Nasal Cannula 6.00 05/19/17 08:00 93 05/19/17 08:00 98.4 89 22 125/82 (96) 97 05/19/17 08:00 92 Nasal Cannula 6.00 05/19/17 06:00 88 05/19/17 04:19 96 Nasal Cannula 6.00 05/19/17 04:00 71 05/19/17 04:00 98.2 71 18 129/81 (97) 94 05/19/17 02:00 97 05/19/17 00:00 98.0 88 14 131/76 (94) 95 05/19/17 00:00 88 05/18/17 22:00 83 05/18/17 20:31 96 Nasal Cannula 6.00 05/18/17 20:00 98.0 87 12 130/86 (101) 99 05/18/17 20:00 83 05/18/17 19:00 97 Nasal Cannula 6.00 05/18/17 18:00 107 Labs: Laboratory Tests Test 05/19/17 04:27 White Blood Count 12.1 TH/MM3 (4.0-11.0) Red Blood Count 3.87 MIL/MM3 (4.50-5.90) Hemoglobin 11.6 GM/DL (13.0-17.0) Hematocrit 35.2 % (39.0-51.0) Mean Corpuscular Volume 91.0 FL (80.0-100.0) Mean Corpuscular Hemoglobin 30.0 PG (27.0-34.0) Mean Corpuscular Hemoglobin Concent 33.0 % (32.0-36.0) Red Cell Distribution Width 14.3 % (11.6-17.2) Platelet Count 171 TH/MM3 (150-450) Mean Platelet Volume 7.1 FL (7.0-11.0) Neutrophils (%) (Auto) 91.4 % (16.0-70.0) Lymphocytes (%) (Auto) 4.1 % (9.0-44.0) Monocytes (%) (Auto) 4.1 % (0.0-8.0) Eosinophils (%) (Auto) 0.2 % (0.0-4.0) Basophils (%) (Auto) 0.2 % (0.0-2.0) Neutrophils # (Auto) 11.1 TH/MM3 (1.8-7.7) Lymphocytes # (Auto) 0.5 TH/MM3 (1.0-4.8) Monocytes # (Auto) 0.5 TH/MM3 (0-0.9) Eosinophils # (Auto) 0.0 TH/MM3 (0-0.4) Basophils # (Auto) 0.0 TH/MM3 (0-0.2) CBC Comment DIFF FINAL Differential Comment Blood Urea Nitrogen 15 MG/DL (7-18) Creatinine 0.32 MG/DL (0.60-1.30) Random Glucose 135 MG/DL (74-106) Total Protein 5.1 GM/DL (6.4-8.2) Albumin 2.4 GM/DL (3.4-5.0) Calcium Level 7.7 MG/DL (8.5-10.1) Magnesium Level 2.1 MG/DL (1.5-2.5) Alkaline Phosphatase 60 U/L (45-117) Aspartate Amino Transf (AST/SGOT) 12 U/L (15-37) Alanine Aminotransferase (ALT/SGPT) 49 U/L (12-78) Total Bilirubin 0.2 MG/DL (0.2-1.0) Sodium Level 139 MEQ/L (136-145) Potassium Level 3.8 MEQ/L (3.5-5.1) Chloride Level 103 MEQ/L (98-107) Carbon Dioxide Level 32.5 MEQ/L (21.0-32.0) Anion Gap 4 MEQ/L (5-15) Estimat Glomerular Filtration Rate 282 ML/MIN (>89) Result Diagram: 05/19/1742605/19/177 (1) Emphysema (subcutaneous) resulting from a procedure, subsequent encounter (2) Pneumothorax, right Plan: #20 , and # 36 right lateral chest tubes in place resolution of PTX significant sub air poor , high risk for any thoracic surgery 2/2 poor FEV1, extensive blebs / severe obstructive and restrictive disease discussed with roman Lau sign off (3) Emphysema of lung Adrianne Andrade May 19, 2017 16:28
--- NOTE | 2017-05-19 16:42 | HHI.PR ---
Subjective Remarks ALERT NO SOB, AT REST SQ AIR WORSE TODAY RECURRENT PNX OVER WKEND SECOND CT IN PLACE Objective Vital Signs Date Time Temp Pulse Resp B/P (MAP) Pulse Ox O2 Delivery O2 Flow Rate FiO2 05/19/17 14:00 103 05/19/17 12:00 98.2 98 22 124/84 (97) 99 05/19/17 12:00 98 05/19/17 10:00 94 05/19/17 08:27 94 Nasal Cannula 6.00 05/19/17 08:00 93 05/19/17 08:00 98.4 89 22 125/82 (96) 97 05/19/17 08:00 92 Nasal Cannula 6.00 05/19/17 06:00 88 05/19/17 04:19 96 Nasal Cannula 6.00 05/19/17 04:00 71 05/19/17 04:00 98.2 71 18 129/81 (97) 94 05/19/17 02:00 97 05/19/17 00:00 98.0 88 14 131/76 (94) 95 05/19/17 00:00 88 05/18/17 22:00 83 05/18/17 20:31 96 Nasal Cannula 6.00 05/18/17 20:00 98.0 87 12 130/86 (101) 99 05/18/17 20:00 83 05/18/17 19:00 97 Nasal Cannula 6.00 05/18/17 18:00 107 I/O 05/18/17 05/18/17 05/18/17 05/19/17 05/19/17 05/19/17 07:00 15:00 23:00 07:00 15:00 23:00 Intake Total 1060 ml 660 ml 1280 ml Output Total 570 ml 525 ml 745 ml Balance 490 ml 135 ml 535 ml Intake Oral 960 ml 660 ml 960 ml IV Total 100 ml 320 ml Output Urine Total 550 ml 525 ml 725 ml Chest Tube Drainage Total 20 ml 0 ml 20 ml # Bowel Movements 3 0 0 Result Diagram: 05/19/1742605/19/17426 Objective Remarks GENERAL: SKIN: Warm and dry. HEAD: Atraumatic. Normocephalic. EYES: Pupils equal and round. No scleral icterus. No injection or drainage. ENT: No nasal bleeding or discharge. Mucous membranes pink and moist. NECK: Trachea midline. No JVD. CARDIOVASCULAR: Regular rate and rhythm. RESPIRATORY: No accessory muscle use. Clear to auscultation. Breath sounds equal bilaterally. GASTROINTESTINAL: Abdomen soft, non-tender, nondistended. Hepatic and splenic margins not palpable. MUSCULOSKELETAL: Extremities without clubbing, cyanosis, or edema. No obvious deformities. NEUROLOGICAL: Awake and alert. No obvious cranial nerve deficits. Motor grossly within normal limits. Five out of 5 muscle strength in the arms and legs. Normal speech. PSYCHIATRIC: Appropriate mood and affect; insight and judgment normal. Assessment and Plan Assessment and Plan ASS RECURRENT PNX RESP. FAILURE COPD SQ AIR, DRAINED SOME AIR WITH 18 GUAGE SQ CATH PLAN BRONCHODILATORS O2 NEEDED INCREASE ACTIVITY Salvador Franco MD May 19, 2017 16:42
[2017-05-19] MEDS: ENOXAPARIN SODIUM 40 MG/0.4 ML SYRINGE SQ SCH (17:21)
[2017-05-19] MEDS: BUDESONIDE-FORMOTEROL 160/4.5 MCG INHALER INH SCH ×2 (17:43→20:57)
[2017-05-20] VITALS (13 sets, daily range): BP systolic 116–130; BP diastolic 56–83; PULSE 92–108; RESP 18–22; TEMP 97.8–98.9; O2SAT 94–97
[2017-05-20] MEDS: AZTREONAM INJ 2,000 MG in SODIUM CHLORIDE 0.9% INJ 100 ML IV SCH ×4 (00:57→23:55)
[2017-05-20] MEDS: RESP: ALBUTEROL 2.5 MG/IPRATROPIUM 0.5 MG NEB (SCH) NEB ×5 (04:06→23:48)
[2017-05-20] MEDS: MORPHINE SULFATE 2 MG/ML INJ IV PUSH PRN ×3 (04:39→20:39)
--- NOTE | 2017-05-20 07:16 | RADRPT ---
EXAM DATE/TIME: 05/20/2017 05:40 [facility] COMPARISON: CHEST SINGLE AP, May 19, 2017, 4:59. INDICATIONS : Short of breath. MEDICAL HISTORY : Chronic obstructive pulmonary disease. Cerebrovascular disease. SURGICAL HISTORY : Hernia repair x 2. ENCOUNTER: Subsequent ACUITY: 3 weeks PAIN SCORE: Non-responsive. LOCATION: Bilateral chest FINDINGS: A single view of the chest demonstrates again very impressive subcutaneous air across the chest. 2 ri ght-sided chest tubes are seen without significant residual pleural air. The anterior junction line d oes appear due to shift from right to left suggesting increased pressure on the right The cardiomedia stinal contours are unremarkable. Osseous structures are intact. CONCLUSION: Significant subcutaneous air remains. 2 right-sided chest tubes without significant pleural air. Chetan Jules MD on May 20, 2017 at 7:13 Board Certified Radiologist. This report was verified electronically.
[2017-05-20] MEDS: CHLORHEXIDINE 0.12% (ORAL KIT) 15 ML CUP MT SCH ×2 (08:00→20:00)
[2017-05-20] MEDS: guaiFENesin E.R. 600 MG TAB PO SCH ×2 (08:35→20:35)
[2017-05-20] MEDS: DOCUSATE SODIUM 50 MG/SENNA 8.6 MG TAB PO SCH ×2 (08:36→20:35)
[2017-05-20] MEDS: FAMOTIDINE 20 MG TAB PO SCH ×2 (08:36→20:35)
[2017-05-20] MEDS: predniSONE 20 MG TAB PO SCH ×2 (08:36→20:35)
--- NOTE | 2017-05-20 10:06 | HHI.CCPN ---
Subjective Remarks/Hospital Course Patient is a 61-year-old male with past medical history of COPD on chronic home oxygen at 5 liters and tobacco abuse who was admitted to hospitalist service on April 28 for COPD exacerbation. The patient was placed on bronchodilators, IV steroids and empiric antibiotics. Chest x-ray on arrival showed COPD changes , otherwise no acute infiltrate or failure. He was transferred to the ICU today for closer observation. The patient was placed on BiPAP for respiratory distress and his ABG showed acute hypercapnic respiratory failure. A repeat ABG from this afternoon showed worsening respiratory acidosis. Critical care medicine was consulted for critical care management. When seen, the patient was on BiPAP 15/5 with 50% FIO2. He was tachycardiac, tachypneic, hypertensive and using his accessory muscles for respiration. The patient was subsequently intubated by myself and placed on full mechanical ventilation. 05/02 Patient is sedated with Diprivan and Fentanyl drips, s/p CT placement yesterday for right sided PTX. This morning patent noted to have subQ emphysema on right. 05/03 Patient remains sedated with Fentanyl and intubated. Off Diprivan. Afebrile. 05/04: Patient orally intubated time of my evaluation tolerate CPAP trial today. Ordered extubation. 05/05: Extubated successfully yesterday on nasal cannula. Continues to have intermittent air leak from right sided chest tube. Suction decreased to -20 cm water pressure from -40 cm water pressure on right sided chest tube. Subjective: 05/15/17 Patient with COPD and emphysema with R PTX with [address] Transferred to [facility] after he developed respiratory distress after getting up to have a large liquid BM. Reportedly he became tachycardic with heart rate in the 140s and was feeling SOB with complaints of burning in chest "like reflux". He was feeling progressively more short of breath. DAVID Hill states she went to assess the patient and both chest tubes were still to suction without apparent dislodgement. ABG demonstrated chronic hypercapnic and hypoxemic respiratory failure with pH of 7.38/PaCO2 of 61/PA O2 of 65/bicarbonate 36 on 4 L nasal cannula. Chest x-ray demonstrates two right sided chest tubes which appear to be adequately positioned on CXR. There is extensive subcut emphysema bilaterally which has been present previously. Small R apical PTX is stable. Upon arrival to [facility] his heart rate was in 160s with BP 145/93 so Labetalol 20 mg IV and Morphine 1 mg IV was administered by RN. He is currently on Ventimask 50% with heart rate in 120s with BP 101/72. He states he feels better. He is still tachypneic but without accessory muscle use and complains that he "feels like he has a lot of gas (in his abdomen)". He denies n/v. States he had abdominal pain previously but feels improved. 05/16: Patient lying in bed breathing comfortably. New chest tube still has air leak, no air leak in the older chest tube. We will place the old chest tube to water seal and remove if no pneumothorax in am 05/17: No acute distress patient states breathing is improved. Clinical exam shows worsening subcutaneous emphysema. The older posterior chest tube was placed to waterseal yesterday, now with worsening subcu air I have placed to suction again. CT surgery reevaluation requested 05/18: Patient is breathing comfortably but subcutaneous emphysema appears to have advanced over to the neck and involves entire anterior chest and right upper extremity. No respiratory difficulties. Discussed with Dr. Sunshine. Place large bore (36F) chest tube today. 05/19: Lung well expanded, air leak persists and facial subcutaneous air increased, but chest wall air decreased. Continue suction to both tubes, try to sclerose soon. 05/20: Air leak reduced to intermittent. Lung well expanded. Subcutaneous air resolving. Will leave both tubes to suction and try to get air leak to seal by [id number] pleura contact. I will attempt to avoid sclerosis so that if he ever requires a thoracotomy for a massive air leak the thorax won't be cemented. Objective Vital Signs Date Time Temp Pulse Resp B/P (MAP) Pulse Ox O2 Delivery O2 Flow Rate FiO2 05/20/17 08:54 95 Nasal Cannula 6.00 05/20/17 08:00 98 05/20/17 08:00 98.0 20 123/80 (94) 05/16/17 07:00 50 Intake and Output 05/20/17 05/20/17 05/21/17 08:00 16:00 00:00 Intake Total 450 ml Output Total 1660 ml Balance -1210 ml Result Diagram: 05/19/17 0427 05/19/17 0427 Imaging Last Impressions Chest X-Ray 05/03/17 0600 Signed Impressions: Service Date/Time: Wednesday, May 03, 2017 03:41 - CONCLUSION: 1. The right-sided chest tube remains in place with no visualized pneumothorax however there has been and interval increase in the subcutaneous emphysema along the right lateral chest wall. 2. Underlying emphysema and bullous change. Manny Zuniga MD Chest CT 05/02/17 0000 Signed Impressions: Service Date/Time: Tuesday, May 02, 2017 09:32 - CONCLUSION: 1. Right chest drainage tube in place with tip at apex. There is a moderate size anterior right lower lung pneumothorax which extends to the mid chest. 2. Extensive subcutaneous emphysema on the right side and some mild lower left subcutaneous emphysema. Allen Martinez MD Procedures Chest tube placement 05/02/2017. Objective Remarks GENERAL: Patient is 61 yo male lying in ISC bed on NC appears in no acute distress SKIN: Warm and dry. HEAD: Normocephalic. EYES: No scleral icterus. Subcutaneous emphysema is extending into the neck bilaterally CARDIOVASCULAR: Heart sounds distant, sinus rhythm rate. No murmurs rubs or gallops. RESPIRATORY: Less palpable subcutaneous emphysema anterior chest bilaterally, extending to bilateral upper extremities, crunching bilateral breath sounds c/w subcut emphysema, breath sounds equal bilaterally, diminished R apex. Two chest tubes. Lower, large new chest tube with air leak. MUSCULOSKELETAL: No cyanosis, or edema. Neuro: Awake and alert, following commands, moves all 4 extremities. A/P Assessment and Plan Assessment: 1. Acute hypercapnic and hypoxemic respiratory failure (intubated 05/01, extubated 05/05) 2. COPD exacerbation on home oxygen. 3. New Right sided pneumothorax s/p CT placement 4. Extensive Sub Q emphysema 5. Active tobacco use. 6. Hypertension. 7. Severe emphysema 8. Bronchopleural fistula. Plan Neuro: Morphine as needed for pain Pulm: Acute hypercarbic hypercapnic respiratory failure (resolved). Intubated . Extubated 05/04/17 s/p right CT placement 05/01 for right sided pneumothorax, continue with 40cm wall suction Persistent significant sq emphysema 3/3 with with Halicat due to respiratory distress. Initial CXR with R apical PTX. Subsequently had worsening SOB and complaints of abdominal pain. WBC 32.6, Dr. Toro Obtained CT chest/abd/pelvis which demonstrated Large R PTX with evidence of tension. Placed additional 20 Khmer chest tube with +air leak, anterior/inferior to existing tube, Removed pigtail catheter which had no airleak. Bilateral 20 F chest tubes to suction. Place large bore (36F) chest tube today, discussed with Dr. sunshine Previously: CT chest 05/02 showed right chest tube in place with tip at apex. There is a moderate size anterior right lower lung pneumothorax which extends to the mid chest. Extensive subcutaneous emphysema on the right side and some mild lower left subcutaneous emphysema. [address] placement by IR 05/02 Pigtail chest tube was removed 05/10/17 and patient developed increasing subcutaneous emphysema so underwent CT guided pigtail chest tube placement right upper chest. On prednisone 20 twice a day. Pulmonology following, Dr. An Continue Mucinex 600 twice a day Continue DuoNeb every 4 hours. Continue albuterol every 2 hours as needed Symbicort 160/4.5 2 puffs bid CV: Monitor HR and BP and maintain MAP> 65 mmHg. Metoprolol 2.5 IV q6 prn heart rate >120. FEN/RENAL: Chronic compensatory metabolic alkalosis Normal creatinine GI: Regular diet CT abdomen and pelvis - unremarkable. There is subcutaneous emphysema along abdomen and pelvis which may be contributing to patient's discomfort. ID: Having diarrhea but C. difficile negative, will DC Flagyl CT chest demonstrates right lower lobe opacity which may be related to compression due to PTX vs infiltrate. Treat until culture data. Continue on aztreonam. On Flagyl empirically until C. difficile neg -DC Flagyl. Endo:Euglycemic Heme: Monitor CBC GI prophylaxis with Pepcid and DVT prophylaxis with SCD/Lovenox 40 mg daily. CTS pulmonary following Overall impression: Tough predicament. This patient is not a candidate for a pulmonary resection; inevitably air leaks persist for weeks afterwards. We will try to get him to seal with suction. Ivan Sunshine MD May 20, 2017 10:06
--- NOTE | 2017-05-20 14:43 | HHI.PR ---
Subjective Remarks ALERT NO SOB, AT REST SECOND CT IN PLACE, with leak plan o2 as needed bronchodilator therapy Objective Vital Signs Date Time Temp Pulse Resp B/P (MAP) Pulse Ox O2 Delivery O2 Flow Rate FiO2 05/20/17 10:00 101 05/20/17 08:54 95 Nasal Cannula 6.00 05/20/17 08:00 98 05/20/17 08:00 98.0 98 20 123/80 (94) 96 05/20/17 07:00 98 Nasal Cannula 6.00 05/20/17 06:00 100 05/20/17 04:00 96 05/20/17 04:00 97.8 102 20 117/77 (90) 96 05/20/17 02:00 98 05/20/17 00:00 103 05/20/17 00:00 98.9 108 20 116/56 (76) 95 05/19/17 22:00 103 05/19/17 20:14 97 Nasal Cannula 6.00 05/19/17 20:00 76 05/19/17 20:00 98.7 96 20 117/69 (85) 96 05/19/17 19:00 96 Nasal Cannula 6.00 05/19/17 18:00 105 05/19/17 17:45 20 05/19/17 16:00 98.0 99 20 141/87 (105) 99 05/19/17 16:00 99 I/O 05/19/17 05/19/17 05/19/17 05/20/17 05/20/17 05/20/17 07:00 15:00 23:00 07:00 15:00 23:00 Intake Total 1280 ml 1100 ml 450 ml Output Total 745 ml 640 ml 1660 ml Balance 535 ml 460 ml -1210 ml Intake Oral 960 ml 660 ml 450 ml IV Total 320 ml 440 ml Output Urine Total 725 ml 550 ml 1650 ml Chest Tube Drainage Total 20 ml 90 ml 10 ml # Bowel Movements 0 1 0 Result Diagram: 05/19/1742605/19/17426 Objective Remarks GENERAL: SKIN: Warm and dry. HEAD: Atraumatic. Normocephalic. EYES: Pupils equal and round. No scleral icterus. No injection or drainage. ENT: No nasal bleeding or discharge. Mucous membranes pink and moist. NECK: Trachea midline. No JVD. CARDIOVASCULAR: Regular rate and rhythm. RESPIRATORY: No accessory muscle use. Clear to auscultation. Breath sounds equal bilaterally. GASTROINTESTINAL: Abdomen soft, non-tender, nondistended. Hepatic and splenic margins not palpable. MUSCULOSKELETAL: Extremities without clubbing, cyanosis, or edema. No obvious deformities. NEUROLOGICAL: Awake and alert. No obvious cranial nerve deficits. Motor grossly within normal limits. Five out of 5 muscle strength in the arms and legs. Normal speech. PSYCHIATRIC: Appropriate mood and affect; insight and judgment normal. Assessment and Plan Assessment and Plan ASS RECURRENT PNX RESP. FAILURE COPD SQ AIR, DRAINED SOME AIR WITH 18 GUAGE SQ CATH PLAN BRONCHODILATORS O2 NEEDED INCREASE ACTIVITY Salvador Franco MD May 20, 2017 14:43
[2017-05-20] MEDS: ENOXAPARIN SODIUM 40 MG/0.4 ML SYRINGE SQ SCH (18:08)
[2017-05-20] MEDS: BUDESONIDE-FORMOTEROL 160/4.5 MCG INHALER INH SCH (20:32)
[2017-05-20] MEDS: FLUTICASONE PROPIONATE 50 MCG/ACT 16 GM NASAL SPRAY EACH NARE SCH (20:34)
[2017-05-21] VITALS (11 sets, daily range): BP systolic 120–136; BP diastolic 70–98; PULSE 99–121; RESP 20–34; TEMP 97.1–98.1; O2SAT 93–98
[2017-05-21] MEDS: RESP: ALBUTEROL 2.5 MG/IPRATROPIUM 0.5 MG NEB (SCH) NEB ×5 (05:05→21:06)
[2017-05-21] MEDS: CHLORHEXIDINE 0.12% (ORAL KIT) 15 ML CUP MT SCH ×2 (08:00→19:45)
[2017-05-21] MEDS: TIOTROPIUM BROMIDE 18 MCG INH INH SCH ×2 (09:00→09:35)
[2017-05-21] MEDS: DOCUSATE SODIUM 50 MG/SENNA 8.6 MG TAB PO SCH ×2 (09:00→19:45)
[2017-05-21] MEDS: FAMOTIDINE 20 MG TAB PO SCH ×2 (09:31→19:44)
[2017-05-21] MEDS: guaiFENesin E.R. 600 MG TAB PO SCH ×2 (09:31→19:44)
[2017-05-21] MEDS: predniSONE 20 MG TAB PO SCH ×2 (09:31→19:44)
[2017-05-21] MEDS: AZTREONAM INJ 2,000 MG in SODIUM CHLORIDE 0.9% INJ 100 ML IV SCH ×3 (09:32→23:04)
[2017-05-21] MEDS: BUDESONIDE-FORMOTEROL 160/4.5 MCG INHALER INH SCH ×2 (09:34→19:44)
[2017-05-21] MEDS: FLUTICASONE PROPIONATE 50 MCG/ACT 16 GM NASAL SPRAY EACH NARE SCH ×2 (09:34→19:45)
[2017-05-21] MEDS: MORPHINE SULFATE 2 MG/ML INJ IV PUSH PRN (09:59)
--- NOTE | 2017-05-21 10:24 | HHI.PR ---
Subjective Remarks Follow up for pneumothorax, diffuse subQ emphysema. Patient is hemodynamically stable. Has chest tubes. Understandably, he is somewhat frustrated. No fever, chills. Would like to be transferred to the floor. Objective Vitals Vital Signs Date Time Temp Pulse Resp B/P (MAP) Pulse Ox O2 Delivery O2 Flow Rate FiO2 05/21/17 08:00 97.6 99 20 128/76 (93) 95 05/21/17 07:51 93 Nasal Cannula 3.00 05/21/17 05:13 98 Nasal Cannula 4.00 05/21/17 04:00 97.1 104 22 134/78 (96) 96 05/21/17 00:00 97.1 112 22 133/96 (108) 95 05/20/17 23:50 97 Nasal Cannula 4.00 05/20/17 20:35 96 Nasal Cannula 4.00 05/20/17 20:00 98.1 100 21 122/74 (90) 94 05/20/17 20:00 102 05/20/17 19:00 Nasal Cannula 6.00 Humidified 05/20/17 16:00 98.2 92 18 119/73 (88) 94 05/20/17 14:00 100 05/20/17 12:00 101 05/20/17 12:00 98.0 101 22 130/83 (99) 95 I/O 05/20/17 05/20/17 05/20/17 05/21/17 05/21/17 05/21/17 07:00 15:00 23:00 07:00 15:00 23:00 Intake Total 450 ml 100 ml 700 ml Output Total 1660 ml 1175 ml 1500 ml Balance -1210 ml -1075 ml -800 ml Intake Oral 450 ml 700 ml IV Total 100 ml Output Urine Total 1650 ml 1175 ml 1500 ml Chest Tube Drainage Total 10 ml Bladder Scan Volume Amount 70 ml # Bowel Movements 0 Result Diagram: 05/19/17 0427 05/19/17 0427 Imaging Last Impressions Chest X-Ray 05/20/17 0500 Signed Impressions: Service Date/Time: May 05:40 - CONCLUSION: Significant subcutaneous air remains. 2 right-sided chest tubes without significant pleural air. Chetan Jules MD CT Angiography 05/16/17 0000 Signed Impressions: Service Date/Time: Tuesday, May 16, 2017 03:16 - CONCLUSION: 1. The study is negative for pulmonary embolism. 2. Interval development of large right tension pneumothorax with chest drainage tube in place with the tip at the apex. 3. Significant increase in the amount of subcutaneous emphysema, now extending all the way to the pelvis and on both left and right side. Allen Martinez MD Abdomen/Pelvis CT 05/16/17 0000 Signed Impressions: Service Date/Time: Tuesday, May 16, 2017 03:16 - CONCLUSION: 1. The intra-abdominal and intrapelvic structures are grossly intact other than distention of the stomach. There is no evidence of free fluid or free intraperitoneal gas. 2. Extensive subcutaneous emphysema circumferential about chest, abdominal, and pelvic solares. 3. Tension pneumothorax on the right side with chest tube in place. Allen Martinez MD Chest CT 05/11/17 0000 Signed Impressions: Service Date/Time: Thursday, May 11, 2017 15:15 - CONCLUSION: 1. Severe subcutaneous emphysema 2. Small right basal pneumothorax without tension in this patient with a right chest tube. 3. The findings were discussed with Dr. Lino at time of dictation Monroe Saeed MD Tunnelled Chest Tube Removal 05/10/17 0000 Signed Impressions: Service Date/Time: Wednesday, May 10, 2017 00:00 - CONCLUSION: Uncomplicated chest tube removal. Titus Ha MD Chest Tube Insertion 05/02/17 0000 Signed Impressions: Service Date/Time: Tuesday, May 02, 2017 12:29 - CONCLUSION: Uncomplicated chest tube placement as above. Slava Comer MD Objective Remarks GENERAL: Alert, oriented 3, NAD. SKIN: Warm and dry. Significant subcutaneous emphysema on the right side of the chest. HEAD: Normocephalic. EYES: No scleral icterus. No injection or drainage. NECK: Supple, trachea midline. No JVD or lymphadenopathy. CARDIOVASCULAR: Regular rate and rhythm without murmurs, gallops, or rubs. Chest tubes in place. RESPIRATORY: Breath sounds equal bilaterally. No accessory muscle use. GASTROINTESTINAL: Abdomen soft, non-tender, nondistended. MUSCULOSKELETAL: No cyanosis, or edema. BACK: Nontender without obvious deformity. No CVA tenderness. Procedures Chest tube placement 05/02/2017. A/P Problem List: (1) Community acquired bacterial pneumonia ICD Code: J15.9 - Unspecified bacterial pneumonia Status: Acute (2) COPD exacerbation ICD Code: J44.1 - Chronic obstructive pulmonary disease with (acute) exacerbation Status: Acute (3) Tobacco abuse ICD Code: Z72.0 - Tobacco use Status: Acute (4) Acute respiratory failure with hypoxia ICD Code: J96.01 - Acute respiratory failure with hypoxia Status: Acute (5) Emphysema of lung ICD Code: J43.9 - Emphysema, unspecified (6) Pneumothorax, right ICD Code: J93.9 - Pneumothorax, unspecified Assessment and Plan Patient is a 61-year-old male with past medical history of COPD on chronic home oxygen at 5 liters and tobacco abuse who was admitted to hospitalist service on April 28 for COPD exacerbation. Due to worsening of his symptoms agent was initially placed on BiPAP and subsequently transferred to ICU where he required intubation. While in the ICU patient developed right-sided pneumothorax for which chest tube was placed. Patient was subsequently extubated on 05/04/2017. Patient was transferred to the [facility] after he developed significant respiratory distress on 05/15/2017. Acute hypercapnic and hypoxemic respiratory failure. - intubated 05/01, extubated 05/05 -[facility] stay from 05/15/2017 to 05/21/2017. Will transfer to floor today 05/21/2017. - Maintain oxygen saturation above 92% COPD exacerbation on home oxygen. On Spiriva, Symbicort, Duo Neb Patient has received Levaquin 500mg Qday X 7 days. Currently on prednisone 20 mg twice daily. Right sided PTX s/p Chest tubes placement CXR from 05/08/2017 reviewed. Shows right sided chest tubes without a pneumothorax. 1 of the 2 chest tubes were discontinued on 05/10/2017. Diffuse subcutaneous emphysema Patient developed diffuse subcutaneous emphysema affecting his chest wall as well as arm, neck and face. Pulmonology placed small gauge chest tube on 05/11/2017. Dr. Gandhi (Critical care, Cardiothoracic surgeon) has graciously offered to follow this patient with regards to his chest tubes. Insomnia - Continue Restoril. Transfer to the floor. Full code. Lovenox. Yashira Garcia DO May 21, 2017 10:24
--- NOTE | 2017-05-21 16:13 | HHI.PR ---
Subjective Remarks ALERT,STILL WITH SIGNIFICANT SQ AIR, EXTENDS TO SCROTUM NO SOB, AT REST SECOND CT IN PLACE, with leak plan o2 as needed bronchodilator therapy Objective Vital Signs Date Time Temp Pulse Resp B/P (MAP) Pulse Ox O2 Delivery O2 Flow Rate FiO2 05/21/17 12:00 102 05/21/17 12:00 97.9 107 34 134/85 (101) 95 05/21/17 10:20 22 05/21/17 08:00 102 05/21/17 08:00 97.6 99 20 128/76 (93) 95 05/21/17 07:51 93 Nasal Cannula 3.00 05/21/17 05:13 98 Nasal Cannula 4.00 05/21/17 04:00 97.1 104 22 134/78 (96) 96 05/21/17 00:00 97.1 112 22 133/96 (108) 95 05/20/17 23:50 97 Nasal Cannula 4.00 05/20/17 20:35 96 Nasal Cannula 4.00 05/20/17 20:00 98.1 100 21 122/74 (90) 94 05/20/17 20:00 102 05/20/17 19:00 Nasal Cannula 6.00 Humidified I/O 05/20/17 05/20/17 05/20/17 05/21/17 05/21/17 05/21/17 07:00 15:00 23:00 07:00 15:00 23:00 Intake Total 450 ml 100 ml 700 ml Output Total 1660 ml 1175 ml 1500 ml Balance -1210 ml -1075 ml -800 ml Intake Oral 450 ml 700 ml IV Total 100 ml Output Urine Total 1650 ml 1175 ml 1500 ml Chest Tube Drainage Total 10 ml Bladder Scan Volume Amount 70 ml 70 ml # Bowel Movements 0 Result Diagram: 05/19/177 05/19/177 Objective Remarks GENERAL: SKIN: Warm and dry. HEAD: Atraumatic. Normocephalic. EYES: Pupils equal and round. No scleral icterus. No injection or drainage. ENT: No nasal bleeding or discharge. Mucous membranes pink and moist. NECK: Trachea midline. No JVD. CARDIOVASCULAR: Regular rate and rhythm. RESPIRATORY: No accessory muscle use. Clear to auscultation. Breath sounds equal bilaterally. GASTROINTESTINAL: Abdomen soft, non-tender, nondistended. Hepatic and splenic margins not palpable. MUSCULOSKELETAL: Extremities without clubbing, cyanosis, or edema. No obvious deformities. NEUROLOGICAL: Awake and alert. No obvious cranial nerve deficits. Motor grossly within normal limits. Five out of 5 muscle strength in the arms and legs. Normal speech. PSYCHIATRIC: Appropriate mood and affect; insight and judgment normal. Assessment and Plan Assessment and Plan ASS RECURRENT PNX RESP. FAILURE COPD SQ AIR, DRAINED SOME AIR WITH 18 GUAGE SQ CATH PLAN BRONCHODILATORS O2 NEEDED INCREASE ACTIVITY Salvador Franco MD May 21, 2017 16:13
[2017-05-21] MEDS: ENOXAPARIN SODIUM 40 MG/0.4 ML SYRINGE SQ SCH (17:43)
[2017-05-21] MEDS: oxyCODONE/ACETAMINOPHEN 10 MG/325 MG TAB PO PRN (23:04)
[2017-05-21] MEDS: SODIUM CHLORIDE 0.9% FLUSH 10 ML FLUSH IVF PRN (23:05)
[2017-05-22] VITALS (9 sets, daily range): BP systolic 109–151; BP diastolic 76–82; PULSE 52–114; RESP 14–20; TEMP 97.4–98.7; O2SAT 90–96
[2017-05-22] MEDS: RESP: ALBUTEROL 2.5 MG/IPRATROPIUM 0.5 MG NEB (SCH) NEB ×5 (00:11→23:26)
[2017-05-22] MEDS: METOPROLOL TARTRATE 5 MG/5 ML VIAL IV PUSH PRN (00:24)
[2017-05-22] MEDS: TEMAZEPAM 15 MG CAP PO PRN (01:31)
[2017-05-22] MEDS: RESP: ALBUTEROL 2.5 MG/3 ML NEB (PRN) NEB (06:39)
[2017-05-22] MEDS: CHLORHEXIDINE 0.12% (ORAL KIT) 15 ML CUP MT SCH ×2 (08:00→20:00)
--- NOTE | 2017-05-22 08:06 | HHI.PR ---
Subjective Remarks Patient in bed says he has soem sob and has chest pain at the tubs site especially when he is coughing. No fever or chills. overnight. Not coughing much . No n/v/d/c. Had a BM yesterday. Says she is eating fairly well. Objective Vitals Vital Signs Date Time Temp Pulse Resp B/P (MAP) Pulse Ox O2 Delivery O2 Flow Rate FiO2 05/22/17 07:57 95 Nasal Cannula 4.00 05/22/17 07:10 109 05/22/17 03:28 97.5 105 20 126/78 (94) 95 05/22/17 00:05 97.8 52 18 127/82 (97) 96 05/21/17 23:10 97.8 109 20 128/78 (95) 95 05/21/17 21:07 94 Nasal Cannula 4.00 05/21/17 20:00 103 05/21/17 19:41 98.1 121 20 136/98 (111) 93 05/21/17 19:00 93 Nasal Cannula 5.00 05/21/17 16:00 97.5 118 30 120/70 (87) 96 05/21/17 12:00 102 05/21/17 12:00 97.9 107 34 134/85 (101) 95 05/21/17 10:20 22 I/O 05/21/17 05/21/17 05/21/17 05/22/17 05/22/17 05/22/17 07:00 15:00 23:00 07:00 15:00 23:00 Intake Total 700 ml 1060 ml 500 ml Output Total 1500 ml 1550 ml 690 ml Balance -800 ml -490 ml -190 ml Intake Oral 700 ml 960 ml 500 ml IV Total 100 ml Output Urine Total 1500 ml 1550 ml 650 ml Chest Tube Drainage Total 40 ml Bladder Scan Volume Amount 70 ml Result Diagram: 05/19/17 0427 05/19/17 0427 Imaging Last Impressions Chest X-Ray 05/20/17 0500 Signed Impressions: Service Date/Time: May 05:40 - CONCLUSION: Significant subcutaneous air remains. 2 right-sided chest tubes without significant pleural air. Chetan Jules MD CT Angiography 05/16/17 0000 Signed Impressions: Service Date/Time: Tuesday, May 16, 2017 03:16 - CONCLUSION: 1. The study is negative for pulmonary embolism. 2. Interval development of large right tension pneumothorax with chest drainage tube in place with the tip at the apex. 3. Significant increase in the amount of subcutaneous emphysema, now extending all the way to the pelvis and on both left and right side. Allen Martinez MD Abdomen/Pelvis CT 05/16/17 0000 Signed Impressions: Service Date/Time: Tuesday, May 16, 2017 03:16 - CONCLUSION: 1. The intra-abdominal and intrapelvic structures are grossly intact other than distention of the stomach. There is no evidence of free fluid or free intraperitoneal gas. 2. Extensive subcutaneous emphysema circumferential about chest, abdominal, and pelvic solares. 3. Tension pneumothorax on the right side with chest tube in place. Allen Martinez MD Chest CT 05/11/17 0000 Signed Impressions: Service Date/Time: Thursday, May 11, 2017 15:15 - CONCLUSION: 1. Severe subcutaneous emphysema 2. Small right basal pneumothorax without tension in this patient with a right chest tube. 3. The findings were discussed with Dr. Lino at time of dictation Monroe Saeed MD Tunnelled Chest Tube Removal 05/10/17 0000 Signed Impressions: Service Date/Time: Wednesday, May 10, 2017 00:00 - CONCLUSION: Uncomplicated chest tube removal. Titus Ha MD Chest Tube Insertion 05/02/17 0000 Signed Impressions: Service Date/Time: Tuesday, May 02, 2017 12:29 - CONCLUSION: Uncomplicated chest tube placement as above. Slava Comer MD Objective Remarks GENERAL: 61 yo male, well nourish, well developed, appears in NAD. SKIN: Warm and dry. Significant subcutaneous emphysema on the right side of the chest. HEAD: Normocephalic. EYES: No scleral icterus. No injection or drainage. NECK: Supple, trachea midline. No JVD or lymphadenopathy. CARDIOVASCULAR: Regular rate and rhythm without murmurs, gallops, or rubs. Chest tubes in place. RESPIRATORY: Breath sounds equal bilaterally. No accessory muscle use. GASTROINTESTINAL: Abdomen soft, non-tender, nondistended. MUSCULOSKELETAL: No cyanosis, or edema. BACK: Nontender without obvious deformity. No CVA tenderness. Procedures Chest tube placement 05/02/2017. A/P Problem List: (1) Community acquired bacterial pneumonia ICD Code: J15.9 - Unspecified bacterial pneumonia Status: Acute (2) COPD exacerbation ICD Code: J44.1 - Chronic obstructive pulmonary disease with (acute) exacerbation Status: Acute (3) Tobacco abuse ICD Code: Z72.0 - Tobacco use Status: Acute (4) Acute respiratory failure with hypoxia ICD Code: J96.01 - Acute respiratory failure with hypoxia Status: Acute (5) Emphysema of lung ICD Code: J43.9 - Emphysema, unspecified (6) Pneumothorax, right ICD Code: J93.9 - Pneumothorax, unspecified Assessment and Plan Patient is a 61-year-old male with past medical history of COPD on chronic home oxygen at 5 liters and tobacco abuse who was admitted to hospitalist service on April 28 for COPD exacerbation. Due to worsening of his symptoms agent was initially placed on BiPAP and subsequently transferred to ICU where he required intubation. While in the ICU patient developed right-sided pneumothorax for which chest tube was placed. Patient was subsequently extubated on 05/04/2017. Patient was transferred to the [facility] after he developed significant respiratory distress on 05/15/2017. Acute hypercapnic and hypoxemic respiratory failure. intubated 05/01, extubated 05/05 [facility] stay from 05/15/2017 to 05/21/2017. Will transfer to floor 05/21/2017 when bed available Maintain oxygen saturation above 92% COPD exacerbation on home oxygen. On Spiriva, Symbicort, Duo Neb Patient has received Levaquin 500mg Qday X 7 days. Currently on prednisone 20 mg twice daily. Right sided PTX s/p Chest tubes placement CXR from 05/08/2017 reviewed. Shows right sided chest tubes without a pneumothorax. 1 of the 2 chest tubes were discontinued on 05/10/2017. Diffuse subcutaneous emphysema Patient developed diffuse subcutaneous emphysema affecting his chest wall as well as arm, neck and face. Pulmonology placed small gauge chest tube on 05/11/2017. Dr. Gandhi (Critical care, Cardiothoracic surgeon) has graciously offered to follow this patient with regards to his chest tubes. Insomnia - Continue Restoril. Transfer to the floor. Full code. Lovenox. Discussed with the patient, nurse Crystal Wolf MD May 22, 2017 08:06
[2017-05-22] MEDS: AZTREONAM INJ 2,000 MG in SODIUM CHLORIDE 0.9% INJ 100 ML IV SCH (08:17)
[2017-05-22] MEDS: FLUTICASONE PROPIONATE 50 MCG/ACT 16 GM NASAL SPRAY EACH NARE SCH ×2 (08:17→21:26)
[2017-05-22] MEDS: BUDESONIDE-FORMOTEROL 160/4.5 MCG INHALER INH SCH ×2 (08:17→21:26)
[2017-05-22] MEDS: TIOTROPIUM BROMIDE 18 MCG INH INH SCH (08:18)
[2017-05-22] MEDS: guaiFENesin E.R. 600 MG TAB PO SCH ×2 (08:18→21:24)
[2017-05-22] MEDS: FAMOTIDINE 20 MG TAB PO SCH ×2 (08:18→21:24)
[2017-05-22] MEDS: DOCUSATE SODIUM 50 MG/SENNA 8.6 MG TAB PO SCH ×3 (08:18→21:00)
[2017-05-22] MEDS: predniSONE 20 MG TAB PO SCH ×2 (08:18→21:24)
[2017-05-22] MEDS ORDERED: RESP: ALBUTEROL 2.5 MG/IPRATROPIUM 0.5 MG NEB (PRN) NEB (15:15)
--- NOTE | 2017-05-22 15:17 | HHI.PR ---
Subjective Remarks Patient is lying in bed in NAD. Afebrile. On 2L oxygen. Objective Vital Signs Vital Signs Date Time Temp Pulse Resp B/P (MAP) Pulse Ox O2 Delivery O2 Flow Rate FiO2 05/22/17 12:00 98.7 101 16 128/76 (93) 93 05/22/17 08:00 90 Nasal Cannula 2.00 05/22/17 08:00 97.8 103 14 128/77 (94) 90 05/22/17 07:57 95 Nasal Cannula 4.00 05/22/17 07:10 109 05/22/17 03:28 97.5 105 20 126/78 (94) 95 05/22/17 00:05 97.8 52 18 127/82 (97) 96 05/21/17 23:10 97.8 109 20 128/78 (95) 95 05/21/17 21:07 94 Nasal Cannula 4.00 05/21/17 20:00 103 05/21/17 19:41 98.1 121 20 136/98 (111) 93 05/21/17 19:00 93 Nasal Cannula 5.00 05/21/17 16:00 97.5 118 30 120/70 (87) 96 I/O 05/21/17 05/21/17 05/21/17 05/22/17 05/22/17 05/22/17 07:00 15:00 23:00 07:00 15:00 23:00 Intake Total 700 ml 1060 ml 500 ml Output Total 1500 ml 1550 ml 690 ml 400 ml Balance -800 ml -490 ml -190 ml -400 ml Intake Oral 700 ml 960 ml 500 ml IV Total 100 ml Output Urine Total 1500 ml 1550 ml 650 ml 400 ml Chest Tube Drainage Total 40 ml Bladder Scan Volume Amount 70 ml Result Diagram: 05/19/17 0427 05/19/17 0427 Other Results Last Impressions Chest X-Ray 05/20/17 0500 Signed Impressions: Service Date/Time: May 05:40 - CONCLUSION: Significant subcutaneous air remains. 2 right-sided chest tubes without significant pleural air. Chetan Jules MD CT Angiography 05/16/17 0000 Signed Impressions: Service Date/Time: Tuesday, May 16, 2017 03:16 - CONCLUSION: 1. The study is negative for pulmonary embolism. 2. Interval development of large right tension pneumothorax with chest drainage tube in place with the tip at the apex. 3. Significant increase in the amount of subcutaneous emphysema, now extending all the way to the pelvis and on both left and right side. Allen Martinez MD Abdomen/Pelvis CT 05/16/17 0000 Signed Impressions: Service Date/Time: Tuesday, May 16, 2017 03:16 - CONCLUSION: 1. The intra-abdominal and intrapelvic structures are grossly intact other than distention of the stomach. There is no evidence of free fluid or free intraperitoneal gas. 2. Extensive subcutaneous emphysema circumferential about chest, abdominal, and pelvic solares. 3. Tension pneumothorax on the right side with chest tube in place. Allen Martinez MD Chest CT 05/11/17 0000 Signed Impressions: Service Date/Time: Thursday, May 11, 2017 15:15 - CONCLUSION: 1. Severe subcutaneous emphysema 2. Small right basal pneumothorax without tension in this patient with a right chest tube. 3. The findings were discussed with Dr. Lino at time of dictation Monroe Saeed MD Tunnelled Chest Tube Removal 05/10/17 0000 Signed Impressions: Service Date/Time: Wednesday, May 10, 2017 00:00 - CONCLUSION: Uncomplicated chest tube removal. Titus Ha MD Chest Tube Insertion 05/02/17 0000 Signed Impressions: Service Date/Time: Tuesday, May 02, 2017 12:29 - CONCLUSION: Uncomplicated chest tube placement as above. Slava Comer MD Objective Remarks GENERAL: Patient is 61 yo lying in bed in NAD SKIN: Warm and dry. HEAD: Normocephalic. EYES: No scleral icterus. No injection or drainage. NECK: Supple, trachea midline. No JVD or lymphadenopathy. CARDIOVASCULAR: Regular rate and rhythm without murmurs, gallops, or rubs. RESPIRATORY: Breath sounds equal bilaterally. No accessory muscle use. Right Chest tube to suction GASTROINTESTINAL: Abdomen soft, non-tender, nondistended. MUSCULOSKELETAL: No cyanosis, or edema. Neuro: Awake and alert A/P Assessment and Plan 1. Acute hypercapnic and hypoxemic respiratory failure. intubated 05/01, extubated 05/05 2. COPD exacerbation on home oxygen. 3 Right sided PTX s/p CT placement x2 4 Sub Q emphysema 5. Active tobacco use. 6. Hypertension. Plan Continue with oxygen keep sat >92% Bronchodilators ( DuoNeb, Symbicort, Spiriva), Pred 20 mg BID Chest tube to suction. CTS signed off- high risk for surgery Check CXR d/c abx has been on Aztreonam since 05/16 monitor or signs of infections ( fever , WBC) BC from 05/16: NGTD GI/DVT prophylaxis - On Pepcid and Lovenox respectively Continue treatment plan Kaia Locke MD May 22, 2017 15:16
[2017-05-22] MEDS: ENOXAPARIN SODIUM 40 MG/0.4 ML SYRINGE SQ SCH (17:50)
[2017-05-23] VITALS (10 sets, daily range): BP systolic 109–138; BP diastolic 73–86; PULSE 109–120; RESP 17–22; TEMP 97–98.8; O2SAT 90–97
[2017-05-23] MEDS: RESP: ALBUTEROL 2.5 MG/IPRATROPIUM 0.5 MG NEB (SCH) NEB ×5 (03:52→17:56)
[2017-05-23 06:31] LABS: AUTOMATED NEUTROPHIL # 10.4 TH/MM3 (1.8-7.7); BASOPHIL % 0.1 % (0.0-2.0); EOSINOPHIL # 0.1 TH/MM3 (0-0.4); EOSINOPHIL % 0.6 % (0.0-4.0); HEMATOCRIT 37.5 % (39.0-51.0); HEMOGLOBIN 12.6 GM/DL (13.0-17.0); LYMPH % 5.8 % (9.0-44.0); LYMPHOCYTE # 0.7 TH/MM3 (1.0-4.8); MEAN CORPUSCULAR HEMOGLOBIN 30.5 PG (27.0-34.0); MEAN CORPUSCULAR HGB CONC 33.5 % (32.0-36.0); MEAN PLATELET VOLUME 6.9 FL (7.0-11.0); MONO % 3.2 % (0.0-8.0); MONOCYTE # 0.4 TH/MM3 (0-0.9); NEUT % 90.3 % (16.0-70.0); PLATELET COUNT 308 TH/MM3 (150-450); RED BLOOD COUNT 4.12 MIL/MM3 (4.50-5.90); RED CELL DISTRIBUTION WIDTH 14.6 % (11.6-17.2); WHITE BLOOD COUNT 11.5 TH/MM3 (4.0-11.0)
--- NOTE | 2017-05-23 06:40 | RADRPT ---
EXAM DATE/TIME: 05/23/2017 05:21 [facility] COMPARISON: CHEST SINGLE AP, May 20, 2017, 5:40. INDICATIONS : COPD. Pneumothorax. MEDICAL HISTORY : Chronic obstructive pulmonary disease. Cerebrovascular disease. SURGICAL HISTORY : Hernia repair x 2. ENCOUNTER: Subsequent ACUITY: 3 weeks PAIN SCORE: Non-responsive. LOCATION: Bilateral chest FINDINGS: Persistent extensive and diffuse chest wall emphysema. 2 chest tubes remain in place on the right. No perceptible pneumothorax on either side. There is very mild, patchy parenchymal airspace opacities o f both lungs, not significantly changed. CONCLUSION: No significant change. No perceptible pneumothorax but extensive chest wall emphysema persists. [address] tubes remain in place on the right. Titus Khanna MD on May 23, 2017 at 6:37 Board Certified Radiologist. This report was verified electronically.
[2017-05-23 06:49] LABS: BICARBONATE 37.7 MEQ/L (21.0-32.0); CALCIUM 8.3 MG/DL (8.5-10.1); CREATININE 0.38 MG/DL (0.60-1.30)
[2017-05-23] MEDS: CHLORHEXIDINE 0.12% (ORAL KIT) 15 ML CUP MT SCH ×2 (08:08→20:00)
[2017-05-23] MEDS: DOCUSATE SODIUM 50 MG/SENNA 8.6 MG TAB PO SCH ×2 (08:27→20:37)
[2017-05-23] MEDS: BUDESONIDE-FORMOTEROL 160/4.5 MCG INHALER INH SCH ×2 (08:30→20:39)
[2017-05-23] MEDS: guaiFENesin E.R. 600 MG TAB PO SCH ×2 (08:30→20:38)
[2017-05-23] MEDS: FAMOTIDINE 20 MG TAB PO SCH ×2 (08:30→20:37)
[2017-05-23] MEDS: FLUTICASONE PROPIONATE 50 MCG/ACT 16 GM NASAL SPRAY EACH NARE SCH ×2 (08:30→20:39)
[2017-05-23] MEDS: predniSONE 20 MG TAB PO SCH ×2 (08:30→20:37)
[2017-05-23 08:34] LABS: BANDS 11 % (0-6); LYMPHOCYTES 9 % (9-44); MONOCYTES 5 % (0-8); MYELOCYTES 2 % (0-0); NEUTROPHIL # MANUAL DIFF 9.9 TH/MM3 (1.8-7.7); OVALOCYTES 1+ (NORMAL); POLYS (SEG NEUTROPHILS) 73 % (16-70)
[2017-05-23] MEDS: TIOTROPIUM BROMIDE 18 MCG INH INH SCH (09:27)
--- NOTE | 2017-05-23 12:46 | HHI.PR ---
Subjective Remarks No events overnight. CXR this morning No significant change. No perceptible pneumothorax but extensive chest wall emphysema persists. 2 chest tubes remain in place on the right. Objective Vital Signs Vital Signs Date Time Temp Pulse Resp B/P (MAP) Pulse Ox O2 Delivery O2 Flow Rate FiO2 05/23/17 12:00 98.7 114 22 115/73 (87) 92 05/23/17 09:10 90 Nasal Cannula 6.00 05/23/17 08:00 97.4 116 22 111/74 (86) 97 05/23/17 07:00 115 05/23/17 04:00 98.3 114 18 138/82 (100) 93 05/23/17 00:00 98.8 109 19 109/76 (87) 95 05/23/17 00:00 Nasal Cannula 5.00 05/22/17 20:00 97.4 114 20 109/78 (88) 96 05/22/17 19:27 95 Nasal Cannula 4.00 05/22/17 16:00 95 2.00 05/22/17 16:00 98.3 113 16 151/82 (105) 95 I/O 05/22/17 05/22/17 05/22/17 05/23/17 05/23/17 05/23/17 07:00 15:00 23:00 07:00 15:00 23:00 Intake Total 500 ml 600 ml 900 ml Output Total 690 ml 400 ml 830 ml 1300 ml Balance -190 ml -400 ml -230 ml -400 ml Intake Oral 500 ml 600 ml 900 ml Output Urine Total 650 ml 400 ml 800 ml 1300 ml Chest Tube Drainage Total 40 ml 30 ml 0 ml # Bowel Movements 1 Result Diagram: 05/23/17 0509 05/23/17 0509 Other Results Last Impressions Chest X-Ray 05/23/17 0600 Signed Impressions: Service Date/Time: Tuesday, May 23, 2017 05:21 - CONCLUSION: No significant change. No perceptible pneumothorax but extensive chest wall emphysema persists. 2 chest tubes remain in place on the right. Titus Khanna MD CT Angiography 05/16/17 0000 Signed Impressions: Service Date/Time: Tuesday, May 16, 2017 03:16 - CONCLUSION: 1. The study is negative for pulmonary embolism. 2. Interval development of large right tension pneumothorax with chest drainage tube in place with the tip at the apex. 3. Significant increase in the amount of subcutaneous emphysema, now extending all the way to the pelvis and on both left and right side. Allen Martinez MD Abdomen/Pelvis CT 05/16/17 0000 Signed Impressions: Service Date/Time: Tuesday, May 16, 2017 03:16 - CONCLUSION: 1. The intra-abdominal and intrapelvic structures are grossly intact other than distention of the stomach. There is no evidence of free fluid or free intraperitoneal gas. 2. Extensive subcutaneous emphysema circumferential about chest, abdominal, and pelvic solares. 3. Tension pneumothorax on the right side with chest tube in place. Allen Martinez MD Chest CT 05/11/17 0000 Signed Impressions: Service Date/Time: Thursday, May 11, 2017 15:15 - CONCLUSION: 1. Severe subcutaneous emphysema 2. Small right basal pneumothorax without tension in this patient with a right chest tube. 3. The findings were discussed with Dr. Lino at time of dictation Monroe Saeed MD Tunnelled Chest Tube Removal 05/10/17 0000 Signed Impressions: Service Date/Time: Wednesday, May 10, 2017 00:00 - CONCLUSION: Uncomplicated chest tube removal. Titus Ha MD Chest Tube Insertion 05/02/17 0000 Signed Impressions: Service Date/Time: Tuesday, May 02, 2017 12:29 - CONCLUSION: Uncomplicated chest tube placement as above. Slava Comer MD Objective Remarks GENERAL: Patient is 61 yo lying in bed in NAD SKIN: Warm and dry. HEAD: Normocephalic. EYES: No scleral icterus. No injection or drainage. NECK: Supple, trachea midline. No JVD or lymphadenopathy. CARDIOVASCULAR: Regular rate and rhythm without murmurs, gallops, or rubs. RESPIRATORY: Breath sounds equal bilaterally. No accessory muscle use. Right Chest tube to suction GASTROINTESTINAL: Abdomen soft, non-tender, nondistended. MUSCULOSKELETAL: No cyanosis, or edema. Neuro: Awake and alert A/P Assessment and Plan 1. Acute hypercapnic and hypoxemic respiratory failure. intubated 05/01, extubated 05/05 2. COPD exacerbation on home oxygen. 3 Right sided PTX s/p CT placement x2 4 Sub Q emphysema 5. Active tobacco use. 6. Hypertension. Plan Continue with oxygen keep sat >92% Bronchodilators ( DuoNeb, Symbicort, Spiriva), Pred 20 mg BID Chest tube to suction. CTS signed off- high risk for surgery CXR today-No significant change. No perceptible pneumothorax but extensive chest wall emphysema persists. 2 chest tubes remain in place on the right. Off abx, monitor or signs of infections ( fever, WBC) BC from 05/16: NGTD GI/DVT prophylaxis - On Pepcid and Lovenox respectively Continue treatment plan Kaia Locke MD May 23, 2017 12:46
--- NOTE | 2017-05-23 14:22 | HHI.PR ---
Subjective Remarks Patient using very inappropriate language Nurse was at the bedside He is complaining about wanting to be transferred to MedSur floor even though he is on [facility] as a MedSurg overflow Also he is upset because he wants a different food menu I could not obtain good history from him due to his irritation but he does not seem to be in acute distress Objective Vitals Vital Signs Date Time Temp Pulse Resp B/P (MAP) Pulse Ox O2 Delivery O2 Flow Rate FiO2 05/23/17 12:00 98.7 114 22 115/73 (87) 92 05/23/17 09:10 90 Nasal Cannula 6.00 05/23/17 08:00 97.4 116 22 111/74 (86) 97 05/23/17 07:00 115 05/23/17 04:00 98.3 114 18 138/82 (100) 93 05/23/17 00:00 98.8 109 19 109/76 (87) 95 05/23/17 00:00 Nasal Cannula 5.00 05/22/17 20:00 97.4 114 20 109/78 (88) 96 05/22/17 19:27 95 Nasal Cannula 4.00 05/22/17 16:00 95 2.00 05/22/17 16:00 98.3 113 16 151/82 (105) 95 I/O 05/22/17 05/22/17 05/22/17 05/23/17 05/23/17 05/23/17 07:00 15:00 23:00 07:00 15:00 23:00 Intake Total 500 ml 600 ml 900 ml Output Total 690 ml 400 ml 830 ml 1300 ml Balance -190 ml -400 ml -230 ml -400 ml Intake Oral 500 ml 600 ml 900 ml Output Urine Total 650 ml 400 ml 800 ml 1300 ml Chest Tube Drainage Total 40 ml 30 ml 0 ml # Bowel Movements 1 Result Diagram: 05/23/17 0509 05/23/17 0509 Objective Remarks --GENERAL: This is a well-nourished, well-developed patient, in no apparent distress. CARDIOVASCULAR: Regular rate and rhythm without murmurs, gallops, or rubs. RESPIRATORY: Bilateral crackles with decreased breath sounds bilaterally chest tube in place GASTROINTESTINAL: Abdomen soft, non-tender, nondistended. Normal active bowel sounds MUSCULOSKELETAL: Extremities without clubbing, cyanosis, or edema. NEURO: Alert & Oriented x4 to person, place, time, situation. Moves all ext x4 Procedures Chest tube placement 05/02/2017. A/P Problem List: (1) Community acquired bacterial pneumonia ICD Code: J15.9 - Unspecified bacterial pneumonia Status: Acute (2) COPD exacerbation ICD Code: J44.1 - Chronic obstructive pulmonary disease with (acute) exacerbation Status: Acute (3) Tobacco abuse ICD Code: Z72.0 - Tobacco use Status: Acute (4) Acute respiratory failure with hypoxia ICD Code: J96.01 - Acute respiratory failure with hypoxia Status: Acute (5) Emphysema of lung ICD Code: J43.9 - Emphysema, unspecified (6) Pneumothorax, right ICD Code: J93.9 - Pneumothorax, unspecified Assessment and Plan 05/23: Patient is very irritated non-pleasant and an appropriate in his language , he was to be transferred to [facility] floor, per the nurse he is so far stable on O2 nasal cannula, pulmonary following for subcutaneous emphysema, chest x- ray today still showing small pneumothorax. A/P: Patient is a 61-year-old male with past medical history of COPD on chronic home oxygen at 5 liters and tobacco abuse who was admitted to hospitalist service on April 28 for COPD exacerbation. Due to worsening of his symptoms agent was initially placed on BiPAP and subsequently transferred to ICU where he required intubation. While in the ICU patient developed right-sided pneumothorax for which chest tube was placed. Patient was subsequently extubated on 05/04/2017. Patient was transferred to the [facility] after he developed significant respiratory distress on 05/15/2017. Acute hypercapnic and hypoxemic respiratory failure. intubated 05/01, extubated 05/05 [facility] stay from 05/15/2017 to 05/21/2017. Will transfer to floor 05/21/2017 when bed available Maintain oxygen saturation above 92% COPD exacerbation on home oxygen. On Spiriva, Symbicort, Duo Neb Patient has received Levaquin 500mg Qday X 7 days. Currently on prednisone 20 mg twice daily. Right sided PTX s/p Chest tubes placement CXR from 05/08/2017 reviewed. Shows right sided chest tubes without a pneumothorax. 1 of the 2 chest tubes were discontinued on 05/10/2017. Diffuse subcutaneous emphysema Patient developed diffuse subcutaneous emphysema affecting his chest wall as well as arm, neck and face. Pulmonology placed small gauge chest tube on 05/11/2017. Dr. Gandhi (Critical care, Cardiothoracic surgeon) has graciously offered to follow this patient with regards to his chest tubes. Insomnia - Continue Restoril. Transfer to the floor. Full code. Zoilax. Pino Cabezas MD May 23, 2017 14:22
[2017-05-23] MEDS: ENOXAPARIN SODIUM 40 MG/0.4 ML SYRINGE SQ SCH (17:49)
[2017-05-23] MEDS: TEMAZEPAM 15 MG CAP PO PRN (20:38)
[2017-05-24] VITALS (10 sets, daily range): BP systolic 108–160; BP diastolic 73–84; PULSE 98–123; RESP 17–19; TEMP 95.9–97.4; O2SAT 93–96
[2017-05-24] MEDS: RESP: ALBUTEROL 2.5 MG/IPRATROPIUM 0.5 MG NEB (SCH) NEB ×7 (00:24→23:15)
--- NOTE | 2017-05-24 06:40 | RADRPT ---
EXAM DATE/TIME: 05/24/2017 05:21 [facility] COMPARISON: CHEST SINGLE AP, May 23, 2017, 5:21. INDICATIONS : Short of breath MEDICAL HISTORY : Chronic obstructive pulmonary disease. pneumothorax SURGICAL HISTORY : hernia repair x 2, chest tubes x 2 ENCOUNTER: Subsequent ACUITY: 3 weeks PAIN SCORE: 5/10 LOCATION: Right chest FINDINGS: A single portable frontal view of the chest shows no significant change. Right thoracostomy tubes not ed without pneumothorax. Extensive subcutaneous air overlies the chest. No infiltrates or effusions. Heart is normal in size. CONCLUSION: No pneumothorax. Extensive subcutaneous air. Allen Fernando Jr., MD on May 24, 2017 at 6:38 Board Certified Radiologist. This report was verified electronically.
[2017-05-24] MEDS: CHLORHEXIDINE 0.12% (ORAL KIT) 15 ML CUP MT SCH ×2 (07:33→19:52)
[2017-05-24] MEDS: DOCUSATE SODIUM 50 MG/SENNA 8.6 MG TAB PO SCH ×2 (09:00→21:00)
[2017-05-24] MEDS: BUDESONIDE-FORMOTEROL 160/4.5 MCG INHALER INH SCH ×2 (09:59→21:27)
[2017-05-24] MEDS: TIOTROPIUM BROMIDE 18 MCG INH INH SCH (09:59)
[2017-05-24] MEDS: FLUTICASONE PROPIONATE 50 MCG/ACT 16 GM NASAL SPRAY EACH NARE SCH ×2 (09:59→21:00)
[2017-05-24] MEDS: guaiFENesin E.R. 600 MG TAB PO SCH ×2 (10:00→21:28)
[2017-05-24] MEDS: predniSONE 20 MG TAB PO SCH ×2 (10:00→21:28)
[2017-05-24] MEDS: FAMOTIDINE 20 MG TAB PO SCH ×2 (10:00→21:28)
--- NOTE | 2017-05-24 10:34 | RSPPFT ---
DATE OF PROCEDURE: 05/18/17 COMMENTS: Spirometry demonstrates an FEV1 of 0.5 at 16% of predicted, FVC of 1.5 at 36%, FEF 25-75 at 6%.Flow volume loops suggest severe obstruction. Post-bronchodilator study was not conducted. IMPRESSION: 1. Very severe obstructive airways disease.
--- NOTE | 2017-05-24 15:02 | HHI.PR ---
Subjective Remarks Patient more approachable today He is not as agitated as he was yesterday But he is frustrated when his he can get rid of the chest tube Chest x-ray today without pneumothorax but positive still subcutaneous emphysema Objective Vitals Vital Signs Date Time Temp Pulse Resp B/P (MAP) Pulse Ox O2 Delivery O2 Flow Rate FiO2 05/24/17 12:00 95.9 117 19 108/73 (85) 93 05/24/17 11:28 Nasal Cannula 3.00 05/24/17 08:00 96.5 98 19 121/84 (96) 95 05/24/17 07:40 95 Nasal Cannula 3.00 05/24/17 05:45 96.4 121 17 160/81 (107) 96 05/24/17 00:24 96 Nasal Cannula 3.00 05/24/17 00:00 97.4 118 17 120/77 (91) 95 05/23/17 20:00 97.6 120 17 135/78 (97) 95 05/23/17 19:20 Nasal Cannula 3.00 Humidified 05/23/17 17:57 96 Nasal Cannula 3.00 05/23/17 17:00 97.0 113 18 121/86 (98) 95 05/23/17 16:45 Nasal Cannula 3.00 Humidified 05/23/17 16:00 98.7 114 22 115/73 (87) 92 I/O 05/23/17 05/23/17 05/23/17 05/24/17 05/24/17 05/24/17 07:00 15:00 23:00 07:00 15:00 23:00 Intake Total 900 ml 2720 ml 240 ml Output Total 1300 ml 1050 ml 1300 ml Balance -400 ml 1670 ml -1060 ml Intake Oral 900 ml 2720 ml 240 ml Output Urine Total 1300 ml 1000 ml 1300 ml Chest Tube Drainage Total 0 ml 50 ml Bladder Scan Volume Amount # Bowel Movements 1 1 Result Diagram: 05/23/17 0509 05/23/17 0509 Objective Remarks --GENERAL: This is a well-nourished, well-developed patient, in no apparent distress. CARDIOVASCULAR: Regular rate and rhythm without murmurs, gallops, or rubs. RESPIRATORY: Bilateral crackles with decreased breath sounds bilaterally chest tube in place GASTROINTESTINAL: Abdomen soft, non-tender, nondistended. Normal active bowel sounds MUSCULOSKELETAL: Extremities without clubbing, cyanosis, or edema. NEURO: Alert & Oriented x4 to person, place, time, situation. Moves all ext x4 Procedures Chest tube placement 05/02/2017. A/P Problem List: (1) Community acquired bacterial pneumonia ICD Code: J15.9 - Unspecified bacterial pneumonia Status: Acute (2) COPD exacerbation ICD Code: J44.1 - Chronic obstructive pulmonary disease with (acute) exacerbation Status: Acute (3) Tobacco abuse ICD Code: Z72.0 - Tobacco use Status: Acute (4) Acute respiratory failure with hypoxia ICD Code: J96.01 - Acute respiratory failure with hypoxia Status: Acute (5) Emphysema of lung ICD Code: J43.9 - Emphysema, unspecified (6) Pneumothorax, right ICD Code: J93.9 - Pneumothorax, unspecified Assessment and Plan 05/23: Patient is very irritated non-pleasant and an appropriate in his language , he was to be transferred to [facility] floor, per the nurse he is so far stable on O2 nasal cannula, pulmonary following for subcutaneous emphysema, chest x- ray today still showing small pneumothorax. 05/24: Chest x-ray today no pneumothorax but positive subcutaneous emphysema, he is breathing better, and he looks in better mood, continue current management, pulmonary following for chest tube management A/P: Patient is a 61-year-old male with past medical history of COPD on chronic home oxygen at 5 liters and tobacco abuse who was admitted to hospitalist service on April 28 for COPD exacerbation. Due to worsening of his symptoms agent was initially placed on BiPAP and subsequently transferred to ICU where he required intubation. While in the ICU patient developed right-sided pneumothorax for which chest tube was placed. Patient was subsequently extubated on 05/04/2017. Patient was transferred to the [facility] after he developed significant respiratory distress on 05/15/2017. Acute hypercapnic and hypoxemic respiratory failure. intubated 05/01, extubated 05/05 [facility] stay from 05/15/2017 to 05/21/2017. Will transfer to floor 05/21/2017 when bed available Maintain oxygen saturation above 92% COPD exacerbation on home oxygen. On Spiriva, Symbicort, Duo Neb Patient has received Levaquin 500mg Qday X 7 days. Currently on prednisone 20 mg twice daily. Right sided PTX s/p Chest tubes placement CXR from 05/08/2017 reviewed. Shows right sided chest tubes without a pneumothorax. 1 of the 2 chest tubes were discontinued on 05/10/2017. Diffuse subcutaneous emphysema Patient developed diffuse subcutaneous emphysema affecting his chest wall as well as arm, neck and face. Pulmonology placed small gauge chest tube on 05/11/2017. Dr. Gandhi (Critical care, Cardiothoracic surgeon) has graciously offered to follow this patient with regards to his chest tubes. Insomnia - Continue Restoril. Transfer to the floor. Full code. Lovenox. Pino Cabezas MD May 24, 2017 15:02
--- NOTE | 2017-05-24 16:09 | HHI.PR ---
Subjective Remarks ALERT,STILL WITH SIGNIFICANT SQ AIR, EXTENDS TO SCROTUM NO SOB, AT REST SECOND CT IN PLACE, with leak plan o2 as needed bronchodilator therapy Objective Vital Signs Date Time Temp Pulse Resp B/P (MAP) Pulse Ox O2 Delivery O2 Flow Rate FiO2 05/24/17 15:51 96 Nasal Cannula 3.00 05/24/17 12:00 95.9 117 19 108/73 (85) 93 05/24/17 11:28 Nasal Cannula 3.00 05/24/17 08:00 96.5 98 19 121/84 (96) 95 05/24/17 07:40 95 Nasal Cannula 3.00 05/24/17 05:45 96.4 121 17 160/81 (107) 96 05/24/17 00:24 96 Nasal Cannula 3.00 05/24/17 00:00 97.4 118 17 120/77 (91) 95 05/23/17 20:00 97.6 120 17 135/78 (97) 95 05/23/17 19:20 Nasal Cannula 3.00 Humidified 05/23/17 17:57 96 Nasal Cannula 3.00 05/23/17 17:00 97.0 113 18 121/86 (98) 95 05/23/17 16:45 Nasal Cannula 3.00 Humidified I/O 05/23/17 05/23/17 05/23/17 05/24/17 05/24/17 05/24/17 07:00 15:00 23:00 07:00 15:00 23:00 Intake Total 900 ml 2720 ml 240 ml Output Total 1300 ml 1050 ml 1300 ml Balance -400 ml 1670 ml -1060 ml Intake Oral 900 ml 2720 ml 240 ml Output Urine Total 1300 ml 1000 ml 1300 ml Chest Tube Drainage Total 0 ml 50 ml Bladder Scan Volume Amount # Bowel Movements 1 1 Result Diagram: 05/23/17 0509 05/23/17 0509 Objective Remarks GENERAL: SKIN: Warm and dry. HEAD: Atraumatic. Normocephalic. EYES: Pupils equal and round. No scleral icterus. No injection or drainage. ENT: No nasal bleeding or discharge. Mucous membranes pink and moist. NECK: Trachea midline. No JVD. CARDIOVASCULAR: Regular rate and rhythm. RESPIRATORY: No accessory muscle use. Clear to auscultation. Breath sounds equal bilaterally. GASTROINTESTINAL: Abdomen soft, non-tender, nondistended. Hepatic and splenic margins not palpable. MUSCULOSKELETAL: Extremities without clubbing, cyanosis, or edema. No obvious deformities. NEUROLOGICAL: Awake and alert. No obvious cranial nerve deficits. Motor grossly within normal limits. Five out of 5 muscle strength in the arms and legs. Normal speech. PSYCHIATRIC: Appropriate mood and affect; insight and judgment normal. Assessment and Plan Assessment and Plan ASS RECURRENT PNX RESP. FAILURE COPD SQ AIR, DRAINED SOME AIR WITH 18 GUAGE SQ CATH PLAN BRONCHODILATORS O2 NEEDED INCREASE ACTIVITY Salvador Franco MD May 24, 2017 16:09
[2017-05-24] MEDS: ENOXAPARIN SODIUM 40 MG/0.4 ML SYRINGE SQ SCH (18:12)
[2017-05-24] MEDS: TEMAZEPAM 15 MG CAP PO PRN (23:32)
[2017-05-25] VITALS (9 sets, daily range): BP systolic 98–133; BP diastolic 71–88; PULSE 105–120; RESP 17–21; TEMP 95.6–97.8; O2SAT 92–98
[2017-05-25] MEDS: RESP: ALBUTEROL 2.5 MG/IPRATROPIUM 0.5 MG NEB (SCH) NEB ×5 (03:51→20:32)
[2017-05-25] MEDS: CHLORHEXIDINE 0.12% (ORAL KIT) 15 ML CUP MT SCH ×2 (09:04→20:00)
[2017-05-25] MEDS: TIOTROPIUM BROMIDE 18 MCG INH INH SCH (09:27)
[2017-05-25] MEDS: FLUTICASONE PROPIONATE 50 MCG/ACT 16 GM NASAL SPRAY EACH NARE SCH ×2 (09:28→20:40)
[2017-05-25] MEDS: predniSONE 20 MG TAB PO SCH ×2 (09:28→20:40)
[2017-05-25] MEDS: guaiFENesin E.R. 600 MG TAB PO SCH ×2 (09:28→20:40)
[2017-05-25] MEDS: FAMOTIDINE 20 MG TAB PO SCH ×2 (09:28→20:40)
[2017-05-25] MEDS: BUDESONIDE-FORMOTEROL 160/4.5 MCG INHALER INH SCH ×2 (09:28→20:40)
[2017-05-25] MEDS: DOCUSATE SODIUM 50 MG/SENNA 8.6 MG TAB PO SCH ×2 (09:29→20:41)
--- NOTE | 2017-05-25 12:42 | HHI.PR ---
Subjective Remarks None pleasant patient Resting comfortably in bed Chest tube still in place Excessive subcutaneous emphysema Afebrile Objective Vitals Vital Signs Date Time Temp Pulse Resp B/P (MAP) Pulse Ox O2 Delivery O2 Flow Rate FiO2 05/25/17 12:00 95.6 120 19 98/71 (80) 92 05/25/17 08:00 96.9 107 17 109/78 (88) 94 05/25/17 08:00 105 05/25/17 07:46 98 Nasal Cannula 3.00 05/25/17 04:00 97.0 110 17 115/80 (92) 92 05/25/17 04:00 120 05/25/17 00:00 114 05/25/17 00:00 96.9 120 17 120/81 (94) 94 05/24/17 23:15 93 Nasal Cannula 3.00 05/24/17 22:10 Nasal Cannula 3.00 Humidified 05/24/17 20:00 117 05/24/17 20:00 96.9 123 17 110/84 (93) 96 05/24/17 16:00 96.1 104 18 125/80 (95) 95 05/24/17 15:51 96 Nasal Cannula 3.00 I/O 05/24/17 05/24/17 05/24/17 05/25/17 05/25/17 05/25/17 07:00 15:00 23:00 07:00 15:00 23:00 Intake Total 240 ml 960 ml 480 ml Output Total 1300 ml 1102 ml 1820 ml Balance -1060 ml -142 ml -1340 ml Intake Oral 240 ml 960 ml 480 ml Output Urine Total 1300 ml 1100 ml 1800 ml Chest Tube Drainage Total 2 ml 20 ml # Bowel Movements 1 0 1 Result Diagram: 05/23/17 0509 05/23/17 0509 Objective Remarks --GENERAL: This is a well-nourished, well-developed patient, in no apparent distress. CARDIOVASCULAR: Regular rate and rhythm without murmurs, gallops, or rubs. RESPIRATORY: Bilateral crackles with decreased breath sounds bilaterally chest tube in place GASTROINTESTINAL: Abdomen soft, non-tender, nondistended. Normal active bowel sounds MUSCULOSKELETAL: Extremities without clubbing, cyanosis, or edema. NEURO: Alert & Oriented x4 to person, place, time, situation. Moves all ext x4 Procedures Chest tube placement 05/02/2017. A/P Problem List: (1) Community acquired bacterial pneumonia ICD Code: J15.9 - Unspecified bacterial pneumonia Status: Acute (2) COPD exacerbation ICD Code: J44.1 - Chronic obstructive pulmonary disease with (acute) exacerbation Status: Acute (3) Tobacco abuse ICD Code: Z72.0 - Tobacco use Status: Acute (4) Acute respiratory failure with hypoxia ICD Code: J96.01 - Acute respiratory failure with hypoxia Status: Acute (5) Emphysema of lung ICD Code: J43.9 - Emphysema, unspecified (6) Pneumothorax, right ICD Code: J93.9 - Pneumothorax, unspecified Assessment and Plan 05/23: Patient is very irritated non-pleasant and an appropriate in his language , he was to be transferred to [facility] floor, per the nurse he is so far stable on O2 nasal cannula, pulmonary following for subcutaneous emphysema, chest x- ray today still showing small pneumothorax. 05/24: Chest x-ray today no pneumothorax but positive subcutaneous emphysema, he is breathing better, and he looks in better mood, continue current management, pulmonary following for chest tube management 05/25: Continue following with tire buffer recommended increasing activity, chest tube still in place, x-ray from yesterday showed no pneumothorax, chest tube management per pulmonology A/P: Patient is a 61-year-old male with past medical history of COPD on chronic home oxygen at 5 liters and tobacco abuse who was admitted to hospitalist service on April 28 for COPD exacerbation. Due to worsening of his symptoms agent was initially placed on BiPAP and subsequently transferred to ICU where he required intubation. While in the ICU patient developed right-sided pneumothorax for which chest tube was placed. Patient was subsequently extubated on 05/04/2017. Patient was transferred to the [facility] after he developed significant respiratory distress on 05/15/2017. Acute hypercapnic and hypoxemic respiratory failure. intubated 05/01, extubated 05/05 [facility] stay from 05/15/2017 to 05/21/2017. Will transfer to floor 05/21/2017 when bed available Maintain oxygen saturation above 92% COPD exacerbation on home oxygen. On Spiriva, Symbicort, Duo Neb Patient has received Levaquin 500mg Qday X 7 days. Currently on prednisone 20 mg twice daily. Right sided PTX s/p Chest tubes placement CXR from 05/08/2017 reviewed. Shows right sided chest tubes without a pneumothorax. 1 of the 2 chest tubes were discontinued on 05/10/2017. Diffuse subcutaneous emphysema Patient developed diffuse subcutaneous emphysema affecting his chest wall as well as arm, neck and face. Pulmonology placed small gauge chest tube on 05/11/2017. Dr. Gandhi (Critical care, Cardiothoracic surgeon) has graciously offered to follow this patient with regards to his chest tubes. Insomnia - Continue Restoril. Transfer to the floor. Full code. Lovenox. Pino Cabezas MD May 25, 2017 12:42
--- NOTE | 2017-05-25 16:31 | HHI.PR ---
Subjective Remarks ALERT,STILL WITH SIGNIFICANT SQ AIR, EXTENDS TO SCROTUM NO SOB, AT REST SECOND CT IN PLACE, with leak plan o2 as needed bronchodilator therapy transfer to [facility] for surgery he is accepted Objective Vital Signs Date Time Temp Pulse Resp B/P (MAP) Pulse Ox O2 Delivery O2 Flow Rate FiO2 05/25/17 16:17 92 Nasal Cannula 3.00 05/25/17 12:00 95.6 120 19 98/71 (80) 92 05/25/17 09:28 Nasal Cannula 3.00 Humidified 05/25/17 08:00 96.9 107 17 109/78 (88) 94 05/25/17 08:00 105 05/25/17 07:46 98 Nasal Cannula 3.00 05/25/17 04:00 97.0 110 17 115/80 (92) 92 05/25/17 04:00 120 05/25/17 00:00 114 05/25/17 00:00 96.9 120 17 120/81 (94) 94 05/24/17 23:15 93 Nasal Cannula 3.00 05/24/17 22:10 Nasal Cannula 3.00 Humidified 05/24/17 20:00 117 05/24/17 20:00 96.9 123 17 110/84 (93) 96 I/O 05/24/17 05/24/17 05/24/17 05/25/17 05/25/17 05/25/17 06:59 14:59 22:59 06:59 14:59 22:59 Intake Total 240 ml 960 ml 480 ml Output Total 1300 ml 1102 ml 1820 ml Balance -1060 ml -142 ml -1340 ml Intake Oral 240 ml 960 ml 480 ml Output Urine Total 1300 ml 1100 ml 1800 ml Chest Tube Drainage Total 2 ml 20 ml # Bowel Movements 1 0 1 Result Diagram: 05/23/17 0509 05/23/17 0509 Objective Remarks GENERAL: SKIN: Warm and dry. HEAD: Atraumatic. Normocephalic. EYES: Pupils equal and round. No scleral icterus. No injection or drainage. ENT: No nasal bleeding or discharge. Mucous membranes pink and moist. NECK: Trachea midline. No JVD. CARDIOVASCULAR: Regular rate and rhythm. RESPIRATORY: No accessory muscle use. Clear to auscultation. Breath sounds equal bilaterally. GASTROINTESTINAL: Abdomen soft, non-tender, nondistended. Hepatic and splenic margins not palpable. MUSCULOSKELETAL: Extremities without clubbing, cyanosis, or edema. No obvious deformities. NEUROLOGICAL: Awake and alert. No obvious cranial nerve deficits. Motor grossly within normal limits. Five out of 5 muscle strength in the arms and legs. Normal speech. PSYCHIATRIC: Appropriate mood and affect; insight and judgment normal. Assessment and Plan Assessment and Plan ASS RECURRENT PNX RESP. FAILURE COPD SQ AIR, DRAINED SOME AIR WITH 18 GUAGE SQ CATH PLAN BRONCHODILATORS O2 NEEDED INCREASE ACTIVITY Salvador Franco MD May 25, 2017 16:31
[2017-05-25] MEDS: ENOXAPARIN SODIUM 40 MG/0.4 ML SYRINGE SQ SCH (16:34)
[2017-05-25] MEDS: oxyCODONE/ACETAMINOPHEN 10 MG/325 MG TAB PO PRN (22:06)
[2017-05-25] MEDS: TEMAZEPAM 15 MG CAP PO PRN (22:06)
== END 2017-05-25 23:29 | disposition short-term general hospital (02) | DRG 208 ==
LOC: NEPE 13:01 → INTOOBSV 16:06 → NEDA 16:06 → N04A 17:43 → OBSVTOIN 04-29 12:38 → HIMN 05-01 13:10 → N06A 05-07 20:34 → N03A 05-15 18:36 → N03B 05-16 19:07 → N07B 05-23 16:44
PROVIDERS: ADMIT Hospitalist; ATTEND Hospitalist
PROC: 5A09357 Assistance with Respiratory Ventilation, Less than 24 Consecutive Hours, Continuous Positive Airway Pressure (ICD-10-PCS; 2017-04-28)
PROC: 5A1945Z Respiratory Ventilation, 24-96 Consecutive Hours (ICD-10-PCS; principal; 2017-05-01)
PROC: 0BH17EZ Insertion of Endotracheal Airway into Trachea, Via Natural or Artificial Opening (ICD-10-PCS; 2017-05-01)
PROC: 0W9930Z Drainage of Right Pleural Cavity with Drainage Device, Percutaneous Approach (ICD-10-PCS; 2017-05-01)
PROC: 0W9930Z Drainage of Right Pleural Cavity with Drainage Device, Percutaneous Approach (ICD-10-PCS; 2017-05-02)
PROC: 0WP9X0Z Removal of Drainage Device from Right Pleural Cavity, External Approach (ICD-10-PCS; 2017-05-10)
PROC: 0W9930Z Drainage of Right Pleural Cavity with Drainage Device, Percutaneous Approach (ICD-10-PCS; 2017-05-16)
PROC: 0W9930Z Drainage of Right Pleural Cavity with Drainage Device, Percutaneous Approach (ICD-10-PCS; 2017-05-18)
DX: J44.1 Chronic obstructive pulmonary disease with (acute) exacerbation (principal); J96.21 Acute and chronic respiratory failure with hypoxia; J93.0 Spontaneous tension pneumothorax; J15.9 Unspecified bacterial pneumonia; E87.4 Mixed disorder of acid-base balance; T79.7XXA Traumatic subcutaneous emphysema, initial encounter; I95.9 Hypotension, unspecified; J96.22 Acute and chronic respiratory failure with hypercapnia; J93.83 Other pneumothorax; J93.82 Other air leak; Z99.81 Dependence on supplemental oxygen; J44.0 Chronic obstructive pulmonary disease with (acute) lower respiratory infection; F17.200 Nicotine dependence, unspecified, uncomplicated; H91.90 Unspecified hearing loss, unspecified ear; Z86.73 Personal history of transient ischemic attack (TIA), and cerebral infarction without residual deficits; I10 Essential (primary) hypertension; R00.0 Tachycardia, unspecified; Z88.0 Allergy status to penicillin; G47.00 Insomnia, unspecified; M19.90 Unspecified osteoarthritis, unspecified site; R10.9 Unspecified abdominal pain; R19.7 Diarrhea, unspecified
CPT/HCPCS: 31500; 32551; 32557; 36600; 71045; 71250; 71275; 74177; 80048; 80053; 81001; 82805; 82948; 83690; 83735; 83880; 84100; 84145; 84443; 84484; 85007; 85025; 85027; 85379; 87040; 87086; 87493; 87641; 93005; 93306; 94002; 94003; 94010; 94640; 94664; 96374; C1729; G8987-GP; G8988-GP; J0360; J0456; J1120; J1650; J1956; J2250; J2270; J2920; J3010; J7030; J7050; J7512; J7613; Q9967

== ENCOUNTER 2017-06-06 21:32 | Emergency (ER) | payer OTHER ==
[~2017-06-06] VITALS: Ht 175.3 cm; Wt 66.0 kg
[~2017-06-06 21:32] MED LIST changes: -AZIT250T3 PO; -CEFU1TAB20 PO; -HYDR-3133 PO; -LACTTAB8 PO; -LEVA500T33 PO; -OXYC1TAB63 PO; -PRED20 PO; -PRED5PAK PO; +SPIRCAP INH; -SYMB160A INH
[2017-06-06 21:36] VITALS: BP 120/67; PULSE 101; RESP 24; TEMP 98.5; O2SAT 95
[2017-06-06] MEDS ORDERED: METO25TA3 PO (21:57)
[2017-06-06] MEDS ORDERED: FAMO20TA2 PO (21:57)
[2017-06-06] MEDS ORDERED: IPRASOL INH (21:57)
[2017-06-06] MEDS ORDERED: SPIRCAP INH (21:57)
[2017-06-06] MEDS ORDERED: GUAI400T32 PO (21:57)
[2017-06-06] MEDS ORDERED: OXYC1CAP PO (21:57)
[2017-06-06] MEDS ORDERED: TYLE325T PO (21:57)
[2017-06-06] MEDS ORDERED: SYMB160A INH (21:57)
[2017-06-06] MEDS ORDERED: FLUT1SPR5 (21:57)
[2017-06-06] MEDS ORDERED: ENOX40P SQ (21:57)
--- NOTE | 2017-06-06 22:12 | PD ---
HPI Chief Complaint: Respiratory Symptoms Time Seen by Provider: 21:40 Travel History International Travel<30 days: No Contact w/Intl Traveler<30days: No Traveled to known affect area: No History of Present Illness HPI The patient is a 61 year old male who presents to the [facility] emergency department with a history of shortness of breath that began at approximately 8PM. [facility] at the [facility], however was told that it was too soon, instead they called ambulance services. He reports having shortness of breath whenever he eats and he had just eaten something. He has been in the [facility] for 2 days. He was in [facility] for the last month and then transferred to [facility] in [place] for a procedure on his right lung due to recurrent pneumothoraces. He denies having any known recent fevers. He denies having any worsening cough or congestion, chest pain, abdominal pain, vomiting, diarrhea, urinary symptoms, or neurologic symptoms. PFS Past Medical History Narrative Medical The patient's past medical history is significant for COPD, oxygen dependent, history of recurrent pneumothorax Arthritis: Yes Asthma: No Autoimmune Disease: No Blood Disorders: No Anxiety: No Depression: No Heart Rhythm Problems: No Cancer: Yes (SKIN CA) Cardiovascular Problems: Yes High Cholesterol: No Chemotherapy: No Chest Pain: Yes Congestive Heart Failure: No COPD: Yes Cerebrovascular Accident: Yes (TIA) Coronary Artery Disease: No Diabetes: No Diminished Hearing: Yes Endocrine: No GERD: No Genitourinary: No Hiatal Hernia: No Immune Disorder: No Kidney Stones: No Musculoskeletal: Yes (VIKINGS SYNDROME) Neurologic: Yes Psychiatric: No Reproductive: No Respiratory: Yes Immunizations Current: No Migraines: No Radiation Therapy: No Renal Failure: No Seizures: No Sickle Cell Disease: No Sleep Apnea: No Thyroid Disease: No Ulcer: No Tetanus Vaccination: < 5 Years Influenza Vaccination: Yes Past Surgical History Narrative Surgical The patient's past surgical history is significant for hernia repair 2, left foot surgery, multiple chest tube placements on the right side. Abdominal Surgery: Yes (HERNIA REPAIR X2) AICD: No Arteriovenous Shunt: No Cardiac Surgery: No Ear Surgery: No Endocrine Surgery: No Eye Surgery: No Genitourinary Surgery: No Gynecologic Surgery: No Insulin Pump: No Joint Replacement: No Oral Surgery: No Pacemaker: No Thoracic Surgery: No Other Surgery: Yes (CHEST TUBES X 4, VALVES TO RIGHT LUNG LOBE) Social History Alcohol Use: No Tobacco Use: No Substance Use: No Allergies-Medications (Allergen,Severity, Reaction): Coded Allergies: penicillin G (Unverified Allergy, Intermediate, RASH, 06/06/17) Reported Meds & Prescriptions Reported Meds & Active Scripts Active Walker/Adult/Folding (Device) 1 Mis Mis Ea .ROUTE DIRECTED Reported Famotidine 20 Mg Tab 20 Mg PO BID Symbicort Inh (Budesonide/Formoterol Fumarate) 160-4.5 Mcg/Act Aero 1 Puff INH Q12HR Duoneb (Ipratropium-Albuterol Neb) 0.5-2.5 Mg/3 Ml Neb 1 Nebule INH Q4HR NEB Oxycodone (Oxycodone HCl) 5 Mg Cap 5 Mg PO Q4H PRN Tylenol (Acetaminophen) 325 Mg Tab 650 Mg PO Q4H PRN Metoprolol Tartrate 25 Mg Tab 25 Mg PO BID Guaifenesin 400 Mg Tab 600 Mg PO BID Flonase Allergy Relief (Fluticasone Propionate) 50 Mcg/Actuation [place].susp 1 [place] NA DAILY Lovenox Inj (Enoxaparin Sodium) 40 Mg/0.4 Ml Syr 40 Mg SQ DAILY Spiriva Handihaler (Tiotropium Inh) 18 Mcg Cap 18 Mcg INH DAILY 1 capsule = 18 mcg Physical Exam Narrative General: The patient is a well-developed well-nourished male in no acute distress. Currently on 4 L nasal cannula O2 and saturating between 95-99%. The patient is reportedly on nasal cannula O2 at his [facility]. Head and Neck exam: Head is normocephalic atraumatic. Eyes: EOMI, pupils are equal round and reactive to light. Nose: Midline septum with pink mucous membranes Mouth: Dentition unremarkable. Moist mucus membranes. Posterior oropharynx is not erythematous. No tonsillar hypertrophy. Uvula midline. Airway patent. Neck: No palpable lymphadenopathy. No nuchal rigidity. No thyromegaly. Cardiovascular: Regular rate and rhythm without murmurs, gallops, or rubs. No pulse deficit to the extremities on simultaneous auscultation and palpation of his radial artery. Lungs: Decreased air movement in bilateral lung bases, worse on the right compared to the left with soft expiratory wheezes audible. No significant accessory muscle use noted. The patient is slightly tachypneic. The patient has no paroxysmal abdominal breathing, tripoding, or conversational dyspnea. The patient has a bandage in place along the right lateral chest. The patient is noted to have subcutaneous emphysema on palpation bilaterally worse on the right compared to the left. The bandage was gently removed and the patient was noted to have a 1 cm wound that is healing well. No drainage noted. The bandage was reapplied. Abdomen: Soft, without tenderness to palpation in all 4 quadrants of the abdomen. No guarding, rebound, or rigidity. Normal bowel sounds are audible. No tenderness on palpation of McBurney's point. Negative High sign. Extremities: No clubbing, cyanosis, or edema. 2+ pulses in all 4 extremities. No calf tenderness on palpation. Back: No spinous process tenderness to palpation. No costovertebral angle tenderness to palpation. Neurologic Exam: Grossly nonfocal. Skin Exam: No rash noted. Intact skin that is warm and dry. Data Data Last Documented VS Vital Signs Date Time Temp Pulse Resp B/P (MAP) Pulse Ox O2 Delivery O2 Flow Rate FiO2 06/06/17 22:39 99 Nasal Cannula 4.00 06/06/17 22:39 22 06/06/17 21:43 90 06/06/17 21:36 98.5 120/67 (84) Orders Orders Complete Blood Count With Diff (06/06/17 22:04) Comprehensive Metabolic Panel (06/06/17 22:04) B-Type Natriuretic Peptide (06/06/17 22:04) Act Partial Throm Time (Ptt) (06/06/17 22:04) Prothrombin Time / Inr (Pt) (06/06/17 22:04) Magnesium (Mg) (06/06/17 22:04) Ckmb (Isoenzyme) Profile (06/06/17 22:04) Troponin I (06/06/17 22:04) Blood Culture (06/06/17 22:04) Iv Access Insert/Monitor (06/06/17 22:04) Electrocardiogram (06/06/17 22:04) Ecg Monitoring (06/06/17 22:04) Oximetry (06/06/17 22:04) Oxygen Administration (06/06/17 22:04) Chest, Single Ap (06/06/17 22:04) Sodium Chloride 0.9% Flush (Ns Flush) (06/06/17 22:15) Lactic Acid Sepsis Protocol (06/06/17 22:04) Sodium Chloride 0.9% Flush (Ns Flush) (06/06/17 22:15) Albuterol-Ipratropium Neb (Duoneb Neb) (06/06/17 22:15) Labs Laboratory Tests Test 06/06/17 22:27 White Blood Count 8.5 TH/MM3 Red Blood Count 3.62 MIL/MM3 Hemoglobin 11.1 GM/DL Hematocrit 33.3 % Mean Corpuscular Volume 92.2 FL Mean Corpuscular Hemoglobin 30.6 PG Mean Corpuscular Hemoglobin Concent 33.2 % Red Cell Distribution Width 14.2 % Platelet Count 291 TH/MM3 Mean Platelet Volume 7.2 FL Neutrophils (%) (Auto) 71.5 % Lymphocytes (%) (Auto) 14.9 % Monocytes (%) (Auto) 10.4 % Eosinophils (%) (Auto) 2.7 % Basophils (%) (Auto) 0.5 % Neutrophils # (Auto) 6.1 TH/MM3 Lymphocytes # (Auto) 1.3 TH/MM3 Monocytes # (Auto) 0.9 TH/MM3 Eosinophils # (Auto) 0.2 TH/MM3 Basophils # (Auto) 0.0 TH/MM3 CBC Comment DIFF FINAL Differential Comment Prothrombin Time 9.9 SEC Prothromb Time International Ratio 1.0 RATIO Activated Partial Thromboplast Time 24.1 SEC Blood Urea Nitrogen 12 MG/DL Creatinine 0.43 MG/DL Random Glucose 155 MG/DL Total Protein 5.7 GM/DL Albumin 2.3 GM/DL Calcium Level 8.1 MG/DL Magnesium Level 1.9 MG/DL Alkaline Phosphatase 72 U/L Aspartate Amino Transf (AST/SGOT) 14 U/L Alanine Aminotransferase (ALT/SGPT) 26 U/L Total Bilirubin 0.1 MG/DL Sodium Level 143 MEQ/L Potassium Level 4.0 MEQ/L Chloride Level 99 MEQ/L Carbon Dioxide Level 39.4 MEQ/L Anion Gap 5 MEQ/L Estimat Glomerular Filtration Rate 201 ML/MIN Lactic Acid Level 1.2 mmol/L Total Creatine Kinase 25 U/L Troponin I LESS THAN 0.02 NG/ML B-Type Natriuretic Peptide 23 PG/ML MDM Medical Decision Making Medical Screen Exam Complete: Yes Emergency Medical Condition: Yes Medical Record Reviewed: Yes Differential Diagnosis COPD exacerbation, versus recurrent pneumothorax, versus pneumonia Narrative Course During the course of the patient's emergency department visit, the patient's history, examination, and differential diagnosis were reviewed with the patient. The patient was placed on a cardiac surgeon with oximetry and frequent blood pressure monitoring. The patient had IV access obtained and blood work sent for analysis. An EKG is done on arrival that shows a sinus tachycardia rate of 106, with occasional premature atrial complexes, QRS duration is 86 ms, QTC [address] segment elevation. T waves are inverted in aVL and V1. The patient was initially provided a DuoNeb 1. The patient's laboratory studies were reviewed and remarkable for a white count of 8.5, hemoglobin 11.1, platelets 291 was 71.5 neutrophils, monocytes 10.4, CMP is remarkable for CO2 39.4, creatinine 0.43, glucose 135, calcium 8.1, total bilirubin 0.1, magnesium 1.9, AST 14, cardiac enzymes within normal limits , BNP 23, albumin 2.3, lactic acid 1.2. PT 9.9, PTT 24.1. Radiology studies were reviewed and remarkable for a chest x-ray that shows minimal subcutaneous air remains on both the right and the left without pneumothorax, minimal pleural thickening of the left base with minimal consolidative changes, mild peribronchial thickening on the right. The patient has remained stable during his emergency department visit. The patient was resting comfortably and actually fell asleep at one point. His vital signs have remained stable. The patient will be discharged back to his long term facility for continued rehabilitation. The patient is resting comfortably and feels better, is alert and in no distress. The patient's results and examination findings were discussed with the patient. The repeat examination is unremarkable and benign. The history, exam, diagnostic testing, and current condition do not suggest any significant pathology to warrant further testing, continued ED treatment, admission, or surgical evaluation at this point. The vital signs have been stable. The patient does not have uncontrollable pain, intractable vomiting, or other significant symptoms. The patient's condition is stable and appropriate for discharge. The patient will pursue further outpatient evaluation with a primary care physician or other designated or consulting physician as indicated in the discharge instructions. The patient expressed understanding and was agreeable with this plan. Diagnosis Primary Impression: COPD (chronic obstructive pulmonary disease) Qualified Codes: J43.9 - Emphysema, unspecified Referrals: Primary Care Physician 2 days Patient Instructions: COPD (Chronic Obstructive Pulmonary Disease) (ED), General Instructions Med/Other Pt SpecificInfo: No Change to Meds Disposition: 03 DISCHARGE TO SNF Condition: Selma Tripathi MD Jun 06, 2017 22:12
[2017-06-06] MEDS ORDERED: RESP: ALBUTEROL 2.5 MG/IPRATROPIUM 0.5 MG NEB (SCH) INH ONE (22:15)
[2017-06-06] MEDS ORDERED: SODIUM CHLORIDE 0.9% FLUSH 10 ML FLUSH IVF PRN ×2 (22:15)
--- NOTE | 2017-06-06 22:37 | RADRPT ---
EXAM DATE/TIME: 06/06/2017 22:16 [facility] COMPARISON: CHEST SINGLE AP, May 24, 2017, 5:21. INDICATIONS : Shortness of breath for one day. MEDICAL HISTORY : Chronic obstructive pulmonary disease. Emphysema. Former smoker. SURGICAL HISTORY : None. ENCOUNTER: Initial ACUITY: 1 day PAIN SCORE: 0/10 LOCATION: Bilateral chest FINDINGS: Minimal subcutaneous air remains on both the right and the left without pneumothorax. Minimal pleura l thickening left base with minimal consolidative changes. Mild peribronchial thickening on the righ t. CONCLUSION: Significant improvement when compared to 05/24/2017 with minimal subcutaneous emphysem a present. Jose Luis Lopez MD FACR on June 06, 2017 at 22:33 Board Certified Radiologist. This report was verified electronically.
[2017-06-06 22:39] VITALS: RESP 22; O2SAT 99
[2017-06-06 23:11] LABS: ALBUMIN 2.3 GM/DL (3.4-5.0); ALT (GPT) 26 U/L (12-78); AST (GOT) 14 U/L (15-37); BICARBONATE 39.4 MEQ/L (21.0-32.0); BLOOD UREA NITROGEN 12 MG/DL (7-18); CALCIUM 8.1 MG/DL (8.5-10.1); CHLORIDE 99 MEQ/L (98-107); CREATININE 0.43 MG/DL (0.60-1.30); GLOMERULAR FILTRATION RATE 201 ML/MIN (>89); GLUCOSE,RANDOM 155 MG/DL (74-106); MAGNESIUM 1.9 MG/DL (1.5-2.5); PROTHROMBIN TIME - PATIENT 9.9 SEC (9.8-11.6); SODIUM (NA) 143 MEQ/L (136-145)
[2017-06-06 23:15] LABS: ALKALINE PHOSPHATASE 72 U/L (45-117); TOTAL BILIRUBIN ADULT 0.1 MG/DL (0.2-1.0); TOTAL PROTEIN 5.7 GM/DL (6.4-8.2); TROPONIN I LESS THAN 0.02 NG/ML (0.02-0.05)
[2017-06-06 23:56] LABS: AUTOMATED NEUTROPHIL # 6.1 TH/MM3 (1.8-7.7); BASOPHIL % 0.5 % (0.0-2.0); EOSINOPHIL # 0.2 TH/MM3 (0-0.4); EOSINOPHIL % 2.7 % (0.0-4.0); HEMATOCRIT 33.3 % (39.0-51.0); HEMOGLOBIN 11.1 GM/DL (13.0-17.0); LYMPH % 14.9 % (9.0-44.0); LYMPHOCYTE # 1.3 TH/MM3 (1.0-4.8); MEAN CELL VOLUME 92.2 FL (80.0-100.0); MEAN CORPUSCULAR HEMOGLOBIN 30.6 PG (27.0-34.0); MEAN CORPUSCULAR HGB CONC 33.2 % (32.0-36.0); MEAN PLATELET VOLUME 7.2 FL (7.0-11.0); MONO % 10.4 % (0.0-8.0); MONOCYTE # 0.9 TH/MM3 (0-0.9); NEUT % 71.5 % (16.0-70.0); PLATELET COUNT 291 TH/MM3 (150-450); RED BLOOD COUNT 3.62 MIL/MM3 (4.50-5.90); RED CELL DISTRIBUTION WIDTH 14.2 % (11.6-17.2); WHITE BLOOD COUNT 8.5 TH/MM3 (4.0-11.0)
[2017-06-07] VITALS: BP 96/67; PULSE 98; RESP 19; O2SAT 97
[2017-06-07 01:00] VITALS: BP 93/57; PULSE 96; RESP 19; O2SAT 98
[2017-06-07 02:00] VITALS: BP 112/79; PULSE 98; RESP 17; O2SAT 96
[2017-06-07 03:00] VITALS: BP 104/72; PULSE 105; RESP 20; O2SAT 96
[2017-06-07 08:14] VITALS: O2SAT 96
[2017-06-07 08:24] VITALS: BP 120/77
[2017-06-07] MEDS ORDERED: RESP: ALBUTEROL 2.5 MG/3 ML NEB (SCH) INH ONE (09:45)
--- NOTE | 2017-06-08 00:19 | EKG ---
Date Performed: 06/06/2017 Time Performed: 21:54:14 PTAGE: 61 years EKG: Sinus rhythm Diffuse ST cHanges PREVIOUS TRACING : 05/15/2017 18.29 DOCTOR: Sparkle Mccain Interpretating Date/Time 06/08/2017 00:10:13
== END 2017-06-07 19:13 ==
LOC: NEPC 21:32 → NEPD 06-07 19:13
DX: J43.9 Emphysema, unspecified (principal); Z99.81 Dependence on supplemental oxygen; Z85.828 Personal history of other malignant neoplasm of skin; Z86.73 Personal history of transient ischemic attack (TIA), and cerebral infarction without residual deficits; Z87.891 Personal history of nicotine dependence; Z88.0 Allergy status to penicillin; Z79.899 Other long term (current) drug therapy
CPT/HCPCS: 71045; 80053; 82550; 83605; 83735; 83880; 84484; 85025; 85610; 85730; 87040; 93005; 94664; 99285; J7613

== ENCOUNTER 2017-12-26 23:00 | Inpatient (IN) ==
[2017-12-26] MEDS ORDERED: MethylPREDNISolone Sod Succinate Inj 125 MG/2 ML Vial IV.PUSH ONE (23:06)
[2017-12-26 23:21] LABS: Baso # (Auto) 0.1 th/mm3 (0.0-0.2); Baso % (Auto) 0.6 % (0.0-2.0); Eos # (Auto) 0.4 th/mm3 (0.0-0.4); Eos % (Auto) 5.1 % (0.0-4.0); Hematocrit 38.5 % (39.0-51.0); Hemoglobin 12.6 gm/dL (13.0-17.0); Lymph # (Auto) 1.9 th/mm3 (1.0-4.8); Lymph % (Auto) 21.9 % (9.0-44.0); Mean Corpuscular HGB Conc 32.6 % (32.0-36.0); Mean Corpuscular Hemoglobin 30.1 pg (27.0-34.0); Mean Corpuscular Volume 92.2 fL (80.0-100.0); Mean Platelet Volume 7.4 fL (7.0-11.0); Mono # (Auto) 0.6 th/mm3 (0.0-0.9); Mono % (Auto) 6.8 % (0.0-8.0); Neut # (Auto) 5.6 th/mm3 (1.8-7.7); Neut % (Auto) 65.6 % (16.0-70.0); Platelet Count 238 th/mm3 (150-450); Red Blood Count 4.18 mil/mm3 (4.50-5.90); Red Cell Distribution Width 14.2 % (11.6-17.2); White Blood Count 8.5 th/mm3 (4.0-11.0)
[2017-12-26 23:34] LABS: ABG Base Excess 10.5 mmol/L (-2-2); ABG PCO2 77 mmHg (38-42); ABG PO2 89 mmHg (61-120)
[2017-12-26 23:35] LABS: Albumin 3.2 g/dL (3.4-5.0); Anion Gap 3 meq/L (5-15); Aspartate Aminotransferase 17 U/L (15-37); Blood Urea Nitrogen 16 mg/dL (7-18); Calcium 8.1 mg/dL (8.5-10.1); Carbon Dioxide 37.9 meq/L (21.0-32.0); Chloride 102 meq/L (98-107); Glomerular Filtration Rate Greater Than 89 mL/min (>89); Glucose,Random 101 mg/dL (74-106); Potassium 4.2 meq/L (3.5-5.1); Sodium 143 meq/L (136-145)
[2017-12-26 23:36] LABS: Alanine Aminotransferase 20 U/L (12-78)
[2017-12-26 23:38] LABS: Alkaline Phosphatase 96 U/L (45-117); Total Protein 6.5 g/dL (6.4-8.2)
--- NOTE | 2017-12-26 23:48 | XR ---
EXAM DATE: 12/26/2017 11:06 PM EDT AGE/SEX: 61 years / Male INDICATIONS: Chest pain, shortness of breath. CLINICAL DATA: This is the patient's initial encounter. Patient reports that signs and symptoms have been present for 1 week and indicates a pain score of 4/10. MEDICAL/SURGICAL HISTORY: Chronic obstructive pulmonary disease. None. COMPARISON: [facility] [place]ST SINGLE AP, 06/06/2017. . FINDINGS: The cardiac silhouette is normal in transverse diameter.. Emphysematous changes are present in both u pper lobes. There is parenchymal scarring bilaterally. No pleural effusions are identified. There is prominence of the aortic knob is with calcification characteristic of atherosclerotic vascular diseas e. CONCLUSION: No acute cardiopulmonary disease. Findings of COPD. Electronically signed by: Monroe Saeed MD 12/26/2017 11:47 PM EDT
[2017-12-27] MEDS ORDERED: Acetaminophen 325 MG Tablet PO PRN (00:49)
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
[2017-12-27] MEDS ORDERED: Dextrose 50% in Water 50 ML Vial IV.PUSH PRN (01:29)
[2017-12-27] MEDS: Enoxaparin Inj 40 MG/0.4 ML Syringe SQ SCH (01:32)
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
[2017-12-27] MEDS: Chlorhexidine Gluconate 2% 1 Pack (2 Cloths) TOPICAL SCH (03:05)
[2017-12-27] MEDS ORDERED: Chlorhexidine Gluconate 2% 1 Pack (2 Cloths) TOPICAL PRN (04:00)
[2017-12-27] MEDS: Insulin NovoLOG Aspart Correctional Sugar Inj SQ SCH ×4 (07:39→21:19)
[2017-12-27] MEDS: Famotidine PF Inj 20 MG/2 ML Vial IV.PUSH SCH ×2 (08:53→21:19)
[2017-12-27 08:58] LABS: Baso % (Auto) 0.1 % (0.0-2.0); Hematocrit 37.4 % (39.0-51.0); Hemoglobin 12.4 gm/dL (13.0-17.0); Lymph # (Auto) 0.4 th/mm3 (1.0-4.8); Lymph % (Auto) 6.3 % (9.0-44.0); Mean Corpuscular HGB Conc 33.1 % (32.0-36.0); Mean Corpuscular Hemoglobin 30.2 pg (27.0-34.0); Mean Corpuscular Volume 91.2 fL (80.0-100.0); Mean Platelet Volume 7.6 fL (7.0-11.0); Mono # (Auto) 0.1 th/mm3 (0.0-0.9); Mono % (Auto) 0.9 % (0.0-8.0); Neut # (Auto) 6.3 th/mm3 (1.8-7.7); Neut % (Auto) 92.7 % (16.0-70.0); Platelet Count 205 th/mm3 (150-450); Red Blood Count 4.11 mil/mm3 (4.50-5.90); Red Cell Distribution Width 14.3 % (11.6-17.2); White Blood Count 6.8 th/mm3 (4.0-11.0)
[2017-12-27] MEDS ORDERED: MethylPREDNISolone Sod Succinate Inj 40 MG/ML Vial IV.PUSH SCH (09:00)
[2017-12-27 09:21] LABS: Albumin 3.1 g/dL (3.4-5.0); Anion Gap 6 meq/L (5-15); Aspartate Aminotransferase 11 U/L (15-37); Blood Urea Nitrogen 13 mg/dL (7-18); Calcium 8.3 mg/dL (8.5-10.1); Carbon Dioxide 33.2 meq/L (21.0-32.0); Chloride 99 meq/L (98-107); Glomerular Filtration Rate Greater Than 89 mL/min (>89); Glucose,Random 199 mg/dL (74-106); Potassium 4.4 meq/L (3.5-5.1); Sodium 138 meq/L (136-145)
[2017-12-27 09:22] LABS: Alanine Aminotransferase 19 U/L (12-78); Phosphorus 2.8 mg/dL (2.5-4.9)
[2017-12-27 09:24] LABS: Alkaline Phosphatase 91 U/L (45-117); Total Protein 6.6 g/dL (6.4-8.2)
[2017-12-27] MEDS: Budesonide-Formoterol 160/4.5 MCG 6 GM Inhaler INH SCH (09:44)
[2017-12-27] MEDS: Tiotropium Bromide 18 MCG/ACT Inhaler INH SCH (09:44)
[2017-12-27 09:59] LABS: ABG Base Excess 9.4 mmol/L (-2-2); ABG PCO2 66 mmHg (38-42); ABG PO2 78 mmHG (61-120)
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
[2017-12-27] MEDS: MethylPREDNISolone Sod Succinate Inj 40 MG/ML Vial IV.PUSH SCH ×2 (14:31→21:19)
--- NOTE | 2017-12-27 16:12 | ECG ---
Date Performed: 12/26/2017 Time Performed: 23:12:58 PTAGE: 61 years EKG: ATRIAL FLUTTER/TACHYCARDIA WITH RAPID VENTRICULAR RESPONSE MARKED LEFT AXIS DEVIATION ABNOR MAL ECG PREVIOUS TRACING :06/06/2017 @21.54 Compared to previous tracing, left axis deviation is new. DOCTOR: Piotr Lima Interpretating Date/Time 12/27/2017 16:10:46
[2017-12-28] MEDS: Enoxaparin Inj 40 MG/0.4 ML Syringe SQ SCH (01:26)
[2017-12-28] MEDS: Budesonide-Formoterol 160/4.5 MCG 6 GM Inhaler INH SCH ×3 (01:34→20:14)
--- NOTE | 2017-12-28 04:40 | XR ---
EXAM DATE: 12/28/2017 5:00 AM EDT AGE/SEX: 61 years / Male INDICATIONS: Short of breath. CLINICAL DATA: This is the patient's subsequent encounter. Patient reports that signs and symptoms h ave been present for 1 week and indicates a pain score of 0/10. MEDICAL/SURGICAL HISTORY: Chronic obstructive pulmonary disease. None. [place] [facility] [place]. . FINDINGS: The cardiac silhouette is normal in transverse diameter. There are chronic fibrotic changes bilateral ly. There has been no significant change when compared to the prior exam. There is no evidence of pn eumonia. Metallic coils projected over the right hilum. CONCLUSION: Findings of COPD. No acute cardiopulmonary disease. Electronically signed by: Monroe Saeed MD 12/28/2017 4:38 AM EDT
[2017-12-28] MEDS: Chlorhexidine Gluconate 2% 1 Pack (2 Cloths) TOPICAL SCH (05:10)
[2017-12-28] MEDS: MethylPREDNISolone Sod Succinate Inj 40 MG/ML Vial IV.PUSH SCH ×3 (05:19→22:15)
[2017-12-28 06:08] LABS: Baso % (Auto) 0.2 % (0.0-2.0); Hematocrit 37.3 % (39.0-51.0); Hemoglobin 12.2 gm/dL (13.0-17.0); Lymph # (Auto) 0.6 th/mm3 (1.0-4.8); Lymph % (Auto) 10.5 % (9.0-44.0); Mean Corpuscular HGB Conc 32.8 % (32.0-36.0); Mean Corpuscular Hemoglobin 30.1 pg (27.0-34.0); Mean Platelet Volume 8.3 fL (7.0-11.0); Mono # (Auto) 0.6 th/mm3 (0.0-0.9); Mono % (Auto) 10.3 % (0.0-8.0); Neut # (Auto) 4.5 th/mm3 (1.8-7.7); Platelet Count 223 th/mm3 (150-450); Red Blood Count 4.05 mil/mm3 (4.50-5.90); Red Cell Distribution Width 14.1 % (11.6-17.2); White Blood Count 5.7 th/mm3 (4.0-11.0)
[2017-12-28 06:24] LABS: Alanine Aminotransferase 17 U/L (12-78); Phosphorus 3.1 mg/dL (2.5-4.9)
[2017-12-28 06:27] LABS: Alkaline Phosphatase 83 U/L (45-117); Total Protein 6.6 g/dL (6.4-8.2)
[2017-12-28 06:39] LABS: Albumin 3.3 g/dL (3.4-5.0); Anion Gap 5 meq/L (5-15); Aspartate Aminotransferase 12 U/L (15-37); Blood Urea Nitrogen 15 mg/dL (7-18); Calcium 9.1 mg/dL (8.5-10.1); Chloride 100 meq/L (98-107); Glomerular Filtration Rate Greater Than 89 mL/min (>89); Glucose,Random 117 mg/dL (74-106); Magnesium 2.3 mg/dL (1.5-2.5); Potassium 4.4 meq/L (3.5-5.1); Sodium 141 meq/L (136-145)
[2017-12-28] MEDS: Insulin NovoLOG Aspart Correctional Sugar Inj SQ SCH ×4 (07:53→20:13)
[2017-12-28] MEDS: Famotidine PF Inj 20 MG/2 ML Vial IV.PUSH SCH (08:18)
[2017-12-28] MEDS: Tiotropium Bromide 18 MCG/ACT Inhaler INH SCH (08:20)
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
[2017-12-28] MEDS ORDERED: ALPHA D GALACTOSIDASE PO PRN (11:27)
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
[2017-12-28] MEDS: Famotidine 20 MG Tablet PO SCH (20:13)
[2017-12-29] MEDS: Enoxaparin Inj 40 MG/0.4 ML Syringe SQ SCH (01:08)
[2017-12-29] MEDS: Chlorhexidine Gluconate 2% 1 Pack (2 Cloths) TOPICAL SCH (03:24)
--- NOTE | 2017-12-29 04:21 | XR ---
EXAM DATE: 12/29/2017 6:00 AM EDT AGE/SEX: 62 years / Male INDICATIONS: Short of breath. CLINICAL DATA: This is the patient's subsequent encounter. Patient reports that signs and symptoms h ave been present for 1 week and indicates a pain score of 0/10. MEDICAL/SURGICAL HISTORY: Chronic obstructive pulmonary disease. None. COMPARISON: C, CHEST 1V SINGLE AP, 12/28/2017. . FINDINGS: The cardiac silhouette is normal in transverse diameter. There is prominence of the aortic knob is wi th calcification characteristic of atherosclerotic vascular disease. There are chronic fibrotic aj es bilaterally. There is no evidence of pneumonia. CONCLUSION: No acute cardiopulmonary disease. Findings of COPD. Electronically signed by: Monroe Saeed MD 12/29/2017 4:19 AM EDT
[2017-12-29] MEDS: MethylPREDNISolone Sod Succinate Inj 40 MG/ML Vial IV.PUSH SCH ×2 (05:02→21:09)
[2017-12-29 07:49] LABS: Baso % (Auto) 0.2 % (0.0-2.0); Hematocrit 35.5 % (39.0-51.0); Hemoglobin 11.7 gm/dL (13.0-17.0); Lymph # (Auto) 0.6 th/mm3 (1.0-4.8); Lymph % (Auto) 9.5 % (9.0-44.0); Mean Corpuscular HGB Conc 33.1 % (32.0-36.0); Mean Corpuscular Hemoglobin 30.1 pg (27.0-34.0); Mean Corpuscular Volume 91.1 fL (80.0-100.0); Mean Platelet Volume 8.5 fL (7.0-11.0); Mono # (Auto) 0.5 th/mm3 (0.0-0.9); Mono % (Auto) 8.5 % (0.0-8.0); Neut # (Auto) 5.3 th/mm3 (1.8-7.7); Neut % (Auto) 81.8 % (16.0-70.0); Platelet Count 215 th/mm3 (150-450); Red Blood Count 3.89 mil/mm3 (4.50-5.90); Red Cell Distribution Width 14.2 % (11.6-17.2); White Blood Count 6.4 th/mm3 (4.0-11.0)
[2017-12-29 08:14] LABS: Alanine Aminotransferase 15 U/L (12-78); Albumin 3.1 g/dL (3.4-5.0); Anion Gap 4 meq/L (5-15); Aspartate Aminotransferase 7 U/L (15-37); Blood Urea Nitrogen 22 mg/dL (7-18); Calcium 8.8 mg/dL (8.5-10.1); Chloride 100 meq/L (98-107); Glomerular Filtration Rate Greater Than 89 mL/min (>89); Glucose,Random 131 mg/dL (74-106); Magnesium 2.3 mg/dL (1.5-2.5); Sodium 141 meq/L (136-145)
[2017-12-29 08:15] LABS: Phosphorus 2.9 mg/dL (2.5-4.9)
[2017-12-29 08:17] LABS: Alkaline Phosphatase 76 U/L (45-117); Total Protein 6.1 g/dL (6.4-8.2)
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
[2017-12-29] MEDS ORDERED: TIOTROPIUM BROMIDE INH SCH (09:00)
[2017-12-29] MEDS: Insulin NovoLOG Aspart Correctional Sugar Inj SQ SCH ×4 (10:23→21:13)
[2017-12-29] MEDS: Budesonide-Formoterol 160/4.5 MCG 6 GM Inhaler INH SCH ×2 (10:24→21:10)
[2017-12-29] MEDS: Famotidine 20 MG Tablet PO SCH ×2 (10:24→21:09)
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
[2017-12-30] MEDS: Enoxaparin Inj 40 MG/0.4 ML Syringe SQ SCH (01:10)
[2017-12-30] MEDS: Chlorhexidine Gluconate 2% 1 Pack (2 Cloths) TOPICAL SCH (03:46)
[2017-12-30] MEDS: MethylPREDNISolone Sod Succinate Inj 40 MG/ML Vial IV.PUSH SCH (09:02)
[2017-12-30] MEDS: Famotidine 20 MG Tablet PO SCH ×2 (09:02→22:13)
[2017-12-30] MEDS: Budesonide-Formoterol 160/4.5 MCG 6 GM Inhaler INH SCH ×2 (09:03→22:14)
[2017-12-30] MEDS: Insulin NovoLOG Aspart Correctional Sugar Inj SQ SCH ×4 (09:03→22:13)
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
[2017-12-30] MEDS: predniSONE 10 MG Tablet PO SCH (22:13)
[2017-12-31] MEDS: Enoxaparin Inj 40 MG/0.4 ML Syringe SQ SCH (02:13)
[2017-12-31] MEDS: Chlorhexidine Gluconate 2% 1 Pack (2 Cloths) TOPICAL SCH (05:43)
[2017-12-31] MEDS: Famotidine 20 MG Tablet PO SCH ×2 (08:37→21:27)
[2017-12-31] MEDS: predniSONE 10 MG Tablet PO SCH ×2 (08:37→21:27)
[2017-12-31] MEDS: Insulin NovoLOG Aspart Correctional Sugar Inj SQ SCH ×4 (08:46→21:29)
[2017-12-31] MEDS: Budesonide-Formoterol 160/4.5 MCG 6 GM Inhaler INH SCH ×2 (10:27→21:27)
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
[2018-01-01] MEDS: Enoxaparin Inj 40 MG/0.4 ML Syringe SQ SCH (00:37)
[2018-01-01 05:10] VITALS: O2SAT 94
[2018-01-01 05:49] VITALS: PULSE 99; RESP 20
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
[2018-01-01 08:55] VITALS: BP 123/80; TEMP 97.7
[2018-01-01] MEDS: Insulin NovoLOG Aspart Correctional Sugar Inj SQ SCH (08:59)
[2018-01-01] MEDS ORDERED: levoFLOXacin 750 MG Tablet PO SCH (09:00)
[2018-01-01] MEDS: Budesonide-Formoterol 160/4.5 MCG 6 GM Inhaler INH SCH (09:00)
[2018-01-01] MEDS: predniSONE 10 MG Tablet PO SCH (09:00)
[2018-01-01] MEDS: Famotidine 20 MG Tablet PO SCH (09:00)
[2018-01-01] MEDS ORDERED: Sodium Chloride 0.9% 2 ML Flush PRN IV.FLUSH (11:32)
[2018-01-01] MEDS ORDERED: Sodium Chloride 0.9% 2 ML Flush BID IV.FLUSH SCH (21:00)
== END 2018-01-01 12:05 | disposition short-term general hospital (02) ==
LOC: NEPC 23:00 → NEDA 12-27 00:20 → HIMC 12-27 01:35 → N04 12-29 14:30
PROVIDERS: ADMIT Internal Medicine; ATTEND Internal Medicine

== ENCOUNTER 2018-01-04 13:28 | Inpatient (IN) ==
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
[2018-01-05] MEDS: Budesonide-Formoterol 160/4.5 MCG 6 GM Inhaler INH SCH ×2 (08:12→21:10)
[2018-01-05] MEDS: Tiotropium Bromide 18 MCG/ACT Inhaler INH SCH (08:13)
[2018-01-05] MEDS: Metoprolol Tartrate 25 MG Tablet PO SCH ×2 (08:15→21:08)
[2018-01-05] MEDS: Famotidine 20 MG Tablet PO SCH ×2 (08:15→21:08)
[2018-01-05] MEDS: Enoxaparin Inj 40 MG/0.4 ML Syringe SQ SCH (08:16)
[2018-01-05] MEDS: predniSONE 20 MG Tablet PO SCH (08:16)
[2018-01-05 09:47] LABS: Baso % (Auto) 0.1 % (0.0-2.0); Eos # (Auto) 0.6 th/mm3 (0.0-0.4); Eos % (Auto) 6.4 % (0.0-4.0); Hematocrit 37.2 % (39.0-51.0); Hemoglobin 12.4 gm/dL (13.0-17.0); Lymph % (Auto) 20.9 % (9.0-44.0); Mean Corpuscular HGB Conc 33.4 % (32.0-36.0); Mean Corpuscular Hemoglobin 30.5 pg (27.0-34.0); Mean Corpuscular Volume 91.2 fL (80.0-100.0); Mean Platelet Volume 7.6 fL (7.0-11.0); Mono # (Auto) 0.9 th/mm3 (0.0-0.9); Mono % (Auto) 9.9 % (0.0-8.0); Neut % (Auto) 62.7 % (16.0-70.0); Platelet Count 246 th/mm3 (150-450); Red Blood Count 4.08 mil/mm3 (4.50-5.90); Red Cell Distribution Width 14.6 % (11.6-17.2); White Blood Count 9.6 th/mm3 (4.0-11.0)
[2018-01-05 10:13] LABS: Anion Gap 1 meq/L (5-15); Blood Urea Nitrogen 18 mg/dL (7-18); Calcium 8.2 mg/dL (8.5-10.1); Carbon Dioxide 40.2 meq/L (21.0-32.0); Chloride 100 meq/L (98-107); Glomerular Filtration Rate Greater Than 89 mL/min (>89); Glucose,Random 112 mg/dL (74-106); Potassium 3.6 meq/L (3.5-5.1); Sodium 141 meq/L (136-145)
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
[2018-01-05] MEDS: guaiFENesin/Dextromethorphan 200 MG/20 MG 10 ML UDC PO PRN ×2 (15:19→21:18)
[2018-01-05] MEDS: guaiFENesin 600 MG ER Tablet PO SCH (21:08)
[2018-01-06 07:51] LABS: Baso % (Auto) 0.1 % (0.0-2.0); Eos # (Auto) 0.4 th/mm3 (0.0-0.4); Eos % (Auto) 4.6 % (0.0-4.0); Hematocrit 34.6 % (39.0-51.0); Lymph % (Auto) 22.9 % (9.0-44.0); Mean Corpuscular HGB Conc 34.7 % (32.0-36.0); Mean Corpuscular Hemoglobin 31.4 pg (27.0-34.0); Mean Corpuscular Volume 90.6 fL (80.0-100.0); Mean Platelet Volume 7.2 fL (7.0-11.0); Mono % (Auto) 11.8 % (0.0-8.0); Neut # (Auto) 5.2 th/mm3 (1.8-7.7); Neut % (Auto) 60.6 % (16.0-70.0); Platelet Count 246 th/mm3 (150-450); Red Blood Count 3.82 mil/mm3 (4.50-5.90); Red Cell Distribution Width 14.7 % (11.6-17.2); White Blood Count 8.6 th/mm3 (4.0-11.0)
[2018-01-06 08:24] LABS: Albumin 2.8 g/dL (3.4-5.0); Anion Gap 4 meq/L (5-15); Aspartate Aminotransferase 12 U/L (15-37); Blood Urea Nitrogen 23 mg/dL (7-18); Calcium 8.1 mg/dL (8.5-10.1); Carbon Dioxide 35.6 meq/L (21.0-32.0); Chloride 103 meq/L (98-107); Glomerular Filtration Rate Greater Than 89 mL/min (>89); Glucose,Random 90 mg/dL (74-106); Magnesium 2.1 mg/dL (1.5-2.5); Potassium 4.2 meq/L (3.5-5.1); Sodium 143 meq/L (136-145)
[2018-01-06 08:25] LABS: Alanine Aminotransferase 24 U/L (12-78); Phosphorus 3.6 mg/dL (2.5-4.9)
[2018-01-06 08:34] LABS: Alkaline Phosphatase 63 U/L (45-117); Free T4 (Free Thyroxine) 1.01 ng/dL (0.76-1.46); Total Protein 5.5 g/dL (6.4-8.2)
[2018-01-06] MEDS: Enoxaparin Inj 40 MG/0.4 ML Syringe SQ SCH (08:49)
[2018-01-06] MEDS: Tiotropium Bromide 18 MCG/ACT Inhaler INH SCH (08:49)
[2018-01-06] MEDS: guaiFENesin 600 MG ER Tablet PO SCH ×2 (08:49→20:39)
[2018-01-06] MEDS: predniSONE 20 MG Tablet PO SCH (08:50)
[2018-01-06] MEDS: Metoprolol Tartrate 25 MG Tablet PO SCH ×2 (08:50→20:39)
[2018-01-06] MEDS: Famotidine 20 MG Tablet PO SCH ×2 (08:50→20:38)
[2018-01-06] MEDS: Budesonide-Formoterol 160/4.5 MCG 6 GM Inhaler INH SCH ×2 (08:51→20:41)
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
[2018-01-06 15:42] LABS: Hemoglobin A1c 5.4 % (4.3-6.0)
[2018-01-06] MEDS: guaiFENesin/Dextromethorphan 200 MG/20 MG 10 ML UDC PO PRN (20:44)
[2018-01-07 07:41] LABS: Baso % (Auto) 0.3 % (0.0-2.0); Eos # (Auto) 0.3 th/mm3 (0.0-0.4); Eos % (Auto) 3.2 % (0.0-4.0); Hematocrit 36.6 % (39.0-51.0); Hemoglobin 12.1 gm/dL (13.0-17.0); Lymph # (Auto) 1.8 th/mm3 (1.0-4.8); Lymph % (Auto) 22.8 % (9.0-44.0); Mean Corpuscular HGB Conc 33.1 % (32.0-36.0); Mean Corpuscular Hemoglobin 30.1 pg (27.0-34.0); Mean Corpuscular Volume 91.1 fL (80.0-100.0); Mean Platelet Volume 7.4 fL (7.0-11.0); Mono # (Auto) 0.8 th/mm3 (0.0-0.9); Mono % (Auto) 10.7 % (0.0-8.0); Platelet Count 252 th/mm3 (150-450); Red Blood Count 4.02 mil/mm3 (4.50-5.90); Red Cell Distribution Width 14.5 % (11.6-17.2); White Blood Count 7.9 th/mm3 (4.0-11.0)
[2018-01-07 08:14] LABS: Anion Gap 5 meq/L (5-15); Aspartate Aminotransferase 14 U/L (15-37); Blood Urea Nitrogen 16 mg/dL (7-18); Calcium 8.5 mg/dL (8.5-10.1); Chloride 104 meq/L (98-107); Glomerular Filtration Rate Greater Than 89 mL/min (>89); Glucose,Random 96 mg/dL (74-106); Sodium 143 meq/L (136-145)
[2018-01-07 08:19] LABS: Alanine Aminotransferase 28 U/L (12-78); Alkaline Phosphatase 62 U/L (45-117); Magnesium 2.5 mg/dL (1.5-2.5); Phosphorus 3.8 mg/dL (2.5-4.9); Total Protein 5.7 g/dL (6.4-8.2)
[2018-01-07] MEDS: Enoxaparin Inj 40 MG/0.4 ML Syringe SQ SCH (08:25)
[2018-01-07] MEDS: Famotidine 20 MG Tablet PO SCH (08:25)
[2018-01-07] MEDS: predniSONE 20 MG Tablet PO SCH (08:26)
[2018-01-07] MEDS: Metoprolol Tartrate 25 MG Tablet PO SCH (08:26)
[2018-01-07] MEDS: guaiFENesin 600 MG ER Tablet PO SCH (08:26)
[2018-01-07] MEDS: Budesonide-Formoterol 160/4.5 MCG 6 GM Inhaler INH SCH (08:27)
[2018-01-07] MEDS: Tiotropium Bromide 18 MCG/ACT Inhaler INH SCH (08:27)
[2018-01-07] MEDS: guaiFENesin/Dextromethorphan 200 MG/20 MG 10 ML UDC PO PRN (08:30)
[2018-01-07 09:12] VITALS: TEMP 97.3
[2018-01-07 13:25] VITALS: BP 130/64; PULSE 103; RESP 18; O2SAT 92
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
== END 2018-01-07 17:56 | disposition home or self-care (01) ==
LOC: N07 23:40
PROVIDERS: ADMIT Hospitalist; ATTEND Hospitalist